=== PATIENT | female | born 1965 | race Caucasian/White ===

== ENCOUNTER 2016-12-23 11:23 | Observation (INO) ==
[2016-12-23] MEDS ORDERED: 0.9 % Sodium Chloride 1,000 ML IVC ONE (11:47)
[2016-12-23] MEDS ORDERED: *HR* HYDROmorphone (PF) 1 MG/ML SYRINGE IVP ONE (11:47)
[2016-12-23] MEDS ORDERED: Pantoprazole 40 MG VIAL IVP ONE (11:47)
[2016-12-23] MEDS ORDERED: *HR* Promethazine 25 MG/ML VIAL IVP ONE (11:47)
[2016-12-23 12:14] LABS: Basophils # 0.1 K/mcL (0.0-0.2); Basophils % 0.5 %; Eosinophils # 0.1 K/mcL (0.0-0.6); Eosinophils % 0.5 %; Hematocrit 39.9 % (35.3-44.9); Hemoglobin 13.4 g/dL (11.5-15.4); Immature Granulocytes % 0.3 % (0-4); Lymphocytes # 2.1 K/mcL (0.6-4.6); Lymphocytes % 15.8 %; Mean Corpuscular HGB Conc 33.6 g/dL (31.6-35.5); Mean Corpuscular Hemoglobin 31.2 pg (28.0-33.3); Mean Platelet Volume 9.1 fL (9.4-12.4); Monocytes # 1.1 K/mcL (0.0-1.3); Monocytes % 8.5 %; Neutrophils # 9.8 K/mcL (1.6-8.9); Platelet Count 454 K/mcL (140-400); Red Blood Count 4.29 M/mcL (3.82-4.97); Red Cell Distribution Width 13.1 % (11.5-14.5); Segmented Neutrophils % 74.4 %
[2016-12-23 12:31] LABS: BUN/Creatinine Ratio 52 (6-26); Blood Urea Nitrogen 49 mg/dL (7-20); Calcium 9.6 mg/dL (8.6-10.8); Carbon Dioxide 19 mEq/L (19-29); Chloride 104 mEq/L (98-109); Glucose 117 mg/dL (70-99); Lipase 31 Units/L (8-78); Magnesium 2.1 mg/dL (1.6-2.6); Osmolality,Calculated 296 (280-300); Potassium 4.6 mEq/L (3.5-4.5); Sodium 136 mEq/L (136-145); eGFR For African Americans > 60 (> 60); eGFR For Non-African Americans > 60 (> 60)
[2016-12-23 12:58] LABS: INR 1.1; Prothrombin Time 11.6 Seconds (9.4-12.1)
[2016-12-23 13:01] LABS: Activated Partial Thrombo Time 26.4 Seconds (26.0-36.0)
[2016-12-23] MEDS ORDERED: Diphenoxylate/Atropine 1 TAB TABLET PO PRN (15:12)
[2016-12-23] MEDS ORDERED: *HR* LORazepam 1 MG TABLET PO PRN (15:14)
[2016-12-23] MEDS ORDERED: Acetaminophen 325 MG TABLET PO PRN (15:49)
[2016-12-23] MEDS: Cholestyramine 4 GM POWD.PACK PO SCH ×2 (15:59→23:49)
[2016-12-23] MEDS: *HR* LORazepam 1 MG TABLET PO SCH ×2 (16:03→21:07)
[2016-12-23] MEDS: Ringers Solution, Lactated 1,000 ML IVC SCH ×2 (16:08→23:53)
[2016-12-23] MEDS ORDERED: Ondansetron 4 MG/2 ML VIAL IVP SCH (18:00)
[2016-12-23] MEDS: Diphenoxylate/Atropine 1 TAB TABLET PO SCH ×2 (18:20→21:08)
[2016-12-23] MEDS: *HR* Methadone 10 MG TABLET PO SCH (19:07)
--- NOTE | 2016-12-23 19:39 | Emergency Department Note ---
Disposition Clinical Impression: GI bleed Qualifiers: GI bleed type/associated pathology: unspecified gastrointestinal hemorrhage type Qualified Code(s): K92.2 - Gastrointestinal hemorrhage, unspecified Disposition: Admitted As Inpatient Condition: Serious Time of Disposition: 12:05 GI Bleed HPI - General Chief complaint: ED GI Bleed Stated complaint: bleeeding out ileostomy Time Seen by Provider: 12/23/16 11:33 Source: patient, family Limitations: no limitations Nursing Notes Reviewed: Yes Vital Signs Reviewed: Yes - History of Present Illness HPI Narrative: 21-year-old female with a history of short bowel syndrome presents with GI bleed patient has ileostomy and PEG tube in place. Patient states that she vomited dark coffee-ground like material times one day ago. He states that since then she is being having dark tarry-like stools in her class ileostomy bag. Patient states she filled up 3 L size containers. Patient also reports the same type of fluid in her PEG tube. Patient complains of abdominal pain but states she is always intelligent pain and is currently on hospice. Patient states that she would like this resolved and swelling to her for undergo treatment inpatient. Patient states her ileostomy is secondary to surgical complication bowel infection and resection secondary to a schedule resection of colon. Patient states Dr. Colunga was the surgeon who performed her surgery just over 2 years ago. - Related Data Home Medications Medication Instructions Recorded Confirmed Albuterol Neb [Proventil Neb] 2.5 mg IH TID 04/07/15 12/23/16 Albuterol Sulfate [Albuterol 2 puff IH Q4HR PRN 04/07/15 12/23/16 Inhaler] Oxygen 2 l NS AD 03/13/16 12/23/16 Promethazine [Phenergan] 25 mg PO Q6HR PRN 03/13/16 12/23/16 Cholestyramine 4 gm PO QID 05/24/16 12/23/16 LORazepam [Ativan] 2 mg PO QID 07/21/16 12/23/16 Amino AC/Whey Prot Conc, Isol 17 gm PO DAILY 12/23/16 12/23/16 [Whey Protein Powder] Calcium Carbonate/Vitamin D3 1 tab PO DAILY 12/23/16 12/23/16 [Calcium 500-Vit D3 200 Tablet] Diphenoxylate/Atropine [Lomotil 2 tab PO QID 12/23/16 12/23/16 2.5 mg/0.025 mg] Loperamide [Imodium] 4 mg PO QID 12/23/16 12/23/16 Methadone 20 mg PO BID 12/23/16 12/23/16 Morphine Sulfate [Morphine Sulfate] 2 ml PO Q1H PRN 12/23/16 12/23/16 Psyllium Husk [Daily Fiber] 0.52 gm PO DAILY 12/23/16 12/23/16 Tiotropium [Spiriva] 1 cap IH DAILY 12/23/16 12/23/16 Tylenol 650 mg PO PRN 12/23/16 Allergies Allergy/AdvReac Type Severity Reaction Status Date / Time shellfish derived Allergy UNKNOWN Verified 07/21/16 09:06 All systems ED: reviewed and negative except as stated. Constitutional: Reports: weakness. Denies: fever, chills Eyes: Denies: eye pain, vision change ENT ED: Denies: throat pain, congestion, dysphagia Cardiovascular: Denies: chest pain, palpitations Respiratory: Reports: hemoptysis. Denies: cough, dyspnea Gastrointestinal: Reports: abdominal pain, nausea, vomiting, hematemesis, melena Genitourinary: Denies: urgency, dysuria, frequency, hematuria Musculoskeletal: Denies: back pain, neck pain, joint swelling Integumentary: Denies: rash Neurological: Denies: headache Psychiatric: Denies: anxiety Endocrine: Reports: fatigue Past Medical History - Past Medical History Attestation: Yes The following information was validated with the patient. Source: patient Medical history: Reports: asthma, diabetes, GERD, hypertension, osteoporosis, seizures, other Surgical history: Reports: cholecystectomy, colectomy, hysterectomy, other Psychiatric history: Reports: anxiety, depression M[employer]IA [employer]ODUCER history: Reports: no MULT[employer]IA [employer]ODUCER history - Social History Smoking Status: Former smoker Smokeless Tobacco Status: No Alcohol use: Reports: none Drug use: Reports: none Physical Exam - General Limitations: no limitations General appearance: alert, in no apparent distress - Head Head exam: atraumatic, normocephalic, normal inspection - Eye Eye exam: Present: normal appearance, PERRL, EOMI. Absent: scleral icterus, conjunctival injection - ENT ENT exam: normal exam, normal oropharynx, mucous membranes moist - Neck Neck exam: Present: normal inspection, full ROM, trachea midline. Absent: tenderness, meningismus - Chest Chest inspection: Present: normal inspection, symmetric chest wall rise - Respiratory Respiratory exam: Present: normal lung sounds bilaterally. Absent: respiratory distress, wheezes - Cardiovascular Cardiovascular exam: Present: normal rhythm, tachycardia - Abdominal Exam Abdominal exam: Present: soft, tenderness, hyperactive bowel sounds, other ( Ileostomy mid right abdomen, PEG tube left upper abdomen. Both filled with tarry fluid). Absent: distention, guarding, rebound, rigidity - Extremities Exam Extremities exam: Present: normal inspection, full ROM, normal capillary refill. Absent: tenderness, pedal edema, joint swelling, calf tenderness - Back Exam Back exam: Present: normal inspection, full ROM. Absent: tenderness, CVA tenderness (R), CVA tenderness (L) - Neurological Exam Neurological exam: Present: alert, oriented X3, CN II-XII intact - Psychiatric Psychiatric exam: Present: normal affect, normal mood - Skin Skin exam: Present: warm, dry, intact, normal color. Absent: diaphoresis, pallor Course - Reevaluation(s) Reevaluation #1: Patient concerning for upper GI bleed, bowel obstruction, ischemic bowel, sepsis Plan is none. Workup, H&H, type and screen, lactate acid, flexion light and panel, LFTs, lipase, amylase, CT abdomen and pelvis, upper endoscopy admit. Time: 11:47 Reevaluation #2: Patient's hemoglobin and hematocrit did not show signs of the median. Patient is been admitted for endoscopy set of waiting for CT scan abdomen. Time: 12:00 - Consultations Consultation #1: Dr. Griggs was consulted and accepted the patient for admission. Time: 12:00 Vital Signs Temperature 97.8 F 12/23/16 11:25 Pulse Rate 128 12/23/16 11:25 Respiratory Rate 20 12/23/16 11:25 Blood Pressure 111/74 12/23/16 11:25 O2 Sat by Pulse Oximetry 99 12/23/16 11:25 Temperature 97.6 F 12/23/16 21:14 Pulse Rate 99 12/23/16 21:14 Respiratory Rate 18 12/23/16 21:14 Blood Pressure 136/82 12/23/16 21:14 O2 Sat by Pulse Oximetry 96 12/23/16 21:14 Oxygen Delivery Oxygen Delivery Room Air GI Bleed - Lab Data Lab results reviewed: Yes I reviewed the patient's lab results. Lab results narrative: Short CBC 12/23/16 Range/Units 11:59 WBC 13.2 H (4.3-11.1) K/mcL Hgb 13.4 (11.5-15.4) g/dL Hct 39.9 (35.3-44.9) % Plt Count 454 H (140-400) K/mcL Neutrophils # 9.8 H (1.6-8.9) K/mcL BMP 12/23/16 Range/Units 11:59 Sodium 136 (136-145) mEq/L Potassium 4.6 H (3.5-4.5) mEq/L Chloride 104 (98-109) mEq/L Carbon Dioxide 19 (19-29) mEq/L BUN 49 H (7-20) mg/dL Creatinine 0.95 (0.57-1.11) mg/dL Glucose 117 H (70-99) mg/dL Calcium 9.6 (8.6-10.8) mg/dL Cardiac Enzymes 12/23/16 Range/Units 11:59 Troponin I 0.00 (0-0.03) ng/mL Result diagrams: 12/23/16 11:59 12/23/16 11:59 Lab Results 12/23/16 12/23/16 12/23/16 Range/Units 11:59 11:59 11:59 WBC 13.2 H (4.3-11.1) K/mcL RBC 4.29 (3.82-4.97) M/mcL Hgb 13.4 (11.5-15.4) g/dL Hct 39.9 (35.3-44.9) % MCV 93.0 (83.0-100.0) fL MCH 31.2 (28.0-33.3) pg MCHC 33.6 (31.6-35.5) g/dL RDW 13.1 (11.5-14.5) % Plt Count 454 H (140-400) K/mcL MPV 9.1 L (9.4-12.4) fL Immature Gran % 0.3 (0-4) % Seg Neutrophils % 74.4 % Lymphocytes % 15.8 % Monocytes % 8.5 % Eosinophils % 0.5 % Basophils % 0.5 % Neutrophils # 9.8 H (1.6-8.9) K/mcL Lymphocytes # 2.1 (0.6-4.6) K/mcL Monocytes # 1.1 (0.0-1.3) K/mcL Eosinophils # 0.1 (0.0-0.6) K/mcL Basophils # 0.1 (0.0-0.2) K/mcL PT 11.6 (9.4-12.1) Seconds INR 1.1 APTT 26.4 (26.0-36.0) Seconds Sodium 136 (136-145) mEq/L Potassium 4.6 H (3.5-4.5) mEq/L Chloride 104 (98-109) mEq/L Carbon Dioxide 19 (19-29) mEq/L BUN 49 H (7-20) mg/dL Creatinine 0.95 (0.57-1.11) mg/dL Est GFR ( Amer) > 60 (> 60) Est GFR (Non-Af Amer) > 60 (> 60) BUN/Creatinine Ratio 52 H (6-26) Glucose 117 H (70-99) mg/dL Calculated Osmolality 296 (280-300) Lactic Acid (0.5-2.2) mmol/L Calcium 9.6 (8.6-10.8) mg/dL Magnesium 2.1 (1.6-2.6) mg/dL Troponin I (0-0.03) ng/mL Lipase 31 (8-78) Units/L Blood Type Antibody Screen 12/23/16 12/23/16 12/23/16 Range/Units 11:59 11:59 11:59 WBC (4.3-11.1) K/mcL RBC (3.82-4.97) M/mcL Hgb (11.5-15.4) g/dL Hct (35.3-44.9) % MCV (83.0-100.0) fL MCH (28.0-33.3) pg MCHC (31.6-35.5) g/dL RDW (11.5-14.5) % Plt Count (140-400) K/mcL MPV (9.4-12.4) fL Immature Gran % (0-4) % Seg Neutrophils % % Lymphocytes % % Monocytes % % Eosinophils % % Basophils % % Neutrophils # (1.6-8.9) K/mcL Lymphocytes # (0.6-4.6) K/mcL Monocytes # (0.0-1.3) K/mcL Eosinophils # (0.0-0.6) K/mcL Basophils # (0.0-0.2) K/mcL PT (9.4-12.1) Seconds INR APTT (26.0-36.0) Seconds Sodium (136-145) mEq/L Potassium (3.5-4.5) mEq/L Chloride (98-109) mEq/L Carbon Dioxide (19-29) mEq/L BUN (7-20) mg/dL Creatinine (0.57-1.11) mg/dL Est GFR ( Amer) (> 60) Est GFR (Non-Af Amer) (> 60) BUN/Creatinine Ratio (6-26) Glucose (70-99) mg/dL Calculated Osmolality (280-300) Lactic Acid 2.1 (0.5-2.2) mmol/L Calcium (8.6-10.8) mg/dL Magnesium (1.6-2.6) mg/dL Troponin I 0.00 (0-0.03) ng/mL Lipase (8-78) Units/L Blood Type O NEGATIVE Antibody Screen NEGATIVE - Radiology Data Radiology results reviewed: Yes I reviewed the patient's radiology results. Chest X-Ray 12/23/16 11:47 IMPRESSION: No acute process. D/ / Denilson Rose MD / Denilson Rose MD Interpreting Provider: Denilson Rose MD - EKG Data EKG attestation: Yes I reviewed and interpreted this EKG. EKG shows normal: sinus rhythm Rate: normal, tachycardia Critical Care Time Critical Care Time: Yes Total Critical Care Time: 35 Attestation: Vertical care time 35 minutes. Attestation Statement - Attestation Attestation: Patient was seen with resident physician. I reviewed the history, physical, assessment and plan, and agree with the findings. I also personally evaluated this patient and had [id number] time with this patient. 51-year-old female who presents to the emergency department with chief complaint of GI bleed. She has short gut syndrome and she has noticed both vomiting and dark melenic stool coming from her ileostomy bag. Going on for at least 1 day. She did want to come to the hospital but was encouraged to do so by family members. On examination patient appears pale and cachectic. Vital signs with mild hypotension and tachycardia. ENT is unremarkable heart and lungs heart is tachycardic. Lungs are clear. Abdomen patient appears to have melena in her ileostomy bag. Extremities patient's then neurologically patient is alert and oriented. Patient appears to have a GI bleed. IV fluids helped with her heart rate and blood pressure. Type and cross was done initial H&H was stable. She was started on Protonix. Discussed with endoscopy, and subsequent hospitalist for admission. Patient be admitted to the hospital for evaluation and treatment for a GI bleed. Her hemodynamics were improved at the time of admission. Critical care time managing GI bleed was 35 minutes. Agree with the resident physician assessment and plan.
[2016-12-24] MEDS: *HR* Methadone 10 MG TABLET PO SCH ×2 (05:28→17:28)
[2016-12-24 06:40] LABS: Basophils # 0.1 K/mcL (0.0-0.2); Basophils % 0.4 %; Eosinophils # 0.1 K/mcL (0.0-0.6); Eosinophils % 0.9 %; Hematocrit 32.2 % (35.3-44.9); Immature Granulocytes % 0.3 % (0-4); Lymphocytes # 1.4 K/mcL (0.6-4.6); Lymphocytes % 11.5 %; Mean Corpuscular HGB Conc 32.9 g/dL (31.6-35.5); Mean Corpuscular Hemoglobin 30.6 pg (28.0-33.3); Mean Corpuscular Volume 93.1 fL (83.0-100.0); Mean Platelet Volume 9.2 fL (9.4-12.4); Monocytes # 0.7 K/mcL (0.0-1.3); Monocytes % 5.9 %; Neutrophils # 9.5 K/mcL (1.6-8.9); Platelet Count 343 K/mcL (140-400); Red Blood Count 3.46 M/mcL (3.82-4.97); Red Cell Distribution Width 13.1 % (11.5-14.5)
[2016-12-24 06:48] LABS: Hemoglobin 10.6 g/dL (11.5-15.4)
[2016-12-24 06:49] LABS: BUN/Creatinine Ratio 45 (6-26); Calcium 8.6 mg/dL (8.6-10.8); Carbon Dioxide 20 mEq/L (19-29); Chloride 109 mEq/L (98-109); Glucose 105 mg/dL (70-99); Osmolality,Calculated 295 (280-300); Potassium 3.6 mEq/L (3.5-4.5); Sodium 139 mEq/L (136-145); eGFR For African Americans > 60 (> 60); eGFR For Non-African Americans > 60 (> 60)
[2016-12-24 06:56] LABS: Blood Urea Nitrogen 30 mg/dL (7-20)
--- NOTE | 2016-12-24 07:25 | General Surg History&Physical ---
Date of Encounter: 12/24/16 Time of Encounter: 07:15 Assessment and Plan (1) Upper GI bleed Current Visit: Yes Status: Acute The assessment and plan as outlined above was discussed with the patient and/or family members who expressed understanding and agreement. All questions were answered. The patient reports vomiting coffee ground emesis and melena. Her hemoglobin is 10.2 and hematocrit is 31%. She now presents for upper endoscopy to rule out upper GI source. After completion of the procedure she will receive hydration and then return to hospice care tomorrow (2) Vomiting Current Visit: Yes Status: Acute The assessment and plan as outlined above was discussed with the patient and/or family members who expressed understanding and agreement. All questions were answered. The patient's experienced vomiting over the last several days now presents for upper endoscopy to rule out gastric outlet obstruction or source of bleeding she is on hospice care and his gastrostomy tube in place Qualifiers: Vomiting type: hematemesis Nausea presence: with nausea Qualified Code(s) : K92.0 - Hematemesis; R11.0 - Nausea History of Present Illness Chief complaint: Vomiting blood and melena in her ileostomy HPI: Ms. Rosado is a 51 year old female Has a long history of gastrointestinal problems. She is currently in hospice for short gut syndrome. She has had past: Dilatation followed by colon resection. The ileocolonic anastomosis broke down and required ileostomy. She is had difficulty with nausea and vomiting since then. She has had recent workup in June [address] Rader performed upper endoscopy. I personally reviewed these images. She did have a loose Tanya fundoplication as well as reflux esophagitis. The remainder the stomach was within normal limits and her gastrostomy tube was intact. The patient now gives a history of vomiting coffee ground emesis as well as passing melena in her ileostomy. She has crampy central abdominal pain. She is on a variety of narcotic medicines through hospice she now presents for upper endoscopy. Past Med Surg Social Fam HX - Past Medical History Medical history: asthma, diabetes, GERD, hypertension, osteoporosis, seizures, other Psychiatric history: anxiety, depression - Past Surgical History Surgical History: cholecystectomy, colectomy, hysterectomy, other (Gastrostomy tube) - Social History Smoking Status: Former smoker Smokeless Tobacco Status: No Alcohol use: none Drug use: none - Family History Mother Living Status: Still Living Hx Family Cardiac Disorders: Yes (CAD) Hx Family Respiratory Disorders: No Hx Family Endocrine Disorder: Yes (diabetes) Father Adopted: No Living Status: Still Living Hx Family Cardiac Disorders: Yes Hx Family Respiratory Disorders: No Medications and Allergies Albuterol Neb [Proventil Neb] 2.5 mg IH TID 04/07/15 [History] Albuterol Sulfate [Albuterol Inhaler] 2 puff IH Q4HR PRN 04/07/15 [History] Oxygen 2 l NS AD 03/13/16 [History] Promethazine [Phenergan] 25 mg PO Q6HR PRN 03/13/16 [History] Cholestyramine 4 gm PO QID 05/24/16 [History] LORazepam [Ativan] 2 mg PO QID 07/21/16 [History] Amino AC/Whey Prot Conc, Isol [Whey Protein Powder] 17 gm PO DAILY 12/23/16 [ History] Calcium Carbonate/Vitamin D3 [Calcium 500-Vit D3 200 Tablet] 1 tab PO DAILY [History] Diphenoxylate/Atropine [Lomotil 2.5 mg/0.025 mg] 2 tab PO QID 12/23/16 [History] Loperamide [Imodium] 4 mg PO QID 12/23/16 [History] Methadone 20 mg PO BID 12/23/16 [History] Morphine Sulfate [Morphine Sulfate] 2 ml PO Q1H PRN 12/23/16 [History] Psyllium Husk [Daily Fiber] 0.52 gm PO DAILY 12/23/16 [History] Tiotropium [Spiriva] 1 cap IH DAILY 12/23/16 [History] Tylenol 650 mg PO PRN 12/23/16 [History] Allergies shellfish derived Allergy (Verified 07/21/16 09:06) UNKNOWN unknown Review of Systems All systems PM: reviewed and no additional remarkable complaints except as stated All systems PM: A 10-system review of systems was performed and is negative for pertinent findings except as documented above in the HPI. General Surgery Exam Initial Vital Signs Temp Pulse Resp BP Pulse Ox 97.8 F 128 20 111/74 99 12/23/16 11:25 12/23/16 11:25 12/23/16 11:25 12/23/16 11:25 12/23/16 11:25 - General physical appearance cachectic, chronically ill - Neck no masses, no bruits, trachea midline, no lymphadectomy, no venous distension - Respiratory normal expansion, normal respiratory effort, clear to percussion, clear to auscultation - Cardiovascular Cardiovascular exam: Present: RRR, no murmurs/rubs/gallops - Abdomen Abdomen general surgery: Present: bowel sounds present, soft, non tender (Well- healed midline. Functioning ileostomy. Dark stool in the ileostomy) - Neurologic Present: CN 2-12 grossly intact, normal coordination, normal sensation - Psychiatric Psychiatric general surgery: Present: appropriate, oriented to person, oriented to place, oriented to time, speech is normal, memory intact, other (Depressed) Results - Labs 12/24/16 06:07 12/24/16 06:07 Abnormal lab results WBC 11.8 K/mcL (4.3-11.1) H 12/24/16 06:07 RBC 3.46 M/mcL (3.82-4.97) L 12/24/16 06:07 Hgb 10.6 g/dL (11.5-15.4) L D 12/24/16 06:07 Hct 32.2 % (35.3-44.9) L 12/24/16 06:07 MPV 9.2 fL (9.4-12.4) L 12/24/16 06:07 Neutrophils # 9.5 K/mcL (1.6-8.9) H 12/24/16 06:07 BUN 30 mg/dL (7-20) H D 12/24/16 06:07 BUN/Creatinine Ratio 45 (6-26) H 12/24/16 06:07 Glucose 105 mg/dL (70-99) H 12/24/16 06:07 POC Glucose 103 (58-89) H 12/24/16 05:55 Diabetes panel 12/24/16 Range/Units 06:07 Sodium 139 (136-145) mEq/L Potassium 3.6 D (3.5-4.5) mEq/L Chloride 109 (98-109) mEq/L Carbon Dioxide 20 (19-29) mEq/L BUN 30 H D (7-20) mg/dL Creatinine 0.66 (0.57-1.11) mg/dL Glucose 105 H (70-99) mg/dL Calcium 8.6 (8.6-10.8) mg/dL Calcium panel 12/24/16 Range/Units 06:07 Calcium 8.6 (8.6-10.8) mg/dL Pituitary panel 12/24/16 Range/Units 06:07 Sodium 139 (136-145) mEq/L Potassium 3.6 D (3.5-4.5) mEq/L Chloride 109 (98-109) mEq/L Carbon Dioxide 20 (19-29) mEq/L BUN 30 H D (7-20) mg/dL Creatinine 0.66 (0.57-1.11) mg/dL Glucose 105 H (70-99) mg/dL Calcium 8.6 (8.6-10.8) mg/dL Adrenal panel 12/24/16 Range/Units 06:07 Sodium 139 (136-145) mEq/L Potassium 3.6 D (3.5-4.5) mEq/L Chloride 109 (98-109) mEq/L Carbon Dioxide 20 (19-29) mEq/L BUN 30 H D (7-20) mg/dL Creatinine 0.66 (0.57-1.11) mg/dL Glucose 105 H (70-99) mg/dL Calcium 8.6 (8.6-10.8) mg/dL All other labs normal.
[2016-12-24] MEDS: Cholestyramine 4 GM POWD.PACK PO SCH ×4 (07:43→21:30)
[2016-12-24] MEDS: Diphenoxylate/Atropine 1 TAB TABLET PO SCH ×4 (07:44→20:25)
[2016-12-24] MEDS: Psyllium 1 PACKET POWD.PACK GTUBE SCH (07:44)
[2016-12-24] MEDS: *HR* LORazepam 1 MG TABLET PO SCH ×4 (07:49→20:25)
[2016-12-24] MEDS: Ondansetron 4 MG/2 ML VIAL IVP PRN ×2 (07:52→20:33)
[2016-12-24] MEDS ORDERED: Simethicone 40 MG/0.6 ML MLS IR ONE (08:24)
[2016-12-24] MEDS ORDERED: Tetracaine/Benzocaine/Butamben 200MG/SPRAY (100SPY/BOT) MM ONE (08:24)
[2016-12-24] MEDS ORDERED: *HR* Midazolam HCl 5 MG/5 ML VIAL IVP ONE (08:25)
[2016-12-24] MEDS ORDERED: *HR* FentaNYL (PF) 100 MCG/2 ML VIAL ONE ×2 (08:26→08:36)
--- NOTE | 2016-12-24 08:26 | Pre-Sedation Evaluation ---
Pre-sedation evaluation - Pre-sedation checklist Date of procedure: 12/24/16 Procedure: EGD Recent Vitals: Last Vital Signs Temp 98.1 F 12/24/16 07:00 Pulse 107 12/24/16 07:00 Resp 16 12/24/16 07:00 BP 130/83 12/24/16 07:00 Pulse Ox 98 12/24/16 07:55 H&P (including ROS) documented in medical record: Yes Previous reaction to sedatives/anesthetics: No Dietary Status: NPO after Midnight Airway Assessment: Patient can open mouth completely, TMJ function normal Dentition: full dentition Possible difficult airway: No ASA Classification *see protocol: CLASS III-Severe systemic disease Plan of Care: Pt appropriate candidate for procedure/moderate/conscious sedation , Risks/benefits of procedure/sedation discussed w/ patient/family
[2016-12-24] MEDS: *HR* FentaNYL (PF) 100 MCG/2 ML VIAL IVP PRN ×2 (08:42→08:44)
[2016-12-24] MEDS: *HR* Midazolam HCl 5 MG/5 ML VIAL IVP PRN ×4 (08:43→08:46)
[2016-12-24] MEDS ORDERED: 0.9 % Sodium Chloride 500 ML IVC SCH (08:45)
[2016-12-24] MEDS: Ringers Solution, Lactated 1,000 ML IVC SCH ×2 (10:22→20:24)
[2016-12-24] MEDS: Nystatin SUSP 5 ML UD.LIQ PO SCH ×4 (11:35→20:29)
[2016-12-24] MEDS: Fluconazole 100 MG TABLET PO SCH (11:35)
[2016-12-24] MEDS: *HR* Morphine Soln 10 MG/5 ML UDC PO PRN ×2 (15:02→20:29)
--- NOTE | 2016-12-24 20:29 | Electrocardiograph Report ---
[address] [place], [place] [address] Test Date: 2016-12-23 Pat Name: Shona Rosado Department: 105 Room: 3A25 Gender: F Forming Department Supervisor: AISLINN : [id number] Requested By: Tylor Goins Order Number: [id number] Reading MD: Jean Carlos Matias MD Measurements Intervals [place] Rate: 118 P: 65 DE: 127 QRS: 32 QRSD: 80 T: 52 QT: 314 QTc: 384 Interpretive Statements SINUS TACHYCARDIA Electronically Signed On 12-24-2016 20:27:31 EDT by Jean Carlos Matias MD
[2016-12-25] MEDS: *HR* Morphine Soln 10 MG/5 ML UDC PO PRN ×3 (00:15→12:23)
[2016-12-25] MEDS: Ringers Solution, Lactated 1,000 ML IVC SCH ×2 (04:07→12:30)
[2016-12-25] MEDS: *HR* Methadone 10 MG TABLET PO SCH (06:10)
[2016-12-25] MEDS: Cholestyramine 4 GM POWD.PACK PO SCH ×2 (06:13→12:22)
[2016-12-25] MEDS ORDERED: Fluconazole 100 MG TABLET PO SCH (09:00)
[2016-12-25] MEDS: Diphenoxylate/Atropine 1 TAB TABLET PO SCH ×2 (09:32→12:22)
[2016-12-25] MEDS: Fluconazole 100 MG TABLET PO SCH (09:32)
[2016-12-25] MEDS: Nystatin SUSP 5 ML UD.LIQ PO SCH ×2 (09:34→12:31)
[2016-12-25] MEDS: *HR* LORazepam 1 MG TABLET PO SCH ×2 (09:34→12:22)
[2016-12-25] MEDS: Psyllium 1 PACKET POWD.PACK GTUBE SCH (09:34)
[2016-12-25] MEDS: Ondansetron 4 MG/2 ML VIAL IVP PRN (09:45)
[2016-12-25 10:16] LABS: Hematocrit 25.3 % (35.3-44.9); Mean Corpuscular HGB Conc 33.2 g/dL (31.6-35.5); Mean Corpuscular Hemoglobin 31.1 pg (28.0-33.3); Mean Corpuscular Volume 93.7 fL (83.0-100.0); Mean Platelet Volume 9.1 fL (9.4-12.4); Platelet Count 226 K/mcL (140-400); Red Cell Distribution Width 12.7 % (11.5-14.5)
[2016-12-25 10:47] LABS: Hemoglobin 8.4 g/dL (11.5-15.4)
--- NOTE | 2016-12-25 15:11 | Discharge Summary ---
<Sameera Mcgrath - Last Filed: 12/25/16 15:08> Date of Encounter: 12/25/16 Time of Encounter: 15:00 - Discharge Diagnosis (1) Upper GI bleed Priority: Primary Status: Acute (2) Candidiasis of esophagus Priority: Primary Status: Acute (3) Acute blood loss anemia Priority: Secondary Status: Acute - Discharge Medications Prescriptions: Fluconazole [Diflucan] 200 mg PO DAILY #10 tablet Nystatin [Nystatin Suspension] 500,000 units PO QID #200 ml Pantoprazole Sodium [Protonix] 40 mg PO BID #60 tablet. [place] Medications: Albuterol Neb [Proventil Neb] 2.5 mg IH TID 04/07/15 [History] Albuterol Sulfate [Albuterol Inhaler] 2 puff IH Q4HR PRN 04/07/15 [History] Oxygen 2 l NS AD 03/13/16 [History] Promethazine [Phenergan] 25 mg PO Q6HR PRN 03/13/16 [History] Cholestyramine 4 gm PO QID 05/24/16 [History] LORazepam [Ativan] 2 mg PO QID 07/21/16 [History] Amino AC/Whey Prot Conc, Isol [Whey Protein Powder] 17 gm PO DAILY 12/23/16 [ History] Calcium Carbonate/Vitamin D3 [Calcium 500-Vit D3 200 Tablet] 1 tab PO DAILY [History] Diphenoxylate/Atropine [Lomotil 2.5 mg/0.025 mg] 2 tab PO QID 12/23/16 [History] Loperamide [Imodium] 4 mg PO QID 12/23/16 [History] Methadone 20 mg PO BID 12/23/16 [History] Morphine Sulfate 2 ml PO Q1H PRN 12/23/16 [History] Psyllium Husk [Daily Fiber] 0.52 gm PO DAILY 12/23/16 [History] Tiotropium [Spiriva] 1 cap IH DAILY 12/23/16 [History] Tylenol 650 mg PO PRN 12/23/16 [History] Fluconazole [Diflucan] 200 mg PO DAILY #10 tablet 12/25/16 [Rx] Nystatin [Nystatin Suspension] 500,000 units PO QID #200 ml 12/25/16 [Rx] Pantoprazole Sodium [Protonix] 40 mg PO BID #60 tablet. 12/25/16 [Rx] Allergies/Adverse Reactions: Allergies shellfish derived Allergy (Verified 07/21/16 09:06) UNKNOWN unknown General Surgery Exam Initial Vital Signs Temp Pulse Resp BP Pulse Ox 97.8 F 128 20 111/74 99 12/23/16 11:25 12/23/16 11:25 12/23/16 11:25 12/23/16 11:25 12/23/16 11:25 - General physical appearance well developed, well nourished, no distress - Eyes normal ocular movement - ENT normal mucosa, dry mucosa, atraumatic - Neck trachea midline - Respiratory normal respiratory effort, clear to auscultation - Cardiovascular Cardiovascular exam: Present: RRR - Abdomen Abdomen general surgery: Present: bowel sounds present, soft, non tender, wound (colostomy with liquid, brown stool noted) - Integumentary Integumentary general surgery: Present: warm and dry - Neurologic Present: CN 2-12 grossly intact - Psychiatric Psychiatric general surgery: Present: appropriate, oriented to person, oriented to place, oriented to time, speech is normal, memory intact Date of admission: 12/23/16 12:09 Primary care physician: Crescencio Snell MD Consults: 12/23/16 13:31 Consult to Nutrition [CONS] Routine Comment: Consulting Provider: NUTRITION Reason for Dietary Consult: MST Score Consult to Cms Expert [CONS] Routine Reason for SW Consult: discharge planning, hospice at home 12/23/16 19:45 Consult to Gastroenterology [CONS] Stat Consulting Provider: Gastroenterology Era Reason for Consult: gi bleed Time Notified: 12:00 Call Completed: Yes Discharging clinician: Demetrius Griggs ([facility]) Anticipated date of discharge: 12/25/16 - Patient Status Disposition: Hospice - Home Condition: Good Overall status at discharge: patient is back to baseline - Discharge Instructions Follow Up With: Demetrius Griggs MD [Partnered Physician] - (no routine follow-up necessary) Crescencio Snell MD [Primary Care Provider] - (1-2 weeks hospital follow-up) Forms: ED Satisfaction Letter - Diet and Activity Activity: increase activity as tolerated Diet: advance to your usual diet, other (resume home tube feeding regimen at night) - Hospital Course Hospital course: Ms. Rosado is a 51 year old female presented to the hospital with melena and hematemesis. She is s/p EGD with Dr. Griggs which was revealed esophageal candidiasis. The patient was started on Nystatin and Diflucan and PPI therapy. Her bleeding has stopped with this treatment regimen. She is tolerating her tube feeding. Her vital signs are stable and she is afebrile. We will begin discharge planning and she may follow-up on an as needed basis. - Time Spent with Patient Total time spent providing and/or coordinating discharge services: Less than 30 minutes Labs on day of discharge: Labs from last 24 hours 12/25/16 12/25/16 12/25/16 11:26 10:00 04:33 WBC 6.1 RBC 2.70 L Hgb 8.4 L D Hct 25.3 L MCV 93.7 MCH 31.1 MCHC 33.2 RDW 12.7 Plt Count 226 MPV 9.1 L POC Glucose 123 H 115 H 12/25/16 12/24/16 12/24/16 00:13 20:47 15:40 WBC RBC Hgb Hct MCV MCH MCHC RDW Plt Count MPV POC Glucose 122 H 89 136 H - Attending Attestation I examined this patient and my medical decision-making was reviewed with the PHOTOGRAPHIC EDITOR/PA/Advanced Practice Nurse/Resident Physician. I agree with the documented findings, disposition and treatment plan as described except to the extent set forth below. <Demetrius Griggs - Last Filed: 12/25/16 16:00> Date of Encounter: 12/25/16 - Discharge Diagnosis (1) Upper GI bleed Status: Resolved (2) Vomiting Status: Acute Qualifiers: Vomiting type: hematemesis Nausea presence: with nausea Qualified Code(s) : K92.0 - Hematemesis; R11.0 - Nausea General Surgery Exam Initial Vital Signs Temp Pulse Resp BP Pulse Ox 97.8 F 128 20 111/74 99 12/23/16 11:25 12/23/16 11:25 12/23/16 11:25 12/23/16 11:25 12/23/16 11:25 Date of admission: 12/23/16 12:09 Primary care physician: Crescencio Snell MD Consults: 12/23/16 13:31 Consult to Nutrition [CONS] Routine Comment: Consulting Provider: NUTRITION Reason for Dietary Consult: MST Score Consult to Cms Expert [CONS] Routine Reason for SW Consult: discharge planning, hospice at home 12/23/16 19:45 Consult to Gastroenterology [CONS] Stat Consulting Provider: Gastroenterology Era Reason for Consult: gi bleed Time Notified: 12:00 Call Completed: Yes - Hospital Course Hospital course: Ms. Rosado is a 51 year old female - Time Spent with Patient Total time spent providing and/or coordinating discharge services: Labs on day of discharge: Labs from last 24 hours 12/25/16 12/25/16 12/25/16 11:26 10:00 04:33 WBC 6.1 RBC 2.70 L Hgb 8.4 L D Hct 25.3 L MCV 93.7 MCH 31.1 MCHC 33.2 RDW 12.7 Plt Count 226 MPV 9.1 L POC Glucose 123 H 115 H 12/25/16 12/24/16 12/24/16 00:13 20:47 15:40 WBC RBC Hgb Hct MCV MCH MCHC RDW Plt Count MPV POC Glucose 122 H 89 136 H - Attending Attestation Tolerating diet after treatment for candidiasis of the esophagus
[2016-12-25 15:15] VITALS: BP 95/58
--- NOTE | 2016-12-25 15:33 | Physician Discharge Referral ---
<Sameera Mcgrath Ann - Last Filed: 12/25/16 15:31> Home Health/Hosp Referral Info Transfer to: Hospice Attending Provider: Dr. Demetrius Griggs Provider in Charge Post Discharge: PCP - Diagnosis (1) Upper GI bleed Priority: Primary Status: Resolved (2) Candidiasis of esophagus Priority: Primary Status: Acute (3) Acute blood loss anemia Priority: Secondary Status: Acute - Respiratory Orders Oxygen / L per min - Diet/Nutrition Diet/Nutrition Orders: Mechanical Soft (bland) Diet/Nutrition: List: Resume tube feedings per home routine at night - Activity Activity Orders: Up ad chris - Services Needed Home Care Orders: Resume hospice services Other Treatments: Resume hospice services - Transfer Medications Prescriptions: Fluconazole [Diflucan] 200 mg PO DAILY #10 tablet Nystatin [Nystatin Suspension] 500,000 units PO QID #200 ml Pantoprazole Sodium [Protonix] 40 mg PO BID #60 tablet. [place] Medications: Albuterol Neb [Proventil Neb] 2.5 mg IH TID 04/07/15 [History] Albuterol Sulfate [Albuterol Inhaler] 2 puff IH Q4HR PRN 04/07/15 [History] Oxygen 2 l NS AD 03/13/16 [History] Promethazine [Phenergan] 25 mg PO Q6HR PRN 03/13/16 [History] Cholestyramine 4 gm PO QID 05/24/16 [History] LORazepam [Ativan] 2 mg PO QID 07/21/16 [History] Amino AC/Whey Prot Conc, Isol [Whey Protein Powder] 17 gm PO DAILY 12/23/16 [ History] Calcium Carbonate/Vitamin D3 [Calcium 500-Vit D3 200 Tablet] 1 tab PO DAILY [History] Diphenoxylate/Atropine [Lomotil 2.5 mg/0.025 mg] 2 tab PO QID 12/23/16 [History] Loperamide [Imodium] 4 mg PO QID 12/23/16 [History] Methadone 20 mg PO BID 12/23/16 [History] Morphine Sulfate 2 ml PO Q1H PRN 12/23/16 [History] Psyllium Husk [Daily Fiber] 0.52 gm PO DAILY 12/23/16 [History] Tiotropium [Spiriva] 1 cap IH DAILY 12/23/16 [History] Tylenol 650 mg PO PRN 12/23/16 [History] Fluconazole [Diflucan] 200 mg PO DAILY #10 tablet 12/25/16 [Rx] Nystatin [Nystatin Suspension] 500,000 units PO QID #200 ml 12/25/16 [Rx] Pantoprazole Sodium [Protonix] 40 mg PO BID #60 tablet. 12/25/16 [Rx] Allergies/Adverse Reactions: Allergies shellfish derived Allergy (Verified 07/21/16 09:06) UNKNOWN unknown Certification: Further, I certify that my clinical findings support that this patient is homebound (i.e. absences from home require considerable and taxing effort and are for medical reasons or buddhist services or infrequently or short duration when for other reasons) because: Homebound Reason: Patient requires assistance of a person or device to safely leave home, Leaving home requires considerable and taxing effort due to condition Attestation: My signature below is to certify that this patient is under my care and that I, or nurse practitioner, or a physician's machine assistant working with me, has a face-to -face encounter with this patient. <Demetrius Griggs - Last Filed: 12/25/16 16:01> - Diagnosis (1) Upper GI bleed Status: Resolved (2) Vomiting Status: Acute - Respiratory Orders Smoking Cessation: Smoking cessation has been advised. For more information, call the [place] Tobacco Quit Line at 0-264-QVEU-NOW. Certification: Further, I certify that my clinical findings support that this patient is homebound (i.e. absences from home require considerable and taxing effort and are for medical reasons or buddhist services or infrequently or short duration when for other reasons) because: Attestation: My signature below is to certify that this patient is under my care and that I, or nurse practitioner, or a physician's machine assistant working with me, has a face-to -face encounter with this patient. Demetrius Griggs MD FACS
== END 2016-12-25 16:15 | disposition hospice, home (50) ==
LOC: 3ANU 11:23 → EMEROO 11:23 → 3ANU 12:47
PROVIDERS: ADMIT Surgery; ATTEND Surgery

== ENCOUNTER 2017-08-27 13:48 | Inpatient (IN) ==
[2017-08-27] MEDS ORDERED: 0.9 % Sodium Chloride 1,000 ML IVC ONE (14:10)
--- NOTE | 2017-08-27 14:18 | Emergency Department Note ---
Disposition Clinical Impression: Cachectic, Dehydration, Sacral decubitus ulcer, stage IV, Hypokalemia Syncopal episodes Qualifiers: Syncope type: unspecified Qualified Code(s): R55 - Syncope and collapse Disposition: Admitted As Inpatient Condition: Fair Time of Disposition: 17:12 General Adult HPI - General Chief complaint: ED General Medical Stated complaint: Seizure?? Time Seen by Provider: 08/27/17 13:52 Source: patient Limitations: no limitations Nursing Notes Reviewed: Yes Vital Signs Reviewed: Yes - History of Present Illness HPI Narrative: Patient is a 52-year-old female presents to the emergency department for dizziness and possible syncopal episode. Patient states that she was at her mother's house for the holiday and felt dizzy and like the room was spinning. She is unsure if she lost consciousness. Denies any fall or injury. She states that she was just sitting on the couch. Patient states that she has had significant amount of weight loss recently due to not being able to eat or take any medications. She states that she has difficulty swallowing any sort of food. She has a history of having a feeding tube in place as well as a colostomy bag. She states that the feeding tube was removed due to her being able to maintain body weight. However she states that she feels like she may need some other form of nutrition due to having such low body weight. Patient states that the dizziness began approximately one hour prior to arrival and states that position did not change her symptoms of dizziness. Pain Scale: 10 - Related Data Home Medications Medication Instructions Recorded Confirmed Albuterol Neb [Proventil Neb] 2.5 mg IH TID 04/07/15 12/23/16 Albuterol Sulfate [Albuterol 2 puff IH Q4HR PRN 04/07/15 12/23/16 Inhaler] Oxygen 2 l NS AD 03/13/16 12/23/16 Promethazine [Phenergan] 25 mg PO Q6HR PRN 03/13/16 12/23/16 Cholestyramine 4 gm PO QID 05/24/16 12/23/16 LORazepam [Ativan] 2 mg PO QID 07/21/16 12/23/16 Amino AC/Whey Prot Conc, Isol 17 gm PO DAILY 12/23/16 12/23/16 [Whey Protein Powder] Calcium Carbonate/Vitamin D3 1 tab PO DAILY 12/23/16 12/23/16 [Calcium 500-Vit D3 200 Tablet] Diphenoxylate/Atropine [Lomotil 2 tab PO QID 12/23/16 12/23/16 2.5 mg/0.025 mg] Loperamide [Imodium] 4 mg PO QID 12/23/16 12/23/16 Methadone 20 mg PO BID 12/23/16 12/23/16 Morphine Sulfate 2 ml PO Q1H PRN 12/23/16 12/23/16 Psyllium Husk [Daily Fiber] 0.52 gm PO DAILY 12/23/16 12/23/16 Tiotropium [Spiriva] 1 cap IH DAILY 12/23/16 12/23/16 Tylenol 650 mg PO PRN 12/23/16 Previous Rx's Medication Instructions Recorded Fluconazole [Diflucan] 200 mg PO DAILY #10 tablet 12/25/16 Nystatin [Nystatin Suspension] 500,000 units PO QID #200 ml 12/25/16 Pantoprazole Sodium [Protonix] 40 mg PO BID #60 tablet. 12/25/16 Allergies Allergy/AdvReac Type Severity Reaction Status Date / Time shellfish derived Allergy UNKNOWN Verified 07/21/16 09:06 All systems ED: reviewed and negative except as stated. Constitutional: Reports: weakness, weight change Gastrointestinal: Reports: abdominal pain, other (States her abdomen is raw around her colostomy bag). Denies: nausea, vomiting Musculoskeletal: Reports: back pain Neurological: Reports: other (Patient reports dizziness) Past Medical History - Past Medical History Medical history: Reports: asthma, diabetes, GERD, hypertension, osteoporosis, seizures, other Surgical history: Reports: cholecystectomy, colectomy, hysterectomy, other ( Gastrostomy tube) Psychiatric history: Reports: anxiety, depression MECHANICAL HANDYMAN history: Reports: no MECHANICAL HANDYMAN history - Social History Smoking Status: Former smoker Smokeless Tobacco Status: No Alcohol use: Reports: none Drug use: Reports: none Physical Exam - General Limitations: no limitations General appearance: alert, cachectic - Head Head exam: atraumatic, normocephalic - Eye Eye exam: Present: normal appearance, EOMI - Neck Neck exam: Present: normal inspection, full ROM, trachea midline - Respiratory Respiratory exam: Present: normal lung sounds bilaterally. Absent: respiratory distress, wheezes - Cardiovascular Cardiovascular exam: Present: normal rhythm, tachycardia, normal heart sounds, + S1, +S2 - Abdominal Exam Abdominal exam: Present: soft, normal bowel sounds, other (Patient has a colostomy bag in place. Patient had duct tape holding her colostomy bag. There was irritation and redness around the duct tape and colostomy bag.) - Back Exam Back exam: Present: other (Appears to be a sacral decubitus down to the bone.) - Neurological Exam Neurological exam: Present: alert, oriented X3, CN II-XII intact. Absent: motor sensory deficit - Expanded Neurological Exam Patient oriented to: Present: person, place, time Speech: Present: fluid speech Cranial nerves: EOM function (II, III, IV, ): Normal, facial sensation (V): Normal, facial palsy (VII): Normal, gag reflex (IX): Normal, spinal accessory function (XI): Normal, tongue deviation (XII): Normal Cerebellar function: finger to nose: Normal, heel to michel: Normal Motor strength - LUE: 5/5 Motor strength - RUE: 5/5 Motor strength - LLE: 5/5 Motor strength - RLE: 5/5 Upper motor neuron exam: pronator drift: Absent bilaterally Sensory exam upper extremity: light touch: Normal Sensory exam lower extremity: light touch: Normal Coma Scale Eye Opening: Spontaneous Coma Scale Motor Response: Obeys Commands Coma Scale Verbal Response: Oriented Coma Scale Total: 15 - Psychiatric Psychiatric exam: Present: normal affect, normal mood - Skin Skin exam: Present: warm, dry, other (Patient has skin irritation on the abdomen near her colostomy site and around the duct tape) Course Vital Signs Temperature 97.5 F L 08/27/17 13:49 Pulse Rate 112 08/27/17 13:49 Respiratory Rate 08/27/17 13:49 Blood Pressure 97/85 08/27/17 13:49 O2 Sat by Pulse Oximetry 98 08/27/17 13:49 Temperature 97.5 F L 08/27/17 13:49 Pulse Rate 98 08/27/17 16:30 Respiratory Rate 12 08/27/17 16:30 Blood Pressure 104/67 08/27/17 16:30 O2 Sat by Pulse Oximetry 99 08/27/17 16:30 Oxygen Delivery Oxygen Delivery Room Air Procedures - Central Line Placement Right IJ Central Line Inserted*: Yes Central Line Insertion: emergent Consent Obtained: verbal consent Procedural Pause: verify patient name and date of Patient Placed on Monitor/Pulse Ox: Yes During the Procedure: clinician is wearing sterile gloves, cap, mask,& gown during insertion, sterile field and sterile technique are maintained, patient's face is covered with drape or mask and wearing a cap, everyone in room is wearing a mask Central Line Prep: Chlorhexidine scrub Prep the Procedure Site: apply chloraprep to the skin using a back and forth scrubbing motion, apply chloraprep for 30 seconds (upper body), 1-2 min ( femoral sites), allow prep to dry, drape the patient with a full body drape Amount of anesthesia used (mL): 0 Ultrasound Used for Placement: Yes Central Line Lumen Inserted: triple Post Procedure: sutured in place, good blood return, all ports aspirated, flushed, capped, sterile dressing applied, guide wire removed and visualized, dressing is dated Post Procedure X-Ray: tip of catheter in good position, no pneumothorax seen Patient Tolerated Procedure: well Complications: none Name of Clinician Inserting Central Line: Dr Ran Balderas Date: 08/27/17 Time: 15:29 Medical Decision Making - [facility] Narrative Medical decision making narrative: Gen. the patient stating that she is weak and dizzy according possible syncopal event we will order a CBC, BMP, magnesium, troponin, EKG, chest x-ray. The patient did become unresponsive for 10-15 seconds during exam. Patient returned to baseline immediately after the episode. The attending was notified and came to the bedside. Nurses were unable to obtain an IV due to the patient' s cachectic body habitus. A central line was placed by the attending. Patient was given fluids. Due to the patient being so cachectic, malnourished and having a syncopal episode. The patient also has a sacral decubitus that is down to the bone. It has been just here in the emergency department. Patient was also hypokalemic and has given supplementation here in the ER. Patient be admitted to the hospital. We have spoken with the hospitals they have accepted the patient to service. The patient will be admitted to the hospital at this time. - Medical Records Medical records reviewed: Yes I reviewed the patient's medical records. - Lab Data Lab results reviewed: Yes I reviewed the patient's lab results. Result diagrams: 08/27/17 15:41 08/27/17 15:41 Lab Results 08/27/17 08/27/17 08/27/17 Range/Units 15:41 15:41 15:41 WBC 13.6 H (4.3-11.1) K/mcL RBC 3.03 L (3.82-4.97) M/mcL Hgb 8.9 L (11.5-15.4) g/dL Hct 27.6 L (35.3-44.9) % MCV 91.1 (83.0-100.0) fL MCH 29.4 (28.0-33.3) pg MCHC 32.2 (31.6-35.5) g/dL RDW 14.8 H (11.5-14.5) % Plt Count 317 (140-400) K/mcL MPV 9.9 (9.4-12.4) fL Immature Gran % 0.7 (0-4) % Seg Neutrophils % 82.1 % Lymphocytes % 8.1 % Monocytes % 7.5 % Eosinophils % 1.2 % Basophils % 0.4 % Neutrophils # 11.2 H (1.6-8.9) K/mcL Lymphocytes # 1.1 (0.6-4.6) K/mcL Monocytes # 1.0 (0.0-1.3) K/mcL Eosinophils # 0.2 (0.0-0.6) K/mcL Basophils # 0.1 (0.0-0.2) K/mcL Sodium 131 L (136-145) mEq/L Potassium 3.0 L (3.5-5.1) mEq/L Chloride 98 (98-107) mEq/L Carbon Dioxide 24 (23-29) mEq/L BUN 33 H (6-20) mg/dL Creatinine 0.88 (0.60-1.20) mg/dL Est GFR ( Amer) > 60 (> 60) Est GFR (Non-Af Amer) > 60 (> 60) BUN/Creatinine Ratio 38 H (6-26) Glucose 114 H (70-105) mg/dL Calculated Osmolality 280 (280-300) Lactic Acid (0.5-2.2) mmol/L Calcium 7.9 L (8.6-10.3) mg/dL Magnesium 1.4 L (1.6-2.6) mg/dL Total Bilirubin 0.4 (0.3-1.0) mg/dL Direct Bilirubin 0.1 (0.0-0.2) mg/dL Indirect Bilirubin 0.3 (0.0-1.2) mg/dL AST 12 L (13-39) Units/L ALT 10 (7-52) Units/L Alkaline Phosphatase 83 (34-104) Units/L Troponin I < 0.03 (< 0.04) ng/mL Serum Total Protein 6.4 (6.4-8.9) g/dL Albumin 2.8 L (3.5-5.7) g/dL Globulin 3.6 H (2.4-3.5) g/dL Albumin/Globulin Ratio 0.8 L (1.1-2.2) Lipase 20 (11-82) Units/L 12/25/17 Range/Units 15:41 WBC (4.3-11.1) K/mcL RBC (3.82-4.97) M/mcL Hgb (11.5-15.4) g/dL Hct (35.3-44.9) % MCV (83.0-100.0) fL MCH (28.0-33.3) pg MCHC (31.6-35.5) g/dL RDW (11.5-14.5) % Plt Count (140-400) K/mcL MPV (9.4-12.4) fL Immature Gran % (0-4) % Seg Neutrophils % % Lymphocytes % % Monocytes % % Eosinophils % % Basophils % % Neutrophils # (1.6-8.9) K/mcL Lymphocytes # (0.6-4.6) K/mcL Monocytes # (0.0-1.3) K/mcL Eosinophils # (0.0-0.6) K/mcL Basophils # (0.0-0.2) K/mcL Sodium (136-145) mEq/L Potassium (3.5-5.1) mEq/L Chloride (98-107) mEq/L Carbon Dioxide (23-29) mEq/L BUN (6-20) mg/dL Creatinine (0.60-1.20) mg/dL Est GFR ( Amer) (> 60) Est GFR (Non-Af Amer) (> 60) BUN/Creatinine Ratio (6-26) Glucose (70-105) mg/dL Calculated Osmolality (280-300) Lactic Acid 1.0 (0.5-2.2) mmol/L Calcium (8.6-10.3) mg/dL Magnesium (1.6-2.6) mg/dL Total Bilirubin (0.3-1.0) mg/dL Direct Bilirubin (0.0-0.2) mg/dL Indirect Bilirubin (0.0-1.2) mg/dL AST (13-39) Units/L ALT (7-52) Units/L Alkaline Phosphatase (34-104) Units/L Troponin I (< 0.04) ng/mL Serum Total Protein (6.4-8.9) g/dL Albumin (3.5-5.7) g/dL Globulin (2.4-3.5) g/dL Albumin/Globulin Ratio (1.1-2.2) Lipase (11-82) Units/L - Radiology Data Radiology results reviewed: Yes I reviewed the patient's radiology results. Chest X-Ray 08/27/17 14:12 IMPRESSION: Status post right IJ central venous catheter placement tip in SVC. No pneumothorax seen. D/ / Michel Kim MD / Michel Kim MD Interpreting Provider: Michel Kim MD - EKG Data EKG #1 EKG attestation: Yes I reviewed and interpreted this EKG. EKG results narrative: EKG showed sinus tachycardia rate of 110 bpm, VA interval of 133, QRS duration of 84, QTC of 329 with a normal axis.
[2017-08-27] MEDS ORDERED: Ringers Solution, Lactated 1,000 ML IVC ONE (15:26)
--- NOTE | 2017-08-27 15:33 | Emergency Department Note ---
START Narrative - START START: I examined this patient and my medical decision-making was reviewed with the Resident Physician. I agree with the documented findings, disposition and treatment plan as described except to the extent set forth below. 52 yo F with an extensive PMHX presents to ER with syncope. had syncopal episode today at friends house and had another episode in ER upon arrival. pt weighs 33Kg due to esophageal problems. she has had a dilatation before but now is unable to eat or drink anything for past few days. had hx of Feeding tube but had it removed awhile back after she was doing ok. pt has a colostomy bag as well due to short bowel she said. she has developed a stage 4 decub ulcer on top of this. i placed a right IJ central line due to poor access and dehydration. no complications during this procedure cXR confirms placement and no issues plan to check labs, urine, and will need to be admitted. critical care time of 45 min spent in medical resuscitation of dehydrated, malnourished patient
[2017-08-27 16:03] LABS: Basophils # 0.1 K/mcL (0.0-0.2); Basophils % 0.4 %; Eosinophils # 0.2 K/mcL (0.0-0.6); Eosinophils % 1.2 %; Hematocrit 27.6 % (35.3-44.9); Hemoglobin 8.9 g/dL (11.5-15.4); Immature Granulocytes % 0.7 % (0-4); Lymphocytes # 1.1 K/mcL (0.6-4.6); Lymphocytes % 8.1 %; Mean Corpuscular HGB Conc 32.2 g/dL (31.6-35.5); Mean Corpuscular Hemoglobin 29.4 pg (28.0-33.3); Mean Corpuscular Volume 91.1 fL (83.0-100.0); Mean Platelet Volume 9.9 fL (9.4-12.4); Monocytes % 7.5 %; Neutrophils # 11.2 K/mcL (1.6-8.9); Platelet Count 317 K/mcL (140-400); Red Blood Count 3.03 M/mcL (3.82-4.97); Red Cell Distribution Width 14.8 % (11.5-14.5); Segmented Neutrophils % 82.1 %
[2017-08-27 16:21] LABS: Alanine Aminotransferase 10 Units/L (7-52); Albumin 2.8 g/dL (3.5-5.7); Albumin/Globulin Ratio 0.8 (1.1-2.2); Alkaline Phosphatase 83 Units/L (34-104); Aspartate Amino Transferase 12 Units/L (13-39); BUN/Creatinine Ratio 38 (6-26); Bilirubin,Direct 0.1 mg/dL (0.0-0.2); Bilirubin,Indirect 0.3 mg/dL (0.0-1.2); Bilirubin,Total 0.4 mg/dL (0.3-1.0); Blood Urea Nitrogen 33 mg/dL (6-20); Calcium 7.9 mg/dL (8.6-10.3); Carbon Dioxide 24 mEq/L (23-29); Chloride 98 mEq/L (98-107); Globulin 3.6 g/dL (2.4-3.5); Glucose 114 mg/dL (70-105); Lipase 20 Units/L (11-82); Magnesium 1.4 mg/dL (1.6-2.6); Osmolality,Calculated 280 (280-300); Sodium 131 mEq/L (136-145); Total Protein 6.4 g/dL (6.4-8.9); eGFR For African Americans > 60 (> 60); eGFR For Non-African Americans > 60 (> 60)
[2017-08-27] MEDS ORDERED: *HR* Morphine 2 MG/ML SYRINGE IVP ONE (16:32)
[2017-08-27] MEDS ORDERED: Naloxone 0.4 MG/ML INJ IVP PRN (19:46)
[2017-08-27] MEDS ORDERED: Magnesium Sulfate 1 GM in D5% in Water 100 ML IVPB ONE (20:25)
--- NOTE | 2017-08-27 20:42 | Internal Med History&Physical ---
<Butch Marie - Last Filed: 08/27/17 22:15> Date of Encounter: 08/27/17 Time of Encounter: 19:00 Assessment and Plan (1) Pre-syncope Status: Acute Acute pre-syncope most likely d/t combination of current anorexia, weight loss and cachexia, anemia, and electrolyte imbalance. Falls/safety precautions. PT/ OT consults ordered to assess for ambulation strength, safety, and stability. Nutrition consult ordered. Surgery consult ordered and discussed w/Dr. Alanis regarding new feeding tube placement. GI consult ordered and discussed w/Dr. Rader d/t drop in Hgb/Hct and hx of GI bleeds. Correct electrolytes. Monitor pt. and f/u labs. Pt. discussed w/Dr. Disla who agrees w/plan of care. Pt. is high risk for further morbidity d/t current failure to thrive, weight loss, weakness , electrolyte imbalance, and possible infection in decubitus ulcer of the sacrum. Inpatient. (2) Nausea Status: Acute Acute nausea and hx of chronic GERD. IVP Zofran 4 mg Q8 for N/V. IVP Protonix 40 mg BID. (3) Cachectic Status: Acute Pt. reports anorexia since Sunday and previous failure to thrive. Pt. reports she is unable to maintain nutrition and that she had previous feeding tube placed by Dr. Griggs. Requests new feeding tube be placed. Nutrition consult ordered. Surgery consult ordered and discussed with Dr. Alanis regarding feeding tube placement. Monitor I&O and daily weight. Clear liquids now. NPO at midnight for GI assessment in a.m. (4) Dehydration Status: Acute Acute dehydration d/t reduced intake/anorexia since Sunday. Pt. received IV fluids in ED and will continue w/75 mL/HR. Monitor pt. for fluid status, I&O, and daily weight. Monitor f/u labs for electrolyte correction. Nutrition consult ordered for PO supplementation. Surgery consult ordered and discussed with Dr. Alanis for feeding tube placement. (5) Hyponatremia Status: Acute Acute hyponatermia w/level of 131. Pt. received 0.9 NS in ED to be followed by 75mL/HR. Will monitor f/u labs for sodium correction status. (6) Hypocalcemia Status: Acute Acute hypocalcemia w/level of 7.9. Corrected calcium to albumin is 8.644, so will not replenish calcium at this time and monitor f/u labs. (7) Hypokalemia Status: Acute Acute hypokalemia w/level of 3.0. 80 mEq IVPB to be administered (40 ordered in ED to be followed by 40 for total of 80 mEq over 8 hours). Timed potassium ordered. Communication order to stop potassium IVPB once pt. is WNL. Continuous cardiac telemetry d/t current tachycardia. (8) Hypomagnesemia Status: Acute Acute hypmagnesemia w/level of 1.4 on admission. IVPB magnesium 1 gm ordered. Monitor f/u labs. (9) Leukocytosis Status: Acute Acute leukocytosis w/WBC of 13.6 on admission. Pt. has hx of elevated leukocytosis in past, however last normal was in December w/6.1. Concern is for possible infection from decubitus ulcer of the sacrum. Blood cultures x2 ordered. Wound culture ordered. Patient is currently asymptomatic and afebrile. Pt. requests abx not be started unless there is known infection. Will add abx coverage based on culture results if appropriate. Qualifiers: Leukocytosis type: unspecified Qualified Code(s): D72.829 - Elevated white blood cell count, unspecified (10) Weight loss Status: Acute Acute weight loss since removal of feeding tube 3 months ago. Pt. also reports anorexia since Sunday. Pt. reports Dr. Griggs placed feeding tube and removed d /t pt. doing better w/weight. Pt. now reports increased weight loss and wants feeding tube replaced. Nutrition consult ordered. Surgery consult ordered and discussed w/Dr. Alanis regarding feeding tube placement and I appreciate the consult. Monitor I&O and daily weight. Clear liquid diet now. NPO at midnight for GI assessment in a.m. (11) Tachycardia Status: Acute Acute tachycardia most likely d/t current dehydration and subsequent electrolyte imbalance. Correct electrolyte status. Continuous cardiac telemetry. Monitor pt. and f/u labs. (12) Urinary retention Status: Acute Acute urinary retention most likely d/t current dehydration. Pt. received IV fluids in ED and will continue @ 75 mL/HR. Monitor I&O. Consider inserting Maloney catheter if urinary retention continues or ordered bladder scans warrant placement. (13) GERD (gastroesophageal reflux disease) Status: Chronic Hx of chronic GERD. IVP Zofran 4 mg Q8 PRN. IVP Protonix 40 mg BID. Qualifiers: Esophagitis presence: with esophagitis Qualified Code(s): K21.0 - Gastro- esophageal reflux disease with esophagitis (14) Diabetes Status: Chronic Hx of chronic diabetes that is not controlled by oral anti-hyperglycemic medications or insulin currently. Low-dose correction insulin sliding scale with hypoglycemic protocol. A1c in a.m. labs. BG checks before meals and at bedtime.` Qualifiers: Diabetes mellitus type: other specified (including MINO) Diabetes mellitus complication status: with unspecified complications Diabetes mellitus vermin exterminator insulin use: without vermin exterminator use Qualified Code(s): E13.8 - Other specified diabetes mellitus with unspecified complications (15) Decubitus ulcer of sacral region, unstageable Status: Chronic Chronic decubitus ulcer of the sacrum that is currently unstageable. Pt. reports severe pain w/movement. Air mattress ordered to prevent shear and pressure. Wound Care consult and daily wound care ordered. (16) DVT prophylaxis Status: Acute Bilateral anti-embolic stockings on LEs for DVT prophylaxis d/t drop in Hgb/Hct and hx of GI bleeding. Internal Medicine - H&P: HPI Chief complaint: Pre-syncopal fall Admitted From: Emergency Dept Plans for Post Hospital Care: Home History of present illness: Ms. Rosado is a 52 year old female with medical hx of asthma, diabetes, GERD, HTN, osteoporosis, history of seizures, and colostomy presents from the ED with chief complaint of dizziness and pre-syncope yesterday while at her mother's house. She reports that she is unsure if she blacked out. Pt. reports that she has had no appetite since Sunday and has been experiencing generalized weakness since. She states she has painful decubitus ulcer on her sacrum, hx of short gut syndrome, had colon resection w/current colostomy, nausea, and SOB. Pt. also reports she is not making much urine at this time d/t poor intake. Pt. denies recent illness, fever, chills, vomiting, chest pain, palpitations, abdominal pain, changes in vision, headache, numbness, tingling, unusual bleeding that she can see, or syncope. Past Med Surg Social Fam HX - Past Medical History Source: patient, old records reviewed, obtained from family Medical history: asthma, diabetes, GERD, hypertension, osteoporosis, seizures, other Psychiatric history: anxiety, depression - Past Surgical History Surgical History: cholecystectomy, colectomy, colostomy, hysterectomy, other ( Gastronomy tube) - Social History Smoking Status: Former smoker Packs per day: 2 ciagarettes per day - Reports quitting 33 years ago Smokeless Tobacco Status: No Alcohol use: none Drug use: none Current living situation: Home, With Family Activity Level: Uses cane/walker Recent Out of Country Travel Within the Last 8 Weeks: No Exposure or Possible Exposure to Illness During Travel: No - Family History Mother Race: Family Member Ethnicity: Non- Living Status: Still Living Hx Family Cardiac Disorders: Yes (HTN) Hx Family GI Disorders: Yes (Colostomy) Hx Family Endocrine Disorder: Yes (DM) Father Adopted: No Race: Family Member Ethnicity: Non- Living Status: Still Living Hx Family Cardiac Disorders: Yes (CAD, Quad bypass) Hx Family Genitourinary Disorders: Yes (CKD) Brother Race: Family Member Ethnicity: Non- Living Status: Still Living Hx Family Medical Disorders: No Internal Medicine - H&P: Meds Promethazine [Phenergan] 25 mg PO Q6HR PRN 03/13/16 [History] LORazepam [Ativan] 2 mg PO QID 07/21/16 [History] Diphenoxylate/Atropine [Lomotil 2.5 mg/0.025 mg] 2 tab PO QID 12/23/16 [History] Loperamide [Imodium] 4 mg PO QID 12/23/16 [History] HYDROmorphone [Dilaudid] 30 mg PO Q4HR PRN 08/27/17 [History] Vancomycin HCl in Dextrose 5 % [Vancomycin-D5w 500 mg/100 ml] 500 mg IV Q12H 14 Days #28 [email or web address] 09/04/17 [Rx] cefTRIAXone [Rocephin] 1,000 mg IVPB DAILY #14 vial 09/04/17 [Rx] 3 Allergy/AdvReac Type Severity Reaction Status Date / Time shellfish derived Allergy UNKNOWN Verified 07/21/16 09:06 All Systems PM: A 10-system review of systems was performed and is negative for pertinent findings except as documented above in the HPI. - Constitutional Constitutional: as per HPI, anorexia, weakness, weight loss - EENT Eyes: no change in vision, no discharge, no pain, no photophobia Ears: no ear discharge, no ear pain, no tinnitus Nose, mouth and throat: no dysphagia, no nasal discharge, no neck pain, no sore throat - Breasts Breasts: as per HPI - Cardiovascular Cardiovascular ROS IM: as per HPI, dyspnea, dyspnea on exertion, other (Pre- syncope) - Respiratory Respiratory: as per HPI, dyspnea, dyspnea on exertion, no cough, no wheezing, no excessive phlegm production - Gastrointestinal Gastrointestinal: as per HPI, nausea - Genitourinary Genitourinary: as per HPI, difficulty urinating, no change in urinary stream, no flank pain, no hematuria Menstruation: as per HPI, post hysterectomy - Musculoskeletal Musculoskeletal ROS IM: no numbness, no tingling - Integumentary Integumentary IM: as per HPI, sores (Unstageable decubitus ulcer of the sacrum) , no rash, no unusual bruising - Neurological Neurological ROS: as per HPI, dizziness, weakness, no confusion, no convulsions , no focal weakness, no numbness, no tingling, no tremor(s) - Psychiatric Psychiatric: as per HPI, anxiety, depression - Endocrine Endocrine IM: as per HPI - Hematologic/Lymphatic Hematologic/Lymphatic: no easy bruising - Allergic/Immunologic Allergic/Immunologic: as per HPI - Constitutional Vitals: Temp Pulse Resp BP Pulse Ox 98.8 F 110 16 105/72 95 08/27/17 18:48 08/27/17 18:48 08/27/17 18:48 08/27/17 18:48 08/27/17 18:48 General appearance: Present: cooperative, mild distress (Discomfort d/t pain r/ t ulcer on sacrum), A&O X 3, pleasant, underweight, answers questions appropriately - Head Head exam: Present: atraumatic, normal inspection, normocephalic - Eye Eye exam: Present: PERRL, conjuntiva pink, sclera anicteric Pupils: Present: PERRL - ENT ENT exam: Present: normal exam, normal external ear exam - Neck Neck exam general surgery: Present: normal inspection, supple, trachea midline. Absent: lymphadenopathy - Respiratory Respiratory exam: Present: CTAB. Absent: accessory muscle use, rales, rhonchi, wheezes - Cardiovascular Cardiovascular exam: Present: +S1, +S2, tachycardia - GI/Abdominal GI/Abdominal exam: Present: diminished bowel sounds, tenderness - Rectal Rectal exam: Present: deferred - Additional comments: exam deferred. - Extremities Exam Extremities exam: Present: warm, radial pulses palpable and symmetrical. Absent : calf tenderness, cyanotic, pedal edema - Back Exam Back exam: Present: normal inspection - Neurological Exam Neurological exam: Present: CN II-XII intact, oriented X3, no focal deficits. Absent: pronater drift, facial droop, speech deficit - Psychiatric Psychiatric exam: Present: normal affect, normal mood - Skin Skin exam: Present: dry, erythema (Sacrum with unstageable decubitus ulcer), intact, rash (Located on abdomen around colostomy bag site) Internal Med - H&P Results - Labs CBC & Chem 7: 08/27/17 15:41 08/27/17 15:41 - Diagnostic Studies Chest x-ray Additional comments: Impressions Chest X-Ray 08/27/17 14:12 IMPRESSION: Status post right IJ central venous catheter placement tip in SVC. No pneumothorax seen. D/ / Michel Kim MD / Michel Kim MD Interpreting Provider: Michel Kim MD <Erna Disla - Last Filed: 09/28/17 09:44> Date of Encounter: 09/28/17 Internal Medicine - H&P: HPI History of present illness: Ms. Rosado is a 52 year old female All Systems PM: A 10-system review of systems was performed and is negative for pertinent findings except as documented above in the HPI. - Constitutional Vitals: Temp Pulse Resp BP Pulse Ox 98.0 F 107 12 105/70 99 09/04/17 15:33 09/04/17 15:33 09/04/17 15:33 09/04/17 15:33 09/04/17 15:33 Internal Med - H&P Results - Labs CBC & Chem 7: 09/04/17 07:43 09/04/17 04:30 - ABG Interpretation ABG results: 08/30/17 04:24 VBG pH 7.35 - Attending Attestation I personally and independently interviewed and examined the patient with [employer], and I reviewed the patient's medical record with her. I am in agreement with the assessment and proposed treatment plan. I discussed my findings and recommendation with the patient and answer all questions. The patient's medical records were edited to accurately reflect this encounter.
[2017-08-27] MEDS ORDERED: Dextrose Gel 15 GM/37.5 ML TUBE PO PRN ×2 (20:44)
[2017-08-27] MEDS ORDERED: D5% in Water 1,000 ML IVC PRN (20:44)
[2017-08-27] MEDS ORDERED: *HR* Dextrose 50 % in Water (Syg) 50 ML SYRINGE IVP PRN (20:44)
[2017-08-27] MEDS ORDERED: Insulin LISPRO 300 UNITS/3 ML VIAL SQ SCH (21:00)
[2017-08-27] MEDS: 0.9 % Sodium Chloride 1,000 ML IVC SCH (22:05)
[2017-08-27] MEDS: *HR* HYDROmorphone (PF) 1 MG/ML SYRINGE IVP PRN (22:25)
[2017-08-27 22:37] LABS: Hematocrit 24.2 % (35.3-44.9); Hemoglobin 7.8 g/dL (11.5-15.4)
[2017-08-27 22:50] LABS: % Iron Saturation 10 % (15-50); Iron 21 mcg/dL (50-170); Transferrin 143 mg/dL (203-362)
[2017-08-28] MEDS: Insulin LISPRO 300 UNITS/3 ML VIAL SQ SCH ×4 (02:20→17:14)
[2017-08-28] MEDS: *HR* HYDROmorphone (PF) 1 MG/ML SYRINGE IVP PRN ×5 (04:12→20:11)
[2017-08-28] MEDS: Ondansetron 4 MG/2 ML VIAL IVP PRN ×2 (04:13→12:58)
[2017-08-28 04:57] LABS: Hematocrit 27.2 % (35.3-44.9); Hemoglobin 8.6 g/dL (11.5-15.4); Mean Corpuscular HGB Conc 31.6 g/dL (31.6-35.5); Mean Corpuscular Hemoglobin 29.2 pg (28.0-33.3); Mean Corpuscular Volume 92.2 fL (83.0-100.0); Mean Platelet Volume 9.8 fL (9.4-12.4); Platelet Count 358 K/mcL (140-400); Red Blood Count 2.95 M/mcL (3.82-4.97); Red Cell Distribution Width 14.9 % (11.5-14.5)
[2017-08-28 05:21] LABS: Lymphocytes # 0.4 K/mcL (0.6-4.6); Monocytes # 0.2 K/mcL (0.0-1.3); Neutrophils # 10.3 K/mcL (1.6-8.9)
[2017-08-28 05:22] LABS: Platelet Estimate Normal (Normal)
[2017-08-28 05:31] LABS: Hemoglobin A1C 4.8 %
[2017-08-28] MEDS: Pantoprazole 40 MG VIAL IVP SCH ×2 (05:46→17:32)
[2017-08-28 05:48] LABS: Alanine Aminotransferase 9 Units/L (7-52); Albumin 2.7 g/dL (3.5-5.7); Albumin/Globulin Ratio 0.8 (1.1-2.2); Alkaline Phosphatase 84 Units/L (34-104); Aspartate Amino Transferase 12 Units/L (13-39); BUN/Creatinine Ratio 25 (6-26); Bilirubin,Total 0.6 mg/dL (0.3-1.0); Blood Urea Nitrogen 22 mg/dL (6-20); Calcium 7.8 mg/dL (8.6-10.3); Carbon Dioxide 19 mEq/L (23-29); Chloride 103 mEq/L (98-107); Chol/HDL Ratio 5.8 (0-4.9); Cholesterol 111 mg/dL (< 200); Globulin 3.3 g/dL (2.4-3.5); Glucose 101 mg/dL (70-105); HDL Cholesterol 19 mg/dL (40-59); LDL Cholesterol,Calculated 62 mg/dL (0-99); Magnesium 1.4 mg/dL (1.6-2.6); Osmolality,Calculated 277 (280-300); Phosphorous 2.5 mg/dL (2.7-4.5); Potassium 4.1 mEq/L (3.5-5.1); Sodium 132 mEq/L (136-145); Triglycerides 150 mg/dL (< 150); eGFR For African Americans > 60 (> 60); eGFR For Non-African Americans > 60 (> 60)
[2017-08-28] MEDS ORDERED: Magnesium Sulfate 2 GM in D5% in Water 100 ML IVPB ONE (08:34)
--- NOTE | 2017-08-28 08:39 | Internal Med Progress Note ---
Date of Encounter: 08/28/17 Time of Encounter: 08:37 - Assessment and plan (1) Pre-syncope Current Visit: Yes Status: Acute Assessment and plan: Acute pre-syncope most likely d/t combination of current anorexia, weight loss and cachexia, anemia, and electrolyte imbalance. Falls/safety precautions. PT/ OT consults ordered to assess for ambulation strength, safety, and stability. Nutrition consult ordered. Surgery consult for new feeding tube placement. GI consult for GI bleeds. Correct electrolytes.. (2) Severe protein-calorie malnutrition Current Visit: Yes Status: Chronic Assessment and plan: from short gut syndrome, consult surgery for PEG (3) Anemia Current Visit: Yes Status: Acute Assessment and plan: gely from malntrition, consult GI for possible bleeding Qualifiers: Anemia type: iron deficiency Iron deficiency anemia type: chronic blood loss Qualified Code(s): D50.0 - Iron deficiency anemia secondary to blood loss (chronic) (4) Dehydration Current Visit: Yes Status: Acute Assessment and plan: continue iVF (5) Hyponatremia Current Visit: Yes Status: Acute Assessment and plan: from dehydration malntrition, continue IVF (6) Hypomagnesemia Current Visit: Yes Status: Acute Assessment and plan: IV repalced (7) Nausea & vomiting Current Visit: No Status: Chronic Assessment and plan: acute on chnronic, add IV phenergan Qualifiers: Vomiting type: unspecified Vomiting Intractability: unspecified Qualified Code(s): R11.2 - Nausea with vomiting, unspecified (8) Cachectic Current Visit: Yes Status: Acute Assessment and plan: acute on chronic from short gut syndrome, consult nutrition, pending PEG (9) Sacral decubitus ulcer, stage IV Current Visit: Yes Status: Chronic Assessment and plan: Patient has a large sacral decubitus with redness anf some pus draining we will consult wound care and do wound culture - Subjective Interval history: Ms. Rosado is a 52 year old female with medical hx of asthma, diabetes, GERD, HTN, osteoporosis, history of seizures, and colostomy presents from the ED with chief complaint of dizziness and pre-syncope. Patient reports that she has not being able to eat and drink for over last few days, she also has increased pain from sacral decubitus, she feels very dehydrated. She would like to have feeding tube back. She also complains of nausea , she said the Zofran does not work would like to have Phenergan. - Constitutional Vitals: Temp Pulse Resp BP Pulse Ox 98.7 F 108 14 90/45 95 08/28/17 06:53 08/28/17 06:53 08/28/17 06:53 08/28/17 06:53 08/28/17 08:23 General appearance: Present: cooperative, mild distress (Discomfort d/t pain r/ t ulcer on sacrum), A&O X 3, pleasant, underweight, answers questions appropriately Exam: CONSTITUTIONAL: patient appears as an age appropriate female in no acute distress. EYES Clear sclerae, bilateral pupils are equal, reactive to light. EMOI. RESPIRATORY: No accessory muscle use, bilateral clear to auscultation, no wheezing, no crackles/rales. CARDIOVASCULAR: Regular heart rate, normal S1 and S2, no murmurs GASTROINTESTINAL: bowel sounds present, soft, no tenderness. MUSCULOSKELETAL: Joints in normal range of motion, no clubbing, no edema, no cyanosis. Bilateral peripheral pulses 2+. NEUROLOGIC: CN II to XII are grossly intact, no focal neurological deficit. She is a large stage IV decubitus to sacral area Internal Medicine: Result - Labs CBC & Chem 7: 08/28/17 04:00 08/28/17 04:00 Labs: Short CBC 08/27/17 08/28/17 Range/Units 22:32 04:00 WBC 10.9 (4.3-11.1) K/mcL Hgb 7.8 L 8.6 L (11.5-15.4) g/dL Hct 24.2 L 27.2 L (35.3-44.9) % Plt Count 358 (140-400) K/mcL Neutrophils # 10.3 H (1.6-8.9) K/mcL BMP 08/27/17 08/28/17 08/28/17 22:32 02:15 04:00 Sodium 132 L Potassium 3.2 L 4.3 D 4.1 Chloride 103 Carbon Dioxide 19 L BUN 22 H Creatinine 0.87 Glucose 101 Calcium 7.8 L Liver Function 08/28/17 Range/Units 04:00 Total Bilirubin 0.6 (0.3-1.0) mg/dL AST 12 L (13-39) Units/L ALT 9 (7-52) Units/L Alkaline Phosphatase 84 (34-104) Units/L Albumin 2.7 L (3.5-5.7) g/dL Consult Discharge Plan - Plan Referrals: Crescencio Snell MD [Primary Care Provider] -
[2017-08-28] MEDS: *HR* Promethazine 25 MG/ML VIAL IVP PRN ×2 (09:17→16:59)
[2017-08-28] MEDS ORDERED: D10% in Water 500 ML IVC PRN (10:40)
--- NOTE | 2017-08-28 13:10 | General Surgery Consult Note ---
<Sameera Mcgrath - Last Filed: 08/28/17 12:58> Date of Encounter: 08/28/17 Time of Encounter: 12:00 Assessment and Plan (1) Protein calorie malnutrition Current Visit: No Status: Chronic Start TPN per hospitalist today Regular diet with protein supplements TID NPO after midnight Risks, benefits, alternatives and expected outcomes reviewed with the patient and plan for peg tube placement with Dr. Alanis 08/29/17 with MAC anesthesia French Weaver consult for TPN and tube feed management Qualifiers: Protein-calorie malnutrition severity: severe Qualified Code(s): E43 - Unspecified severe protein-calorie malnutrition (2) Cachectic Current Visit: Yes Status: Acute Start TPN per hospitalist today Regular diet with protein supplements TID NPO after midnight Risks, benefits, alternatives and expected outcomes reviewed with the patient and plan for peg tube placement with Dr. Alanis 08/29/17 with MAC anesthesia French Weaver consult for TPN and tube feed management (3) Sacral decubitus ulcer, stage IV Current Visit: Yes Status: Chronic Continue daily wound care Increase protein intake Pressure relief measures History of Present Illness Consult date: 08/28/17 Requesting physician: Butch Marie History of present illness: Mrs. Rosado is a 52 year old female with multiple comorbidities who presents to the the ED with a near syncopal episode. She is well known to the surgical practice and was last seen in February of [address] Griggs. She complained of her peg tube leaking at that time and states that she was taking most of her calories in by mouth. She reports that she requested her peg tube be removed during her visit. She had been able to maintain her weight between 83-85lb. in January and February. Dr. Griggs did remove her peg tube in February of 2017. She was asked to follow-up in 6 weeks to evaluate her weight after peg tube removal and was instructed that the peg tube would need to be replaced if she had failed to maintain her weight. The patient admits that she did not come to her appointment because she knew that she had been unable to maintain her weight appropriately. She states that she has been unable to eat for approximately the last 1 week due to lack of appetite. She admit to weakness and states that it is difficult to swallow at times. She denies any nausea and vomiting and states that she actually has an appetite today. Denies any diarrhea or constipation. She does have an ileostomy which is putting out soft, brown stool. She is having minimal UOP due to limited oral intake over the past several days. She does have a sacral decubitus ulcer which she states is being cared for per her Hospice nurses and her daughter. We have been asked to see and evaluate the patient for possible peg tube replacement. Past Med Surg Social Fam HX - Past Medical History Source: patient Medical history: asthma, diabetes, GERD, hyperlipidemia, hypertension, osteoporosis, seizures, other (severe protein calorie malnutrition, decubitus ulcer, hyponatremia, fractured vertebrae) Psychiatric history: anxiety, depression - Past Surgical History Surgical History: cholecystectomy, colectomy (subtotal colectomy 10/2015, diverting ileostomy 2015), colostomy, hysterectomy, other (Peg tube, uterine ablation D&C, Tubal ligation, Tonsillectomy, EGD (last 2016), Tanya fundoplicaiton 2014, kyphoplasty ) - Social History Smoking Status: Former smoker Packs per day: 2 ciagarettes per day - Reports quitting 33 years ago Smokeless Tobacco Status: No Alcohol use: none Drug use: none - Family History Mother Race: Family Member Ethnicity: Non- Living Status: Still Living Hx Family Cardiac Disorders: Yes (HTN) Hx Family Respiratory Disorders: No Hx Family GI Disorders: Yes (Colostomy) Hx Family Endocrine Disorder: Yes (DM) Brother Race: Family Member Ethnicity: Non- Living Status: Still Living Hx Family Medical Disorders: No Father Adopted: No Race: Family Member Ethnicity: Non- Living Status: Still Living Hx Family Cardiac Disorders: Yes (CAD, Quad bypass) Hx Family Respiratory Disorders: No Hx Family Genitourinary Disorders: Yes (CKD) Medications and Allergies Promethazine [Phenergan] 25 mg PO Q6HR PRN 03/13/16 [History] LORazepam [Ativan] 2 mg PO QID 07/21/16 [History] Diphenoxylate/Atropine [Lomotil 2.5 mg/0.025 mg] 2 tab PO QID 12/23/16 [History] Loperamide [Imodium] 4 mg PO QID 12/23/16 [History] HYDROmorphone [Dilaudid] 30 mg PO Q4HR PRN 08/27/17 [History] 3 Allergy/AdvReac Type Severity Reaction Status Date / Time shellfish derived Allergy UNKNOWN Verified 07/21/16 09:06 Review of Systems All systems PM: reviewed and no additional remarkable complaints except as stated (in the HPI) All systems PM: A 10-system review of systems was performed and is negative for pertinent findings except as documented above in the HPI. General Surgery Exam Initial Vital Signs Temp Pulse Resp BP Pulse Ox 97.5 F L 112 12 97/85 98 08/27/17 13:49 08/27/17 13:49 08/27/17 13:49 08/27/17 13:49 08/27/17 13:49 - General physical appearance no distress, cachectic, chronically ill - Eyes PERRL, normal ocular movement - ENT dry mucosa, atraumatic, normocephalic - Neck trachea midline - Respiratory normal respiratory effort, clear to auscultation - Cardiovascular Cardiovascular exam: Present: RRR - Abdomen Abdomen general surgery: Present: bowel sounds present, soft, scaphoid, wound ( Ileostomy is pink and moist with liquid stool noted; mild irritation noted around stoma site secondary to stool exposure) - Integumentary Integumentary general surgery: Present: other (Stage 4 sacral decubitus ulcer noted ) - Neurologic Present: CN 2-12 grossly intact - Musculoskeletal Present: other (severe muscle deconditioning) - Psychiatric Psychiatric general surgery: Present: A&Ox3 Exam Initial Vital Signs Temp Pulse Resp BP Pulse Ox 97.5 F L 112 12 97/85 98 08/27/17 13:49 08/27/17 13:49 08/27/17 13:49 08/27/17 13:49 08/27/17 13:49 Results - Labs 08/28/17 04:00 08/28/17 04:00 Abnormal lab results RBC 2.95 M/mcL (3.82-4.97) L 08/28/17 04:00 Hgb 8.6 g/dL (11.5-15.4) L 08/28/17 04:00 Hct 27.2 % (35.3-44.9) L 08/28/17 04:00 RDW 14.9 % (11.5-14.5) H 08/28/17 04:00 Band Neutrophils % 40.0 % (0-4) H 08/28/17 04:00 Neutrophils # 10.3 K/mcL (1.6-8.9) H 08/28/17 04:00 Lymphocytes # 0.4 K/mcL (0.6-4.6) L 08/28/17 04:00 Sodium 132 mEq/L (136-145) L 08/28/17 04:00 Carbon Dioxide 19 mEq/L (23-29) L 08/28/17 04:00 BUN 22 mg/dL (6-20) H 08/28/17 04:00 Calculated Osmolality 277 (280-300) L 08/28/17 04:00 Calcium 7.8 mg/dL (8.6-10.3) L 08/28/17 04:00 Phosphorus 2.5 mg/dL (2.7-4.5) L 08/28/17 04:00 Magnesium 1.4 mg/dL (1.6-2.6) L 08/28/17 04:00 Iron 21 mcg/dL (50-170) L 08/27/17 22:32 % Saturation 10 % (15-50) L 08/27/17 22:32 Transferrin 143 mg/dL (203-362) L 08/27/17 22:32 AST 12 Units/L (13-39) L 08/28/17 04:00 Serum Total Protein 6.0 g/dL (6.4-8.9) L 08/28/17 04:00 Albumin 2.7 g/dL (3.5-5.7) L 08/28/17 04:00 Albumin/Globulin Ratio 0.8 (1.1-2.2) L 08/28/17 04:00 Triglycerides 150 mg/dL (< 150) H 08/28/17 04:00 HDL Cholesterol 19 mg/dL (40-59) L 08/28/17 04:00 Cholesterol/HDL Ratio 5.8 (0-4.9) H 08/28/17 04:00 Diabetes panel 08/27/17 08/28/17 08/28/17 Range/Units 22:32 02:15 04:00 Sodium 132 L (136-145) mEq/L Potassium 3.2 L 4.3 D 4.1 (3.5-5.1) mEq/L Chloride 103 (98-107) mEq/L Carbon Dioxide 19 L (23-29) mEq/L BUN 22 H (6-20) mg/dL Creatinine 0.87 (0.60-1.20) mg/dL Glucose 101 (70-105) mg/dL Hemoglobin A1c ( - 5.6) % Calcium 7.8 L (8.6-10.3) mg/dL AST 12 L (13-39) Units/L ALT 9 (7-52) Units/L Alkaline Phosphatase 84 (34-104) Units/L Albumin 2.7 L (3.5-5.7) g/dL Triglycerides 150 H (< 150) mg/dL HDL Cholesterol 19 L (40-59) mg/dL 08/28/17 Range/Units 04:00 Sodium (136-145) mEq/L Potassium (3.5-5.1) mEq/L Chloride (98-107) mEq/L Carbon Dioxide (23-29) mEq/L BUN (6-20) mg/dL Creatinine (0.60-1.20) mg/dL Glucose (70-105) mg/dL Hemoglobin A1c 4.8 ( - 5.6) % Calcium (8.6-10.3) mg/dL AST (13-39) Units/L ALT (7-52) Units/L Alkaline Phosphatase (34-104) Units/L Albumin (3.5-5.7) g/dL Triglycerides (< 150) mg/dL HDL Cholesterol (40-59) mg/dL Calcium panel 08/28/17 Range/Units 04:00 Calcium 7.8 L (8.6-10.3) mg/dL Phosphorus 2.5 L (2.7-4.5) mg/dL Albumin 2.7 L (3.5-5.7) g/dL Pituitary panel 08/27/17 08/28/17 08/28/17 Range/Units 22:32 02:15 04:00 Sodium 132 L (136-145) mEq/L Potassium 3.2 L 4.3 D 4.1 (3.5-5.1) mEq/L Chloride 103 (98-107) mEq/L Carbon Dioxide 19 L (23-29) mEq/L BUN 22 H (6-20) mg/dL Creatinine 0.87 (0.60-1.20) mg/dL Glucose 101 (70-105) mg/dL Calcium 7.8 L (8.6-10.3) mg/dL Adrenal panel 08/27/17 08/28/17 08/28/17 Range/Units 22:32 02:15 04:00 Sodium 132 L (136-145) mEq/L Potassium 3.2 L 4.3 D 4.1 (3.5-5.1) mEq/L Chloride 103 (98-107) mEq/L Carbon Dioxide 19 L (23-29) mEq/L BUN 22 H (6-20) mg/dL Creatinine 0.87 (0.60-1.20) mg/dL Glucose 101 (70-105) mg/dL Calcium 7.8 L (8.6-10.3) mg/dL Total Bilirubin 0.6 (0.3-1.0) mg/dL AST 12 L (13-39) Units/L ALT 9 (7-52) Units/L Alkaline Phosphatase 84 (34-104) Units/L Albumin 2.7 L (3.5-5.7) g/dL All other labs normal. - Imaging Additional studies: Chest X-Ray 08/27/17 14:12 IMPRESSION: Status post right IJ central venous catheter placement tip in SVC. No pneumothorax seen. D/ / Michel Kim MD / Michel Kim MD Interpreting Provider: Michel Kim MD Consult Discharge Plan - Plan Referrals: Crescencio Snell MD [Primary Care Provider] - - Attending Attestation For this encounter, I have reviewed the CONTAINERS SALES REPRESENTATIVE or PA documentation, treatment plan, and medical decision making; and I have had face to face time with this patient. <Alessio Alanis - Last Filed: 08/29/17 13:53> Date of Encounter: 08/28/17 Review of Systems All systems PM: A 10-system review of systems was performed and is negative for pertinent findings except as documented above in the HPI. General Surgery Exam Initial Vital Signs Temp Pulse Resp BP Pulse Ox 97.5 F L 112 12 97/85 98 08/27/17 13:49 08/27/17 13:49 08/27/17 13:49 08/27/17 13:49 08/27/17 13:49 Exam Initial Vital Signs Temp Pulse Resp BP Pulse Ox 97.5 F L 112 12 97/85 98 08/27/17 13:49 08/27/17 13:49 08/27/17 13:49 08/27/17 13:49 08/27/17 13:49 Results - Labs 08/29/17 06:16 08/29/17 05:20 Abnormal lab results WBC 14.9 K/mcL (4.3-11.1) H 08/29/17 06:16 RBC 2.48 M/mcL (3.82-4.97) L 08/29/17 06:16 Hgb 7.2 g/dL (11.5-15.4) L 08/29/17 06:16 Hct 23.7 % (35.3-44.9) L 08/29/17 06:16 MCHC 30.4 g/dL (31.6-35.5) L 08/29/17 06:16 RDW 15.0 % (11.5-14.5) H 08/29/17 06:16 Band Neutrophils % 40.0 % (0-4) H 08/28/17 04:00 Neutrophils # 13.1 K/mcL (1.6-8.9) H 08/29/17 06:16 Sodium 134 mEq/L (136-145) L 08/29/17 05:20 Chloride 109 mEq/L (98-107) H 08/29/17 05:20 Carbon Dioxide 21 mEq/L (23-29) L 08/29/17 05:20 POC Glucose 105 (58-89) H 08/29/17 11:14 Calculated Osmolality 279 (280-300) L 08/29/17 05:20 Calcium 7.2 mg/dL (8.6-10.3) L 08/29/17 05:20 Magnesium 1.5 mg/dL (1.6-2.6) L 08/29/17 05:20 Iron 17 mcg/dL (50-170) L 08/29/17 11:00 % Saturation 9 % (15-50) L 08/29/17 11:00 Transferrin 134 mg/dL (203-362) L 08/29/17 11:00 Total Bilirubin 0.2 mg/dL (0.3-1.0) L 08/29/17 05:20 AST 8 Units/L (13-39) L 08/29/17 05:20 Serum Total Protein 5.0 g/dL (6.4-8.9) L 08/29/17 05:20 Albumin 2.2 g/dL (3.5-5.7) L 08/29/17 05:20 Albumin/Globulin Ratio 0.8 (1.1-2.2) L 08/29/17 05:20 Triglycerides 150 mg/dL (< 150) H 08/28/17 04:00 HDL Cholesterol 19 mg/dL (40-59) L 08/28/17 04:00 Cholesterol/HDL Ratio 5.8 (0-4.9) H 08/28/17 04:00 Urine Clarity Cloudy (Clear) A 08/29/17 12:58 Urine Blood Large (Negative) H 08/29/17 12:58 Urine Nitrite Positive (Negative) A 08/29/17 12:58 Ur Leukocyte Esterase Large (Negative) H 08/29/17 12:58 Urine Microscopic RBC 5-15 per hpf (0-3) H 08/29/17 12:58 Urine Microscopic WBC TNTC per hpf (0-3) H 08/29/17 12:58 Ur Squamous Epith Cells Moderate per lpf (None-Few) H 08/29/17 12:58 Urine Bacteria Moderate per hpf (None-Few) H 08/29/17 12:58 Ur Culture Indicated? YES (NO) A 08/29/17 12:58 Staphylococcus sp PCR DETECTED (Not Detect) A 08/27/17 21:25 Diabetes panel 08/29/17 Range/Units 05:20 Sodium 134 L (136-145) mEq/L Potassium 3.8 (3.5-5.1) mEq/L Chloride 109 H (98-107) mEq/L Carbon Dioxide 21 L (23-29) mEq/L BUN 17 (6-20) mg/dL Creatinine 0.71 (0.60-1.20) mg/dL Glucose 95 (70-105) mg/dL Calcium 7.2 L (8.6-10.3) mg/dL AST 8 L (13-39) Units/L ALT 7 (7-52) Units/L Alkaline Phosphatase 63 (34-104) Units/L Albumin 2.2 L (3.5-5.7) g/dL Thyroid panel 08/29/17 Range/Units 11:00 TSH 0.684 (0.340-5.600) mcIU/mL Calcium panel 08/29/17 08/29/17 Range/Units 05:20 05:20 Calcium 7.2 L (8.6-10.3) mg/dL Phosphorus 3.4 (2.7-4.5) mg/dL Albumin 2.2 L (3.5-5.7) g/dL Pituitary panel 08/29/17 08/29/17 Range/Units 05:20 11:00 Sodium 134 L (136-145) mEq/L Potassium 3.8 (3.5-5.1) mEq/L Chloride 109 H (98-107) mEq/L Carbon Dioxide 21 L (23-29) mEq/L BUN 17 (6-20) mg/dL Creatinine 0.71 (0.60-1.20) mg/dL Glucose 95 (70-105) mg/dL Calcium 7.2 L (8.6-10.3) mg/dL TSH 0.684 (0.340-5.600) mcIU/mL Adrenal panel 08/29/17 Range/Units 05:20 Sodium 134 L (136-145) mEq/L Potassium 3.8 (3.5-5.1) mEq/L Chloride 109 H (98-107) mEq/L Carbon Dioxide 21 L (23-29) mEq/L BUN 17 (6-20) mg/dL Creatinine 0.71 (0.60-1.20) mg/dL Glucose 95 (70-105) mg/dL Calcium 7.2 L (8.6-10.3) mg/dL Total Bilirubin 0.2 L (0.3-1.0) mg/dL AST 8 L (13-39) Units/L ALT 7 (7-52) Units/L Alkaline Phosphatase 63 (34-104) Units/L Albumin 2.2 L (3.5-5.7) g/dL All other labs normal. - Attending Attestation I reviewed the above and agree with the above plan.
[2017-08-28] MEDS: 0.9 % Sodium Chloride 1,000 ML IVC SCH (14:22)
[2017-08-28] MEDS: Leptospermum Honey GEL 1 APPL/5 ML MLS TP SCH ×2 (14:43→23:18)
--- NOTE | 2017-08-28 16:49 | Electrocardiograph Report ---
[address] [place], [place] [address] Test Date: 2017-08-27 Pat Name: Shona Rosado Department: 104 Room: 3A31 Gender: F Audiology Technician: : 1965 Requested By: Ran Balderas Order Number: [id number] Reading MD: Jean Carlos Matias MD Measurements Intervals [place] Rate: 110 P: 75 [place]: 133 QRS: 67 QRSD: 84 T: 73 QT: 264 QTc: 329 Interpretive Statements SINUS TACHYCARDIA Electronically Signed On 08-28-2017 16:48:07 EST by Jean Carlos Matias MD
[2017-08-28] MEDS ORDERED: Clinimix E 5%-15% SOLUTION 2,000 ML with MVI, adult with vitamin K 10 ML IVC SCH (17:00)
[2017-08-28 19:43] LABS: Acinetobacter baumannii by PCR Not Detected (Not Detect); Candida albicans by PCR Not Detected (Not Detect); Candida glabrata by PCR Not Detected (Not Detect); Candida krusei by PCR Not Detected (Not Detect); Candida parapsilosis by PCR Not Detected (Not Detect); Candida tropicalis by PCR Not Detected (Not Detect); Enterococcus by PCR Not Detected (Not Detect); Escherichia coli by PCR Not Detected (Not Detect); Klebsiella oxytoca by PCR Not Detected (Not Detect); Klebsiella pneumoniae by PCR Not Detected (Not Detect); Pseudomonas aeruginosa by PCR Not Detected (Not Detect); Serratia marcescens by PCR Not Detected (Not Detect); Staphylococcus aureus by PCR Not Detected (Not Detect); Streptococcus agalactiae(B)PCR Not Detected (Not Detect); Streptococcus by PCR Not Detected (Not Detect); Streptococcus pneumoniae PCR Not Detected (Not Detect); Streptococcus pyogenes (A) PCR Not Detected (Not Detect); blaKPC Carbapenem-Resist Gene Not Detected (Not Detect); mecA Methicillin-Resist Gene Not Detected (Not Detect); vanA/B Vancomycin-Resist Genes Not Detected (Not Detect)
--- NOTE | 2017-08-28 20:10 | Event Note ---
Date of Encounter: 08/28/17 Time of Encounter: 20:00 Called by RN because patient had positive blood culture return at 09/03 positive for staph, speciation pending. Only one blood culture was drawn. Evaluated patient, discussed with her the positive blood culture. She states that she has been chilled but not having fever. Although the blood culture is quite possibly growing staph epi (skin contaminant), I am concerned that because of her markedly deconditioned state in the setting of cancer that if the bacterium is staph aureus she could decompensate quickly without antibiotics. Will order two blood cultures and then initiate vancomycin pending speciation of staph on culture. Patient agrees with this plan and voices understanding.
[2017-08-28] MEDS ORDERED: Vancomycin 500 MG in D5% in Water 250 ML IVPB SCH (21:00)
[2017-08-28] MEDS ORDERED: Vancomycin 500 MG in D5% in Water (Mini-Bag+) 100 ML IVPB SCH (23:00)
[2017-08-29] MEDS: *HR* HYDROmorphone (PF) 1 MG/ML SYRINGE IVP PRN ×6 (00:14→21:49)
[2017-08-29] MEDS: Insulin LISPRO 300 UNITS/3 ML VIAL SQ SCH ×5 (00:23→23:56)
[2017-08-29] MEDS: Pantoprazole 40 MG VIAL IVP SCH ×2 (05:04→17:52)
[2017-08-29 05:46] LABS: Alanine Aminotransferase 7 Units/L (7-52); Albumin 2.2 g/dL (3.5-5.7); Albumin/Globulin Ratio 0.8 (1.1-2.2); Alkaline Phosphatase 63 Units/L (34-104); Aspartate Amino Transferase 8 Units/L (13-39); BUN/Creatinine Ratio 24 (6-26); Bilirubin,Total 0.2 mg/dL (0.3-1.0); Blood Urea Nitrogen 17 mg/dL (6-20); Calcium 7.2 mg/dL (8.6-10.3); Carbon Dioxide 21 mEq/L (23-29); Chloride 109 mEq/L (98-107); Globulin 2.8 g/dL (2.4-3.5); Glucose 95 mg/dL (70-105); Osmolality,Calculated 279 (280-300); Potassium 3.8 mEq/L (3.5-5.1); Sodium 134 mEq/L (136-145); eGFR For African Americans > 60 (> 60); eGFR For Non-African Americans > 60 (> 60)
[2017-08-29] MEDS: *HR* Promethazine 25 MG/ML VIAL IVP PRN ×2 (07:43→16:45)
[2017-08-29] MEDS: Leptospermum Honey GEL 1 APPL/5 ML MLS TP SCH ×2 (07:44→21:55)
[2017-08-29 08:02] LABS: Basophils % 0.2 %; Eosinophils # 0.3 K/mcL (0.0-0.6); Hematocrit 23.7 % (35.3-44.9); Hemoglobin 7.2 g/dL (11.5-15.4); Immature Granulocytes % 0.8 % (0-4); Immature Platelets 2.6 % (1.1-6.1); Lymphocytes # 0.8 K/mcL (0.6-4.6); Lymphocytes % 5.6 %; Mean Corpuscular HGB Conc 30.4 g/dL (31.6-35.5); Mean Corpuscular Volume 95.6 fL (83.0-100.0); Mean Platelet Volume 9.9 fL (9.4-12.4); Monocytes # 0.6 K/mcL (0.0-1.3); Monocytes % 3.8 %; Neutrophils # 13.1 K/mcL (1.6-8.9); Platelet Count 329 K/mcL (140-400); Red Blood Count 2.48 M/mcL (3.82-4.97); Segmented Neutrophils % 87.6 %
--- NOTE | 2017-08-29 10:48 | Internal Med Progress Note ---
Date of Encounter: 08/29/17 Time of Encounter: 11:00 - Assessment and plan (1) Bacteremia Current Visit: Yes Status: Acute Assessment and plan: The patient is not showing signs of sepsis. She does have an elevated white count. She has been afebrile. Her blood pressure is stable. She is not tachycardic. She has been started on vancomycin. We will continue that. Add cefepime and she has gram-negative rods seen from wound cultures. Follow up on the repeat blood cultures. Follow up on final speciation of the current blood cultures. This may be a contaminant. Continue with IV fluids. (2) Diabetes Current Visit: Yes Status: Chronic Assessment and plan: Continue with insulin sliding scale. Continue with Accu-Cheks Qualifiers: Diabetes mellitus type: other specified (including MINO) Diabetes mellitus complication status: with unspecified complications Diabetes mellitus penitentiary insulin use: without penitentiary use Qualified Code(s): E13.8 - Other specified diabetes mellitus with unspecified complications (3) Severe protein-calorie malnutrition Current Visit: Yes Status: Chronic Assessment and plan: Surgery has been consulted. TPN was started. Plan for PEG tube placement today. (4) Anemia Current Visit: Yes Status: Acute Assessment and plan: This is likely multifactorial stemming from malnutrition versus blood loss from decubitus ulcer. His hemoglobin has been slowly dropping over the last few months. C Check fecal occult blood testing and consult GI if +. There is no reports of GI bleed. The patient is on IV PPI prophylactically. Qualifiers: Anemia type: iron deficiency Iron deficiency anemia type: chronic blood loss Qualified Code(s): D50.0 - Iron deficiency anemia secondary to blood loss (chronic) (5) Syncopal episodes Current Visit: Yes Status: Acute Assessment and plan: This likely has happened due to malnutrition. She does have anemia and cachexia noted. She has been started on IV hydration which I will continue. Check orthostatics. Check TSH. Continue to monitor. Qualifiers: Syncope type: unspecified Qualified Code(s): R55 - Syncope and collapse (6) Sacral decubitus ulcer, stage IV Current Visit: Yes Status: Chronic Assessment and plan: Patient has a large sacral decubitus with redness and some pus draining . consult wound care and follow-up on all cultures. The patient is on vancomycin. I have added cefepime given that she is going gram-negative rods on the wounds. (7) DVT prophylaxis Current Visit: Yes Status: Acute Assessment and plan: SCDs - Subjective Interval history: The patient was seen and examined. She was admitted with syncopal/presyncopal episode. She has not to have anemia, weight loss, cachexia, severe protein/ calorie malnutrition. She has struggled with weight for the better part of the last 2 years. She was seen by surgery a couple years back and underwent a subtotal colectomy. Apparently this all started due to severe bout of constipation. Ever since then she has struggled with weight. She also has a psych history which may be contributing to all this. Surgery is following up with her as an outpatient as well and do not see a reason why she is not taking what she should be taking orally. He has been a positive blood cultures were staph that has not been speciated yet. He is afebrile. Has been hemodynamically stable. She has been started on TPN. Denies any fever chills nausea vomiting. - Constitutional Vitals: Temp Pulse Resp BP Pulse Ox 98.6 F 86 14 122/72 98 08/29/17 10:28 08/29/17 10:28 08/29/17 10:28 08/29/17 10:28 08/29/17 10:28 General appearance: Present: cooperative, mild distress (Discomfort d/t pain r/ t ulcer on sacrum), A&O X 3, pleasant, underweight, answers questions appropriately Exam: GEN: NAD, cachectic CVS: RRR. S1, S2, No m/r/g RESP: CTAB ABD: Soft, NT, ND, +BS, ileostomy with normal colored stool that is liquidy noted. EXT: No edema. 2+ DP. No rashes NEURO: Nonfocal Internal Medicine: Result - Labs CBC & Chem 7: 08/29/17 06:16 08/29/17 05:20 Labs: Short CBC 08/29/17 Range/Units 06:16 WBC 14.9 H (4.3-11.1) K/mcL Hgb 7.2 L (11.5-15.4) g/dL Hct 23.7 L (35.3-44.9) % Plt Count 329 (140-400) K/mcL Neutrophils # 13.1 H (1.6-8.9) K/mcL BMP 12/27/17 05:20 Sodium 134 L Potassium 3.8 Chloride 109 H Carbon Dioxide 21 L BUN 17 Creatinine 0.71 Glucose 95 Calcium 7.2 L Liver Function 08/29/17 Range/Units 05:20 Total Bilirubin 0.2 L (0.3-1.0) mg/dL AST 8 L (13-39) Units/L ALT 7 (7-52) Units/L Alkaline Phosphatase 63 (34-104) Units/L Albumin 2.2 L (3.5-5.7) g/dL Consult Discharge Plan - Plan Referrals: Crescencio Snell MD [Primary Care Provider] -
[2017-08-29 11:18] LABS: % Iron Saturation 9 % (15-50); Iron 17 mcg/dL (50-170); Transferrin 134 mg/dL (203-362)
[2017-08-29] MEDS: *HR* LORazepam 2 MG/ML VIAL IVP PRN ×2 (11:53→22:14)
[2017-08-29] MEDS: Ondansetron 4 MG/2 ML VIAL IVP PRN ×2 (12:31→21:55)
[2017-08-29] MEDS ORDERED: Cefepime HCl 2,000 MG in Water for inj. (sterile) 20 ML IVP SCH (13:00)
[2017-08-29] MEDS ORDERED: Lidocaine -MPF 2% 2 ML VIAL ONE (13:16)
[2017-08-29] MEDS ORDERED: Propofol 500 MG/50 ML INFUS..BTL ONE (13:16)
[2017-08-29 13:23] LABS: Bilirubin,Urine Negative (Negative); Blood,Urine Large (Negative); Clarity,Urine Cloudy (Clear); Color,Urine Yellow (Yellow); Glucose,Urine (UA) Normal (Normal); Ketones,Urine Negative (Negative); Leukocyte Esterase,Urine Large (Negative); Nitrite,Urine Positive (Negative); Protein,Urine Negative (Neg-Trace); Specific Gravity,Urine 1.019 (1.010-1.025); Urobilinogen,Urine Normal (Normal)
--- NOTE | 2017-08-29 13:23 | Anesthesia Evaluation PreOp ---
Date of Encounter: 08/29/17 Time of Encounter: 13:21 - Past History Planned Operation: PEG tube Insertion Cardiac History: HTN, Hyperlipidemia Pulmonary History: Asthma, COPD, Other (O2 asneeded) [employer] History: Seizures ( last one 11 mo. ago) Other Medical History: Diabetes Type II, GERD Anesthesia History: No Prior Anesthetic Complications, Past Anesthesia ( hysterectomy, Kyphoplasty) : No Alcohol Use: none Drug use: none Medications and Allergies Promethazine [Phenergan] 25 mg PO Q6HR PRN 03/13/16 [History] LORazepam [Ativan] 2 mg PO QID 07/21/16 [History] Diphenoxylate/Atropine [Lomotil 2.5 mg/0.025 mg] 2 tab PO QID 12/23/16 [History] Loperamide [Imodium] 4 mg PO QID 12/23/16 [History] HYDROmorphone [Dilaudid] 30 mg PO Q4HR PRN 08/27/17 [History] 3 Allergy/AdvReac Type Severity Reaction Status Date / Time shellfish derived Allergy UNKNOWN Verified 07/21/16 09:06 - Meds/Allergy Pre-op Review Medications Reviewed: Yes Allergies Reviewed: Yes Beta Blockers on Current Med List: No Anesthesia Results - Labs 08/29/17 06:16 08/29/17 05:20 report reviewed (06/12/2016 ) Additional studies: 02/04/2015 Echo Impressions: Normal LV systolic function, LVEF 65%. Normal right ventricular structure and function. Mild biatrial enlargement. Agitated saline contrast study demonstrates the late appearance of saline contrast on the left side of the heart, consistent with pulmonary arteriovenous shunting. Clinical correlation recommended. Valvular function was not assessed on this limited study. 02/04/2015 Stress Impression: The exercise capacity was fair. Patient exercised for 5:15 minutes on a Jean Carlos protocol, achieving 7 METs and 88% of max predicted heart rate. The patient demonstrated a blunted blood pressure response to exercise. Exercise ECG is negative for ischemia. Gated LVEF > 70%. Perfusion imaging was negative for ischemia or infarct. 09/10/2014 Echo Impressions: Normal LV systolic function, LVEF 60-65%. Normal left ventricular diastolic function. Normal right ventricular structure and function. No significant valvular dysfunction. No evidence of pulmonary hypertension. No evidence of PFO with agitated saline contrast. - Imaging EKG: report reviewed (ST) Anesthesia Exam O2 Sat Weight 33.54 kg O2 Sat by Pulse Oximetry 99 O2 Sat by Pulse Oximetry 98 O2 Sat by Pulse Oximetry 100 O2 Sat by Pulse Oximetry 98 O2 Sat by Pulse Oximetry 96 O2 Sat by Pulse Oximetry 96 O2 Sat by Pulse Oximetry 95 Vital Signs Temp Pulse Resp BP Pulse Ox 97.5 F L 112 12 97/85 98 08/27/17 13:49 08/27/17 13:49 08/27/17 13:49 08/27/17 13:49 08/27/17 13:49 NPO (# of Hours): > 8 hrs Pain Scale: 0 Pain Scale Used: Numeric (1 - 10) - HEENT Pupil (Motor): Pupils equal, EOMI Mallampati: II Teeth: Edentulous Oral Opening: Greater than 3 - [employer] LOC: Oriented [employer] Motor: Normal RUE, Normal LUE, Normal RLE, Normal LLE, Normal Face [employer] Sensory: Normal: RUE, LUE, RLE, LLE, Face - Cardiac Rhythm: Regular Murmur: None JVD: No Carotid Bruit: No - Pulmonary Breath Sounds: bilateral Clear Respiratory Effort: Symmetrical Anesthesia Assess/Plan ASA Score: 3 Modified Velarde Scale for Level of Consciousness: Cooperative, oriented, and tranquil Anesthetic Plan: MAC Autologous Blood: Yes Monitoring Plan: Standard Monitors Recovery Plan: Other
[2017-08-29 13:28] LABS: Bacteria,Urine Moderate per hpf (None-Few); Hyaline Casts,Urine None Seen per lpf (None-Few); Squamous Epithelial Cell,Urine Moderate per lpf (None-Few); WBC,Urine TNTC per hpf (0-3)
[2017-08-29] MEDS ORDERED: Ondansetron 4 MG/2 ML VIAL ONE (13:51)
--- NOTE | 2017-08-29 13:52 | Event Note ---
Date of Encounter: 08/29/17 Time of Encounter: 13:50 EGD performed. No gross abnormality. PEG placed without difficulty. Flange placed at 1.5cm. OK to use PEG. Will sign off; thank you.
[2017-08-29] MEDS ORDERED: 0.9 % Sodium Chloride 500 ML IVC SCH (14:00)
[2017-08-29] MEDS: 0.9 % Sodium Chloride 1,000 ML IVC SCH (16:45)
[2017-08-29] MEDS ORDERED: Clinimix E 5%-15% SOLUTION 2,000 ML with MVI, adult with vitamin K 10 ML IVC SCH (17:00)
[2017-08-29] MEDS: Vancomycin 500 MG in D5% in Water 100 ML IVPB SCH (23:21)
[2017-08-30] MEDS: *HR* HYDROmorphone (PF) 1 MG/ML SYRINGE IVP PRN ×4 (03:18→20:14)
[2017-08-30 04:23] LABS: Basophils # 0.1 K/mcL (0.0-0.2); Basophils % 0.3 %; Eosinophils # 0.5 K/mcL (0.0-0.6); Eosinophils % 3.1 %; Hematocrit 22.7 % (35.3-44.9); Hemoglobin 7.1 g/dL (11.5-15.4); Immature Granulocytes % 0.7 % (0-4); Lymphocytes # 1.1 K/mcL (0.6-4.6); Lymphocytes % 7.2 %; Mean Corpuscular HGB Conc 31.3 g/dL (31.6-35.5); Mean Corpuscular Hemoglobin 29.5 pg (28.0-33.3); Mean Corpuscular Volume 94.2 fL (83.0-100.0); Mean Platelet Volume 9.4 fL (9.4-12.4); Monocytes # 0.7 K/mcL (0.0-1.3); Monocytes % 4.6 %; Neutrophils # 12.3 K/mcL (1.6-8.9); Platelet Count 292 K/mcL (140-400); Red Blood Count 2.41 M/mcL (3.82-4.97); Segmented Neutrophils % 84.1 %
[2017-08-30 04:26] LABS: VBG Ionized Calcium 1.09 mmol/L (1.15-1.35); VBG PH 7.35 pH Units (7.32-7.42)
[2017-08-30 04:34] LABS: Magnesium 1.2 mg/dL (1.6-2.6); Phosphorous 3.1 mg/dL (2.7-4.5)
[2017-08-30 04:35] LABS: Alanine Aminotransferase 7 Units/L (7-52); Albumin 2.4 g/dL (3.5-5.7); Albumin/Globulin Ratio 0.8 (1.1-2.2); Alkaline Phosphatase 64 Units/L (34-104); Aspartate Amino Transferase 8 Units/L (13-39); BUN/Creatinine Ratio 19 (6-26); Bilirubin,Total 0.2 mg/dL (0.3-1.0); Blood Urea Nitrogen 13 mg/dL (6-20); Calcium 7.3 mg/dL (8.6-10.3); Carbon Dioxide 23 mEq/L (23-29); Chloride 107 mEq/L (98-107); Glucose 107 mg/dL (70-105); Osmolality,Calculated 281 (280-300); Potassium 3.5 mEq/L (3.5-5.1); Sodium 135 mEq/L (136-145); Total Protein 5.4 g/dL (6.4-8.9); eGFR For African Americans > 60 (> 60); eGFR For Non-African Americans > 60 (> 60)
[2017-08-30] MEDS: Pantoprazole 40 MG VIAL IVP SCH ×2 (05:12→18:21)
[2017-08-30] MEDS: *HR* Promethazine 25 MG/ML VIAL IVP PRN ×2 (05:12→17:19)
[2017-08-30] MEDS: Insulin LISPRO 300 UNITS/3 ML VIAL SQ SCH ×3 (05:13→18:50)
[2017-08-30] MEDS: *HR* LORazepam 2 MG/ML VIAL IVP PRN (09:49)
[2017-08-30] MEDS ORDERED: Magnesium Oxide 400 MG TABLET PO ONE (10:56)
[2017-08-30] MEDS ORDERED: Calcium Gluconate 2,000 MG in D5% in Water 100 ML IVPB ONE (10:57)
--- NOTE | 2017-08-30 11:06 | Internal Med Progress Note ---
Date of Encounter: 08/30/17 Time of Encounter: 11:00 - Assessment and plan (1) Bacteremia Current Visit: Yes Status: Acute Assessment and plan: The patient is not showing signs of sepsis. She does have an elevated white count and continues to do so.. She has been afebrile. Her blood pressure is stable. She is not tachycardic. She has been started on vancomycin and I have added cefepime yesterday based on wound cultures. Wound cultures have been finalized and I am going to change her back to ceftriaxone. Follow up on the repeat blood cultures. Continue with IV fluids. (2) Diabetes Current Visit: Yes Status: Chronic Assessment and plan: Continue with insulin sliding scale. Continue with Accu-Cheks Qualifiers: Diabetes mellitus type: other specified (including MINO) Diabetes mellitus complication status: with unspecified complications Diabetes mellitus long chain beamer insulin use: without long chain beamer use Qualified Code(s): E13.8 - Other specified diabetes mellitus with unspecified complications (3) Severe protein-calorie malnutrition Current Visit: Yes Status: Chronic Assessment and plan: Surgery has placed a PEG tube. I appreciate their help. She continues to be on TPN with trickle feeding through PEG tube. Advance tube feeds as tolerated and plan is to stop TPN sometime over the weekend. She has multiple electrolytes derangements which I will replete today including low magnesium and low calcium. (4) Anemia Current Visit: Yes Status: Acute Assessment and plan: This is likely multifactorial stemming from malnutrition versus blood loss from decubitus ulcer. Her hemoglobin has been slowly dropping over the last few hemoglobin 7.1 today and it was 7.2 yesterday. I have asked for stool sample to be tested for fecal occult and still waiting on that. Will consult GI if +. There is no reports of GI bleed. The patient is on IV PPI prophylactically. Qualifiers: Anemia type: iron deficiency Iron deficiency anemia type: chronic blood loss Qualified Code(s): D50.0 - Iron deficiency anemia secondary to blood loss (chronic) (5) Syncopal episodes Current Visit: Yes Status: Acute Assessment and plan: This likely has happened due to malnutrition. She does have anemia and cachexia noted. She has been started on IV hydration which I will continue. Orthostatics and TSH are normal. Continue to monitor. Qualifiers: Syncope type: unspecified Qualified Code(s): R55 - Syncope and collapse (6) Sacral decubitus ulcer, stage IV Current Visit: Yes Status: Chronic Assessment and plan: Patient has a large sacral decubitus with redness and some pus draining . consult wound care and follow-up on all cultures. The patient is on vancomycin. I added cefepime yesterday as I did not have final cultures given that she had gram-negative rods. She has positive Escherichia coli Proteus mirabilis as well as MRSA from the wound. Switch back to Rocephin. Continue vancomycin. (7) DVT prophylaxis Current Visit: Yes Status: Acute Assessment and plan: SCDs - Subjective Interval history: The patient was seen and examined. She was admitted with syncopal/presyncopal episode. She is status post PEG tube placement yesterday. Tube feeding started per dietary. She is noted to have anemia, weight loss, cachexia, severe protein/calorie malnutrition on admission. She has struggled with weight for the better part of the last 2 years. She was seen by surgery a couple years back and underwent a subtotal colectomy. She is afebrile. Has been hemodynamically stable. She has been started on TPN. Denies any fever chills nausea vomiting. - Constitutional Vitals: Temp Pulse Resp BP Pulse Ox 98.7 F 54 14 117/73 97 08/30/17 07:07 08/30/17 07:07 08/30/17 07:07 08/30/17 07:07 08/30/17 07:07 General appearance: Present: cooperative, mild distress (Discomfort d/t pain r/ t ulcer on sacrum), A&O X 3, pleasant, underweight, answers questions appropriately Exam: GEN: NAD, cachectic CVS: RRR. S1, S2, No m/r/g RESP: CTAB ABD: Soft, NT, ND, +BS, ileostomy with normal colored stool that is liquidy noted.. PEG tube noted EXT: No edema. 2+ DP. No rashes NEURO: Nonfocal Internal Medicine: Result - Labs CBC & Chem 7: 08/30/17 04:00 08/30/17 04:00 Labs: Short CBC 08/30/17 Range/Units 04:00 WBC 14.7 H (4.3-11.1) K/mcL Hgb 7.1 L (11.5-15.4) g/dL Hct 22.7 L (35.3-44.9) % Plt Count 292 (140-400) K/mcL Neutrophils # 12.3 H (1.6-8.9) K/mcL BMP 08/30/17 04:00 Sodium 135 L Potassium 3.5 Chloride 107 Carbon Dioxide 23 BUN 13 Creatinine 0.68 Glucose 107 H Calcium 7.3 L Liver Function 08/30/17 Range/Units 04:00 Total Bilirubin 0.2 L (0.3-1.0) mg/dL AST 8 L (13-39) Units/L ALT 7 (7-52) Units/L Alkaline Phosphatase 64 (34-104) Units/L Albumin 2.4 L (3.5-5.7) g/dL Urine 08/29/17 Range/Units 12:58 Urine Color Yellow (Yellow) Urine Clarity Cloudy A (Clear) Urine pH 6.0 (5.0-8.0) pH Units Ur Specific [place] 1.019 (1.010-1.025) Urine Protein Negative (Neg-Trace) mg/dL Urine Glucose (UA) Normal (Normal) mg/dL Consult Discharge Plan - Plan Referrals: Crescencio Snell MD [Primary Care Provider] -
[2017-08-30] MEDS: Leptospermum Honey GEL 1 APPL/5 ML MLS TP SCH (11:52)
[2017-08-30] MEDS: cefTRIAXone 1,000 MG in Water for inj. (sterile) 10 ML IVP SCH (11:53)
[2017-08-30] MEDS: Ondansetron 4 MG/2 ML VIAL IVP PRN (14:07)
[2017-08-30] MEDS ORDERED: Clinimix E 5%-15% SOLUTION 2,000 ML with MVI, adult with vitamin K 10 ML, Magnesium S... IVC SCH (17:00)
[2017-08-30] MEDS: 0.9 % Sodium Chloride 1,000 ML IVC SCH ×2 (18:05→19:41)
[2017-08-31] MEDS: Vancomycin 500 MG in D5% in Water 100 ML IVPB SCH ×2 (01:07→23:40)
[2017-08-31] MEDS: Leptospermum Honey GEL 1 APPL/5 ML MLS TP SCH ×2 (01:07→08:50)
[2017-08-31] MEDS: *HR* LORazepam 2 MG/ML VIAL IVP PRN (01:08)
[2017-08-31] MEDS: Insulin LISPRO 300 UNITS/3 ML VIAL SQ SCH ×4 (01:14→17:43)
[2017-08-31] MEDS: *HR* HYDROmorphone (PF) 1 MG/ML SYRINGE IVP PRN ×5 (04:21→22:20)
[2017-08-31 05:57] LABS: Basophils # 0.1 K/mcL (0.0-0.2); Basophils % 0.4 %; Eosinophils # 0.3 K/mcL (0.0-0.6); Eosinophils % 2.6 %; Hematocrit 22.5 % (35.3-44.9); Hemoglobin 7.1 g/dL (11.5-15.4); Immature Granulocytes % 0.5 % (0-4); Lymphocytes # 1.1 K/mcL (0.6-4.6); Lymphocytes % 8.5 %; Mean Corpuscular HGB Conc 31.6 g/dL (31.6-35.5); Mean Corpuscular Hemoglobin 29.2 pg (28.0-33.3); Mean Corpuscular Volume 92.6 fL (83.0-100.0); Mean Platelet Volume 9.7 fL (9.4-12.4); Monocytes # 0.8 K/mcL (0.0-1.3); Monocytes % 6.3 %; Neutrophils # 10.8 K/mcL (1.6-8.9); Platelet Count 350 K/mcL (140-400); Red Blood Count 2.43 M/mcL (3.82-4.97); Red Cell Distribution Width 14.9 % (11.5-14.5); Segmented Neutrophils % 81.7 %
[2017-08-31 06:07] LABS: Alanine Aminotransferase 11 Units/L (7-52); Albumin 2.5 g/dL (3.5-5.7); Albumin/Globulin Ratio 0.8 (1.1-2.2); Alkaline Phosphatase 66 Units/L (34-104); Aspartate Amino Transferase 12 Units/L (13-39); BUN/Creatinine Ratio 23 (6-26); Bilirubin,Total 0.3 mg/dL (0.3-1.0); Blood Urea Nitrogen 14 mg/dL (6-20); Calcium 7.5 mg/dL (8.6-10.3); Carbon Dioxide 26 mEq/L (23-29); Chloride 102 mEq/L (98-107); Globulin 3.3 g/dL (2.4-3.5); Glucose 104 mg/dL (70-105); Osmolality,Calculated 277 (280-300); Potassium 3.4 mEq/L (3.5-5.1); Sodium 133 mEq/L (136-145); Total Protein 5.8 g/dL (6.4-8.9); eGFR For African Americans > 60 (> 60); eGFR For Non-African Americans > 60 (> 60)
[2017-08-31 06:08] LABS: Magnesium 1.8 mg/dL (1.6-2.6); Phosphorous 2.4 mg/dL (2.7-4.5)
[2017-08-31] MEDS: Pantoprazole 40 MG VIAL IVP SCH ×2 (06:35→17:41)
[2017-08-31] MEDS: Ondansetron 4 MG/2 ML VIAL IVP PRN ×2 (06:36→17:48)
[2017-08-31] MEDS: *HR* Promethazine 25 MG/ML VIAL IVP PRN ×3 (09:58→22:20)
[2017-08-31] MEDS ORDERED: Potassium Chloride 40 MEQ, Lidocaine 1% 2 ML in D5% in Water 500 ML IVPB ONE (11:43)
[2017-08-31] MEDS: cefTRIAXone 1,000 MG in Water for inj. (sterile) 10 ML IVP SCH (12:18)
[2017-08-31] MEDS ORDERED: 0.9 % Sodium Chloride 250 ML ONE (14:15)
--- NOTE | 2017-08-31 16:35 | Internal Med Progress Note ---
Date of Encounter: 08/31/17 Time of Encounter: 16:33 - Assessment and plan (1) Bacteremia Current Visit: Yes Status: Acute Assessment and plan: The patient is not showing signs of sepsis. She does have an elevated white count and continues to do so.. She has been afebrile. Her blood pressure is stable. She is not tachycardic. She has been started on vancomycin and I have added cefepime yesterday based on wound cultures. Wound cultures have been finalized and I am going to change her back to ceftriaxone. Follow up on the repeat blood cultures. Continue with IV fluids. (2) Sacral decubitus ulcer, stage IV Current Visit: Yes Status: Chronic Assessment and plan: Patient has a large sacral decubitus with redness and some pus draining . consult wound care and follow-up on all cultures. The patient is on vancomycin. I added cefepime yesterday as I did not have final cultures given that she had gram-negative rods. She has positive Escherichia coli Proteus mirabilis as well as MRSA from the wound. Switch back to Rocephin. Continue vancomycin. (3) Syncopal episodes Current Visit: Yes Status: Acute Assessment and plan: This likely has happened due to malnutrition. She does have anemia and cachexia noted. She has been started on IV hydration which I will continue. Orthostatics and TSH are normal. Continue to monitor. Qualifiers: Syncope type: unspecified Qualified Code(s): R55 - Syncope and collapse (4) Severe protein-calorie malnutrition Current Visit: Yes Status: Chronic Assessment and plan: Surgery has placed a PEG tube 08/29. Advance tube feeds as tolerated and plan is to stop TPN sometime over the weekend. Replace electrolytes as needed during this time. (5) Anemia Current Visit: Yes Status: Acute Assessment and plan: This is likely multifactorial stemming from malnutrition versus blood loss from decubitus ulcer. Her hemoglobin has been slowly dropping over the last few hemoglobin 7.1 today and it was 7.2 two days ago. FOBT negative. There is no reports of GI bleed. The patient is on IV PPI prophylactically. She does not have any signs of active GIB. We will give her one unit PRBC today. Qualifiers: Anemia type: unspecified type Qualified Code(s): D64.9 - Anemia, unspecified (6) HLD (hyperlipidemia) Current Visit: No Status: Chronic Qualifiers: Hyperlipidemia type: unspecified Qualified Code(s): E78.5 - Hyperlipidemia , unspecified (7) Gastrostomy in place Current Visit: No Status: Chronic (8) GERD (gastroesophageal reflux disease) Current Visit: Yes Status: Chronic Qualifiers: Esophagitis presence: with esophagitis Qualified Code(s): K21.0 - Gastro- esophageal reflux disease with esophagitis (9) Diabetes Current Visit: Yes Status: Chronic Assessment and plan: Continue with insulin sliding scale. Continue with Accu-Cheks Qualifiers: Diabetes mellitus type: other specified (including MINO) Diabetes mellitus complication status: with unspecified complications Diabetes mellitus local intermodal truck driver insulin use: without local intermodal truck driver use Qualified Code(s): E13.8 - Other specified diabetes mellitus with unspecified complications (10) DVT prophylaxis Current Visit: Yes Status: Acute - Subjective Interval history: EGD and PEG placed 08/29. Patient was able to go to 45 ml/hr on TF, having some nausea with increased rate. She denies fevers/chills, diarrhea/ constipation. - Constitutional Vitals: Temp Pulse Resp BP Pulse Ox 98.9 F 96 16 107/72 100 08/31/17 15:44 08/31/17 15:44 08/31/17 15:44 08/31/17 15:44 08/31/17 15:44 Exam: GEN: NAD, cachectic CVS: RRR. S1, S2, No m/r/g RESP: CTAB ABD: Soft, NT, ND, +BS, ileostomy with normal colored stool that is liquidy noted.. PEG tube noted EXT: No edema. 2+ DP. No rashes NEURO: Nonfocal Internal Medicine: Result - Labs CBC & Chem 7: 08/31/17 04:54 08/31/17 04:54 Labs: Short CBC 08/31/17 Range/Units 04:54 WBC 13.2 H (4.3-11.1) K/mcL Hgb 7.1 L (11.5-15.4) g/dL Hct 22.5 L (35.3-44.9) % Plt Count 350 (140-400) K/mcL Neutrophils # 10.8 H (1.6-8.9) K/mcL BMP 08/31/17 04:54 Sodium 133 L Potassium 3.4 L Chloride 102 Carbon Dioxide 26 BUN 14 Creatinine 0.60 Glucose 104 Calcium 7.5 L Liver Function 08/31/17 Range/Units 04:54 Total Bilirubin 0.3 (0.3-1.0) mg/dL AST 12 L (13-39) Units/L ALT 11 (7-52) Units/L Alkaline Phosphatase 66 (34-104) Units/L Albumin 2.5 L (3.5-5.7) g/dL - VTE Documentation of Mechanical Device: Graduated compression elastic hosiery Consult Discharge Plan - Plan Referrals: Crescencio Snell MD [Primary Care Provider] -
[2017-08-31] MEDS ORDERED: Clinimix E 5%-15% SOLUTION 2,000 ML with MVI, adult with vitamin K 10 ML, Magnesium S... IVC SCH (17:00)
[2017-08-31] MEDS: 0.9 % Sodium Chloride 1,000 ML IVC SCH (17:41)
[2017-09-01] MEDS: Insulin LISPRO 300 UNITS/3 ML VIAL SQ SCH ×4 (01:05→17:45)
[2017-09-01] MEDS: *HR* HYDROmorphone (PF) 1 MG/ML SYRINGE IVP PRN ×4 (02:37→20:54)
[2017-09-01] MEDS: Ondansetron 4 MG/2 ML VIAL IVP PRN (03:06)
[2017-09-01 03:39] LABS: Basophils # 0.1 K/mcL (0.0-0.2); Basophils % 0.4 %; Eosinophils # 0.3 K/mcL (0.0-0.6); Eosinophils % 2.1 %; Hematocrit 25.5 % (35.3-44.9); Hemoglobin 8.1 g/dL (11.5-15.4); Immature Granulocytes % 0.5 % (0-4); Lymphocytes # 1.3 K/mcL (0.6-4.6); Lymphocytes % 8.9 %; Mean Corpuscular HGB Conc 31.8 g/dL (31.6-35.5); Mean Corpuscular Hemoglobin 28.5 pg (28.0-33.3); Mean Corpuscular Volume 89.8 fL (83.0-100.0); Mean Platelet Volume 9.2 fL (9.4-12.4); Monocytes # 1.4 K/mcL (0.0-1.3); Monocytes % 9.6 %; Neutrophils # 11.1 K/mcL (1.6-8.9); Platelet Count 355 K/mcL (140-400); Red Blood Count 2.84 M/mcL (3.82-4.97); Red Cell Distribution Width 17.2 % (11.5-14.5); Segmented Neutrophils % 78.5 %
[2017-09-01 03:59] LABS: Alanine Aminotransferase 15 Units/L (7-52); Albumin 2.4 g/dL (3.5-5.7); Albumin/Globulin Ratio 0.7 (1.1-2.2); Alkaline Phosphatase 71 Units/L (34-104); Aspartate Amino Transferase 15 Units/L (13-39); BUN/Creatinine Ratio 27 (6-26); Bilirubin,Total 0.3 mg/dL (0.3-1.0); Blood Urea Nitrogen 15 mg/dL (6-20); Calcium 7.4 mg/dL (8.6-10.3); Carbon Dioxide 25 mEq/L (23-29); Chloride 104 mEq/L (98-107); Globulin 3.3 g/dL (2.4-3.5); Glucose 82 mg/dL (70-105); Osmolality,Calculated 276 (280-300); Sodium 133 mEq/L (136-145); Total Protein 5.7 g/dL (6.4-8.9); eGFR For African Americans > 60 (> 60); eGFR For Non-African Americans > 60 (> 60)
[2017-09-01] MEDS: Leptospermum Honey GEL 1 APPL/5 ML MLS TP SCH ×3 (04:23→20:40)
[2017-09-01] MEDS: *HR* LORazepam 2 MG/ML VIAL IVP PRN (05:32)
[2017-09-01] MEDS: Pantoprazole 40 MG VIAL IVP SCH ×2 (05:32→17:56)
[2017-09-01 08:38] LABS: Magnesium 1.6 mg/dL (1.6-2.6); Phosphorous 2.6 mg/dL (2.7-4.5)
[2017-09-01] MEDS: *HR* Promethazine 25 MG/ML VIAL IVP PRN (08:56)
[2017-09-01] MEDS: Vancomycin 500 MG in D5% in Water 250 ML IVPB SCH ×2 (08:57→20:54)
[2017-09-01] MEDS: cefTRIAXone 1,000 MG in Water for inj. (sterile) 10 ML IVP SCH (11:40)
--- NOTE | 2017-09-01 23:28 | Internal Med Progress Note ---
Date of Encounter: 09/01/17 Time of Encounter: 11:26 - Assessment and plan (1) Bacteremia Current Visit: Yes Status: Acute Assessment and plan: The patient is not showing signs of sepsis. She does have an elevated white count and continues to do so.. She has been afebrile. Her blood pressure is stable. She has been started on vancomycin and cefepime. Wound cultures have been finalized and back to ceftriaxone. Follow up on the repeat blood cultures. Continue with IV fluids. (2) Sacral decubitus ulcer, stage IV Current Visit: Yes Status: Chronic Assessment and plan: Patient has a large sacral decubitus with redness and some pus draining . consult wound care and follow-up on all cultures. The patient is on vancomycin. I added cefepime yesterday as I did not have final cultures given that she had gram-negative rods. She has positive Escherichia coli Proteus mirabilis as well as MRSA from the wound. Switch back to Rocephin. Continue vancomycin. (3) Syncopal episodes Current Visit: Yes Status: Acute Assessment and plan: This likely has happened due to malnutrition. She does have anemia and cachexia noted. She has been started on IV hydration which I will continue. Orthostatics and TSH are normal. Continue to monitor. Qualifiers: Syncope type: unspecified Qualified Code(s): R55 - Syncope and collapse (4) Severe protein-calorie malnutrition Current Visit: Yes Status: Chronic Assessment and plan: Surgery has placed a PEG tube 08/29. Advance tube feeds as tolerated and plan is to stop TPN sometime over the weekend. Replace electrolytes as needed during this time. (5) Anemia Current Visit: Yes Status: Acute Assessment and plan: This is likely multifactorial stemming from malnutrition versus blood loss from decubitus ulcer. Her hemoglobin has been slowly dropping over the last few hemoglobin 7.1 today and it was 7.2 two days ago. FOBT negative. There is no reports of GI bleed. The patient is on IV PPI prophylactically. She does not have any signs of active GIB. We will give her one unit PRBC today. Qualifiers: Anemia type: unspecified type Qualified Code(s): D64.9 - Anemia, unspecified (6) HLD (hyperlipidemia) Current Visit: No Status: Chronic Qualifiers: Hyperlipidemia type: unspecified Qualified Code(s): E78.5 - Hyperlipidemia , unspecified (7) Gastrostomy in place Current Visit: No Status: Chronic (8) GERD (gastroesophageal reflux disease) Current Visit: Yes Status: Chronic Qualifiers: Esophagitis presence: with esophagitis Qualified Code(s): K21.0 - Gastro- esophageal reflux disease with esophagitis (9) Diabetes Current Visit: Yes Status: Chronic Assessment and plan: Continue with insulin sliding scale. Continue with Accu-Cheks Qualifiers: Diabetes mellitus type: other specified (including MINO) Diabetes mellitus complication status: with unspecified complications Diabetes mellitus clerical adviser insulin use: without clerical adviser use Qualified Code(s): E13.8 - Other specified diabetes mellitus with unspecified complications (10) DVT prophylaxis Current Visit: Yes Status: Acute - Subjective Interval history: EGD and PEG placed 08/29. Patient was able to go to 45 ml/hr on TF, having some nausea with increased rate. She denies fevers/chills, diarrhea/ constipation. - Constitutional Vitals: Temp Pulse Resp BP Pulse Ox 98.6 F 108 16 122/81 93 09/01/17 17:36 09/01/17 17:36 09/01/17 17:36 09/01/17 17:36 09/01/17 17:36 General appearance: Present: cooperative, A&O X 3, pleasant, no acute distress, underweight, answers questions appropriately - Respiratory Respiratory exam: Present: CTAB. Absent: accessory muscle use, rales, rhonchi, wheezes - Cardiovascular Cardiovascular exam: Present: RRR, +S1, +S2. Absent: diastolic murmur, gallop, rubs, systolic murmur - Extremities Exam Extremities exam: Present: warm, radial pulses palpable and symmetrical. Absent : calf tenderness, cyanotic, pedal edema Internal Medicine: Result - Labs CBC & Chem 7: 09/01/17 03:03 09/01/17 03:03 Labs: Short CBC 09/01/17 Range/Units 03:03 WBC 14.1 H (4.3-11.1) K/mcL Hgb 8.1 L (11.5-15.4) g/dL Hct 25.5 L (35.3-44.9) % Plt Count 355 (140-400) K/mcL Neutrophils # 11.1 H (1.6-8.9) K/mcL BMP 09/01/17 03:03 Sodium 133 L Potassium 4.0 Chloride 104 Carbon Dioxide 25 BUN 15 Creatinine 0.56 L Glucose 82 Calcium 7.4 L Liver Function 09/01/17 Range/Units 03:03 Total Bilirubin 0.3 (0.3-1.0) mg/dL AST 15 (13-39) Units/L ALT 15 (7-52) Units/L Alkaline Phosphatase 71 (34-104) Units/L Albumin 2.4 L (3.5-5.7) g/dL - VTE Documentation of Mechanical Device: Graduated compression elastic hosiery Consult Discharge Plan - Plan Referrals: Crescencio Snell MD [Primary Care Provider] -
[2017-09-02] MEDS: Insulin LISPRO 300 UNITS/3 ML VIAL SQ SCH ×4 (00:51→18:10)
[2017-09-02] MEDS: *HR* Promethazine 25 MG/ML VIAL IVP PRN ×2 (04:33→18:10)
[2017-09-02 05:40] LABS: BUN/Creatinine Ratio 30 (6-26); Blood Urea Nitrogen 16 mg/dL (6-20); Calcium 7.6 mg/dL (8.6-10.3); Carbon Dioxide 27 mEq/L (23-29); Chloride 103 mEq/L (98-107); Glucose 119 mg/dL (70-105); Magnesium 1.4 mg/dL (1.6-2.6); Osmolality,Calculated 280 (280-300); Phosphorous 2.2 mg/dL (2.7-4.5); Potassium 3.8 mEq/L (3.5-5.1); Sodium 134 mEq/L (136-145); eGFR For African Americans > 60 (> 60); eGFR For Non-African Americans > 60 (> 60)
[2017-09-02] MEDS: Pantoprazole 40 MG VIAL IVP SCH ×2 (06:31→18:10)
[2017-09-02] MEDS: *HR* HYDROmorphone (PF) 1 MG/ML SYRINGE IVP PRN ×3 (06:45→20:40)
[2017-09-02] MEDS ORDERED: Sodium Phosphate 30 MMOL in D5% in Water 100 ML IVPB ONE (08:40)
[2017-09-02] MEDS: Vancomycin 500 MG in D5% in Water 250 ML IVPB SCH ×2 (09:26→20:39)
[2017-09-02 10:05] LABS: Basophils # 0.1 K/mcL (0.0-0.2); Basophils % 0.4 %; Eosinophils # 0.2 K/mcL (0.0-0.6); Eosinophils % 1.3 %; Hematocrit 24.2 % (35.3-44.9); Hemoglobin 7.6 g/dL (11.5-15.4); Immature Granulocytes % 0.6 % (0-4); Lymphocytes # 1.1 K/mcL (0.6-4.6); Lymphocytes % 9.1 %; Mean Corpuscular HGB Conc 31.4 g/dL (31.6-35.5); Mean Corpuscular Hemoglobin 28.1 pg (28.0-33.3); Mean Corpuscular Volume 89.6 fL (83.0-100.0); Mean Platelet Volume 9.5 fL (9.4-12.4); Monocytes % 7.9 %; Neutrophils # 10.1 K/mcL (1.6-8.9); Platelet Count 390 K/mcL (140-400); Segmented Neutrophils % 80.7 %
[2017-09-02] MEDS: Leptospermum Honey GEL 1 APPL/5 ML MLS TP SCH ×2 (10:09→20:54)
[2017-09-02] MEDS: *HR* LORazepam 2 MG/ML VIAL IVP PRN ×2 (11:30→20:39)
[2017-09-02] MEDS: cefTRIAXone 1,000 MG in Water for inj. (sterile) 10 ML IVP SCH (12:27)
[2017-09-02] MEDS ORDERED: Melatonin 3 MG TABLET PO PRN (20:58)
--- NOTE | 2017-09-02 21:02 | Internal Med Progress Note ---
Date of Encounter: 09/02/17 Time of Encounter: 13:01 - Assessment and plan (1) Bacteremia Current Visit: Yes Status: Acute Assessment and plan: The patient is not showing signs of sepsis. She does have an elevated white count and continues to do so.. She has been afebrile. Her blood pressure is stable. She has been started on vancomycin and cefepime. Wound cultures have been finalized and back to ceftriaxone. Follow up on the repeat blood cultures. Will need discharged on IV antibiotics. (2) Sacral decubitus ulcer, stage IV Current Visit: Yes Status: Chronic Assessment and plan: Patient has a large sacral decubitus with redness and some pus draining . consult wound care and follow-up on all cultures. The patient is on vancomycin. I added cefepime yesterday as I did not have final cultures given that she had gram-negative rods. She has positive Escherichia coli Proteus mirabilis as well as MRSA from the wound. Switch back to Rocephin. Continue vancomycin. (3) Syncopal episodes Current Visit: Yes Status: Acute Assessment and plan: This likely has happened due to malnutrition. She does have anemia and cachexia noted. She has been started on IV hydration which I will continue. Orthostatics and TSH are normal. Continue to monitor. Qualifiers: Syncope type: unspecified Qualified Code(s): R55 - Syncope and collapse (4) Severe protein-calorie malnutrition Current Visit: Yes Status: Chronic Assessment and plan: Surgery has placed a PEG tube 08/29. Advance tube feeds as tolerated and plan is to stop TPN sometime over the weekend. Replace electrolytes as needed during this time. (5) Anemia Current Visit: Yes Status: Acute Assessment and plan: This is likely multifactorial stemming from malnutrition versus blood loss from decubitus ulcer. Her hemoglobin has been slowly dropping over the last few hemoglobin 7.1 today and it was 7.2 two days ago. FOBT negative. There is no reports of GI bleed. The patient is on IV PPI prophylactically. She does not have any signs of active GIB. We will give her one unit PRBC today. Qualifiers: Anemia type: unspecified type Qualified Code(s): D64.9 - Anemia, unspecified (6) HLD (hyperlipidemia) Current Visit: No Status: Chronic Qualifiers: Hyperlipidemia type: unspecified Qualified Code(s): E78.5 - Hyperlipidemia , unspecified (7) Gastrostomy in place Current Visit: No Status: Chronic (8) GERD (gastroesophageal reflux disease) Current Visit: Yes Status: Chronic Qualifiers: Esophagitis presence: with esophagitis Qualified Code(s): K21.0 - Gastro- esophageal reflux disease with esophagitis (9) Diabetes Current Visit: Yes Status: Chronic Assessment and plan: Continue with insulin sliding scale. Continue with Accu-Cheks Qualifiers: Diabetes mellitus type: other specified (including MINO) Diabetes mellitus complication status: with unspecified complications Diabetes mellitus local company intermodal truck driver insulin use: without local company intermodal truck driver use Qualified Code(s): E13.8 - Other specified diabetes mellitus with unspecified complications (10) DVT prophylaxis Current Visit: Yes Status: Acute - Subjective Interval history: EGD and PEG placed 08/29. Patient was able to go to 45 ml/hr on TF. She denies fevers/chills, diarrhea/constipation. Occasionally gets nausea with TF. Tries to eat food but still has poor appetite. - Constitutional Vitals: Temp Pulse Resp BP Pulse Ox 99.3 F 108 16 109/71 97 09/02/17 19:09 09/02/17 19:09 09/02/17 19:09 09/02/17 19:09 09/02/17 19:09 General appearance: Present: cachectic, cooperative, A&O X 3, no acute distress , underweight, answers questions appropriately - Respiratory Respiratory exam: Present: CTAB. Absent: accessory muscle use, rales, rhonchi, wheezes - Cardiovascular Cardiovascular exam: Present: RRR, +S1, +S2. Absent: diastolic murmur, gallop, rubs, systolic murmur - GI/Abdominal Additional comments: colostomy in place - Extremities Exam Extremities exam: Present: warm, radial pulses palpable and symmetrical. Absent : calf tenderness, cyanotic, pedal edema Internal Medicine: Result - Labs CBC & Chem 7: 09/02/17 09:35 09/02/17 03:45 Labs: Short CBC 09/02/17 Range/Units 09:35 WBC 12.5 H (4.3-11.1) K/mcL Hgb 7.6 L (11.5-15.4) g/dL Hct 24.2 L (35.3-44.9) % Plt Count 390 (140-400) K/mcL Neutrophils # 10.1 H (1.6-8.9) K/mcL [facility] 09/02/17 03:45 Sodium 134 L Potassium 3.8 Chloride 103 Carbon Dioxide 27 BUN 16 Creatinine 0.53 L Glucose 119 H Calcium 7.6 L - VTE Documentation of Mechanical Device: Intermittent pneumatic compression device Consult Discharge Plan - Plan Referrals: Crescencio Snell MD [Primary Care Provider] -
[2017-09-03] MEDS: Insulin LISPRO 300 UNITS/3 ML VIAL SQ SCH ×4 (00:15→17:32)
[2017-09-03] MEDS: *HR* HYDROmorphone (PF) 1 MG/ML SYRINGE IVP PRN ×5 (04:37→22:48)
[2017-09-03 04:54] LABS: Basophils # 0.1 K/mcL (0.0-0.2); Basophils % 0.5 %; Eosinophils # 0.2 K/mcL (0.0-0.6); Eosinophils % 1.6 %; Hematocrit 23.9 % (35.3-44.9); Hemoglobin 7.5 g/dL (11.5-15.4); Immature Granulocytes % 0.4 % (0-4); Lymphocytes # 1.1 K/mcL (0.6-4.6); Lymphocytes % 8.9 %; Mean Corpuscular HGB Conc 31.4 g/dL (31.6-35.5); Mean Corpuscular Hemoglobin 28.1 pg (28.0-33.3); Mean Corpuscular Volume 89.5 fL (83.0-100.0); Mean Platelet Volume 9.1 fL (9.4-12.4); Monocytes # 0.9 K/mcL (0.0-1.3); Neutrophils # 9.5 K/mcL (1.6-8.9); Platelet Count 387 K/mcL (140-400); Red Blood Count 2.67 M/mcL (3.82-4.97); Red Cell Distribution Width 16.9 % (11.5-14.5); Segmented Neutrophils % 80.6 %
[2017-09-03 05:09] LABS: BUN/Creatinine Ratio 26 (6-26); Blood Urea Nitrogen 15 mg/dL (6-20); Calcium 7.7 mg/dL (8.6-10.3); Carbon Dioxide 28 mEq/L (23-29); Chloride 101 mEq/L (98-107); Glucose 121 mg/dL (70-105); Magnesium 1.4 mg/dL (1.6-2.6); Osmolality,Calculated 280 (280-300); Phosphorous 2.7 mg/dL (2.7-4.5); Potassium 3.6 mEq/L (3.5-5.1); Sodium 134 mEq/L (136-145); eGFR For African Americans > 60 (> 60); eGFR For Non-African Americans > 60 (> 60)
[2017-09-03] MEDS: *HR* LORazepam 2 MG/ML VIAL IVP PRN ×2 (08:31→20:27)
[2017-09-03] MEDS: Pantoprazole 40 MG VIAL IVP SCH ×2 (08:33→17:32)
[2017-09-03] MEDS: Vancomycin 500 MG in D5% in Water 250 ML IVPB SCH ×2 (08:33→22:48)
[2017-09-03] MEDS: cefTRIAXone 1,000 MG in Water for inj. (sterile) 10 ML IVP SCH (12:54)
[2017-09-03] MEDS: *HR* Promethazine 25 MG/ML VIAL IVP PRN ×2 (12:57→20:28)
[2017-09-03] MEDS: 0.9 % Sodium Chloride 1,000 ML IVC SCH (14:28)
[2017-09-03] MEDS ORDERED: Magnesium Sulfate 3 GM in D5% in Water 100 ML IVPB ONE (14:33)
--- NOTE | 2017-09-03 18:36 | Internal Med Progress Note ---
Date of Encounter: 09/03/17 Time of Encounter: 18:34 - Assessment and plan (1) Bacteremia Current Visit: Yes Status: Acute Assessment and plan: The patient is not showing signs of sepsis. She does have an elevated white count and continues to do so.. She has been afebrile. Her blood pressure is stable. She has been started on vancomycin and cefepime. Wound cultures have been finalized and back to ceftriaxone. Follow up on the repeat blood cultures. Will need discharged on IV antibiotics. (2) Sacral decubitus ulcer, stage IV Current Visit: Yes Status: Chronic Assessment and plan: Patient has a large sacral decubitus with redness and some pus draining . consult wound care and follow-up on all cultures. The patient is on vancomycin. I added cefepime yesterday as I did not have final cultures given that she had gram-negative rods. She has positive Escherichia coli Proteus mirabilis as well as MRSA from the wound. Switch back to Rocephin. Continue vancomycin. (3) Syncopal episodes Current Visit: Yes Status: Acute Assessment and plan: This likely has happened due to malnutrition. She does have anemia and cachexia noted. She has been started on IV hydration which I will continue. Orthostatics and TSH are normal. Continue to monitor. Qualifiers: Syncope type: unspecified Qualified Code(s): R55 - Syncope and collapse (4) Severe protein-calorie malnutrition Current Visit: Yes Status: Chronic Assessment and plan: Surgery has placed a PEG tube 08/29. Advance tube feeds as tolerated and plan is to stop TPN sometime over the weekend. Replace electrolytes as needed during this time. (5) Anemia Current Visit: Yes Status: Acute Assessment and plan: This is likely multifactorial stemming from malnutrition versus blood loss from decubitus ulcer. Her hemoglobin has been slowly dropping over the last few hemoglobin 7.1 today and it was 7.2 two days ago. FOBT negative. There is no reports of GI bleed. The patient is on IV PPI prophylactically. She does not have any signs of active GIB. We will give her one unit PRBC today. Qualifiers: Anemia type: unspecified type Qualified Code(s): D64.9 - Anemia, unspecified (6) HLD (hyperlipidemia) Current Visit: No Status: Chronic Qualifiers: Hyperlipidemia type: unspecified Qualified Code(s): E78.5 - Hyperlipidemia , unspecified (7) Gastrostomy in place Current Visit: No Status: Chronic (8) GERD (gastroesophageal reflux disease) Current Visit: Yes Status: Chronic Qualifiers: Esophagitis presence: with esophagitis Qualified Code(s): K21.0 - Gastro- esophageal reflux disease with esophagitis (9) Diabetes Current Visit: Yes Status: Chronic Assessment and plan: Continue with insulin sliding scale. Continue with Accu-Cheks Qualifiers: Diabetes mellitus type: other specified (including MINO) Diabetes mellitus complication status: with unspecified complications Diabetes mellitus predatory animal exterminator insulin use: without predatory animal exterminator use Qualified Code(s): E13.8 - Other specified diabetes mellitus with unspecified complications (10) DVT prophylaxis Current Visit: Yes Status: Acute - Subjective Interval history: EGD and PEG placed 08/29. Patient was able to go to 45 ml/hr on TF. She denies fevers/chills, diarrhea/constipation. Occasionally gets nausea with TF. Nausea gradually improved. - Constitutional Vitals: Temp Pulse Resp BP Pulse Ox 99.0 F 109 14 103/62 100 09/03/17 15:52 09/03/17 15:52 09/03/17 15:52 09/03/17 15:52 09/03/17 15:52 General appearance: Present: cachectic, cooperative, A&O X 3, no acute distress , underweight, answers questions appropriately Exam: - Respiratory Respiratory exam: Present: CTAB. Absent: accessory muscle use, rales, rhonchi, wheezes - Cardiovascular Cardiovascular exam: Present: RRR, +S1, +S2. Absent: diastolic murmur, gallop, rubs, systolic murmur - GI/Abdominal Additional comments: colostomy in place - Extremities Exam Extremities exam: Present: warm, radial pulses palpable and symmetrical. Absent : calf tenderness, cyanotic, pedal edema Internal Medicine: Result - Labs CBC & Chem 7: 09/03/17 04:40 09/03/17 04:40 Labs: Short CBC 09/03/17 Range/Units 04:40 WBC 11.8 H (4.3-11.1) K/mcL Hgb 7.5 L (11.5-15.4) g/dL Hct 23.9 L (35.3-44.9) % Plt Count 387 (140-400) K/mcL Neutrophils # 9.5 H (1.6-8.9) K/mcL BMP 09/03/17 04:40 Sodium 134 L Potassium 3.6 Chloride 101 Carbon Dioxide 28 BUN 15 Creatinine 0.58 L Glucose 121 H Calcium 7.7 L - VTE Documentation of Mechanical Device: Intermittent pneumatic compression device Consult Discharge Plan - Plan Referrals: Crescencio Snell MD [Primary Care Provider] -
[2017-09-03] MEDS ORDERED: Melatonin 3 MG TABLET PO SCH (21:00)
[2017-09-04] MEDS: Insulin LISPRO 300 UNITS/3 ML VIAL SQ SCH ×3 (00:35→12:09)
[2017-09-04 05:09] LABS: BUN/Creatinine Ratio 25 (6-26); Blood Urea Nitrogen 14 mg/dL (6-20); Calcium 7.9 mg/dL (8.6-10.3); Carbon Dioxide 29 mEq/L (23-29); Chloride 101 mEq/L (98-107); Glucose 111 mg/dL (70-105); Magnesium 1.8 mg/dL (1.6-2.6); Osmolality,Calculated 279 (280-300); Phosphorous 2.6 mg/dL (2.7-4.5); Potassium 4.2 mEq/L (3.5-5.1); Sodium 134 mEq/L (136-145); eGFR For African Americans > 60 (> 60); eGFR For Non-African Americans > 60 (> 60)
[2017-09-04] MEDS: Pantoprazole 40 MG VIAL IVP SCH (06:54)
[2017-09-04] MEDS: *HR* HYDROmorphone (PF) 1 MG/ML SYRINGE IVP PRN ×3 (06:54→16:14)
[2017-09-04] MEDS: *HR* LORazepam 2 MG/ML VIAL IVP PRN ×2 (06:54→19:01)
[2017-09-04 08:14] LABS: Basophils # 0.1 K/mcL (0.0-0.2); Basophils % 0.8 %; Eosinophils # 0.2 K/mcL (0.0-0.6); Eosinophils % 1.6 %; Hematocrit 24.7 % (35.3-44.9); Hemoglobin 7.8 g/dL (11.5-15.4); Immature Granulocytes % 0.4 % (0-4); Lymphocytes # 1.2 K/mcL (0.6-4.6); Lymphocytes % 10.2 %; Mean Corpuscular HGB Conc 31.6 g/dL (31.6-35.5); Mean Corpuscular Hemoglobin 28.2 pg (28.0-33.3); Mean Corpuscular Volume 89.2 fL (83.0-100.0); Mean Platelet Volume 9.1 fL (9.4-12.4); Monocytes # 1.3 K/mcL (0.0-1.3); Monocytes % 10.8 %; Neutrophils # 9.3 K/mcL (1.6-8.9); Platelet Count 388 K/mcL (140-400); Red Blood Count 2.77 M/mcL (3.82-4.97); Red Cell Distribution Width 16.8 % (11.5-14.5); Segmented Neutrophils % 76.2 %
[2017-09-04] MEDS: Vancomycin 500 MG in D5% in Water 250 ML IVPB SCH (09:38)
[2017-09-04] MEDS: *HR* Promethazine 25 MG/ML VIAL IVP PRN ×2 (09:39→16:14)
[2017-09-04] MEDS: cefTRIAXone 1,000 MG in Water for inj. (sterile) 10 ML IVP SCH (11:35)
[2017-09-04] MEDS ORDERED: Sodium Phosphate 30 MMOL in D5% in Water 100 ML IVPB ONE (12:12)
[2017-09-04] MEDS ORDERED: Lidocaine -MPF 1% 5 ML AMPUL INFILT ONE (12:42)
--- NOTE | 2017-09-04 13:19 | Discharge Summary ---
Date of Encounter: 09/04/17 Time of Encounter: 13:17 - Discharge Diagnosis (1) Syncopal episodes Priority: Primary Status: Acute Qualifiers: Syncope type: unspecified Qualified Code(s): R55 - Syncope and collapse (2) Bacteremia Priority: Secondary Status: Acute (3) Sacral decubitus ulcer, stage IV Priority: Secondary Status: Chronic (4) Severe protein-calorie malnutrition Priority: Secondary Status: Chronic (5) Anemia Priority: Secondary Status: Acute Qualifiers: Anemia type: unspecified type Qualified Code(s): D64.9 - Anemia, unspecified (6) HLD (hyperlipidemia) Priority: Secondary Status: Chronic Qualifiers: Hyperlipidemia type: unspecified Qualified Code(s): E78.5 - Hyperlipidemia , unspecified (7) Gastrostomy in place Priority: Secondary Status: Chronic (8) GERD (gastroesophageal reflux disease) Priority: Secondary Status: Chronic Qualifiers: Esophagitis presence: with esophagitis Qualified Code(s): K21.0 - Gastro- esophageal reflux disease with esophagitis (9) Diabetes Priority: Secondary Status: Chronic Qualifiers: Diabetes mellitus type: other specified (including MINO) Diabetes mellitus complication status: with unspecified complications Diabetes mellitus jail insulin use: without terminal manager use Qualified Code(s): E13.8 - Other specified diabetes mellitus with unspecified complications (10) DVT prophylaxis Priority: Secondary Status: Acute - Discharge Medications Home Medications: Promethazine [Phenergan] 25 mg PO Q6HR PRN 03/13/16 [History] LORazepam [Ativan] 2 mg PO QID 07/21/16 [History] Diphenoxylate/Atropine [Lomotil 2.5 mg/0.025 mg] 2 tab PO QID 12/23/16 [History] Loperamide [Imodium] 4 mg PO QID 12/23/16 [History] HYDROmorphone [Dilaudid] 30 mg PO Q4HR PRN 08/27/17 [History] Vancomycin HCl in Dextrose 5 % [Vancomycin-D5w 500 mg/100 ml] 500 mg IV Q12H 14 Days #28 froliliangy 09/04/17 [Rx] cefTRIAXone [Rocephin] 1,000 mg IVPB DAILY #14 vial 09/04/17 [Rx] Allergies/Adverse Reactions: 3 Allergy/AdvReac Type Severity Reaction Status Date / Time shellfish derived Allergy UNKNOWN Verified 07/21/16 09:06 Date of admission: 08/27/17 19:21 Primary care physician: Crescencio Snell MD Consults: 09/04/17 12:42 Consult to Invasive Line Access Team [CONS] Routine Reason for Consult: Picc Line Insertion Line Type: PICC 08/27/17 19:47 Consult to Occupational Therapy [CONS] Routine Comment: Evaluate, develop and implement POC Reason for Consult: Patient has weakness from failure to thrive and as a result has pre-syncopal falls. Pt. reports using cane and rolling walker. Please assess patient for ambulation safety, strength, stability, and possible other home assistive needs for post-discharge planning. Consult to Physical Therapy [CONS] Routine Comment: Evaluate, develop and implement POC Reason for Consult: Patient has weakness from failure to thrive and as a result has pre-syncopal falls. Pt. reports using cane and rolling walker. Please assess patient for ambulation safety, strength, stability, and possible other home assistive needs for post-discharge planning. Consult to Loader [CONS] Routine Reason for SW Consult: Please assess patient for possible home needs for post -discharge planning. 08/27/17 19:51 Consult to Nutrition [CONS] Routine Comment: Consulting Provider: NUTRITION Reason for Dietary Consult: PO Supplementation Consult to Surgery [CONS] Routine Consulting Provider: [facility] Reason for Consult: Patient had feeding tube placed by Dr. Griggs w/removal three months ago w/plan to maintain body weight. Pt. has lost weight post-removal and is now 33.56 kg. Pt. is weak/failure to thrive status and wishes to have feeding tube put back in. Requests Dr. Griggs do the procedure d/t hx w/her. Call Completed: Yes 08/27/17 20:17 Consult to Wound Care [CONS] Routine Reason for Consult: Patient has unstageable decubitus ulcer of the sacrum currently which will require wound care consult and daily wound care recommendations. Call Completed: No 08/28/17 08:34 Consult to Wound Care [CONS] Routine Reason for Consult: sacral decubitus Call Completed: No 08/28/17 10:13 Consult to Nutrition [CONS] Routine Comment: Consulting Provider: NUTRITION Reason for Dietary Consult: TPN Start and Manage Discharging clinician: Elie Maravilla - Patient Status Disposition: Hospice - Home Condition: Serious Functional capacity at discharge: independent ambulation Overall status at discharge: patient is progressing back to baseline - Discharge Instructions Follow Up With: Crescencio Snell MD [Primary Care Provider] - Forms: ED Satisfaction Letter, Work/School Release - Diet and Activity Activity: increase activity as tolerated Diet: advance to your usual diet, other (Tube feeds as instructed.) Hospital course: Ms. Rosado is a 52 year old female with medical hx of asthma, diabetes, GERD, HTN, osteoporosis, history of seizures, and colostomy presents from the ED with chief complaint of dizziness, unsure of LOC. She has had no appetite and complained of weakness. She states she has painful decubitus ulcer on her sacrum , hx of short gut syndrome, had colon resection w/current colostomy, nausea, and SOB. Pt. also reports she is not making much urine at this time d/t poor intake. She denied any recent illness. Syncopal epiodes likely from malnutrition. She was admitted for further workup. Patient had blood cultures drawn and had a result in 09/03 cultures that grew Staph epi (suspicious for contaminate). Since she is with multiple comorbidities with chronic sacral wounds she was emperically started on Vanc and Zosyn. She had elevated WBC on admission but this is normal for patient. She also had tachycardia but this is likely from malnutrition. She was closely monitored for signs/symptoms of sepsis. She was afebrile. She had repeat blood cultures done that had no growth. Surgery was consulted for PEG placement, which she had done on without complications. She did have anemia at 7.1 and was transfused 1 unit PRBC and remained at her baseline 7.8 after close monitoring. Wound cultures came back positive for MRSA, Proteus, and E coli. Based on sensitivities she was changed to Rocephin and Vancomycin. She was started on TPN and TF eventually was able to stay on TF alone and TPN was discontinued. Patient had stable hemoglobin and vitals. She was discharged home with PICC line to continue Vancomycin and Rocephin therapy for 14 days. - Time Spent with Patient Total time spent providing and/or coordinating discharge services: - Constitutional Vitals: Temp Pulse Resp BP Pulse Ox 98.0 F 111 14 118/80 100 09/04/17 11:42 09/04/17 11:42 09/04/17 11:42 09/04/17 11:42 09/04/17 11:42 General appearance: Present: cachectic, cooperative, A&O X 3, no acute distress , underweight, answers questions appropriately - Respiratory Respiratory exam: Present: CTAB. Absent: accessory muscle use, rales, rhonchi, wheezes - Cardiovascular Cardiovascular exam: Present: +S1, +S2, tachycardia. Absent: diastolic murmur, gallop, rubs, systolic murmur - GI/Abdominal GI/Abdominal exam: Present: normal bowel sounds, soft, no peritoneal signs. Absent: distended, tenderness Additional comments: Colonostomy, PEG - Extremities Exam Extremities exam: Present: warm, radial pulses palpable and symmetrical. Absent : calf tenderness, cyanotic, pedal edema - VTE Documentation of Mechanical Device: Intermittent pneumatic compression device
--- NOTE | 2017-09-04 13:41 | Physician Discharge Referral ---
Home Health/Hosp Referral Info Transfer to: Home Health, Hospice - Diagnosis (1) Syncopal episodes Priority: Primary Status: Acute (2) Bacteremia Priority: Secondary Status: Acute (3) Sacral decubitus ulcer, stage IV Priority: Secondary Status: Chronic (4) Severe protein-calorie malnutrition Priority: Secondary Status: Chronic (5) Anemia Priority: Secondary Status: Acute (6) HLD (hyperlipidemia) Priority: Secondary Status: Chronic (7) Gastrostomy in place Priority: Secondary Status: Chronic (8) GERD (gastroesophageal reflux disease) Priority: Secondary Status: Chronic (9) Diabetes Priority: Secondary Status: Chronic (10) DVT prophylaxis Priority: Secondary Status: Acute - Respiratory Orders Smoking Cessation: Smoking cessation has been advised. For more information, call the [employer] Quit Line at 1-906-LQET-NOW. - Diet/Nutrition Diet/Nutrition Orders: Cardiac, No Concentrated Sweets - Activity Activity Orders: Up ad chris - Services Needed Following services are medically necessary services: Home Health Aide, Home Infusion - Transfer Medications Prescriptions: cefTRIAXone [Rocephin] 1,000 mg IVPB DAILY #14 vial Vancomycin HCl in Dextrose 5 % [Vancomycin-D5w 500 mg/100 ml] 500 mg IV Q12H 14 Days #28 froz.piggy Home Medications: Promethazine [Phenergan] 25 mg PO Q6HR PRN 03/13/16 [History] LORazepam [Ativan] 2 mg PO QID 07/21/16 [History] Diphenoxylate/Atropine [Lomotil 2.5 mg/0.025 mg] 2 tab PO QID 12/23/16 [History] Loperamide [Imodium] 4 mg PO QID 12/23/16 [History] HYDROmorphone [Dilaudid] 30 mg PO Q4HR PRN 08/27/17 [History] Vancomycin HCl in Dextrose 5 % [Vancomycin-D5w 500 mg/100 ml] 500 mg IV Q12H 14 Days #28 froz.piggy 09/04/17 [Rx] cefTRIAXone [Rocephin] 1,000 mg IVPB DAILY #14 vial 09/04/17 [Rx] Allergies/Adverse Reactions: 3 Allergy/AdvReac Type Severity Reaction Status Date / Time shellfish derived Allergy UNKNOWN Verified 07/21/16 09:06 Certification: Further, I certify that my clinical findings support that this patient is homebound (i.e. absences from home require considerable and taxing effort and are for medical reasons or sikh services or infrequently or short duration when for other reasons) because: Homebound Reason: Patient requires assistance of a person or device to safely leave home Attestation: My signature below is to certify that this patient is under my care and that I, or nurse practitioner, or a physician's emergency veterinary assistant working with me, has a face-to -face encounter with this patient.
[2017-09-04 15:34] VITALS: BP 105/70
[2017-09-04] MEDS ORDERED: Aminoglycoside Consult 1 EACH MC ONE (19:48)
== END 2017-09-04 19:49 | disposition hospice, home (50) | DRG 421 ==
LOC: EMEROO 13:48 → 3BNU 13:48 → 3ANU 17:54 → SUATTDRO 19:21
PROVIDERS: ADMIT Internal Medicine Nephrology; ATTEND Hospitalist

== ENCOUNTER 2017-12-05 22:18 | Observation (INO) ==
[2017-12-05] MEDS ORDERED: 0.9 % Sodium Chloride 1,000 ML IVC ONE (22:31)
--- NOTE | 2017-12-05 22:40 | Emergency Department Note ---
Disposition Clinical Impression: Syncope Qualifiers: Syncope type: unspecified Qualified Code(s): R55 - Syncope and collapse Disposition: Admitted As Inpatient Condition: Undetermined General Adult HPI - General Chief complaint: ED Syncope Stated complaint: syncope Time Seen by Provider: 12/05/17 22:31 Source: patient, EMS Mode of arrival: EMS Limitations: no limitations Nursing Notes Reviewed: Yes Vital Signs Reviewed: Yes - History of Present Illness HPI Narrative: Chronically ill 52-year-old female with a history of diabetes, asthma, hypertension, encephalopathy, seizure disorder, hypokalemia, malnutrition, ileostomy with ileocolic week, pneumonia, stage III pressure ulcer to her coccyx , G-tube presents emergency department for syncopal episode. She states she was laying in her bed and her stated that she started tense and shaking and when she finally woke up "a few minutes" . Later that she was confused and very weak. She states over the last month she has had no by mouth intake due to being unable to swallow, and it has been over 24 hours since she has been able to tolerate any tube feeding due to feeling so nauseous. She states she has been feeling ill but she denies fever, chills, shortness of breath, cough, chest pain, edema, vomiting, constipation, diarrhea. She is a member of hospice, states that his discussion for DNR CCA. She states intubation is fine but she does not want any form CPR. Complains of pain to her coccyx from her stage III pressure ulcer, on 30 mg of oral Dilaudid at home for pain. Onset (ago): Just FINE GRADER Location: buttocks Radiation: non-radiation Pain Severity: moderate Pain Scale: 5 Quality: sharp Consistency: constant Improves with: medication Worsens with: movement Treatments Prior to Arrival: other (oral hydromorphone) - Related Data Allergies Allergy/AdvReac Type Severity Reaction Status Date / Time shellfish derived Allergy UNKNOWN Verified 07/21/16 09:06 All systems ED: reviewed and negative except as stated. Review of Systems: As Per HPI Constitutional: Reports: weight change. Denies: fever, chills, weakness Cardiovascular: Denies: chest pain, palpitations, dyspnea on exertion, orthopnea , edema, syncope Respiratory: Denies: cough, dyspnea, wheezes, hemoptysis, sputum production Gastrointestinal: Reports: abdominal pain, nausea, other (ileostomy). Denies: vomiting, diarrhea, constipation, hematemesis, melena, hematochezia Genitourinary: Denies: urgency, dysuria, frequency, hematuria, discharge Musculoskeletal: Reports: other (stage 3 pressure ulcer coccyx) Integumentary: Reports: other (stage 3 pressure ulcer) Neurological: Reports: weakness, other (syncope) Endocrine: Reports: fatigue Past Medical History - Past Medical History Attestation: Yes The following information was validated with the patient. Source: patient Medical history: Reports: asthma, diabetes, GERD, hyperlipidemia, hypertension, osteoporosis, seizures, other (severe protein calorie malnutrition, decubitus ulcer, hyponatremia, fractured vertebrae) Surgical history: Reports: cholecystectomy, colectomy (subtotal colectomy 10/2015 , diverting ileostomy 2015), colostomy, hysterectomy, other (Peg tube, uterine ablation D&C, Tubal ligation, Tonsillectomy, EGD (last 2016), Tanya fundoplicaiton 2014, kyphoplasty ) Psychiatric history: Reports: anxiety, depression SHOP ESTIMATOR history: Reports: no SHOP ESTIMATOR history - Social History Smoking Status: Former smoker Smokeless Tobacco Status: No Alcohol use: Reports: none Drug use: Reports: none Physical Exam - General Limitations: no limitations General appearance: alert, lethargic, in distress, cachectic - Head Head exam: atraumatic, normocephalic, normal inspection - ENT ENT exam: normal exam, normal oropharynx, mucous membranes moist - Neck Neck exam: Present: normal inspection, full ROM, trachea midline - Chest Chest inspection: Present: normal inspection, symmetric chest wall rise - Respiratory Respiratory exam: Present: normal lung sounds bilaterally - Cardiovascular Cardiovascular exam: Present: regular rate, normal rhythm, normal heart sounds - Abdominal Exam Abdominal exam: Present: soft, Non-Tender, normal bowel sounds, other (ileostomy ; ET tube ) - Extremities Exam Extremities exam: Present: other (cachetic, thin) - Back Exam Back exam: Present: normal inspection - Neurological Exam Neurological exam: Present: alert, oriented X3 - Psychiatric Psychiatric exam: Present: normal affect, normal mood - Skin Skin exam: Present: warm, dry, pallor, other (stage 3 pressure ulcer coccyx) Course Course Narrative: Chronically ill 52-year-old female with a history of diabetes, asthma, hypertension, encephalopathy, seizure disorder, hypokalemia, malnutrition, ileostomy with ileocolic week, pneumonia, stage III pressure ulcer to her coccyx , G-tube presents emergency department for syncopal episode. She states she was laying in her bed and her stated that she started tense and shaking and when she finally woke up "a few minutes" . Later that she was confused and very weak. She states over the last month she has had no by mouth intake due to being unable to swallow, and it has been over 24 hours since she has been able to tolerate any tube feeding due to feeling so nauseous. She states she has been feeling ill but she denies fever, chills, shortness of breath, cough, chest pain, edema, vomiting, constipation, diarrhea. She is a member of hospice, states that his discussion for DNR CCA. She states intubation is fine but she does not want any form CPR. Complains of pain to her coccyx from her stage III pressure ulcer, on 30 mg of oral Dilaudid at home for pain. Cachetic, frail, ill-appearing female in moderate amount of distress.. Respirations are easy and even, patient is called up on her side in a relaxed position. G-tube site with circumferential erythema without drainage, ileostomy with drainage and small amount of leakage, coccyx with stage III pressure ulcer with dry dressing applied. Workup for syncope, plan for admission due to syncope, failure to thrive, pain control. Discussed case with Dr. Jackson who agrees with plan of care and has had one-on-one face time with patient. Vital Signs Temperature 98.2 F 12/05/17 22:25 Pulse Rate 106 12/05/17 22:25 Respiratory Rate 20 12/05/17 22:25 Blood Pressure 129/56 12/05/17 22:25 O2 Sat by Pulse Oximetry 100 12/05/17 22:25 Temperature 98.2 F 12/06/17 04:30 Pulse Rate 91 12/06/17 04:30 Respiratory Rate 14 12/06/17 04:30 Blood Pressure 91/60 12/06/17 04:30 O2 Sat by Pulse Oximetry 100 12/06/17 04:30 Oxygen Delivery Oxygen Delivery Room Air Medical Decision Making - Lab Data Result diagrams: 12/06/17 05:37 12/05/17 22:51 Lab Results 04/04/18 04/04/18 04/04/18 Range/Units 22:51 22:51 22:51 WBC 19.1 H (4.3-11.1) K/mcL RBC 3.75 L (3.82-4.97) M/mcL Hgb 11.1 L (11.5-15.4) g/dL Hct 33.6 L (35.3-44.9) % MCV 89.6 (83.0-100.0) fL MCH 29.6 (28.0-33.3) pg MCHC 33.0 (31.6-35.5) g/dL RDW 15.6 H (11.5-14.5) % Plt Count 406 H (140-400) K/mcL MPV 9.1 L (9.4-12.4) fL Immature Gran % 0.5 (0-4) % Seg Neutrophils % 83.6 % Lymphocytes % 8.6 % Monocytes % 5.6 % Eosinophils % 1.4 % Basophils % 0.3 % Neutrophils # 16.0 H (1.6-8.9) K/mcL Lymphocytes # 1.6 (0.6-4.6) K/mcL Monocytes # 1.1 (0.0-1.3) K/mcL Eosinophils # 0.3 (0.0-0.6) K/mcL Basophils # 0.1 (0.0-0.2) K/mcL PT 11.9 (9.4-12.1) Seconds INR 1.1 APTT 25.3 L (26.0-36.0) Seconds Sodium 133 L (136-145) mEq/L Potassium 4.4 (3.5-5.1) mEq/L Chloride 102 (98-107) mEq/L Carbon Dioxide 23 (23-29) mEq/L BUN 69 H (6-20) mg/dL Creatinine 1.19 (0.60-1.20) mg/dL Est GFR ( Amer) 58 L (> 60) Est GFR (Non-Af Amer) 48 L (> 60) BUN/Creatinine Ratio 58 H (6-26) Glucose 94 (70-105) mg/dL Calculated Osmolality 296 (280-300) Lactic Acid (0.5-2.2) mmol/L Calcium 9.6 (8.6-10.3) mg/dL Total Bilirubin 0.3 (0.3-1.0) mg/dL AST 18 (13-39) Units/L ALT 17 (7-52) Units/L Alkaline Phosphatase 96 (34-104) Units/L Creatine Kinase 31 (30-223) Units/L Troponin I < 0.03 (< 0.04) ng/mL Serum Total Protein 8.2 (6.4-8.9) g/dL Albumin 4.1 (3.5-5.7) g/dL Globulin 4.1 H (2.4-3.5) g/dL Albumin/Globulin Ratio 1.0 L (1.1-2.2) 12/05/17 12/06/17 Range/Units 22:51 00:38 WBC (4.3-11.1) K/mcL RBC (3.82-4.97) M/mcL Hgb (11.5-15.4) g/dL Hct (35.3-44.9) % MCV (83.0-100.0) fL MCH (28.0-33.3) pg MCHC (31.6-35.5) g/dL RDW (11.5-14.5) % Plt Count (140-400) K/mcL MPV (9.4-12.4) fL Immature Gran % (0-4) % Seg Neutrophils % % Lymphocytes % % Monocytes % % Eosinophils % % Basophils % % Neutrophils # (1.6-8.9) K/mcL Lymphocytes # (0.6-4.6) K/mcL Monocytes # (0.0-1.3) K/mcL Eosinophils # (0.0-0.6) K/mcL Basophils # (0.0-0.2) K/mcL PT (9.4-12.1) Seconds INR APTT (26.0-36.0) Seconds Sodium (136-145) mEq/L Potassium (3.5-5.1) mEq/L Chloride (98-107) mEq/L Carbon Dioxide (23-29) mEq/L BUN (6-20) mg/dL Creatinine (0.60-1.20) mg/dL Est GFR ( Amer) (> 60) Est GFR (Non-Af Amer) (> 60) BUN/Creatinine Ratio (6-26) Glucose (70-105) mg/dL Calculated Osmolality (280-300) Lactic Acid 1.6 1.9 (0.5-2.2) mmol/L Calcium (8.6-10.3) mg/dL Total Bilirubin (0.3-1.0) mg/dL AST (13-39) Units/L ALT (7-52) Units/L Alkaline Phosphatase (34-104) Units/L Creatine Kinase (30-223) Units/L Troponin I (< 0.04) ng/mL Serum Total Protein (6.4-8.9) g/dL Albumin (3.5-5.7) g/dL Globulin (2.4-3.5) g/dL Albumin/Globulin Ratio (1.1-2.2)
[2017-12-05 23:03] LABS: Basophils # 0.1 K/mcL (0.0-0.2); Basophils % 0.3 %; Eosinophils # 0.3 K/mcL (0.0-0.6); Eosinophils % 1.4 %; Hematocrit 33.6 % (35.3-44.9); Hemoglobin 11.1 g/dL (11.5-15.4); Immature Granulocytes % 0.5 % (0-4); Lymphocytes # 1.6 K/mcL (0.6-4.6); Lymphocytes % 8.6 %; Mean Corpuscular Hemoglobin 29.6 pg (28.0-33.3); Mean Corpuscular Volume 89.6 fL (83.0-100.0); Mean Platelet Volume 9.1 fL (9.4-12.4); Monocytes # 1.1 K/mcL (0.0-1.3); Monocytes % 5.6 %; Platelet Count 406 K/mcL (140-400); Red Blood Count 3.75 M/mcL (3.82-4.97); Red Cell Distribution Width 15.6 % (11.5-14.5); Segmented Neutrophils % 83.6 %
[2017-12-05] MEDS ORDERED: *HR* FentaNYL PATCH 25 MCG PATCH TD ONE (23:04)
[2017-12-05 23:09] LABS: INR 1.1; Prothrombin Time 11.9 Seconds (9.4-12.1)
[2017-12-05 23:12] LABS: Activated Partial Thrombo Time 25.3 Seconds (26.0-36.0)
[2017-12-05 23:31] LABS: Alanine Aminotransferase 17 Units/L (7-52); Albumin 4.1 g/dL (3.5-5.7); Alkaline Phosphatase 96 Units/L (34-104); Aspartate Amino Transferase 18 Units/L (13-39); BUN/Creatinine Ratio 58 (6-26); Bilirubin,Total 0.3 mg/dL (0.3-1.0); Blood Urea Nitrogen 69 mg/dL (6-20); Calcium 9.6 mg/dL (8.6-10.3); Carbon Dioxide 23 mEq/L (23-29); Chloride 102 mEq/L (98-107); Creatine Kinase 31 Units/L (30-223); Globulin 4.1 g/dL (2.4-3.5); Glucose 94 mg/dL (70-105); Osmolality,Calculated 296 (280-300); Potassium 4.4 mEq/L (3.5-5.1); Sodium 133 mEq/L (136-145); Total Protein 8.2 g/dL (6.4-8.9); eGFR For African Americans 58 (> 60); eGFR For Non-African Americans 48 (> 60)
[2017-12-05 23:32] LABS: Troponin I < 0.03 ng/mL (< 0.04)
[2017-12-05] MEDS ORDERED: *HR* Morphine Immed Rel 30 MG TABLET PO ONE (23:34)
[2017-12-06] MEDS ORDERED: Acetaminophen 325 MG TABLET PO PRN (00:35)
[2017-12-06] MEDS ORDERED: Naloxone 0.4 MG/ML INJ IVP PRN (00:35)
--- NOTE | 2017-12-06 00:40 | Internal Med History&Physical ---
Date of Encounter: 12/06/17 Time of Encounter: 00:38 Internal Medicine - H&P: HPI Chief complaint: Dizziness Admitted From: Emergency Dept Plans for Post Hospital Care: Home History of present illness: Ms. Rosado is a 52 year old female with a history of diabetes, asthma, hypertension, encephalopathy, seizure disorder, hypokalemia, malnutrition, ileostomy , stage III pressure ulcer to her coccyx, G-tube presents to the emergency department after a syncopal episode. According to the patient's , he went ot check on the patient and she was laying in bed with her dentures out and was not responding to him. This lasted a couple of minutes and then she responded after a couple of minutes of confusion. He called EMS to bring her in. The patient also says that she has not been having good oral intake due to nausea. The patient seems to have had similar presentations in the past and is severely malnourished. She has not been able to tolerate any oral intake for a few days. The ED tells me that she has not used her tube feeds for a month but the denies that to me. She denies fever, chills, vomiting, shortness of breath, cough, chest pain, constipation, diarrhea urinary symptoms, or neurological symptoms. Please note the patient is enrolled in [facility] but states that she is DNR [facility]. She also stated she is okay with intubation but no CPR. In the emergency department the patient was noted to have stage III coccyx ulcer which she has had in the past. Initially there was suspicion that this is a source of infection as her white count is elevated and she was ordered a dose of Zosyn. After speaking to the ED I told him not to give that as I believe the patient's elevated white count is consistent with dehydration and malnourishment. She is afebrile but she is tachycardic. Her tachycardia is likely also from dehydration. She also noted to have a hemoglobin and platelets above baseline. BUN/creatinine are also elevated. The patient will be admitted for rehydration. Past Med Surg Social Fam HX - Past Medical History Medical history: asthma, diabetes, GERD, hyperlipidemia, hypertension, osteoporosis, seizures, other (severe protein calorie malnutrition, decubitus ulcer, hyponatremia, fractured vertebrae) Psychiatric history: anxiety, depression - Past Surgical History Surgical History: cholecystectomy, colectomy (subtotal colectomy 10/2015, diverting ileostomy 2015), colostomy, hysterectomy, other (Peg tube, uterine ablation D&C, Tubal ligation, Tonsillectomy, EGD (last 2016), Tanya fundoplicaiton 2014, kyphoplasty ) - Social History Smoking Status: Former smoker Smokeless Tobacco Status: No Alcohol use: none Drug use: none - Family History Mother Family Member Ethnicity: Non- Living Status: Still Living Hx Family Cardiac Disorders: Yes (HTN) Hx Family Respiratory Disorders: No Hx Family GI Disorders: Yes (Colostomy) Hx Family Endocrine Disorder: Yes (DM) Brother Family Member Ethnicity: Non- Living Status: Still Living Father Adopted: No Family Member Ethnicity: Non- Living Status: Still Living Hx Family Cardiac Disorders: Yes (CAD, Quad bypass) Hx Family Respiratory Disorders: No Internal Medicine - H&P: Meds 3 Allergy/AdvReac Type Severity Reaction Status Date / Time shellfish derived Allergy UNKNOWN Verified 07/21/16 09:06 All Systems PM: A 10-system review of systems was performed and is negative for pertinent findings except as documented above in the HPI. Review of systems: All systems reviewed are negative except for as mentioned above - Constitutional Vitals: Temp Pulse Resp BP Pulse Ox 98.2 F 106 20 129/56 100 12/05/17 22:25 12/05/17 22:25 12/05/17 22:25 12/05/17 22:25 12/05/17 22:25 Exam: GEN: NAD, cachectic HEENT: AT, NC, No cyanosis, oral mucosa is moist, No JVD Lymphatics: No lymphadenoapthy Eyes: Extrocular muscles intact, anicteric CVS:RRR. S1, S2, No m/r/g RESP: CTAB ABD: Soft, some mild generalized abdominal tenderness. No rebound.. ND, +BS, ileostomy noted with normal color stool. EXT: No edema, No rashes, 2+ DP NEURO: Nonfocal, CN II-XII intact, No focal motor or sensory deficits Psych: Cooperative, Not anxious or depressed Internal Med - H&P Results - Labs CBC & Chem 7: 12/05/17 22:51 12/05/17 22:51 Labs: Short CBC 12/05/17 Range/Units 22:51 WBC 19.1 H (4.3-11.1) K/mcL Hgb 11.1 L (11.5-15.4) g/dL Hct 33.6 L (35.3-44.9) % Plt Count 406 H (140-400) K/mcL Neutrophils # 16.0 H (1.6-8.9) K/mcL BMP 12/05/17 22:51 Sodium 133 L Potassium 4.4 Chloride 102 Carbon Dioxide 23 BUN 69 H Creatinine 1.19 Glucose 94 Calcium 9.6 Cardiac Enzymes 12/05/17 Range/Units 22:51 Troponin I < 0.03 (< 0.04) ng/mL Liver Function 12/05/17 Range/Units 22:51 Total Bilirubin 0.3 (0.3-1.0) mg/dL AST 18 (13-39) Units/L ALT 17 (7-52) Units/L Alkaline Phosphatase 96 (34-104) Units/L Albumin 4.1 (3.5-5.7) g/dL - Impressions ITS Impressions Chest X-Ray 12/05/17 22:31 IMPRESSION: No acute abnormality detected. D/ / Yousif Rae MD / Yousif Rae MD Interpreting Provider: Yousif Rae MD - Assessment and plan (1) Dizziness Current Visit: Yes Status: Acute Assessment and plan: I believe the patient's symptoms are likely from dehydration given the elevation in her white count, hemoglobin, platelets, creatinine, and BUN. The patient's is worried that she has had a seizure since she had one a year or 2 go which was deemed to be secondary to medications. She is not on any seizure meds now. I explained to him that this is unlikely to be a seizure but will get an EEG. We will hydrate the patient. Patient is very cachectic. (2) Nausea Current Visit: Yes Status: Acute Assessment and plan: The patient has mild abdominal tenderness. Will order a CT abd/pelvis. Symptomatic treatment for now. Patient has had similar presentation in the past. I have seen the patient on the floors previously with surgery involved and they stated that there is some psych component to her not being able to take PO as they do not see a reason why she shouldn't be able to. I am afraid that the patient has developed some narcotic dependence as she was telling me that IV meds work for her decubitus ulcer pain and how she had a central line placed in the past for IV pain meds. (3) Dehydration Current Visit: No Status: Resolved Assessment and plan: will continue IV hydration (4) Acute renal injury Current Visit: No Status: Resolved Assessment and plan: I suspect this would improve with IV fluids. She received a bolus in the ED. We will start maintenance IV fluids here. Labs in the morning. (5) Severe protein-calorie malnutrition Current Visit: No Status: Chronic Assessment and plan: Dietary consult (6) Cachectic Current Visit: No Status: Acute Assessment and plan: dietary consult (7) Pressure ulcer of coccygeal region, stage 3 Current Visit: No Status: Chronic Assessment and plan: Present on admission (8) DVT prophylaxis Current Visit: No Status: Acute Assessment and plan: Heparin subcutaneous - Time Spent With Patient Total time spent is greater than 50% in coordination of care (as documented) at patient's floor/unit and/or counseling patient:
[2017-12-06] MEDS ORDERED: Ondansetron 4 MG/2 ML VIAL IVP PRN (00:51)
[2017-12-06] MEDS: 0.9 % Sodium Chloride 1,000 ML IVC SCH ×2 (02:17→10:36)
[2017-12-06] MEDS: *HR* OxyCODONE Immed Rel 5 MG TABLET PO PRN ×5 (02:34→21:34)
[2017-12-06] MEDS: Ondansetron 4 MG/2 ML VIAL IVP PRN ×3 (03:38→21:35)
[2017-12-06 05:58] LABS: Basophils # 0.1 K/mcL (0.0-0.2); Basophils % 0.4 %; Eosinophils # 0.2 K/mcL (0.0-0.6); Eosinophils % 1.1 %; Hematocrit 28.4 % (35.3-44.9); Immature Granulocytes % 0.5 % (0-4); Lymphocytes # 2.3 K/mcL (0.6-4.6); Lymphocytes % 16.5 %; Mean Corpuscular HGB Conc 32.4 g/dL (31.6-35.5); Mean Corpuscular Hemoglobin 29.2 pg (28.0-33.3); Mean Corpuscular Volume 90.2 fL (83.0-100.0); Mean Platelet Volume 9.3 fL (9.4-12.4); Monocytes # 0.9 K/mcL (0.0-1.3); Monocytes % 6.7 %; Neutrophils # 10.2 K/mcL (1.6-8.9); Platelet Count 326 K/mcL (140-400); Red Blood Count 3.15 M/mcL (3.82-4.97); Red Cell Distribution Width 15.9 % (11.5-14.5); Segmented Neutrophils % 74.8 %
[2017-12-06 06:07] LABS: Hemoglobin 9.2 g/dL (11.5-15.4)
[2017-12-06 06:12] LABS: BUN/Creatinine Ratio 59 (6-26); Blood Urea Nitrogen 55 mg/dL (6-20); Calcium 8.4 mg/dL (8.6-10.3); Carbon Dioxide 22 mEq/L (23-29); Chloride 108 mEq/L (98-107); Glucose 93 mg/dL (70-105); Magnesium 1.5 mg/dL (1.6-2.6); Osmolality,Calculated 303 (280-300); Potassium 3.9 mEq/L (3.5-5.1); Sodium 139 mEq/L (136-145); eGFR For African Americans > 60 (> 60); eGFR For Non-African Americans > 60 (> 60)
[2017-12-06] MEDS: *HR* Heparin 5,000 UNIT/ML VIAL SQ SCH ×2 (06:15→16:05)
[2017-12-06] MEDS ORDERED: *HR* Promethazine 25 MG/ML VIAL IVP ONE (08:42)
[2017-12-06] MEDS: *HR* FentaNYL PATCH 25 MCG PATCH TD SCH (12:37)
--- NOTE | 2017-12-06 13:11 | EEG/EMG/Oth Biometrics Report ---
EEG Procedure Report Date of procedure: 12/06/17 EEG Procedure: Routine EEG Procedure Note: This is a report of a 21 channel bipolar and referential montage EEG. A posterior dominant rhythm of 10 Hz moderate voltage alpha frequency is identified symmetrically in the posterior head regions. This rhythm attenuates symmetrically with eye opening. Hyperventilation is not performed during the recording. During the recording EKG artifact is actually identified bleeding through to the cortical leads. This is artifactual content and is not cortical spike or sharp waves of seizure activity. Periods of drowsiness are identified as reference by dropout of posterior dominant rhythm, however aseptic does not approach stage II sleep. Photic stimulation is performed and produces a symmetric driving response. The EKG rhythm strip reveals normal sinus rhythm at 84 bpm. Impressions: This EEG recording is within normal limits. There is no evidence of epileptiform activity identified during the study. Comment: A normal EEG does not preclude a diagnosis of seizure or epilepsy. If the clinical suspicion for seizure activity is high, serial EEGs or perhaps a prolonged recording may increase the yield. Please correlate clinically.
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
[2017-12-06] MEDS ORDERED: Nystatin SUSP 5 ML UD.LIQ PO PRN (14:42)
[2017-12-06] MEDS: Diphenoxylate/Atropine 1 TAB TABLET PO SCH ×2 (16:04→21:33)
[2017-12-06] MEDS: D5% in Water 1,000 ML IVC SCH (16:04)
[2017-12-06] MEDS: *HR* LORazepam 1 MG TABLET PO PRN (16:14)
[2017-12-07] MEDS: *HR* Promethazine 25 MG/ML VIAL IVP PRN ×4 (00:24→21:03)
[2017-12-07] MEDS: D5% in Water 1,000 ML IVC SCH ×2 (00:25→16:34)
[2017-12-07] MEDS: *HR* OxyCODONE Immed Rel 5 MG TABLET PO PRN ×6 (01:49→22:58)
[2017-12-07] MEDS: *HR* Heparin 5,000 UNIT/ML VIAL SQ SCH ×2 (05:38→16:35)
[2017-12-07] MEDS: Diphenoxylate/Atropine 1 TAB TABLET PO SCH ×4 (08:40→20:54)
[2017-12-07 09:15] LABS: Alanine Aminotransferase 16 Units/L (7-52); Albumin 2.7 g/dL (3.5-5.7); Alkaline Phosphatase 64 Units/L (34-104); Aspartate Amino Transferase 17 Units/L (13-39); BUN/Creatinine Ratio 31 (6-26); Bilirubin,Total 0.3 mg/dL (0.3-1.0); Blood Urea Nitrogen 26 mg/dL (6-20); Calcium 8.2 mg/dL (8.6-10.3); Carbon Dioxide 25 mEq/L (23-29); Chloride 106 mEq/L (98-107); Globulin 2.8 g/dL (2.4-3.5); Glucose 100 mg/dL (70-105); Magnesium 1.1 mg/dL (1.6-2.6); Osmolality,Calculated 287 (280-300); Potassium 3.2 mEq/L (3.5-5.1); Sodium 136 mEq/L (136-145); Total Protein 5.5 g/dL (6.4-8.9); eGFR For African Americans > 60 (> 60); eGFR For Non-African Americans > 60 (> 60)
[2017-12-07] MEDS ORDERED: Potassium Chloride 40 MEQ, Lidocaine 1% 2 ML in D5% in Water 500 ML IVPB ONE (10:00)
--- NOTE | 2017-12-07 10:07 | Internal Med Progress Note ---
Date of Encounter: 12/07/17 Time of Encounter: 09:58 - Assessment and plan (1) Severe protein-calorie malnutrition Current Visit: Yes Status: Chronic Assessment and plan: secondary to high output ileostomy. Appears Cachectic and malnourished. High risk for refeeding syndrome. Evaluated by dietitian who recommended trickle G- tube feedings and regular pleasure diet. Of note patient is requesting TPN however no indication for TPN at this time. Cont D5W as tube feed is advanced. Closely monitor electrolytes (2) Acute renal injury Current Visit: No Status: Resolved Assessment and plan: Cr 1.19; likely prerenal with excessive GI losses. Renal function normalized with IV fluids. Avoid nephrotoxic agents as possible. Continue IV fluids. 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 Exchange nagy and repeat imaging (4) Dehydration Current Visit: No Status: Resolved Assessment and plan: continue IV hydration (5) Pressure ulcer of coccygeal region, stage 3 Current Visit: No Status: Chronic Assessment and plan: per hx; present on admission. Cont local wound care (6) Dizziness Current Visit: Yes Status: Acute Assessment and plan: Has been reported an episode of patient staring off interval body shaking concerning for seizure-like activity. Patient does report history of remote seizures and was on AEDs at one point in time (she does not know which one). He was stopped quite some time ago with no seizure recurrence until possibly just now. Of note patient has chronically been on Ativan which was abruptly stopped 2 weeks ago. EEG unremarkable. Neurology consulted (7) Nausea Current Visit: Yes Status: Acute Assessment and plan: on arrival. Now resolved. (8) DVT prophylaxis Current Visit: No Status: Acute Assessment and plan: Heparin subcutaneous - Time Spent With Patient Total time spent is greater than 50% in coordination of care (as documented) at patient's floor/unit and/or counseling patient: - Subjective Interval history: Seen and examined at bedside. Patient is new to me, information obtained from chart review and patient report. Patient says she feels well today. Has some chronic pain coccyx wounds otherwise feels improved. No further syncopal episodes. Patient tells me that her described what sounds like possible seizure activity. Patient does report history of seizures many years ago's and was treated with an AED which she does not remember. Has not had a seizure since that time. No chest pain or shortness of breath. - Constitutional Vitals: Temp Pulse Resp BP Pulse Ox 98.8 F 78 14 85/49 99 12/07/17 06:51 12/07/17 06:51 12/07/17 06:51 12/07/17 06:51 12/07/17 06:51 General appearance: Present: cachectic, A&O X 3, no acute distress - Head Head exam: Present: atraumatic, normocephalic - Eye Eye exam: Present: PERRL, conjuntiva pink, sclera anicteric Pupils: Present: PERRL - Neck Neck exam general surgery: Present: supple, trachea midline. Absent: lymphadenopathy - Respiratory Respiratory exam: Present: CTAB. Absent: accessory muscle use, rales, rhonchi, wheezes - Cardiovascular Cardiovascular exam: Present: RRR, +S1, +S2. Absent: diastolic murmur, gallop, rubs, systolic murmur - GI/Abdominal GI/Abdominal exam: Present: normal bowel sounds, soft, no peritoneal signs. Absent: distended, tenderness Additional comments: perimbilical PEG tube, RUQ ileostomy - Extremities Exam Extremities exam: Present: warm, radial pulses palpable and symmetrical. Absent : calf tenderness, cyanotic, pedal edema - Neurological Exam Neurological exam: Present: CN II-XII intact, oriented X3, no focal deficits. Absent: pronater drift, facial droop, speech deficit - Skin Skin exam: Present: dry, intact Internal Medicine: Result - Labs CBC & Chem 7: 12/06/17 05:37 12/07/17 08:30 Labs: BMP 12/07/17 08:30 Sodium 136 Potassium 3.2 L Chloride 106 Carbon Dioxide 25 BUN 26 H Creatinine 0.84 Glucose 100 Calcium 8.2 L Liver Function 12/07/17 Range/Units 08:30 Total Bilirubin 0.3 (0.3-1.0) mg/dL AST 17 (13-39) Units/L ALT 16 (7-52) Units/L Alkaline Phosphatase 64 (34-104) Units/L Albumin 2.7 L (3.5-5.7) g/dL - ABG Interpretation ABG results: PT/INR, D-dimer PT 11.9 Seconds (9.4-12.1) 12/05/17 22:51 Consult Discharge Plan - Plan Referrals: Crescencio Snell MD [Primary Care Provider] -
[2017-12-07] MEDS: *HR* LORazepam 1 MG TABLET PO PRN ×3 (10:11→22:58)
[2017-12-07] MEDS ORDERED: Lidocaine TOPICAL Soln 50 ML BOTTLE TP ONE (14:24)
[2017-12-07] MEDS ORDERED: Lidocaine Jelly 11 ml Syringe MM ONE (14:52)
--- NOTE | 2017-12-07 15:17 | General Surgery Procedure Note ---
Date of procedure: 12/07/17 Pre-op diagnosis: Malfunctioning PEG tube Post-op diagnosis: same Procedure: PEG TUBE REPLACEMENT. The PEG tube was found to be obstructed and could not be decompressed/declogged with usual techniques including water, coke etc. This tube was changed over with a Bharat 1.7 mm 20French tube with no difficulty. The area was liberally lubricated with 2% Xylocaine jelly. The tube can be used immediately. Joey Laureano MD Complications: None Anesthesia: local Surgeon: Joey Laureano Estimated blood loss (cc): 0 Pathology: none sent Condition: stable Disposition: no change (Can be used immediately. Patient's nurse notified in person)
[2017-12-07 16:37] LABS: Bilirubin,Urine Negative (Negative); Blood,Urine Large (Negative); Clarity,Urine Turbid (Clear); Color,Urine Yellow (Yellow); Glucose,Urine (UA) Normal (Normal); Ketones,Urine Negative (Negative); Leukocyte Esterase,Urine Large (Negative); Nitrite,Urine Positive (Negative); Protein,Urine 100 mg/dL (Neg-Trace); Urobilinogen,Urine Normal (Normal)
[2017-12-07 16:40] LABS: Bacteria,Urine Many per hpf (None-Few); Hyaline Casts,Urine None Seen per lpf (None-Few); RBC,Urine TNTC per hpf (0-3); Squamous Epithelial Cell,Urine Few per lpf (None-Few); WBC,Urine TNTC per hpf (0-3)
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
[2017-12-08] MEDS: *HR* Heparin 5,000 UNIT/ML VIAL SQ SCH ×2 (05:54→17:20)
[2017-12-08 06:37] LABS: Hematocrit 26.6 % (35.3-44.9); Hemoglobin 8.5 g/dL (11.5-15.4); Mean Corpuscular Hemoglobin 29.6 pg (28.0-33.3); Mean Corpuscular Volume 92.7 fL (83.0-100.0); Mean Platelet Volume 9.2 fL (9.4-12.4); Platelet Count 249 K/mcL (140-400); Red Blood Count 2.87 M/mcL (3.82-4.97); Red Cell Distribution Width 15.5 % (11.5-14.5)
[2017-12-08 06:49] LABS: BUN/Creatinine Ratio 18 (6-26); Blood Urea Nitrogen 14 mg/dL (6-20); Carbon Dioxide 21 mEq/L (23-29); Chloride 105 mEq/L (98-107); Glucose 101 mg/dL (70-105); Osmolality,Calculated 273 (280-300); Potassium 3.7 mEq/L (3.5-5.1); Sodium 131 mEq/L (136-145); eGFR For African Americans > 60 (> 60); eGFR For Non-African Americans > 60 (> 60)
[2017-12-08] MEDS: *HR* LORazepam 1 MG TABLET PO PRN ×4 (06:55→20:27)
[2017-12-08] MEDS: *HR* Promethazine 25 MG/ML VIAL IVP PRN ×3 (06:55→20:27)
[2017-12-08] MEDS: *HR* OxyCODONE Immed Rel 5 MG TABLET PO PRN ×4 (06:55→20:26)
--- NOTE | 2017-12-08 08:24 | Internal Med Progress Note ---
Date of Encounter: 12/08/17 Time of Encounter: 08:17 - Assessment and plan (1) Severe protein-calorie malnutrition Current Visit: Yes Status: Chronic Assessment and plan: secondary to high output ileostomy. Appears Cachectic and malnourished. High risk for re-feeding syndrome. Evaluated by Home Health Physical Therapist who recommended trickle G- tube feedings and regular pleasure PO diet (no indication for TPN at this time) . PEG tube malfunctioned on 12/08/[address] Laureano. Cont tube feedings, advance to goal rate as tolerated. Monitor electrolytes and replace PRN (2) Acute renal injury Current Visit: No Status: Resolved Assessment and plan: Cr 1.19; likely pre-renal with excessive GI losses. Renal function normalized with IV fluids. Avoid nephrotoxic agents as possible. Continue IV fluids. Intermittently monitor renal function (3) Seizure Current Visit: Yes Status: Acute Assessment and plan: possible; reported an episode of patient staring off interval body shaking concerning for seizure-like activity. This is second witnessed seizure within the last 3 years; the first seizure occurred 3 years ago while in the hospital which was also likely complicated by medical conditions and current seizure may be related to Ativan withdrawal (had been on Ativan which was abruptly stopped 2 weeks ago). Evaluated by Neurology who did not recommend initiating AEDs at this time. Seizure precautions. (4) Dehydration Current Visit: No Status: Resolved Assessment and plan: Secondary to high output ileostomy. Plan as noted above. (5) Nephritis Current Visit: Yes Status: Acute Assessment and plan: ABD CT focal areas of bilateral renal parenchymal hypo attenuation compatible with nephritis. UA concerning for UTI. Treating UTI as noted below (6) UTI (urinary tract infection) Current Visit: Yes Status: Acute Assessment and plan: ABD CT showed gas within the urinary collecting system which could be due to Maloney catheter however infectious process possible given evidence of bilateral nephritis. Previous urine cultures pansensitive. Repeat UA Maloney catheter has been changed. Start ceftriaxone. Follow urine culture and narrow ATB accordingly Qualifiers: Urinary tract infection type: acute cystitis Hematuria presence: without hematuria Qualified Code(s): N30.00 - Acute cystitis without hematuria (7) Pressure ulcer of coccygeal region, stage 3 Current Visit: No Status: Chronic Assessment and plan: per hx; present on admission. Cont local wound care (8) Chronic pain Current Visit: Yes Status: Acute Assessment and plan: with anxiety. Patient follows with [place] [facility] who prescribed pain and anxiety medication. Per 12/06/17 Field Operator note, the patient's pain medication and anxiety medication have been discontinued due to her daughter reportedly stealing them. Patient will not be able to get her pain medications or Ativan from [facility] again unless she decides to do inpatient hospice at a SNF. Qualifiers: Chronic pain type: chronic pain syndrome Qualified Code(s): G89.4 - Chronic pain syndrome (9) DVT prophylaxis Current Visit: No Status: Acute Assessment and plan: heparin - Time Spent With Patient Total time spent is greater than 50% in coordination of care (as documented) at patient's floor/unit and/or counseling patient: - Subjective Interval history: Seen and examined at bedside; says she had uneventful night and feels well. Complains of chronic sacral wound pain. No flank pain, no dysuria. She is decided not to go to SNF and is requesting discharge home. She is agreeable to stay overnight to get tube feedings up to goal and continue to monitor electrolytes. Advised patient that she would not be able to get an Rx for pain medicine at time of discharge and she verbalizes understanding. - Constitutional Vitals: Temp Pulse Resp BP Pulse Ox 98.4 F 84 14 89/57 100 12/08/17 07:49 12/08/17 07:49 12/08/17 07:49 12/08/17 07:49 12/08/17 07:49 General appearance: Present: cachectic, A&O X 3, no acute distress - Head Head exam: Present: atraumatic, normocephalic - Eye Eye exam: Present: PERRL, conjuntiva pink, sclera anicteric Pupils: Present: PERRL - Neck Neck exam general surgery: Present: supple, trachea midline. Absent: lymphadenopathy - Respiratory Respiratory exam: Present: CTAB. Absent: accessory muscle use, rales, rhonchi, wheezes - Cardiovascular Cardiovascular exam: Present: RRR, +S1, +S2. Absent: diastolic murmur, gallop, rubs, systolic murmur - GI/Abdominal GI/Abdominal exam: Present: normal bowel sounds, soft, no peritoneal signs. Absent: distended, tenderness Additional comments: G-tube and right upper quadrant ileostomy - Extremities Exam Extremities exam: Present: warm, radial pulses palpable and symmetrical. Absent : calf tenderness, cyanotic, pedal edema - Neurological Exam Neurological exam: Present: CN II-XII intact, oriented X3, no focal deficits. Absent: pronater drift, facial droop, speech deficit - Skin Skin exam: Present: dry Additional comments: Sacral wounds not assessed per patient request. Dressings clean, dry, intact Internal Medicine: Result - Labs CBC & Chem 7: 12/08/17 06:17 12/08/17 06:17 Labs: Short CBC 12/08/17 Range/Units 06:17 WBC 9.4 (4.3-11.1) K/mcL Hgb 8.5 L (11.5-15.4) g/dL Hct 26.6 L (35.3-44.9) % Plt Count 249 (140-400) K/mcL BMP 12/07/17 12/08/17 08:30 06:17 Sodium 136 131 L Potassium 3.2 L 3.7 Chloride 106 105 Carbon Dioxide 25 21 L BUN 26 H 14 Creatinine 0.84 0.77 Glucose 100 101 Calcium 8.2 L 8.0 L Liver Function 12/07/17 Range/Units 08:30 Total Bilirubin 0.3 (0.3-1.0) mg/dL AST 17 (13-39) Units/L ALT 16 (7-52) Units/L Alkaline Phosphatase 64 (34-104) Units/L Albumin 2.7 L (3.5-5.7) g/dL Urine 12/07/17 Range/Units 16:14 Urine Color Yellow (Yellow) Urine Clarity Turbid A (Clear) Urine pH 6.0 (5.0-8.0) pH Units Ur Specific [place] 1.020 (1.010-1.025) Urine Protein 100 H (Neg-Trace) mg/dL Urine Glucose (UA) Normal (Normal) mg/dL - ABG Interpretation ABG results: PT/INR, D-dimer PT 11.9 Seconds (9.4-12.1) 12/05/17 22:51 - Impressions Impressions Abdomen/Pelvis CT 12/07/17 17:17 IMPRESSION: Gas within the urinary collecting system which could be due to infectious process given that there is evidence bilateral nephritis. Sacral decubitus ulcer. D/ / Bessie Warner Cha, MD / Bessie Warner Cha, MD Interpreting Provider: Bessie Warner Cha, MD Consult Discharge Plan - Plan Referrals: Crescencio Snell MD [Primary Care Provider] -
[2017-12-08] MEDS: Diphenoxylate/Atropine 1 TAB TABLET PO SCH ×4 (09:55→20:27)
[2017-12-08] MEDS: cefTRIAXone 1,000 MG in Water for inj. (sterile) 20 ML 10 ML IVPB SCH (10:03)
[2017-12-08 10:15] LABS: Bilirubin,Urine Negative (Negative); Blood,Urine Large (Negative); Clarity,Urine Cloudy (Clear); Color,Urine Yellow (Yellow); Glucose,Urine (UA) Normal (Normal); Ketones,Urine Negative (Negative); Leukocyte Esterase,Urine Large (Negative); Nitrite,Urine Negative (Negative); Protein,Urine 100 mg/dL (Neg-Trace); Specific Gravity,Urine 1.028 (1.010-1.025); Urobilinogen,Urine Normal (Normal)
[2017-12-08 10:17] LABS: Bacteria,Urine Many per hpf (None-Few); Hyaline Casts,Urine None Seen per lpf (None-Few); RBC,Urine 50-100 per hpf (0-3); Squamous Epithelial Cell,Urine Moderate per lpf (None-Few); WBC,Urine TNTC per hpf (0-3)
--- NOTE | 2017-12-08 13:35 | Electrocardiograph Report ---
[address] [place] [address] Test Date: 2017-12-05 Pat Name: Shona Rosado Department: 103 Room: 3A53 Gender: F Supply Tech: SAMANTHA : 1965 Requested By: Lexus Giron Order Number: [id number] Reading MD: Sharee Ortiz Measurements Intervals [place] Rate: 108 P: 71 VT: 126 QRS: 71 QRSD: 86 T: 75 QT: 334 QTc: 397 Interpretive Statements SINUS TACHYCARDIA ABNORMAL RHYTHM ECG Electronically Signed On 12-08-2017 13:33:46 EDT by Sharee Ortiz
[2017-12-08] MEDS: Melatonin 3 MG TABLET PO PRN (20:27)
[2017-12-09] MEDS: *HR* OxyCODONE Immed Rel 5 MG TABLET PO PRN ×5 (03:41→22:08)
[2017-12-09] MEDS: *HR* Promethazine 25 MG/ML VIAL IVP PRN ×4 (03:41→22:08)
[2017-12-09 05:25] LABS: Hematocrit 25.4 % (35.3-44.9); Hemoglobin 8.2 g/dL (11.5-15.4); Mean Corpuscular HGB Conc 32.3 g/dL (31.6-35.5); Mean Corpuscular Hemoglobin 29.6 pg (28.0-33.3); Mean Corpuscular Volume 91.7 fL (83.0-100.0); Mean Platelet Volume 9.4 fL (9.4-12.4); Platelet Count 283 K/mcL (140-400); Red Blood Count 2.77 M/mcL (3.82-4.97); Red Cell Distribution Width 15.4 % (11.5-14.5)
[2017-12-09 05:35] LABS: BUN/Creatinine Ratio 16 (6-26); Blood Urea Nitrogen 14 mg/dL (6-20); Calcium 8.3 mg/dL (8.6-10.3); Carbon Dioxide 28 mEq/L (23-29); Chloride 105 mEq/L (98-107); Glucose 103 mg/dL (70-105); Magnesium 1.6 mg/dL (1.6-2.6); Osmolality,Calculated 285 (280-300); Phosphorous 2.3 mg/dL (2.7-4.5); Potassium 3.9 mEq/L (3.5-5.1); Sodium 137 mEq/L (136-145); eGFR For African Americans > 60 (> 60); eGFR For Non-African Americans > 60 (> 60)
[2017-12-09] MEDS: *HR* Heparin 5,000 UNIT/ML VIAL SQ SCH ×2 (05:58→17:13)
[2017-12-09] MEDS: *HR* LORazepam 1 MG TABLET PO PRN ×4 (07:47→22:08)
[2017-12-09] MEDS ORDERED: Potassium Phosphate 44 MEQ in 0.9 % Sodium Chloride 250 ML IVPB ONE (08:30)
[2017-12-09] MEDS ORDERED: 0.9 % Sodium Chloride 500 ML IVC ONE (08:35)
--- NOTE | 2017-12-09 09:38 | Internal Med Progress Note ---
Date of Encounter: 12/09/17 Time of Encounter: 09:33 - Assessment and plan (1) Severe protein-calorie malnutrition Current Visit: Yes Status: Chronic Assessment and plan: secondary to high output ileostomy. Appears Cachectic and malnourished. High risk for re-feeding syndrome. Evaluated by Division Operations Specialist who recommended trickle G- tube feedings and regular pleasure PO diet (no indication for TPN at this time) . PEG tube malfunctioned on 12/08/[address] Laureano. Cont tube feedings (at goal rate as of 12/09/17). Patient reports noncompliance with tube feeding at home due to inconvenience of being hooked up to 2 pitting machine ; [facility] supplies patient's home equipment. Will discuss with director of social media marketing the possibility of obtaining portable tube feeding machine. We will also discuss nocturnal tube feeds with dietitian. Either option is likely to increase compliance at home. Monitor electrolytes and replace PRN (2) Acute renal injury Current Visit: No Status: Resolved Assessment and plan: Cr 1.19; likely pre-renal with excessive GI losses. Renal function normalized with IV fluids. Avoid nephrotoxic agents as possible. Continue IV fluids. Intermittently monitor renal function (3) Seizure Current Visit: Yes Status: Acute Assessment and plan: possible; reported an episode of patient staring off interval body shaking concerning for seizure-like activity. This is second witnessed seizure within the last 3 years; the first seizure occurred 3 years ago while in the hospital which was also likely complicated by medical conditions and current seizure may be related to Ativan withdrawal (had been on Ativan which was abruptly stopped 2 weeks ago). Evaluated by Neurology who did not recommend initiating AEDs at this time. Seizure precautions. (4) Dehydration Current Visit: No Status: Resolved Assessment and plan: Secondary to high output ileostomy. Plan as noted above. (5) Nephritis Current Visit: Yes Status: Acute Assessment and plan: ABD CT with focal areas of bilateral renal parenchymal hypo attenuation compatible with nephritis. UA concerning for UTI. Treating UTI as noted below (6) UTI (urinary tract infection) Current Visit: Yes Status: Acute Assessment and plan: ABD CT showed gas within the urinary collecting system which could be due to Maloney catheter however infectious process possible given evidence of bilateral nephritis. Previous urine cultures pansensitive. Repeat UA Maloney catheter has been changed. Start ceftriaxone. Follow urine culture and narrow ATB accordingly Qualifiers: Urinary tract infection type: acute cystitis Hematuria presence: without hematuria Qualified Code(s): N30.00 - Acute cystitis without hematuria (7) Pressure ulcer of coccygeal region, stage 3 Current Visit: No Status: Chronic Assessment and plan: per hx; present on admission. Cont local wound care (8) Chronic pain Current Visit: Yes Status: Acute Assessment and plan: with anxiety. Patient follows with [place] [facility] who prescribed pain and anxiety medication. Per 12/06/17 Supervisor Poultry Hatchery note, the patient's pain medication and anxiety medication have been discontinued due to her daughter reportedly stealing them. Patient will not be able to get her pain medications or Ativan from [facility] again unless she decides to do inpatient hospice at a SNF. Qualifiers: Chronic pain type: chronic pain syndrome Qualified Code(s): G89.4 - Chronic pain syndrome (9) DVT prophylaxis Current Visit: No Status: Acute Assessment and plan: heparin - Time Spent With Patient Total time spent is greater than 50% in coordination of care (as documented) at patient's floor/unit and/or counseling patient: - Subjective Interval history: Seen and examined at bedside; she is complaining of pain from wounds and says she would like to go home today if possible, otherwise has no complaints. Says pain medicine is helping. She tells me that she is noncompliant with her tube feedings due to the inconvenience of being hooked up to the machine. Says she is interested in nocturnal tube feedings or possibly a portable tube feeding machine. - Constitutional Vitals: Temp Pulse Resp BP Pulse Ox 98.4 F 95 12 88/60 100 12/09/17 06:45 12/09/17 06:45 12/09/17 06:45 12/09/17 06:45 12/09/17 06:45 General appearance: Present: cachectic, A&O X 3, no acute distress - Head Head exam: Present: atraumatic, normocephalic - Eye Eye exam: Present: PERRL, conjuntiva pink, sclera anicteric Pupils: Present: PERRL - Neck Neck exam general surgery: Present: supple, trachea midline. Absent: lymphadenopathy - Respiratory Respiratory exam: Present: CTAB. Absent: accessory muscle use, rales, rhonchi, wheezes - Cardiovascular Cardiovascular exam: Present: RRR, +S1, +S2. Absent: diastolic murmur, gallop, rubs, systolic murmur - GI/Abdominal GI/Abdominal exam: Present: normal bowel sounds, soft, no peritoneal signs. Absent: distended, tenderness Additional comments: + emanuel tube, RUQ ileostomy - Extremities Exam Extremities exam: Present: warm, radial pulses palpable and symmetrical. Absent : calf tenderness, cyanotic, pedal edema - Neurological Exam Neurological exam: Present: CN II-XII intact, oriented X3, no focal deficits. Absent: pronater drift, facial droop, speech deficit - Skin Skin exam: Present: dry, intact Internal Medicine: Result - Labs CBC & Chem 7: 12/09/17 04:46 12/09/17 04:46 Labs: Short CBC 12/09/17 Range/Units 04:46 WBC 9.3 (4.3-11.1) K/mcL Hgb 8.2 L (11.5-15.4) g/dL Hct 25.4 L (35.3-44.9) % Plt Count 283 (140-400) K/mcL BMP 12/09/17 04:46 Sodium 137 Potassium 3.9 Chloride 105 Carbon Dioxide 28 BUN 14 Creatinine 0.87 Glucose 103 Calcium 8.3 L Urine 12/08/17 Range/Units 10:00 Urine Color Yellow (Yellow) Urine Clarity Cloudy A (Clear) Urine pH 6.0 (5.0-8.0) pH Units Ur Specific [place] 1.028 H (1.010-1.025) Urine Protein 100 H (Neg-Trace) mg/dL Urine Glucose (UA) Normal (Normal) mg/dL - ABG Interpretation ABG results: PT/INR, D-dimer PT 11.9 Seconds (9.4-12.1) 12/05/17 22:51 Consult Discharge Plan - Plan Referrals: Crescencio Snell MD [Primary Care Provider] -
[2017-12-09] MEDS: Diphenoxylate/Atropine 1 TAB TABLET PO SCH ×4 (09:48→22:08)
[2017-12-09] MEDS: cefTRIAXone 1,000 MG in Water for inj. (sterile) 20 ML 10 ML IVPB SCH (09:50)
[2017-12-09] MEDS: *HR* FentaNYL PATCH 25 MCG PATCH TD SCH (11:48)
[2017-12-09] MEDS: Thiamine (B-1) 100 MG in D5% in Water 50 ML IVPB SCH (18:44)
[2017-12-09] MEDS: Melatonin 3 MG TABLET PO PRN (22:08)
[2017-12-10] MEDS: *HR* OxyCODONE Immed Rel 5 MG TABLET PO PRN ×5 (04:15→22:24)
[2017-12-10] MEDS: *HR* Promethazine 25 MG/ML VIAL IVP PRN ×4 (04:16→23:14)
[2017-12-10 05:50] LABS: Hematocrit 23.6 % (35.3-44.9); Hemoglobin 7.7 g/dL (11.5-15.4); Mean Corpuscular HGB Conc 32.6 g/dL (31.6-35.5); Mean Corpuscular Hemoglobin 29.6 pg (28.0-33.3); Mean Corpuscular Volume 90.8 fL (83.0-100.0); Mean Platelet Volume 9.5 fL (9.4-12.4); Platelet Count 244 K/mcL (140-400); Red Cell Distribution Width 15.9 % (11.5-14.5)
[2017-12-10] MEDS: *HR* Heparin 5,000 UNIT/ML VIAL SQ SCH (06:14)
[2017-12-10 06:15] LABS: BUN/Creatinine Ratio 19 (6-26); Blood Urea Nitrogen 14 mg/dL (6-20); Calcium 7.8 mg/dL (8.6-10.3); Carbon Dioxide 33 mEq/L (23-29); Chloride 104 mEq/L (98-107); Glucose 92 mg/dL (70-105); Magnesium 1.3 mg/dL (1.6-2.6); Osmolality,Calculated 284 (280-300); Phosphorous 3.4 mg/dL (2.7-4.5); Sodium 137 mEq/L (136-145); eGFR For African Americans > 60 (> 60); eGFR For Non-African Americans > 60 (> 60)
[2017-12-10] MEDS: *HR* LORazepam 1 MG TABLET PO PRN ×4 (06:15→22:24)
[2017-12-10] MEDS: Diphenoxylate/Atropine 1 TAB TABLET PO SCH ×4 (10:30→22:24)
[2017-12-10] MEDS: cefTRIAXone 1,000 MG in Water for inj. (sterile) 20 ML 10 ML IVPB SCH (10:32)
[2017-12-10] MEDS: Gabapentin 100 MG CAPSULE PO SCH ×3 (11:01→22:24)
--- NOTE | 2017-12-10 13:37 | Internal Med Progress Note ---
Date of Encounter: 12/10/17 Time of Encounter: 13:34 - Assessment and plan (1) Severe protein-calorie malnutrition Current Visit: Yes Status: Chronic Assessment and plan: secondary to high output ileostomy. Appears Cachectic and malnourished. High risk for re-feeding syndrome. Evaluated by Natural Resources Specialist who recommended trickle G- tube feedings and regular pleasure PO diet (no indication for TPN at this time) . PEG tube malfunctioned on 12/08/[address] Laureano. Cont tube feedings (at goal rate as of 12/09/17). Patient reports noncompliance with tube feeding at home due to inconvenience of being hooked up to 2 pitting machine ; [facility] supplies patient's home equipment. Will discuss with social psychologist the possibility of obtaining portable tube feeding machine (can consider nocturnal tube feeds as well). Either option is likely to increase compliance at home. Monitor electrolytes and replace PRN (2) Acute renal injury Current Visit: No Status: Resolved Assessment and plan: Cr 1.19; likely pre-renal with excessive GI losses. Renal function normalized with IV fluids. Avoid nephrotoxic agents as possible. Continue IV fluids. Intermittently monitor renal function (3) Anemia Current Visit: No Status: Acute Assessment and plan: Reports previous blood transfusions due to anemia secondary to bleeding from stoma. Hgb 11.1 on arrival and dropped to 7.7. No active bleeding. Hemodynamically stable. Transfuse 1 unit PRBC. Monitor repeat CBC. Occult stool pending. Qualifiers: Anemia type: unspecified type Qualified Code(s): D64.9 - Anemia, unspecified (4) Seizure Current Visit: Yes Status: Acute Assessment and plan: possible; reported an episode of patient staring off interval body shaking concerning for seizure-like activity. This is second witnessed seizure within the last 3 years; the first seizure occurred 3 years ago while in the hospital which was also likely complicated by medical conditions and current seizure may be related to Ativan withdrawal (had been on Ativan which was abruptly stopped 2 weeks ago). Evaluated by Neurology who did not recommend initiating AEDs at this time. Seizure precautions. (5) Dehydration Current Visit: No Status: Resolved Assessment and plan: Secondary to high output ileostomy. Plan as noted above. (6) Nephritis Current Visit: Yes Status: Acute Assessment and plan: ABD CT with focal areas of bilateral renal parenchymal hypo attenuation compatible with nephritis. UA concerning for UTI. Treating UTI as noted below (7) UTI (urinary tract infection) Current Visit: Yes Status: Acute Assessment and plan: ABD CT showed gas within the urinary collecting system which could be due to Maloney catheter however infectious process possible given evidence of bilateral nephritis. Initial UA negative, repeat UA indicative of UTI. Urine culture with pansensitive Escherichia coli. Continue ceftriaxone- day 3 Qualifiers: Urinary tract infection type: acute cystitis Hematuria presence: without hematuria Qualified Code(s): N30.00 - Acute cystitis without hematuria (8) Pressure ulcer of coccygeal region, stage 3 Current Visit: No Status: Chronic Assessment and plan: per hx; present on admission. Cont local wound care (9) Chronic pain Current Visit: Yes Status: Acute Assessment and plan: with anxiety. Patient follows with [facility] who prescribed pain and anxiety medication. Per 12/06/17 Forester Silviculture note, the patient's pain medication and anxiety medication have been discontinued due to her daughter reportedly stealing them. Patient will not be able to get her pain medications or Ativan from [facility] again unless she decides to do inpatient hospice at a SNF. Discussed with Forester Silviculture on 12/10/17 who advised me that [facility] is agreeable to prescribe gabapentin as long as it is in capsule form. Start gabapentin 100 mg TID Qualifiers: Chronic pain type: chronic pain syndrome Qualified Code(s): G89.4 - Chronic pain syndrome (10) DVT prophylaxis Current Visit: No Status: Acute Assessment and plan: SCD - Time Spent With Patient Total time spent is greater than 50% in coordination of care (as documented) at patient's floor/unit and/or counseling patient: - Subjective Interval history: Seen and examined at bedside; says she is tired and weak and complaining of chronic wound pain but overall feels better. She is agreeable to stay for blood transfusion and repeat monitoring of Hgb in the morning. No active bleeding, she reports previous blood transfusions. Discussed pain management options with her and she is requesting to try gabapentin. Discussed case with social psychologist and [facility] agreeable to prescribe gabapentin as long as it is in capsule form. - Constitutional Vitals: Temp Pulse Resp BP Pulse Ox 99.4 F 102 18 94/65 98 12/10/17 11:34 12/10/17 11:34 12/10/17 11:34 12/10/17 11:34 12/10/17 11:34 General appearance: Present: cachectic, A&O X 3, no acute distress - Head Head exam: Present: atraumatic, normocephalic - Eye Eye exam: Present: PERRL, conjuntiva pink, sclera anicteric Pupils: Present: PERRL - Neck Neck exam general surgery: Present: supple, trachea midline. Absent: lymphadenopathy - Respiratory Respiratory exam: Present: CTAB. Absent: accessory muscle use, rales, rhonchi, wheezes - Cardiovascular Cardiovascular exam: Present: RRR, +S1, +S2. Absent: diastolic murmur, gallop, rubs, systolic murmur - GI/Abdominal GI/Abdominal exam: Present: normal bowel sounds, soft, no peritoneal signs. Absent: distended, tenderness - Extremities Exam Extremities exam: Present: warm, radial pulses palpable and symmetrical. Absent : calf tenderness, cyanotic, pedal edema - Neurological Exam Neurological exam: Present: CN II-XII intact, oriented X3, no focal deficits. Absent: pronater drift, facial droop, speech deficit - Skin Skin exam: Present: dry, intact, pallor Internal Medicine: Result - Labs CBC & Chem 7: 12/10/17 05:03 12/10/17 05:03 Labs: Short CBC 12/10/17 Range/Units 05:03 WBC 8.3 (4.3-11.1) K/mcL Hgb 7.7 L (11.5-15.4) g/dL Hct 23.6 L (35.3-44.9) % Plt Count 244 (140-400) K/mcL BMP 12/10/17 05:03 Sodium 137 Potassium 4.0 Chloride 104 Carbon Dioxide 33 H BUN 14 Creatinine 0.75 Glucose 92 Calcium 7.8 L - ABG Interpretation ABG results: PT/INR, D-dimer PT 11.9 Seconds (9.4-12.1) 12/05/17 22:51 Consult Discharge Plan - Plan Referrals: Crescencio Snell MD [Primary Care Provider] -
[2017-12-10] MEDS: 0.9 % Sodium Chloride 250 ML IVC SCH (18:15)
[2017-12-10] MEDS: Thiamine (B-1) 100 MG in D5% in Water 50 ML IVPB SCH (18:51)
[2017-12-10] MEDS: D5% in Water 1,000 ML IVC SCH (22:06)
[2017-12-10] MEDS: Melatonin 3 MG TABLET PO PRN (22:24)
[2017-12-11] MEDS: *HR* OxyCODONE Immed Rel 5 MG TABLET PO PRN ×5 (04:31→22:37)
[2017-12-11] MEDS: 0.9 % Sodium Chloride 250 ML IVC SCH ×2 (04:31→18:25)
[2017-12-11 04:59] LABS: Hematocrit 26.6 % (35.3-44.9); Hemoglobin 8.5 g/dL (11.5-15.4); Mean Corpuscular Hemoglobin 29.4 pg (28.0-33.3); Mean Platelet Volume 9.1 fL (9.4-12.4); Platelet Count 229 K/mcL (140-400); Red Blood Count 2.89 M/mcL (3.82-4.97); Red Cell Distribution Width 16.6 % (11.5-14.5)
[2017-12-11 05:16] LABS: BUN/Creatinine Ratio 24 (6-26); Blood Urea Nitrogen 17 mg/dL (6-20); Carbon Dioxide 29 mEq/L (23-29); Chloride 107 mEq/L (98-107); Glucose 98 mg/dL (70-105); Magnesium 1.7 mg/dL (1.6-2.6); Osmolality,Calculated 288 (280-300); Phosphorous 2.9 mg/dL (2.7-4.5); Potassium 4.2 mEq/L (3.5-5.1); Sodium 138 mEq/L (136-145); eGFR For African Americans > 60 (> 60); eGFR For Non-African Americans > 60 (> 60)
[2017-12-11] MEDS: *HR* Promethazine 25 MG/ML VIAL IVP PRN ×3 (05:36→18:26)
[2017-12-11] MEDS: Gabapentin 300 MG CAPSULE PO SCH ×2 (09:47→21:25)
[2017-12-11] MEDS: *HR* LORazepam 1 MG TABLET PO PRN ×3 (09:48→22:39)
[2017-12-11] MEDS: cefTRIAXone 1,000 MG in Water for inj. (sterile) 20 ML 10 ML IVPB SCH (09:48)
[2017-12-11] MEDS: Diphenoxylate/Atropine 1 TAB TABLET PO SCH ×4 (09:48→21:25)
[2017-12-11] MEDS: Thiamine (B-1) 100 MG TABLET PO SCH (10:36)
[2017-12-11 11:20] LABS: Hematocrit 26.8 % (35.3-44.9); Hemoglobin 8.6 g/dL (11.5-15.4)
[2017-12-11 17:01] LABS: Hematocrit 26.6 % (35.3-44.9); Hemoglobin 8.4 g/dL (11.5-15.4)
--- NOTE | 2017-12-11 18:54 | Internal Med Progress Note ---
Date of Encounter: 12/11/17 Time of Encounter: 09:05 - Assessment and plan (1) DVT prophylaxis Current Visit: Yes Status: Acute Assessment and plan: SCD (2) Severe protein-calorie malnutrition Current Visit: Yes Status: Chronic Assessment and plan: Patient has been noncompliant with her tube feeding at home. Patient appears to be cachectic and malnourished. Patient has been evaluated by the dietitian who recommended trickled G-tube feedings, regular pleasure diet, also will attempt to get a portable tube feeding pump, and nocturnal feedings. All of these measures to attempt to increase compliance at home. (3) Anemia Current Visit: Yes Status: Acute Assessment and plan: Reports previous blood transfusions due to anemia secondary to bleeding from stoma. Patient received 1 unit of packed red blood cells last night. Hgb 11.1 on arrival, has remained around 8.5 today after 3 draws. No active bleeding. Hemodynamically stable. Stool occult blood negative. Monitor CBC in the morning. Qualifiers: Anemia type: unspecified type Qualified Code(s): D64.9 - Anemia, unspecified (4) Acute renal injury Current Visit: No Status: Resolved Assessment and plan: Creatinine within normal limits, GFR greater than 60. Continue to monitor continue to attempt to avoid nephrotoxins. (5) Dehydration Current Visit: No Status: Resolved Assessment and plan: Resolved. (6) Pressure ulcer of coccygeal region, stage 3 Current Visit: No Status: Chronic Assessment and plan: Present prior to admission. Patient reports it is approximately the size of dime without any discharge. She reports that she has had it for approximately 3 months. Patient was evaluated by wound care today, they report that they are quite familiar with the patient and the ulcer is chronic and present since 2016. They will write orders for local wound care. (7) Seizure Current Visit: Yes Status: Acute Assessment and plan: Possible seizure, reports second witnessed seizure in the last 3 years. May be secondary to Ativan withdrawal. She abruptly stopped Ativan 2-3 weeks ago. She has been evaluated by neurology, no recommendations for medication at this time. Continue seizure precautions. (8) Nephritis Current Visit: Yes Status: Acute Assessment and plan: Plan as above for UTI. (9) UTI (urinary tract infection) Current Visit: Yes Status: Acute Assessment and plan: Urine culture final and sensitivity available. Escherichia coli. Pansensitive. Will start patient on Levaquin 500 mg by mouth twice a day for discharge. Patient denies urinary symptoms. Qualifiers: Urinary tract infection type: acute cystitis Hematuria presence: without hematuria Qualified Code(s): N30.00 - Acute cystitis without hematuria (10) Chronic pain Current Visit: Yes Status: Acute Assessment and plan: Patient has social issues at home with daughter who is reporting that she is stealing her medications. Patient was started on gabapentin 100 mg 3 times a day, she states this was not helpful and states that she was previously on 300 mg 3 times a day. Medication as prescribed by [facility], she is aware that I will not be able to prescribe a long-term prescription. Patient will not be able to get her pain medications or Ativan from [facility] again unless she decides to do inpatient hospice at [facility]. Qualifiers: Chronic pain type: chronic pain syndrome Qualified Code(s): G89.4 - Chronic pain syndrome - Time Spent With Patient Total time spent is greater than 50% in coordination of care (as documented) at patient's floor/unit and/or counseling patient: less than 15 minutes - Subjective Interval history: Patient was seen and assessed at bedside at 9:05 AM. Patient denied discussed her home medication situation, she states gabapentin is not helping her, states that she is to take 300 mg 3 times daily, I did increase it to 300 mg twice daily. I discussed with her that I would be willing to fill enough prescription for gabapentin to get her to her primary care provider a few days. She was agreeable. We are waiting on wound care to see patient today. Also trending hemoglobin and hematocrit today. There is no significant change in hemoglobin and hematocrit today, appears to still be stable, though still below 8.5. Patient is anxious to go home. We will revisit that tomorrow. She denies any headache or blurred vision. She does report 7-8/10 pain to caustics from her pressure ulcer. She denies any abdominal pain, nausea, vomiting, diarrhea. - Constitutional Vitals: Temp Pulse Resp BP Pulse Ox 97.9 F 103 16 93/60 98 12/11/17 15:52 12/11/17 15:52 12/11/17 15:52 12/11/17 15:52 12/11/17 15:52 General appearance: Present: cachectic, cooperative, A&O X 3, pleasant, no acute distress, answers questions appropriately Exam: Cachectic - Head Head exam: Present: atraumatic, normal inspection, normocephalic - Eye Eye exam: Present: normal appearance, conjuntiva pink, sclera anicteric - Neck Neck exam general surgery: Present: supple, trachea midline. Absent: lymphadenopathy - Respiratory Respiratory exam: Present: CTAB. Absent: accessory muscle use, rales, rhonchi, wheezes - Cardiovascular Cardiovascular exam: Present: RRR, +S1, +S2. Absent: diastolic murmur, gallop, rubs, systolic murmur - GI/Abdominal GI/Abdominal exam: Present: normal bowel sounds, soft, no peritoneal signs. Absent: distended, tenderness - Extremities Exam Extremities exam: Present: warm, radial pulses palpable and symmetrical. Absent : calf tenderness, cyanotic, pedal edema - Neurological Exam Neurological exam: Present: CN II-XII intact, oriented X3, no focal deficits. Absent: pronater drift, facial droop, speech deficit - Skin Skin exam: Present: dry, intact Internal Medicine: Result - Labs CBC & Chem 7: 12/11/17 16:40 12/11/17 04:00 Labs: Short CBC 12/11/17 12/11/17 12/11/17 Range/Units 04:00 10:00 16:40 WBC 6.9 (4.3-11.1) K/mcL Hgb 8.5 L 8.6 L 8.4 L (11.5-15.4) g/dL Hct 26.6 L 26.8 L 26.6 L (35.3-44.9) % Plt Count 229 (140-400) K/mcL BMP 12/11/17 04:00 Sodium 138 Potassium 4.2 Chloride 107 Carbon Dioxide 29 BUN 17 Creatinine 0.70 Glucose 98 Calcium 8.0 L - ABG Interpretation ABG results: PT/INR, D-dimer PT 11.9 Seconds (9.4-12.1) 12/05/17 22:51 - VTE Documentation of Mechanical Device: Intermittent pneumatic compression device Consult Discharge Plan - Plan Referrals: Crescencio Snell MD [Primary Care Provider] -
[2017-12-11] MEDS: levoFLOXacin 500 MG TABLET PO SCH (21:25)
[2017-12-11] MEDS: Melatonin 3 MG TABLET PO PRN (21:25)
[2017-12-12] MEDS: *HR* Promethazine 25 MG/ML VIAL IVP PRN ×4 (00:32→21:26)
[2017-12-12] MEDS: 0.9 % Sodium Chloride 250 ML IVC SCH ×2 (02:12→14:01)
[2017-12-12] MEDS: *HR* OxyCODONE Immed Rel 5 MG TABLET PO PRN ×4 (03:52→21:27)
[2017-12-12 04:15] LABS: Hematocrit 25.1 % (35.3-44.9); Hemoglobin 7.8 g/dL (11.5-15.4); Mean Corpuscular HGB Conc 31.1 g/dL (31.6-35.5); Mean Corpuscular Hemoglobin 29.1 pg (28.0-33.3); Mean Corpuscular Volume 93.7 fL (83.0-100.0); Mean Platelet Volume 9.1 fL (9.4-12.4); Platelet Count 218 K/mcL (140-400); Red Blood Count 2.68 M/mcL (3.82-4.97); Red Cell Distribution Width 16.4 % (11.5-14.5)
[2017-12-12 04:23] LABS: Magnesium 1.4 mg/dL (1.6-2.6); Phosphorous 2.9 mg/dL (2.7-4.5)
[2017-12-12 04:24] LABS: BUN/Creatinine Ratio 23 (6-26); Blood Urea Nitrogen 18 mg/dL (6-20); Calcium 8.2 mg/dL (8.6-10.3); Carbon Dioxide 31 mEq/L (23-29); Chloride 104 mEq/L (98-107); Glucose 98 mg/dL (70-105); Osmolality,Calculated 290 (280-300); Potassium 4.2 mEq/L (3.5-5.1); Sodium 139 mEq/L (136-145); eGFR For African Americans > 60 (> 60); eGFR For Non-African Americans > 60 (> 60)
[2017-12-12] MEDS: *HR* LORazepam 1 MG TABLET PO PRN ×3 (06:45→21:27)
[2017-12-12] MEDS: levoFLOXacin 500 MG TABLET PO SCH (08:04)
[2017-12-12] MEDS: Gabapentin 300 MG CAPSULE PO SCH ×2 (08:05→21:27)
[2017-12-12] MEDS: Thiamine (B-1) 100 MG TABLET PO SCH (08:05)
[2017-12-12] MEDS: Diphenoxylate/Atropine 1 TAB TABLET PO SCH ×4 (08:05→21:00)
[2017-12-12 09:06] LABS: % Iron Saturation 23 % (15-50); Iron 57 mcg/dL (50-170); Transferrin 180 mg/dL (203-362)
[2017-12-12 09:11] LABS: Vitamin B12 273 pg/mL (250-1100)
[2017-12-12 09:13] LABS: Folate > 22.3 ng/mL (3.0-16.0)
[2017-12-12] MEDS ORDERED: Chloraseptic Spray 177 ML BOTTLE MM PRN (14:31)
--- NOTE | 2017-12-12 17:52 | Internal Med Progress Note ---
Date of Encounter: 12/12/17 Time of Encounter: 14:30 - Assessment and plan (1) DVT prophylaxis Current Visit: Yes Status: Acute Assessment and plan: SCDs (2) Severe protein-calorie malnutrition Current Visit: Yes Status: Chronic Assessment and plan: Patient has been noncompliant with her tube feeding at home. Patient appears to be cachectic and malnourished. dietitian has recommended trickled G-tube feedings, regular pleasure diet, also will attempt to get a portable tube feeding pump, and nocturnal feedings. I discussed situation with administrator social welfare today, she states that patient has pump at home that can be portable. She reports that patient is requesting a portable pump so she can go swimming. chore worker reports that she will have prescription ready for supplies when patient is ready to discharge. (3) Anemia Current Visit: Yes Status: Chronic Assessment and plan: Patient with chronic anemia. Hemoglobin 7.8 this morning. 2 units of packed red cells were ordered, however they were not transfused due to metastatic miscommunication. Will get hemoglobin and hematocrit after transfusion, reevaluate in the morning. Patient could potentially be ready for discharge tomorrow if hemoglobin remains stable overnight. Iron level is within normal limits, percent saturation is within normal limits, B12 is within normal limits, folate is high. Anemia due to chronic illness and poor by mouth intake. I did speak with surgery in who is very familiar with the patient. She does not feel this point there is a for consultation due to chronicity of the problem. Qualifiers: Iron deficiency anemia type: unspecified iron deficiency Qualified Code(s) : D50.9 - Iron deficiency anemia, unspecified (4) Pressure ulcer of coccygeal region, stage 3 Current Visit: No Status: Chronic Assessment and plan: Patient was evaluated by wound care . Wound care is familiar with the patient, the wound is chronic and present since 2016. Wound care has written orders, patient can follow-up with them in the clinic after discharge. He should reports almost constant pain that is not being helped by the gabapentin that has been ordered. Patient is not able to have any controlled substance pain medication due to daughter stealing medication and hospice will not be able to continue to write prescriptions unless patient becomes inpatient in the [facility]. Patient is aware and agrees. (5) Seizure Current Visit: Yes Status: Acute Assessment and plan: Possible seizure, reports second witnessed seizure in the last 3 years. May be secondary to Ativan withdrawal. She abruptly stopped Ativan 2-3 weeks ago. She has been evaluated by neurology, no recommendations for medication at this time. Continue seizure precautions. EEG was within normal limits and there was no evidence of epileptiform activity during the study. (6) Nephritis Current Visit: Yes Status: Acute Assessment and plan: Plan as above for UTI. (7) UTI (urinary tract infection) Current Visit: Yes Status: Acute Assessment and plan: Urine culture final and sensitivity available. Escherichia coli. Pansensitive. Will start patient on Levaquin 500 mg by mouth twice a day for discharge. Patient denies urinary symptoms. 12/12/17- Pt tolerating po antibiotic well, continues to deny urinary symptoms. Qualifiers: Urinary tract infection type: acute cystitis Hematuria presence: without hematuria Qualified Code(s): N30.00 - Acute cystitis without hematuria (8) Chronic pain Current Visit: Yes Status: Acute Assessment and plan: Patient has social issues at home with daughter who is reporting that she is stealing her medications. Patient was started on gabapentin 100 mg 3 times a day, she states this was not helpful and states that she was previously on 300 mg 3 times a day. Medication as prescribed by [facility], she is aware that I will not be able to prescribe a long-term prescription. Patient will not be able to get her pain medications or Ativan from [facility] again unless she decides to do inpatient hospice at [facility]. Pt is aware. Visual Associate states that pt will be able to get Gabapentin from [facility]. Qualifiers: Chronic pain type: chronic pain syndrome Qualified Code(s): G89.4 - Chronic pain syndrome (9) Acute renal injury Current Visit: No Status: Resolved Assessment and plan: Resolved. (10) Dehydration Current Visit: No Status: Resolved Assessment and plan: Resolved. - Time Spent With Patient Total time spent is greater than 50% in coordination of care (as documented) at patient's floor/unit and/or counseling patient: less than 15 minutes - Subjective Interval history: Patient was seen and assessed at bedside at 1430. She denies any headache or blurred vision. She does reports constant 7-8/10 pain to coccyx from her pressure ulcer. She denies any abdominal pain, nausea, vomiting, diarrhea. Patient was to have 2 units of packed red blood cells transfused this morning, due to an unfortunate communication glitch with [employer], blood was not transfused this morning. Blood will be transfused this afternoon, into evening , patient should be ready to discharge tomorrow. - Constitutional Vitals: Temp Pulse Resp BP Pulse Ox 98.6 F 104 16 87/64 98 12/12/17 16:00 12/12/17 15:46 12/12/17 16:00 12/12/17 16:00 12/12/17 15:23 General appearance: Present: cachectic, cooperative, A&O X 3, pleasant, no acute distress, answers questions appropriately - Head Head exam: Present: atraumatic, normal inspection, normocephalic - Eye Eye exam: Present: normal appearance, conjuntiva pink, sclera anicteric - Neck Neck exam general surgery: Present: supple, trachea midline. Absent: lymphadenopathy, tenderness - Respiratory Respiratory exam: Present: CTAB. Absent: accessory muscle use, chest wall tenderness, rales, respiratory distress, rhonchi, wheezes - Cardiovascular Cardiovascular exam: Present: RRR, +S1, +S2. Absent: diastolic murmur, gallop, rubs, systolic murmur - GI/Abdominal GI/Abdominal exam: Present: normal bowel sounds, soft. Absent: distended, hepatomegaly, tenderness - Extremities Exam Extremities exam: Present: normal capillary refill, normal inspection, warm, radial pulses palpable and symmetrical. Absent: calf tenderness, cyanotic, pedal edema, tenderness - Neurological Exam Neurological exam: Present: alert, oriented X3, no focal deficits. Absent: facial droop, speech deficit - Skin Skin exam: Present: dry, intact, normal color, warm. Absent: rash Internal Medicine: Result - Labs CBC & Chem 7: 12/12/17 03:45 12/12/17 03:45 Labs: Short CBC 12/12/17 Range/Units 03:45 WBC 7.5 (4.3-11.1) K/mcL Hgb 7.8 L (11.5-15.4) g/dL Hct 25.1 L (35.3-44.9) % Plt Count 218 (140-400) K/mcL BMP 12/12/17 03:45 Sodium 139 Potassium 4.2 Chloride 104 Carbon Dioxide 31 H BUN 18 Creatinine 0.78 Glucose 98 Calcium 8.2 L - ABG Interpretation ABG results: PT/INR, D-dimer PT 11.9 Seconds (9.4-12.1) 12/05/17 22:51 - VTE Documentation of Mechanical Device: Intermittent pneumatic compression device Consult Discharge Plan - Plan Referrals: Crescencio Snell MD [Primary Care Provider] -
[2017-12-12] MEDS: Melatonin 3 MG TABLET PO PRN (21:27)
[2017-12-13] MEDS: *HR* OxyCODONE Immed Rel 5 MG TABLET PO PRN ×3 (03:57→15:37)
[2017-12-13] MEDS: *HR* Promethazine 25 MG/ML VIAL IVP PRN ×3 (03:57→15:36)
[2017-12-13 04:29] LABS: Basophils # 0.1 K/mcL (0.0-0.2); Basophils % 0.6 %; Eosinophils # 0.5 K/mcL (0.0-0.6); Eosinophils % 6.4 %; Hematocrit 34.2 % (35.3-44.9); Immature Granulocytes % 0.3 % (0-4); Lymphocytes # 1.8 K/mcL (0.6-4.6); Mean Corpuscular HGB Conc 32.2 g/dL (31.6-35.5); Mean Corpuscular Hemoglobin 28.6 pg (28.0-33.3); Mean Corpuscular Volume 88.8 fL (83.0-100.0); Mean Platelet Volume 8.7 fL (9.4-12.4); Monocytes % 12.4 %; Neutrophils # 4.5 K/mcL (1.6-8.9); Nucleated Red Blood Cells 0.3 /100 WBC (0); Platelet Count 222 K/mcL (140-400); Red Blood Count 3.85 M/mcL (3.82-4.97); Red Cell Distribution Width 17.8 % (11.5-14.5); Segmented Neutrophils % 57.3 %
[2017-12-13 04:47] LABS: BUN/Creatinine Ratio 29 (6-26); Blood Urea Nitrogen 22 mg/dL (6-20); Calcium 8.4 mg/dL (8.6-10.3); Carbon Dioxide 32 mEq/L (23-29); Chloride 104 mEq/L (98-107); Glucose 104 mg/dL (70-105); Osmolality,Calculated 292 (280-300); Sodium 139 mEq/L (136-145); eGFR For African Americans > 60 (> 60); eGFR For Non-African Americans > 60 (> 60)
[2017-12-13 04:49] LABS: Magnesium 1.4 mg/dL (1.6-2.6); Phosphorous 3.1 mg/dL (2.7-4.5)
[2017-12-13] MEDS: 0.9 % Sodium Chloride 250 ML IVC SCH ×2 (07:22→09:23)
[2017-12-13] MEDS: levoFLOXacin 500 MG TABLET PO SCH (07:24)
[2017-12-13] MEDS: Diphenoxylate/Atropine 1 TAB TABLET PO SCH ×2 (07:24→12:12)
[2017-12-13] MEDS: Gabapentin 300 MG CAPSULE PO SCH (07:24)
[2017-12-13] MEDS: *HR* LORazepam 1 MG TABLET PO PRN ×2 (07:25→12:12)
[2017-12-13] MEDS: Thiamine (B-1) 100 MG TABLET PO SCH (07:25)
--- NOTE | 2017-12-13 09:37 | Discharge Summary ---
- NOTES TO OUTPATIENT PROVIDER Notes to Outpatient Provider: Pt will need refills for Gabapentin. She received 3 units PRBC while admitted, Hgb 11 at disharge. Pt would also like referral to [facility] for treatment of coccyx wound. Orders not resulted at time of discharge: Pending orders 12/08/17 10:09 Occult Blood,Stool [BF] Stat 12/14/17 04:00 Magnesium 04 Phosphorous 04 Date of Encounter: 12/13/17 Time of Encounter: 08:55 - Discharge Diagnosis (1) Dehydration Priority: Primary Status: Resolved Comments: Resolved (2) Severe protein-calorie malnutrition Priority: Secondary Status: Chronic Comments: Patient appears cachectic and malnourished. Dietitian has made several recommendations for tube feedings, as well as a regular by mouth pleasure diet. medical social worker is working on a portable pump and supplies for greater compliance at home. (3) Pressure ulcer of coccygeal region, stage 3 Priority: Secondary Status: Chronic Comments: Wound care has written orders. Patient states that she has had this wound for several months. She is requesting a referral to [facility] wound care. States she will follow with primary care. She also reports that she has adequate supplies at home for wound care. (4) Seizure Priority: Secondary Status: Ruled-out Comments: Possible seizure activity witnessed by prior to arrival. He reports the second time this has happened in the last 3 years. Possibly secondary to Ativan withdrawal, she abruptly stopped Ativan 2-3 weeks ago. Neurology evaluated the patient, no recommendations for antiepileptic medication therapy at this time. Seizure precautions were remained throughout her visit. EEG was within normal limits, there is no evidence of epileptiform activity. Follow with primary care. (5) Nephritis Priority: Secondary Status: Acute Comments: Plan as for UTI. (6) UTI (urinary tract infection) Priority: Secondary Status: Acute Comments: Final urine culture showed pansensitive Escherichia coli. Patient was started on Levaquin 500 mg by mouth twice daily. She denies any urinary symptoms. She will be discharged with prescription to complete antibiotic course. Qualifiers: Urinary tract infection type: acute cystitis Hematuria presence: without hematuria Qualified Code(s): N30.00 - Acute cystitis without hematuria (7) Chronic pain Priority: Secondary Status: Acute Comments: Patient will be discharged with 300 mg gabapentin to be taken 3 times daily. As discussed with patient several times, I will be up to supply a 3 day prescription. She is aware that she will need to contact her primary care provider for a refill. Qualifiers: Chronic pain type: chronic pain syndrome Qualified Code(s): G89.4 - Chronic pain syndrome (8) Acute renal injury Priority: Secondary Status: Resolved Comments: Resolved (9) Anemia Priority: Secondary Status: Chronic Comments: Anemia of chronic disease. Patient reports multiple incidents of blood transfusions over several years. Patient is chronically anemic from poor intake , high output colostomy. Patient has received 3 units of packed red blood cells during admission, 2 units infused yesterday 12/12/17. Hemoglobin is 11.0 today. She has no overt signs of bleeding. Stool occult blood was negative. Iron and percent sat on within normal limits, vitamin B12 is within normal limits, folate is elevated at 22.3. Qualifiers: Iron deficiency anemia type: inadequate dietary iron intake Qualified Code( s): D50.8 - Other iron deficiency anemias (10) DVT prophylaxis Priority: Secondary Status: Acute Comments: SCDs orderd. Hospital course: Ms. Rosado is a 52 year old female with past medical history of alcohol abuse , respiratory failure, diabetes, asthma, encephalopathy, hypertension, hyperlipidemia, seizure disorder, severe protein calorie malnutrition, depression and anxiety, chronic pain, compression fracture of L2, chronic pressure ulcer coccyx, cachexia, physical deconditioning, chronic anemia. Patient presented to the emergency department on 12/06/17 after she was found unresponsive at home by her . She was arousable she was confused and she presented to the emergency Department by squad. For several day history of decreased by mouth intake due to nausea and is noncompliant with her tube feeding at home. Patient is enrolled in [facility], she is a DNR CCA. She was admitted for dehydration, malnourishment, anemia, had fever and tachycardia secondary to above. Patient is also currently being treated for UTI secondary to pansensitive Escherichia coli. This also could be the cause of her nausea and vomiting. Abdominal CT showed gas within the urinary collecting system which could be due to infectious process, bilateral nephritis , and her chronic sacral decubitus ulcer was also visualized. Suspicion for seizure activity during her unresponsive. At home, patient reports prior history of seizure disorder. EEG was negative, neurologist does not feel at this time she needs medication. They have signed off. Patient received 3 units of packed red cells during her visit, hemoglobin at discharge was 11.0. Patient also is a hospice patient, she is home. Patient's daughter allegedly steals the patient's narcotic pain medications and she is no longer able to get refills unless she decides to go inpatient for hospice. Patient is not agreeable to this at this time and is going to be sent home with a prescription for gabapentin 300 mg twice daily. She is aware that I will be providing only a 3 day supply of the medication and that she will need to call primary care for refills. Machine Carton Marker has discussed compliance with tube feeding pump with pt, she agrees and SW has spoken with insurance company and obtained supplies and smaller pump for pt. Pt also has a coccyx ulcer that is chronic since 2016 per wound care records. Pt reports pain to site and is requesting a referral to [facility]. She states that she had sufficient wound care supplies at home to treat her wound. Pt states that she is feeling better and that she is ready to go home. Pt is stable and appropriate for discharge. Discharge discussed with: patient, nurse, social work - Time Spent with Patient Total time spent providing and/or coordinating discharge services: Less than 30 minutes - Discharge Medications Prescriptions: Gabapentin [Neurontin] 300 mg PO BID #6 capsule levoFLOXacin [Levaquin] 500 mg PO DAILY #5 tablet Thiamine (B-1) [Vitamin B-1] 100 mg PO DAILY #30 tablet Home Medications: Diphenoxylate/Atropine [Lomotil 2.5 mg/0.025 mg] 2 each PO QID 12/06/17 [History ] HYDROmorphone [Dilaudid] 4 mg PO Q4H PRN 12/06/17 [History] Hydromorphone HCl [Dilaudid] 8 mg PO Q2H PRN 12/06/17 [History] LORazepam [Lorazepam] 2 mg PO QID 12/06/17 [History] Loperamide [Imodium] 4 mg PO QID PRN 12/06/17 [History] fentaNYL [Fentanyl] 100 mcg TD Q72H 12/06/17 [History] Gabapentin [Neurontin] 300 mg PO BID #6 capsule 12/13/17 [Rx] Thiamine (B-1) [Vitamin B-1] 100 mg PO DAILY #30 tablet 12/13/17 [Rx] levoFLOXacin [Levaquin] 500 mg PO DAILY #5 tablet 12/13/17 [Rx] Allergies/Adverse Reactions: 3 Allergy/AdvReac Type Severity Reaction Status Date / Time shellfish derived Allergy UNKNOWN Verified 07/21/16 09:06 Date of admission: 12/06/17 01:11 Primary care physician: Crescencio Snell MD Consults: 12/06/17 10:44 Consult to Corporate General Manager [CONS] Routine Reason for SW Consult: hospice 12/06/17 12:23 Consult to Interpret Exam [CONS] Routine Consulting Provider: Ricardo Zelaya Consult to Interpret Exam: Interpret EEG 12/07/17 14:40 Consult to Gastroenterology [CONS] Routine Consulting Provider: G[facility]enter[facility] Reason for Consult: peg tube replacement Time Notified: 14:41 Call Completed: Yes 12/07/17 15:08 Consult to Neurology [CONS] Routine Consulting Provider: [facility] Reason for Consult: possible seizure Call Completed: Yes 12/11/17 05:02 Consult to Wound Care [CONS] Routine Reason for Consult: Patient has stage IV ulcer to coccyx. Call Completed: No Discharging clinician: Gege Kauffman Anticipated date of discharge: 12/13/17 - Constitutional Vitals: Temp Pulse Resp BP Pulse Ox 98.6 F 89 18 92/56 97 12/13/17 07:41 12/13/17 07:41 12/13/17 07:41 12/13/17 07:41 12/13/17 08:34 General appearance: Present: cachectic, cooperative, A&O X 3, pleasant, no acute distress, underweight, answers questions appropriately - Head Head exam: Present: atraumatic, normal inspection, normocephalic - Eye Eye exam: Present: normal appearance, conjuntiva pink, sclera anicteric - Neck Neck exam general surgery: Present: normal inspection, supple, trachea midline. Absent: lymphadenopathy, tenderness - Respiratory Respiratory exam: Present: CTAB. Absent: accessory muscle use, chest wall tenderness, decreased breath sounds, rales, rhonchi, wheezes - Cardiovascular Cardiovascular exam: Present: RRR, +S1, +S2. Absent: diastolic murmur, gallop, rubs, systolic murmur - GI/Abdominal GI/Abdominal exam: Present: normal bowel sounds, soft. Absent: distended, hepatomegaly, tenderness Additional comments: Colostomy - Extremities Exam Extremities exam: Present: normal capillary refill, normal inspection, warm, radial pulses palpable and symmetrical. Absent: calf tenderness, cyanotic, pedal edema, tenderness - Neurological Exam Neurological exam: Present: alert, oriented X3, no focal deficits, pronater drift. Absent: altered, facial droop, speech deficit - Skin Skin exam: Present: dry, intact, normal color, warm. Absent: rash - Patient Status Disposition: Hospice - Home Condition: Good Functional capacity at discharge: uses cane/walker Overall status at discharge: patient is progressing back to baseline - Discharge Instructions Follow Up With: Crescencio Snell MD [Primary Care Provider] - Additional Instructions: Please follow up with Dr Ellsworth for refills on your medications and for a recheck in the next 7-10 day. Return to the ER as needed for any other problems or concerns, or if your symptoms return or worsen. Resume your normal home medications and activities as tolerated. REturn to your normal diet as tolerated. - Diet and Activity Activity: increase activity as tolerated Diet: advance to your usual diet - VTE Documentation of Mechanical Device: Intermittent pneumatic compression device
--- NOTE | 2017-12-13 13:02 | Physician Discharge Referral ---
Home Health/Hosp Referral Info Transfer to: Hospice Provider in Charge Post Discharge: PCP - Diagnosis (1) Dehydration Priority: Primary Status: Resolved (2) Severe protein-calorie malnutrition Priority: Secondary Status: Chronic (3) Pressure ulcer of coccygeal region, stage 3 Priority: Secondary Status: Chronic (4) Seizure Priority: Secondary Status: Ruled-out (5) Nephritis Status: Acute (6) UTI (urinary tract infection) Priority: Secondary Status: Acute (7) Chronic pain Priority: Secondary Status: Chronic (8) Acute renal injury Priority: Secondary Status: Resolved (9) Anemia Priority: Secondary Status: Chronic (10) DVT prophylaxis Priority: Secondary Status: Acute - Respiratory Orders Oxygen / L per min (2liters/min via nasal canula, titrate as needed to maintain sats > 92%) Smoking Cessation: Smoking cessation has been advised. For more information, call the [place] Tobacco Quit Line at 6-995-FUHJ-NOW. - Diet/Nutrition Diet/Nutrition Orders: Regular - Activity Activity Orders: Up ad chris - Services Needed Following services are medically necessary services: Nursing, Home Health Aide, Physical Therapy, Occupational Therapy - Transfer Medications Prescriptions: Gabapentin [Neurontin] 300 mg PO BID #6 capsule levoFLOXacin [Levaquin] 500 mg PO DAILY #5 tablet Thiamine (B-1) [Vitamin B-1] 100 mg PO DAILY #30 tablet Home Medications: Diphenoxylate/Atropine [Lomotil 2.5 mg/0.025 mg] 2 each PO QID 12/06/17 [History ] HYDROmorphone [Dilaudid] 4 mg PO Q4H PRN 12/06/17 [History] Hydromorphone HCl [Dilaudid] 8 mg PO Q2H PRN 12/06/17 [History] LORazepam [Lorazepam] 2 mg PO QID 12/06/17 [History] Loperamide [Imodium] 4 mg PO QID PRN 12/06/17 [History] fentaNYL [Fentanyl] 100 mcg TD Q72H 12/06/17 [History] Gabapentin [Neurontin] 300 mg PO BID #6 capsule 12/13/17 [Rx] Thiamine (B-1) [Vitamin B-1] 100 mg PO DAILY #30 tablet 12/13/17 [Rx] levoFLOXacin [Levaquin] 500 mg PO DAILY #5 tablet 12/13/17 [Rx] Allergies/Adverse Reactions: 3 Allergy/AdvReac Type Severity Reaction Status Date / Time shellfish derived Allergy UNKNOWN Verified 07/21/16 09:06 Certification: Further, I certify that my clinical findings support that this patient is homebound (i.e. absences from home require considerable and taxing effort and are for medical reasons or restorationism services or infrequently or short duration when for other reasons) because: Homebound Reason: Patient requires assistance of a person or device to safely leave home, Leaving home requires considerable and taxing effort due to condition Attestation: My signature below is to certify that this patient is under my care and that I, or nurse practitioner, or a physician's assistant front desk manager working with me, has a face-to -face encounter with this patient.
[2017-12-13 14:13] VITALS: BP 91/55
== END 2017-12-13 15:51 | disposition hospice, home (50) ==
LOC: 3ANU 22:18 → EMEROO 22:18 → SUATTDRO 12-06 01:11 → 3ANU 12-06 01:43
PROVIDERS: ADMIT Internal Medicine; ATTEND Internal Medicine

== ENCOUNTER 2018-05-05 12:54 | Inpatient (IN) ==
[2018-05-05] MEDS ORDERED: 0.9 % Sodium Chloride 1,000 ML IVC ONE (16:19)
[2018-05-05] MEDS ORDERED: Morphine Oral CONC 5 MG/0.25 ML ORAL.SYG PO PRN (16:30)
--- NOTE | 2018-05-05 17:06 | Internal Med History&Physical ---
<Dave Lopez - Last Filed: 05/05/18 17:54> Date of Encounter: 05/05/18 Internal Medicine - H&P: HPI History of present illness: Ms. Rosado is a 53 year old female Internal Medicine - H&P: Meds ALPRAZolam [Xanax 1 MG Tablet] 1 mg PO BID 05/05/18 [History] Cbd 500 mg PO BID 05/05/18 [History] Escitalopram [Lexapro] 10 mg PO DAILY 05/05/18 [History] Gabapentin [Neurontin] 600 mg PO TID 05/05/18 [History] Loperamide HCl [Anti-Diarrheal] 2 mg PO QID 05/05/18 [History] MORPHINE SUL Oral CONC [Roxanol Oral Conc] 20 mg PO Q6HR PRN 05/05/18 [History] Ondansetron HCl [Zofran] 4 mg PO Q8HR PRN 05/05/18 [History] Promethazine HCl 25 mg PO Q12HR 05/05/18 [History] 3 Allergy/AdvReac Type Severity Reaction Status Date / Time shellfish derived Allergy UNKNOWN Verified 05/05/18 15:05 All Systems PM: A 10-system review of systems was performed and is negative for pertinent findings except as documented above in the HPI. - Constitutional Vitals: Temp Pulse Resp BP Pulse Ox 97.4 F L 104 16 91/56 96 05/05/18 14:54 05/05/18 14:54 05/05/18 14:54 05/05/18 14:54 05/05/18 14:54 - Assessment and plan (1) Pneumonia Current Visit: No Status: Suspected Qualifiers: Pneumonia type: due to other aerobic Gram-negative bacteria Laterality: left Qualified Code(s): J15.6 - Pneumonia due to other Gram-negative bacteria (2) Sepsis Current Visit: No Status: Acute Qualifiers: Sepsis type: sepsis due to unspecified organism Qualified Code(s): A41.9 - Sepsis, unspecified organism (3) Acute renal failure Current Visit: Yes Status: Suspected Assessment and plan: IV fluids and recheck tomorrow. Qualifiers: Acute renal failure type: with acute tubular necrosis Qualified Code(s): N17.0 - Acute kidney failure with tubular necrosis (4) Hypocalcemia Current Visit: No Status: Acute Assessment and plan: Replace (5) Hypomagnesemia Current Visit: No Status: Acute Assessment and plan: Replace (6) Hyponatremia Current Visit: No Status: Acute Assessment and plan: IV fluids and TPN (7) Hypertension Current Visit: No Status: Chronic Assessment and plan: Hold meds. Qualifiers: Hypertension type: essential hypertension Qualified Code(s): I10 - Essential (primary) hypertension (8) Severe protein-calorie malnutrition Current Visit: Yes Status: Suspected Assessment and plan: TPN ordered. (9) Chronic respiratory failure with hypoxia Current Visit: Yes Status: Chronic - Time Spent With Patient Total time spent is greater than 50% in coordination of care (as documented) at patient's floor/unit and/or counseling patient: - Attending Attestation I examined this patient and my medical decision-making was reviewed with the Resident Physician on 05/05/18. I agree with the documented findings, disposition and treatment plan as described except to the extent set forth below. Ms Rosado is a 53 y/o female with multiple chronic medical problems presented to [facility] due to cough and fever. She was evaluated and felt to have pneumonia and transferred here for admission. At this time she is hungry and having some pain in her L hip and shoulder. She did have a fall this week. She has a central line in her groin. She is requesting TPN while she is in the hospital. She has a high output ileostomy and is chronically malnourished. At [facility] she was noted to be hypotensive and tachycardic. She had WBC greater than 20 and infiltrate on CXR. She received IV abx after cultures. Exam Alert Pleasant and comfortable Mucus membranes dry Heart reg and slightly tachy Lungs essentially clear Abd nontender No edema Cachetic Tender L shoulder and hip I/P 1. Sepsis - presumed pneumonia versus UTI (prior hx). Cultures pending. Abx ordered 2. Severe protein dionicio malnutrition - TPN ordered. 3. Hypomagnesemia, hypocalcemia - replace IV 4. L shoulder and hip pain - check xrays Further diagnoses and plan as above. Pt to be DNRCC. <King Rivas - Last Filed: 05/05/18 19:18> Date of Encounter: 05/05/18 Time of Encounter: 16:32 Internal Medicine - H&P: HPI Chief complaint: SOB History of present illness: Ms. Rosado is a 53 year old female with a very extensive PMHx of DM , asthma ( non complaint on her home oxygen - 2L and inhalers), respiratory failure, HTN, hypokalemia, seizure disorder, ileostomy, severe protein calories malnutrition, depression, anxiety, chronic pain, compression Frx of L2, chronic anemia, stage 4 pressure ulcer to coccyx, who presented to the [facility] ED because of SOB and altered mental status. Patient has a Hx of asthma , is non-compliant on her inhalers, was last seen by a Industrial Maintenance Technician 3 yrs ago and was put on steroids. It appears to me that she has never followed up with her animal control licensing worker because she told me "she was continuously on steroids for the last 3 years" . Patient endorses that she was coughing on Sunday evening, went to bed and woke up on the floor. She denies any LOC, or head trauma. She endorses that she woke up next morning and was not SOB, had dry cough , barely used her home oxygen, went out to the [employer] for some shopping and was asymptomatic the whole day yesterday. However, this morning she felt SOB and mildy confused and came to the [facility] ED. Initial workup at the [facility] ED, she was not found to be confused or in acute respiratory distress on physical exam, she was put on 5L of oxygen and yet her sats were in low 90s, with BP 110 systolic, WBC 22.4. Patient was given 30 ml/kg bolus but only a litre. CXR at the [facility] ED showed Left Lower lobe opacity with concerns of pneumonia. Due to her low BMI, it was hard to get an IV and had to put in a central line on the right groin. She was transferred to [facility] for further management, with concerns of sepsis secondary to pneumonia. Past Med Surg Social Fam HX - Past Medical History Medical history: asthma, diabetes, GERD, hyperlipidemia, hypertension, osteoporosis, seizures, other Additional medical history: leukocytosis, severe protein-caloric malnutrition, hyponatremia, sepsis. back fracture Psychiatric history: anxiety, depression - Past Surgical History Surgical History: cholecystectomy, colectomy, colostomy, hysterectomy, other Additional surgical history: feeding tube. tia fundoplasty. rectal stump - Social History Smoking Status: Former smoker Smokeless Tobacco Status: No Alcohol use: none Drug use: none - Family History Mother Family Member Ethnicity: Non- Living Status: Still Living Hx Family Cardiac Disorders: Yes (HTN) Hx Family Respiratory Disorders: No Hx Family GI Disorders: Yes (Colostomy) Hx Family Endocrine Disorder: Yes (DM) Brother Family Member Ethnicity: Non- Living Status: Still Living Father Adopted: No Family Member Ethnicity: Non- Living Status: Still Living Hx Family Cardiac Disorders: Yes (CAD, Quad bypass) Hx Family Respiratory Disorders: No All Systems PM: A 10-system review of systems was performed and is negative for pertinent findings except as documented above in the HPI. - Constitutional Constitutional: anorexia, falls, weight loss - Cardiovascular Cardiovascular ROS IM: as per HPI - Respiratory Respiratory: cough - Gastrointestinal Gastrointestinal: as per HPI, nausea - Musculoskeletal Musculoskeletal ROS IM: back pain, limited range of motion (of the L shoulder ) - Psychiatric Psychiatric: anxiety, depression - Constitutional Vitals: Temp Pulse Resp BP Pulse Ox 97.4 F L 104 16 91/56 96 05/05/18 14:54 05/05/18 14:54 05/05/18 14:54 05/05/18 14:54 05/05/18 14:54 General appearance: Present: A&O X 3 Exam: see below - Head Head exam: Present: atraumatic, normal inspection, normocephalic - Assessment and plan (1) Sepsis Current Visit: No Status: Acute Assessment and plan: - likely due to her pneumonia. patient was leukocytotic (WBC 22.4), and Tachycardic at the [facility] ED. Patient has had multiple episodes of PNA in the pat , the last one bwing in Sep 2017. - currently at 5L satting at . She's been put on Vanc/Zosyn. - Sputum and Blood cultures pendimg. UA pending. De-escalate Abx pending culture sensitivities. - Qualifiers: Sepsis type: sepsis due to unspecified organism Qualified Code(s): A41.9 - Sepsis, unspecified organism (2) Chronic respiratory failure with hypoxia Current Visit: Yes Status: Chronic Assessment and plan: - Likely due to her pneumonia. Patient has a past medical history of asthma, with recurrent admissions for respiratory failure. She is noncompliant on her home oxygen. In the [facility] ED she was satting in the 90s despite 5 L of oxygen. - Currently on vancomycin and Zosyn. - Titrate oxygen for goal SPO2 greater than 88%. DuoNeb's PRN. (3) Pneumonia Current Visit: No Status: Suspected Assessment and plan: - likely hospital aquired, her CXR at the [facility] ED showed left lower lobe opacity with concerns for PNA. - Physical exam she is diminished lung sounds bilaterally. No egophony, tactile fremitus appreciated. - Patient is currently on 5 L of oxygen. She is on currently vancomycin and Zosyn. - Sputum and but blood cultures are pending. Deescalated antibiotics pending culture sensitivities. Qualifiers: Pneumonia type: due to other aerobic Gram-negative bacteria Laterality: left (4) Anemia Current Visit: No Status: Chronic Assessment and plan: - likely due to AOCD and Iron Deficiency. She has had multiple blood tranfusions in the past. She has had poor intake, a high output ileostomy - Hb 9.6 on admission, no overt signs of bleeding. - Continue to monitor . Transfuse is Hb < 7 Qualifiers: Iron deficiency anemia type: inadequate dietary iron intake (5) Acute renal injury Current Visit: No Status: Resolved Assessment and plan: -likely prerenal- patient has had a history of low volume state with blood pressure running 80s to 90s systolic. - Her Cr was 2.31 on admission. Baseline Cr is 0.70- 0.90 - Received 2 L of bolus at [facility]. Continue gentle hydration, avoid nephrotoxic agents. Renally dose medications (6) Hyponatremia Current Visit: No Status: Acute Assessment and plan: Patient was admitted with a sodium of 129. -Likely due to her poor by mouth by mouth intake. He has a history of ileostomy. - She denies any vomiting, nausea, headache, cramping or any episodes of acute seizures. -Continue to fluid resuscitate - 0.9% NACl (7) Shoulder pain, left Current Visit: Yes Status: Acute Assessment and plan: - Likely due to her history of fall on Sunday. - On physical exam patient is neurovascularly intact. Sensory and motor function intact. - Shoulder x-ray pending. Adequate pain control. (8) Hypocalcemia Current Visit: No Status: Acute Assessment and plan: - Patient was admitted with venous ionized calcium of 1.09 - Likely due to her history of malnutrition - TPN ordered, she is also on PO diet as tolerated. (9) DVT prophylaxis Current Visit: No Status: Acute Assessment and plan: SCDs - Time Spent With Patient Total time spent is greater than 50% in coordination of care (as documented) at patient's floor/unit and/or counseling patient:
[2018-05-05] MEDS ORDERED: D10% in Water 500 ML IVC PRN (17:43)
[2018-05-05] MEDS ORDERED: Magnesium Sulfate 2 GM/100 ML PIGGYBACK IV SCH (18:07)
[2018-05-05] MEDS: Piperacillin/Tazobactam 3.375 GM in 0.9 % Sodium Chloride Mini Bag 100 ML IVPB SCH (18:48)
[2018-05-05] MEDS ORDERED: MORPHINE SUL Oral CONC 10 MG/0.5 ML ORAL.SYG PO PRN (19:45)
[2018-05-05] MEDS: ALPRAZolam 1 MG TABLET PO SCH (21:10)
[2018-05-05] MEDS: Gabapentin 300 MG CAPSULE PO SCH (21:10)
[2018-05-05] MEDS ORDERED: Acetaminophen 325 MG TABLET PO PRN (21:20)
[2018-05-05] MEDS: Ondansetron ODT 4 MG TAB.RAPDIS PO PRN (21:27)
[2018-05-05 22:37] LABS: Bilirubin,Urine Negative (Negative); Blood,Urine Large (Negative); Clarity,Urine Cloudy (Clear); Color,Urine Yellow (Yellow); Glucose,Urine (UA) Normal (Normal); Ketones,Urine Negative (Negative); Leukocyte Esterase,Urine Moderate (Negative); Nitrite,Urine Negative (Negative); Protein,Urine 100 mg/dL (Neg-Trace); Specific Gravity,Urine 1.017 (1.010-1.025); Urobilinogen,Urine Normal (Normal)
[2018-05-05 22:40] LABS: Bacteria,Urine None Seen per hpf (None-Few); Hyaline Casts,Urine None Seen per lpf (None-Few); RBC,Urine TNTC per hpf (0-3); Squamous Epithelial Cell,Urine Many per lpf (None-Few); WBC,Urine 50-100 per hpf (0-3)
[2018-05-06 04:00] LABS: Basophils % 0.2 %; Eosinophils # 0.1 K/mcL (0.0-0.6); Hematocrit 26.5 % (35.3-44.9); Hemoglobin 8.2 g/dL (11.5-15.4); Immature Granulocytes % 0.4 % (0-4); Lymphocytes # 0.8 K/mcL (0.6-4.6); Lymphocytes % 6.5 %; Mean Corpuscular HGB Conc 30.9 g/dL (31.6-35.5); Mean Corpuscular Hemoglobin 30.9 pg (28.0-33.3); Monocytes # 0.6 K/mcL (0.0-1.3); Monocytes % 4.6 %; Neutrophils # 10.5 K/mcL (1.6-8.9); Platelet Count 176 K/mcL (140-400); Red Blood Count 2.65 M/mcL (3.82-4.97); Red Cell Distribution Width 13.1 % (11.5-14.5); Segmented Neutrophils % 87.3 %
[2018-05-06 04:24] LABS: Phosphorous 2.7 mg/dL (2.7-4.5)
[2018-05-06 05:03] LABS: Albumin 2.3 g/dL (3.5-5.7); Albumin/Globulin Ratio 0.8 (1.1-2.2); Bilirubin,Total 0.2 mg/dL (0.3-1.0); Calcium 8.1 mg/dL (8.6-10.3); Potassium 2.9 mEq/L (3.5-5.1); Total Protein 5.3 g/dL (6.4-8.9)
[2018-05-06] MEDS: Promethazine 25 MG in 0.9 % Sodium Chloride 50 ML IVPB SCH ×2 (05:08→18:43)
[2018-05-06] MEDS: Piperacillin/Tazobactam 3.375 GM in 0.9 % Sodium Chloride Mini Bag 100 ML IVPB SCH ×3 (05:09→23:54)
[2018-05-06 05:40] LABS: VBG Ionized Calcium 1.27 mmol/L (1.15-1.35)
[2018-05-06] MEDS: ALPRAZolam 1 MG TABLET PO SCH ×2 (09:27→21:52)
[2018-05-06] MEDS: Gabapentin 300 MG CAPSULE PO SCH ×3 (09:27→21:52)
[2018-05-06] MEDS ORDERED: Lidocaine -MPF 1% 5 ML AMPUL INFILT ONE (10:54)
--- NOTE | 2018-05-06 10:57 | Internal Med Progress Note ---
<Dave Lopez - Last Filed: 05/06/18 14:48> Hospitalist Progress Note - Encounter Date of Encounter: 05/06/18 - Exam Vitals: Temp Pulse Resp BP Pulse Ox 99.0 F 89 14 97/61 99 05/06/18 11:17 05/06/18 11:17 05/06/18 11:17 05/06/18 11:17 05/06/18 11:17 - Assessment and Plan (1) Pneumonia Current Visit: No Status: Suspected (2) Sepsis Current Visit: No Status: Resolved (3) Acute renal failure Current Visit: Yes Status: Suspected (4) Hypocalcemia Current Visit: No Status: Resolved (5) Hypomagnesemia Current Visit: No Status: Resolved (6) Hyponatremia Current Visit: No Status: Acute (7) Hypokalemia Current Visit: Yes Status: Acute Assessment and Plan: New today. Replete. (8) Hypertension Current Visit: No Status: Chronic (9) Severe protein-calorie malnutrition Current Visit: Yes Status: Suspected (10) Chronic respiratory failure with hypoxia Current Visit: Yes Status: Chronic (11) Chronic pain Current Visit: Yes Status: Chronic Assessment and Plan: Due to malnutrition, osteoporosis and multiple prior fractures. Pt is enrolled in [facility] and receives Morphine QID. - Time Spent with Patient Total time spent is greater than 50% in coordination of care (as documented) at patient's floor/unit and/or counseling patient: Internal Medicine: Result - Labs CBC & Chem 7: 05/06/18 03:40 05/06/18 03:40 Labs: Short CBC 05/06/18 Range/Units 03:40 WBC 12.1 H (4.3-11.1) K/mcL Hgb 8.2 L (11.5-15.4) g/dL Hct 26.5 L (35.3-44.9) % Plt Count 176 (140-400) K/mcL Neutrophils # 10.5 H (1.6-8.9) K/mcL BMP 05/06/18 03:40 Sodium 132 L Potassium 2.9 L D Chloride 115 H Carbon Dioxide 20 L BUN 39 H Creatinine 1.52 H Glucose 119 H Calcium 8.1 L Liver Function 05/06/18 Range/Units 03:40 Total Bilirubin 0.2 L (0.3-1.0) mg/dL AST 18 (13-39) Units/L ALT 13 (7-52) Units/L Alkaline Phosphatase 65 (34-104) Units/L Albumin 2.3 L (3.5-5.7) g/dL Urine 05/05/18 Range/Units 22:00 Urine Color Yellow (Yellow) Urine Clarity Cloudy A (Clear) Urine pH 6.0 (5.0-8.0) pH Units Ur Specific Jal 1.017 (1.010-1.025) Urine Protein 100 H (Neg-Trace) mg/dL Urine Glucose (UA) Normal (Normal) mg/dL - Impressions Impressions Hip X-Ray 05/05/18 17:54 IMPRESSION: Technically limited exam as the left hip is in the same projection on both AP view and additional view presented. No gross fracture evident. If pain persists or worsens, then additional evaluation with MRI is indicated to ensure no underlying radiographically occult process such as fracture, AVN or transient osteoporosis. D/ / Arash Cottrell / Arash Cottrell Interpreting Provider: Arash Cottrell Shoulder X-Ray 05/05/18 17:56 IMPRESSION: Unremarkable radiographs left shoulder. Follow-up imaging recommended if pain persists or worsens following conservative management. D/ / Arash Cottrell / Arash Cottrell Interpreting Provider: Arash Cottrell Consult Discharge Plan - Plan Referrals: Jaiden Beach DO [Primary Care Provider] - - Attending Attestation I examined this patient and my medical decision-making was reviewed with the Resident Physician on 05/06/18. I agree with the documented findings, disposition and treatment plan as described except to the extent set forth below. Ms Rosado is currently admitted for sepsis related to presumed pneumonia ( versus UTI). She remains moderate to high risk due to potential for worsening clinical status. Ms Rosado is frustrated because pain meds were held all night (BP low). She is now having a lot of pain. No fever now. Some nonproductive cough. Wants nagy out. Wants regular food and not chopped meats. To start TPN. Tolerating IV abx. Exam alert Mod distress due to pain when moving. Mucus membranes dry Heart not tachy No wheeze or rales. Some rhonchi Abd soft No edema I/P 1. Sepsis due to presumptive pneumonia - resolved. 2. PNA - on abx. Anticipate can deescalate in next 1-2 days. Does have hx of MRSA in past. 3. High output ilieostomy 4. Malnutrition - to start TPN. Need to have PICC placed tomorrow and remove femoral line. Further diagnoses and plan as above. <King Rivas - Last Filed: 05/06/18 15:17> Hospitalist Progress Note - Encounter Date of Encounter: 05/06/18 Time of Encounter: 10:00 - Subjective Interval History: No acute events overnight. Patient sepsis has been resolved, HR: 84, RR :16, Temp: 97.6 She endorses no worsening of shortness of breath, chest pain, palpitations. She does have a mild productive cough this morning. Her white blood count is trending down from 22.4-12.1 . She is on day 2 of vancomycin and Zosyn. She was hypokalemic this morning (2.9) and was given 40 mEq KCl . She continues to be an advanced soft chopped diet as tolerated with more protein to supplement her recovery. We'll be started her on gradual TPN feeds soon to prevent refeeding syndrome. - Exam Vitals: Temp Pulse Resp BP Pulse Ox 97.6 F 84 16 107/68 98 05/06/18 06:40 05/06/18 06:40 05/06/18 06:40 05/06/18 08:35 05/06/18 06:40 Exam: see below - Assessment and Plan (1) Sepsis Current Visit: No Status: Resolved Assessment and Plan: - Likely due to her PNA/UTI. patient was leukocytotic (WBC 22.4), and Tachycardic at the [place] [facility]. Patient has had multiple episodes of PNA/UTI in the past, the last one being in Sep 2017. -Currently resolved. HR: 84, RR: 16, Temp 97.6 , WBC trending down. She did not appears to be in no acute distress. She denies any shortness of breath, chest pain, suprapubic tenderness, hematurea or dysuria -Continues to be on day 2 of vancomycin and Zosyn. -- Titrate oxygen for goal SPO2 greater than 88%. DuoNeb's PRN. (2) Chronic respiratory failure with hypoxia Current Visit: Yes Status: Chronic Assessment and Plan: - Likely due to her pneumonia. Patient has a past medical history of asthma, with recurrent admissions for respiratory failure. She is noncompliant on her home oxygen. - Currently on vancomycin and Zosyn. Satting at 2.5 L nasal cannula - Titrate oxygen for goal SPO2 greater than 88%. DuoNeb's PRN. (3) Pneumonia Current Visit: No Status: Suspected Assessment and Plan: - likely hospital aquired, her CXR at the [place] ED showed left lower lobe opacity with concerns for PNA. - On physical exam she is mildly diminished lung sounds bilaterally. No egophony, tactile fremitus appreciated. She does have mild productive cough - Patient is currently on 2.5 L of oxygen. She is on currently on day 2 of vancomycin and Zosyn. - Sputum and but blood cultures are pending. MRSA swab pending. Deescalated antibiotics pending culture sensitivities. (4) Severe protein-calorie malnutrition Current Visit: No Status: Chronic Assessment and Plan: - Due to history of high output ileostomy, poor PO intake, multiple comorbidities - currently on advanced soft chopped diet with high protein every meal. - Reinforced the idea of eating well to enhance recovery (5) Anemia Current Visit: No Status: Chronic Assessment and Plan: - likely due to AOCD and Iron Deficiency. She has had multiple blood tranfusions in the past. She has had poor intake, a high output ileostomy - Hb 9.6 on admission currently 8.2, no overt signs of bleeding. - Continue to monitor . Transfuse is Hb < 7 (6) Acute renal injury Current Visit: No Status: Resolved Assessment and Plan: -likely prerenal- patient has had a history of low volume state with blood pressure running 80s to 90s systolic. - Her Cr was 2.31 on admission, currenty trending down 1.52 . Baseline Cr is 0.70- 0.90 - Received 2 L of bolus at [facility]. Continue gentle hydration, avoid nephrotoxic agents. Renally dose medications (7) Hyponatremia Current Visit: No Status: Acute Assessment and Plan: Patient was admitted with a sodium of 129 currently 132. -Likely due to her poor by mouth by mouth intake. She has a history of ileostomy. - She denies any vomiting, nausea, headache, cramping or any episodes of acute seizures. -Continue to fluid resuscitate - 0.9% NACl (8) Shoulder pain, left Current Visit: Yes Status: Acute Assessment and Plan: - Likely due to her history of fall on Sunday. - On physical exam patient is neurovascularly intact. Sensory and motor function intact. - Shoulder x-ray was negative for any fractures. Adequate pain control Morphine 20mg PO q6h . (9) Hypocalcemia Current Visit: No Status: Resolved Assessment and Plan: - Likely due to her history of malnutrition - Patient was admitted with venous ionized calcium of 1.09 , currently 1.27, s/ p Calcium Gluconate - TPN ordered, she is also on PO diet as tolerated. will continue to monitor (10) DVT prophylaxis Current Visit: No Status: Acute Assessment and Plan: SCDs - Time Spent with Patient Total time spent is greater than 50% in coordination of care (as documented) at patient's floor/unit and/or counseling patient: Internal Medicine: Result - Labs CBC & Chem 7: 05/06/18 03:40 05/06/18 03:40 Labs: Short CBC 05/06/18 Range/Units 03:40 WBC 12.1 H (4.3-11.1) K/mcL Hgb 8.2 L (11.5-15.4) g/dL Hct 26.5 L (35.3-44.9) % Plt Count 176 (140-400) K/mcL Neutrophils # 10.5 H (1.6-8.9) K/mcL BMP 05/06/18 03:40 Sodium 132 L Potassium 2.9 L D Chloride 115 H Carbon Dioxide 20 L BUN 39 H Creatinine 1.52 H Glucose 119 H Calcium 8.1 L Liver Function 05/06/18 Range/Units 03:40 Total Bilirubin 0.2 L (0.3-1.0) mg/dL AST 18 (13-39) Units/L ALT 13 (7-52) Units/L Alkaline Phosphatase 65 (34-104) Units/L Albumin 2.3 L (3.5-5.7) g/dL Urine 05/05/18 Range/Units 22:00 Urine Color Yellow (Yellow) Urine Clarity Cloudy A (Clear) Urine pH 6.0 (5.0-8.0) pH Units Ur Specific Jal 1.017 (1.010-1.025) Urine Protein 100 H (Neg-Trace) mg/dL Urine Glucose (UA) Normal (Normal) mg/dL - Impressions Impressions Hip X-Ray 05/05/18 17:54 IMPRESSION: Technically limited exam as the left hip is in the same projection on both AP view and additional view presented. No gross fracture evident. If pain persists or worsens, then additional evaluation with MRI is indicated to ensure no underlying radiographically occult process such as fracture, AVN or transient osteoporosis. D/ / Arash Cottrell / Arash Cottrell Interpreting Provider: Arash Cottrell Shoulder X-Ray 05/05/18 17:56 IMPRESSION: Unremarkable radiographs left shoulder. Follow-up imaging recommended if pain persists or worsens following conservative management. D/ / Arash Cottrell / Arash Cottrell Interpreting Provider: Arash Cottrell <Dave Lopez - Last Filed: 05/06/18 14:48> (1) Pneumonia Qualifiers: Pneumonia type: due to other aerobic Gram-negative bacteria Laterality: left Qualified Code(s): J15.6 - Pneumonia due to other Gram-negative bacteria (2) Sepsis Qualifiers: Sepsis type: sepsis due to unspecified organism Qualified Code(s): A41.9 - Sepsis, unspecified organism (3) Acute renal failure Qualifiers: Acute renal failure type: with acute tubular necrosis Qualified Code(s): N17.0 - Acute kidney failure with tubular necrosis (8) Hypertension Qualifiers: Hypertension type: essential hypertension Qualified Code(s): I10 - Essential (primary) hypertension (11) Chronic pain Qualifiers: Chronic pain type: other chronic pain Qualified Code(s): G89.29 - Other chronic pain <King Rivas - Last Filed: 05/06/18 15:17> (1) Sepsis Qualifiers: Sepsis type: sepsis due to unspecified organism Qualified Code(s): A41.9 - Sepsis, unspecified organism (3) Pneumonia Qualifiers: Pneumonia type: due to other aerobic Gram-negative bacteria Laterality: left (5) Anemia Qualifiers: Iron deficiency anemia type: inadequate dietary iron intake
[2018-05-06] MEDS ORDERED: Vancomycin 500 MG in 0.9 % Sodium Chloride Mini Bag 100 ML IVPB SCH (14:00)
[2018-05-06] MEDS: Ondansetron ODT 4 MG TAB.RAPDIS PO PRN (14:21)
[2018-05-06] MEDS: MORPHINE SUL Oral CONC 10 MG/0.5 ML ORAL.SYG PO SCH ×3 (14:21→23:52)
[2018-05-06] MEDS ORDERED: Clinimix E 5%-15% SOLUTION 2,000 ML with MVI, adult with vitamin K 10 ML IVC SCH ×2 (17:00)
[2018-05-06] MEDS: Benzonatate 100 MG CAPSULE PO PRN (18:41)
[2018-05-06] MEDS ORDERED: Vancomycin 1 EACH in 0.9 % Sodium Chloride 250 ML IVPB SCH (19:00)
[2018-05-06] MEDS: Magic Mouthwash 10 ML UD Cup PO SCH (22:35)
[2018-05-07 04:28] LABS: Basophils % 0.2 %; Eosinophils # 0.2 K/mcL (0.0-0.6); Eosinophils % 1.4 %; Hematocrit 27.4 % (35.3-44.9); Hemoglobin 8.7 g/dL (11.5-15.4); Immature Granulocytes % 0.6 % (0-4); Lymphocytes # 0.9 K/mcL (0.6-4.6); Lymphocytes % 8.1 %; Mean Corpuscular HGB Conc 31.8 g/dL (31.6-35.5); Mean Corpuscular Hemoglobin 31.8 pg (28.0-33.3); Mean Platelet Volume 8.9 fL (9.4-12.4); Monocytes % 9.2 %; Neutrophils # 8.8 K/mcL (1.6-8.9); Platelet Count 182 K/mcL (140-400); Red Blood Count 2.74 M/mcL (3.82-4.97); Segmented Neutrophils % 80.5 %
[2018-05-07 04:40] LABS: Albumin 2.4 g/dL (3.5-5.7); Albumin/Globulin Ratio 0.8 (1.1-2.2); Bilirubin,Total 0.2 mg/dL (0.3-1.0); Calcium 8.2 mg/dL (8.6-10.3); Total Protein 5.4 g/dL (6.4-8.9)
[2018-05-07] MEDS: Promethazine 25 MG in 0.9 % Sodium Chloride 50 ML IVPB SCH (06:17)
[2018-05-07] MEDS: MORPHINE SUL Oral CONC 10 MG/0.5 ML ORAL.SYG PO SCH ×4 (06:18→23:45)
[2018-05-07] MEDS: Gabapentin 300 MG CAPSULE PO SCH ×3 (09:36→19:40)
[2018-05-07] MEDS: Piperacillin/Tazobactam 3.375 GM in 0.9 % Sodium Chloride Mini Bag 100 ML IVPB SCH ×3 (09:37→23:43)
[2018-05-07] MEDS: ALPRAZolam 1 MG TABLET PO SCH ×2 (09:37→19:41)
[2018-05-07] MEDS: Magic Mouthwash 10 ML UD Cup PO SCH ×3 (09:40→17:54)
[2018-05-07] MEDS: Benzonatate 100 MG CAPSULE PO PRN ×2 (09:46)
--- NOTE | 2018-05-07 14:13 | Internal Med Progress Note ---
<Sourav Martínez - Last Filed: 05/07/18 16:35> Hospitalist Progress Note - Encounter Date of Encounter: 05/07/18 Time of Encounter: 16:35 - Exam Vitals: Temp Pulse Resp BP Pulse Ox 98.5 F 96 16 91/51 94 05/07/18 16:11 05/07/18 16:11 05/07/18 16:11 05/07/18 16:11 05/07/18 16:11 - Assessment and Plan (1) Pneumonia Current Visit: No Status: Suspected (2) Hyponatremia Current Visit: No Status: Acute (3) Hypomagnesemia Current Visit: No Status: Resolved (4) Hypertension Current Visit: No Status: Chronic (5) Hypocalcemia Current Visit: No Status: Resolved (6) Sepsis Current Visit: No Status: Resolved (7) Acute renal failure Current Visit: Yes Status: Suspected (8) Severe protein-calorie malnutrition Current Visit: Yes Status: Suspected (9) Chronic respiratory failure with hypoxia Current Visit: Yes Status: Chronic (10) Hypokalemia Current Visit: Yes Status: Acute (11) Chronic pain Current Visit: Yes Status: Chronic - Time Spent with Patient Total time spent is greater than 50% in coordination of care (as documented) at patient's floor/unit and/or counseling patient: Internal Medicine: Result - Labs CBC & Chem 7: 05/07/18 04:00 05/07/18 04:00 Labs: Short CBC 05/07/18 Range/Units 04:00 WBC 11.0 (4.3-11.1) K/mcL Hgb 8.7 L (11.5-15.4) g/dL Hct 27.4 L (35.3-44.9) % Plt Count 182 (140-400) K/mcL Neutrophils # 8.8 (1.6-8.9) K/mcL BMP 05/07/18 04:00 Sodium 138 Potassium 3.0 L Chloride 112 H Carbon Dioxide 20 L BUN 26 H Creatinine 1.57 H Glucose 94 Calcium 8.2 L Liver Function 05/07/18 Range/Units 04:00 Total Bilirubin 0.2 L (0.3-1.0) mg/dL AST 17 (13-39) Units/L ALT 16 (7-52) Units/L Alkaline Phosphatase 68 (34-104) Units/L Albumin 2.4 L (3.5-5.7) g/dL Consult Discharge Plan - Plan Referrals: Jaiden Beach, DO [Primary Care Provider] - - Attending Attestation I saw evaluated and examined this patient and my medical decision-making was reviewed with the Resident Physician, King Rivas. I agree with the documented findings, disposition and treatment plan as described except to any changes set forth below. We independently had [id number] contact with the patient. Patient tolerating oral diet but continues to have significant ileostomy output. Continues to be malnourished. Complains of abdominal pain, back pain which is chronic. No fevers or chills reported overnight. Continues to require O2 supplementation. Awaiting PICC line placement for TPN. On examination, patient appears cachectic, she is awake and oriented. Mild distress. Abdomen is soft, ileostomy bag in place. Heart sounds are normal. No pedal edema. Sepsis due to possible pneumonia: MRSA screen pending. On Zosyn and vancomycin. If patient continues to improve and cultures remain negative, we will de-escalate antibiotics tomorrow. High risk for complications. Severe protein calorie malnutrition: Due to malabsorption and increased ileostomy output. Per discussion with patient and family, and. Nutrition, will start TPN for now. Monitor electrolytes closely for refeeding syndrome. Chronic pain: Continue home medications. Chronic respiratory failure with hypoxia: Continue O2 supplementation. Multiple electrolyte abnormalities: Replace with TPN. <King Rivas - Last Filed: 05/07/18 20:10> Hospitalist Progress Note - Encounter Date of Encounter: 05/07/18 Time of Encounter: 09:00 - Subjective Interval History: 05/07 No acute events overnight. Patient's white blood count is currently trending down from 22.4 to 11. Currently she's on day 3 of vancomycin and Zosyn. Sputum and blood cultures are pending. She is hemodynamically stable HR: 88 , RR: , Temp : 98.3 with resolved sepsis. She was on advanced soft chopped diet with more protein to supplement recovery, but will be transitioned to TPN this afternoon once she has her PICC line. Nasal swab was positive for MRSA. 05/06 No acute events overnight. Patient sepsis has been resolved, HR: 84, RR :16, Temp: 97.6 She endorses no worsening of shortness of breath, chest pain, palpitations. She does have a mild productive cough this morning. Her white blood count is trending down from 22.4-12.1 . She is on day 2 of vancomycin and Zosyn. She was hypokalemic this morning (2.9) and was given 40 mEq KCl . She continues to be an advanced soft chopped diet as tolerated with more protein to supplement her recovery. We'll be started her on gradual TPN feeds soon to prevent refeeding syndrome. - Exam Vitals: Temp Pulse Resp BP Pulse Ox 98.3 F 88 15 93/56 97 05/07/18 11:39 05/07/18 11:39 05/07/18 11:39 05/07/18 11:39 05/07/18 11:39 Exam: Gen : AO 3, no acute distress, good mentation. Heart: Regular rate and rhythm. No gallops murmurs or rubs. Lungs:CTAB, mild wheezing b/l, no rales or rhonchi. GI: Nontender, nondistended, ileostomy output normal MS: decreased ROM, endorses left shoulder and hip pain. Diminished motor strength due to malnutrition. - Assessment and Plan (1) Chronic respiratory failure with hypoxia Current Visit: Yes Status: Chronic Assessment and Plan: -Secondary to her pneumonia. And has had multiple admissions in the past for respiratory failure, non compliance on home oxygen. Nasal swab positive for MRSA - Patient is on day 3 of vancomycin and Zosyn. Goal trough 15. She she's on 2.5 L oxygen NC. - On physical exam she has bilateral wheezing no evidence of productive cough. WBC trending down 22.4 -> 12.1 -> 11.0 -Sputum and blood cultures are pending. (2) Pneumonia Current Visit: No Status: Suspected Assessment and Plan: - likely hospital acquired, her CXR at the [place] ED showed left lower lobe opacity with concerns for PNA. Her Nasal swab was positive for MRSA - On physical exam she has inspiratory wheezing bilaterally. No egophony, tactile fremitus appreciated. NO productive cough - Patient is currently on 2.5 L of oxygen. She is on currently on day 3 of vancomycin and Zosyn. - Sputum and but blood cultures are pending. Deescalated antibiotics pending culture sensitivities. (3) Sepsis Current Visit: No Status: Resolved Assessment and Plan: - Currently resolved. likely due to her pneumonia/UTI. Nasal swab was positive for MRSA. She has a history of MRSA. - Current vitals HR: 84, RR :16, Temp: 97.6. She did not appears to be in no acute distress. She denies any shortness of breath, chest pain, suprapubic tenderness, hematurea or dysuria. -Continues to be on day 3 of vancomycin and Zosyn. - Titrate oxygen for goal SPO2 greater than 88%. DuoNeb's PRN. (4) Severe protein-calorie malnutrition Current Visit: No Status: Chronic Assessment and Plan: - Due to history of high output ileostomy, poor PO intake, multiple comorbidities - currently on advanced soft chopped diet with high protein every meal. - Reinforced the idea of eating well to enhance recovery- be getting a PICC line this afternoon so she can get gradual TPN nutrition. (5) Acute renal injury Current Visit: No Status: Resolved Assessment and Plan: -likely prerenal- patient has had a history of low volume state with blood pressure running 80s to 90s systolic. - Her Cr was 2.31 on admission, currenty trending down 1.52-- > 1.57 . Baseline Cr is 0.70- 0.90 - Received 2 L of bolus at [place] [facility]. Continue gentle hydration, avoid nephrotoxic agents. Renally dose medications (6) Anemia Current Visit: No Status: Chronic Assessment and Plan: - likely due to AOCD and malnutrition. She has had multiple blood tranfusions in the past. She has had poor intake, a high output ileostomy - Hb 9.6 on admission currently 8.2, no overt signs of bleeding. - Continue to monitor . Transfuse is Hb < 7 (7) Hyponatremia Current Visit: No Status: Acute Assessment and Plan: -Currently resolved. Patient was admitted with a sodium of 129 currently 138. -Likely due to her poor by mouth intake. Patient has a history of high output ileostomy. She denies any vomiting, nausea, headache, cramping or any episodes of acute seizures. -Continue to fluid resuscitate - 0.9% NACl (8) Hypokalemia Current Visit: No Status: Acute Assessment and Plan: - Secondary to her history of malnutrition. Patient was admitted with potassium was 2.9 currently 3.0 - The patient endorses no acute distress, no worsening weakness and fatigue. Given PO KCl 40 mEq. (9) Shoulder pain, left Current Visit: Yes Status: Acute Assessment and Plan: - Likely due to her history of fall on Sunday. - On physical exam patient is neurovascularly intact. Sensory and motor function intact. - Shoulder x-ray was negative for any fractures. Adequate pain control Morphine 20mg PO q6h . (10) DVT prophylaxis Current Visit: No Status: Acute - Time Spent with Patient Total time spent is greater than 50% in coordination of care (as documented) at patient's floor/unit and/or counseling patient: Internal Medicine: Result - Labs CBC & Chem 7: 05/07/18 04:00 05/07/18 04:00 Labs: Short CBC 05/07/18 Range/Units 04:00 WBC 11.0 (4.3-11.1) K/mcL Hgb 8.7 L (11.5-15.4) g/dL Hct 27.4 L (35.3-44.9) % Plt Count 182 (140-400) K/mcL Neutrophils # 8.8 (1.6-8.9) K/mcL BMP 05/07/18 04:00 Sodium 138 Potassium 3.0 L Chloride 112 H Carbon Dioxide 20 L BUN 26 H Creatinine 1.57 H Glucose 94 Calcium 8.2 L Liver Function 05/07/18 Range/Units 04:00 Total Bilirubin 0.2 L (0.3-1.0) mg/dL AST 17 (13-39) Units/L ALT 16 (7-52) Units/L Alkaline Phosphatase 68 (34-104) Units/L Albumin 2.4 L (3.5-5.7) g/dL <Sourav Martínez - Last Filed: 05/07/18 16:35> (1) Pneumonia Qualifiers: Pneumonia type: due to other aerobic Gram-negative bacteria Laterality: left (4) Hypertension Qualifiers: Hypertension type: essential hypertension Qualified Code(s): I10 - Essential (primary) hypertension (6) Sepsis Qualifiers: Sepsis type: sepsis due to unspecified organism Qualified Code(s): A41.9 - Sepsis, unspecified organism (7) Acute renal failure Qualifiers: Acute renal failure type: with acute tubular necrosis Qualified Code(s): N17.0 - Acute kidney failure with tubular necrosis (11) Chronic pain Qualifiers: Chronic pain type: other chronic pain Qualified Code(s): G89.29 - Other chronic pain <King Rivas - Last Filed: 05/07/18 20:10> (2) Pneumonia Qualifiers: Pneumonia type: due to other aerobic Gram-negative bacteria Laterality: left (3) Sepsis Qualifiers: Sepsis type: sepsis due to unspecified organism Qualified Code(s): A41.9 - Sepsis, unspecified organism (6) Anemia Qualifiers: Iron deficiency anemia type: inadequate dietary iron intake
[2018-05-07] MEDS ORDERED: Clinimix E 5%-15% SOLUTION 2,000 ML with MVI, adult with vitamin K 10 ML IVC SCH (17:00)
[2018-05-08 04:01] LABS: VBG Ionized Calcium 1.26 mmol/L (1.15-1.35)
[2018-05-08 04:01] LABS: Basophils % 0.2 %; Eosinophils # 0.3 K/mcL (0.0-0.6); Eosinophils % 2.8 %; Hematocrit 27.5 % (35.3-44.9); Hemoglobin 8.5 g/dL (11.5-15.4); Lymphocytes # 1.2 K/mcL (0.6-4.6); Lymphocytes % 10.1 %; Mean Corpuscular HGB Conc 30.9 g/dL (31.6-35.5); Mean Corpuscular Hemoglobin 31.5 pg (28.0-33.3); Mean Corpuscular Volume 101.9 fL (83.0-100.0); Monocytes # 1.2 K/mcL (0.0-1.3); Monocytes % 10.3 %; Neutrophils # 8.7 K/mcL (1.6-8.9); Platelet Count 188 K/mcL (140-400); Red Cell Distribution Width 13.2 % (11.5-14.5); Segmented Neutrophils % 75.6 %
[2018-05-08 04:10] LABS: Calcium 8.3 mg/dL (8.6-10.3); Magnesium 1.6 mg/dL (1.6-2.6); Phosphorous 2.7 mg/dL (2.7-4.5); Potassium 3.5 mEq/L (3.5-5.1)
[2018-05-08] MEDS: MORPHINE SUL Oral CONC 10 MG/0.5 ML ORAL.SYG PO SCH ×3 (06:01→17:38)
[2018-05-08] MEDS: ALPRAZolam 1 MG TABLET PO SCH ×2 (09:25→21:00)
[2018-05-08] MEDS: Gabapentin 300 MG CAPSULE PO SCH ×3 (09:25→20:13)
[2018-05-08] MEDS: Piperacillin/Tazobactam 3.375 GM in 0.9 % Sodium Chloride Mini Bag 100 ML IVPB SCH (09:26)
[2018-05-08] MEDS: Magic Mouthwash 10 ML UD Cup PO SCH ×3 (09:26→15:54)
[2018-05-08] MEDS: *HR* Promethazine 25 MG/ML VIAL IVP PRN (09:33)
--- NOTE | 2018-05-08 16:37 | Internal Med Progress Note ---
<King Rivas - Last Filed: 05/08/18 19:52> Hospitalist Progress Note - Encounter Date of Encounter: 05/08/18 Time of Encounter: 09:30 - Subjective Interval History: 05/08 No acute events overnight. Patient was mildly short of breath today, along with some distress. She is on day 4 of vancomycin and Zosyn. Her sputum and blood cultures are pending. She is hemodynamically stable. She has been transitioned to TPN since yesterday. Patient was tachycardic(126), and febrile as of this evening (101) receive Tylenol at 5.38 pm. 05/07 No acute events overnight. Patient's white blood count is currently trending down from 22.4 to 11. Currently she's on day 3 of vancomycin and Zosyn. Sputum and blood cultures are pending. She is hemodynamically stable HR: 88 , RR: , Temp : 98.3 with resolved sepsis. She was on advanced soft chopped diet with more protein to supplement recovery, but will be transitioned to TPN this afternoon once she has her PICC line. Nasal swab was positive for MRSA. 05/06 No acute events overnight. Patient sepsis has been resolved, HR: 84, RR :16, Temp: 97.6 She endorses no worsening of shortness of breath, chest pain, palpitations. She does have a mild productive cough this morning. Her white blood count is trending down from 22.4-12.1 . She is on day 2 of vancomycin and Zosyn. She was hypokalemic this morning (2.9) and was given 40 mEq KCl . She continues to be an advanced soft chopped diet as tolerated with more protein to supplement her recovery. We'll be started her on gradual TPN feeds soon to prevent refeeding syndrome. - Exam Vitals: Temp Pulse Resp BP Pulse Ox 100.4 F H 127 18 130/76 92 05/08/18 15:50 05/08/18 15:50 05/08/18 15:50 05/08/18 15:50 05/08/18 15:50 Exam: Gen : AO 3, no acute distress, good mentation. Heart: Regular rate and rhythm. No gallops murmurs or rubs. Lungs:CTAB, mild wheezing b/l, no rales or rhonchi. GI: Nontender, nondistended, ileostomy output normal MS: decreased ROM, endorses left shoulder and hip pain. Diminished motor strength due to malnutrition. - Assessment and Plan (1) Chronic respiratory failure with hypoxia Current Visit: Yes Status: Chronic Assessment and Plan: -Currently Improving. This resp failure was likely secondary to her pneumonia. She has had multiple admissions in the past for respiratory failure, non compliance on home oxygen. Nasal swab positive for MRSA - Patient is on day 4 of vancomycin and Zosyn. Goal trough 15. She's currently at 2.5 L NC satting at 91%. - On physical exam she has bilateral wheezing no evidence of productive cough. WBC trending down 22.4 -> 12.1 -> 11.5 -Sputum and blood cultures are pending. (2) Pneumonia Current Visit: No Status: Suspected Assessment and Plan: Assessment and Plan: - likely hospital acquired, her CXR at the [facility] [facility] showed left lower lobe opacity with concerns for PNA. Her Nasal swab was positive for MRSA - On physical exam she has inspiratory wheezing bilaterally. No egophony, tactile fremitus appreciated. NO productive cough - Patient is currently satting at 91% on 2L NC. She is on currently on day 4 of vancomycin and Zosyn. - Sputum and but blood cultures are pending. Deescalated antibiotics pending culture sensitivities. (3) Sepsis Current Visit: No Status: Resolved Assessment and Plan: - Due to her pneumonia/ UTI. Her nasal swab was positive for MRSA. Currently meeting the sepsis criteria with HR 16, and temperature 101. - Currently she is on day 4 of vancomycin and Zosyn. - His exam patient was mildly short of breath, no diminished breath sounds appreciated. - Titrate oxygen for goal SPO2 greater than 88%. DuoNeb's PRN. (4) Severe protein-calorie malnutrition Current Visit: No Status: Chronic Assessment and Plan: - Due to history of high output ileostomy, poor PO intake, multiple comorbidities - currently on advanced soft chopped diet with high protein every meal. - Reinforced the idea of eating well to enhance recovery- be getting a PICC line this afternoon so she can get gradual TPN nutrition. (5) Acute renal injury Current Visit: No Status: Resolved Assessment and Plan: -likely prerenal- patient has had a history of low volume state with blood pressure running 80s to 90s systolic. - Her Cr was 2.31 on admission, currenty trending down 1.52-- > 1.72 . Baseline Cr is 0.70- 0.90 - Continue gentle hydration, avoid nephrotoxic agents. Renally dose medications (6) Anemia Current Visit: No Status: Chronic Assessment and Plan: - likely due to AOCD and malnutrition. She has had multiple blood tranfusions in the past. She has had poor intake, a high output ileostomy - Hb 9.6 on admission currently 8.5, no overt signs of bleeding. - Continue to monitor . Transfuse is Hb < 7 (7) Shoulder pain, left Current Visit: Yes Status: Acute Assessment and Plan: - Likely due to her history of fall on Sunday. - On physical exam patient is neurovascularly intact. Sensory and motor function intact. - Shoulder x-ray was negative for any fractures. Adequate pain control Morphine 20mg PO q6h . (8) DVT prophylaxis Current Visit: No Status: Acute Assessment and Plan: scds - Time Spent with Patient Total time spent is greater than 50% in coordination of care (as documented) at patient's floor/unit and/or counseling patient: Internal Medicine: Result - Labs CBC & Chem 7: 05/08/18 03:35 05/08/18 03:25 Labs: Short CBC 05/08/18 Range/Units 03:35 WBC 11.5 H (4.3-11.1) K/mcL Hgb 8.5 L (11.5-15.4) g/dL Hct 27.5 L (35.3-44.9) % Plt Count 188 (140-400) K/mcL Neutrophils # 8.7 (1.6-8.9) K/mcL BMP 05/08/18 03:25 Sodium 139 Potassium 3.5 Chloride 112 H Carbon Dioxide 22 L BUN 26 H Creatinine 1.72 H Glucose 112 H Calcium 8.3 L Consult Discharge Plan - Plan Referrals: Jaiden Beach DO [Primary Care Provider] - <Sourav Martínez - Last Filed: 05/09/18 08:20> Hospitalist Progress Note - Encounter Date of Encounter: 05/09/18 Time of Encounter: 09:50 - Exam Vitals: Temp Pulse Resp BP Pulse Ox 98.3 F 88 19 96/64 98 05/09/18 08:17 05/09/18 08:17 05/09/18 08:17 05/09/18 08:17 05/09/18 08:17 - Assessment and Plan (1) Pneumonia Current Visit: No Status: Suspected (2) Hyponatremia Current Visit: No Status: Acute (3) Hypomagnesemia Current Visit: No Status: Resolved (4) Hypertension Current Visit: No Status: Chronic (5) Hypocalcemia Current Visit: No Status: Resolved (6) Sepsis Current Visit: No Status: Resolved (7) Acute renal failure Current Visit: Yes Status: Suspected (8) Severe protein-calorie malnutrition Current Visit: Yes Status: Suspected (9) Chronic respiratory failure with hypoxia Current Visit: Yes Status: Chronic (10) Hypokalemia Current Visit: Yes Status: Acute (11) Chronic pain Current Visit: Yes Status: Chronic - Time Spent with Patient Total time spent is greater than 50% in coordination of care (as documented) at patient's floor/unit and/or counseling patient: Internal Medicine: Result - Labs CBC & Chem 7: 05/09/18 04:00 05/08/18 03:25 Labs: Short CBC 05/09/18 Range/Units 04:00 WBC 18.4 H D (4.3-11.1) K/mcL Hgb 8.2 L (11.5-15.4) g/dL Hct 26.4 L (35.3-44.9) % Plt Count 178 (140-400) K/mcL Neutrophils # 15.4 H (1.6-8.9) K/mcL - Attending Attestation I saw evaluated and examined this patient and my medical decision-making was reviewed with the Resident Physician, King Rivas. I agree with the documented findings, disposition and treatment plan as described except to any changes set forth below. We independently had [id number] contact with the patient. Patient was started on TPN last night. Reported fever and chills. It has improved since then. Patient is to continue TPN at this time. Reports abdominal pain and back pain which is chronic for her. On examination, patient appears cachectic, she is awake and oriented. Mild distress. Continues to have high ileostomy output. Heart sounds are normal. Breath sounds are also normal. Sepsis due to possible pneumonia: MRSA screen positive. On Zosyn and vancomycin. We will stop Zosyn. Continue vancomycin. Remains at high risk for complications. Severe protein calorie malnutrition: Due to malabsorption and increased ileostomy output. Wishes to continue TPN for now. silk worker consulted and will work on making arrangements for patient to receive TPN after discharge. Chronic pain: Continue home medications. Chronic respiratory failure with hypoxia: Continue O2 supplementation. Patient is currently on 2.5 L O2 supplementation. Multiple electrolyte abnormalities: Replace with TPN. <King Rivas - Last Filed: 05/08/18 19:52> (2) Pneumonia Qualifiers: Pneumonia type: due to other aerobic Gram-negative bacteria Laterality: left (3) Sepsis Qualifiers: Sepsis type: sepsis due to unspecified organism Qualified Code(s): A41.9 - Sepsis, unspecified organism (6) Anemia Qualifiers: Iron deficiency anemia type: inadequate dietary iron intake <Sourav Martínez - Last Filed: 05/09/18 08:20> (1) Pneumonia Qualifiers: Pneumonia type: due to other aerobic Gram-negative bacteria Laterality: left (4) Hypertension Qualifiers: Hypertension type: essential hypertension Qualified Code(s): I10 - Essential (primary) hypertension (6) Sepsis Qualifiers: Sepsis type: sepsis due to unspecified organism Qualified Code(s): A41.9 - Sepsis, unspecified organism (7) Acute renal failure Qualifiers: Acute renal failure type: with acute tubular necrosis Qualified Code(s): N17.0 - Acute kidney failure with tubular necrosis (11) Chronic pain Qualifiers: Chronic pain type: other chronic pain Qualified Code(s): G89.29 - Other chronic pain
[2018-05-08] MEDS ORDERED: Clinimix E 5%-15% SOLUTION 2,000 ML with MVI, adult with vitamin K 10 ML IVC SCH (17:00)
[2018-05-09] MEDS ORDERED: 0.9 % Sodium Chloride 500 ML ONE (02:40)
[2018-05-09] MEDS: MORPHINE SUL Oral CONC 10 MG/0.5 ML ORAL.SYG PO SCH ×4 (02:49→17:26)
[2018-05-09] MEDS: Ondansetron ODT 4 MG TAB.RAPDIS PO PRN (02:50)
[2018-05-09 05:17] LABS: Basophils % 0.2 %; Eosinophils # 0.3 K/mcL (0.0-0.6); Eosinophils % 1.8 %; Hematocrit 26.4 % (35.3-44.9); Hemoglobin 8.2 g/dL (11.5-15.4); Lymphocytes # 1.2 K/mcL (0.6-4.6); Lymphocytes % 6.6 %; Mean Corpuscular HGB Conc 31.1 g/dL (31.6-35.5); Mean Corpuscular Hemoglobin 31.5 pg (28.0-33.3); Mean Corpuscular Volume 101.5 fL (83.0-100.0); Monocytes # 1.3 K/mcL (0.0-1.3); Platelet Count 178 K/mcL (140-400); Segmented Neutrophils % 83.4 %
[2018-05-09 05:18] LABS: Neutrophils # 15.4 K/mcL (1.6-8.9)
[2018-05-09] MEDS: *HR* Promethazine 25 MG/ML VIAL IVP PRN ×2 (07:13→21:16)
[2018-05-09] MEDS: cefTRIAXone 2,000 MG in Water for inj. (sterile) 20 ML 20 ML IVP SCH (07:36)
[2018-05-09] MEDS: Magic Mouthwash 10 ML UD Cup PO SCH ×3 (07:43→17:25)
[2018-05-09 08:33] LABS: Calcium 7.8 mg/dL (8.6-10.3); Magnesium 1.5 mg/dL (1.6-2.6); Phosphorous 2.5 mg/dL (2.7-4.5); Potassium 3.1 mEq/L (3.5-5.1)
[2018-05-09] MEDS: Gabapentin 300 MG CAPSULE PO SCH ×3 (08:37→21:16)
[2018-05-09] MEDS: ALPRAZolam 1 MG TABLET PO SCH ×2 (08:37→21:16)
[2018-05-09] MEDS ORDERED: Levofloxacin 250 MG/50 ML 250 MG/50 ML BAG IVPB SCH (09:00)
--- NOTE | 2018-05-09 12:36 | Internal Med Progress Note ---
<ElizabethgiannaSourav - Last Filed: 05/09/18 13:41> Hospitalist Progress Note - Encounter Date of Encounter: 05/09/18 Time of Encounter: 10:45 - Exam Vitals: Temp Pulse Resp BP Pulse Ox 98.8 F 86 18 114/49 96 05/09/18 12:00 05/09/18 12:00 05/09/18 12:00 05/09/18 12:00 05/09/18 12:00 - Assessment and Plan (1) Pneumonia Current Visit: No Status: Suspected (2) Hyponatremia Current Visit: No Status: Acute (3) Hypomagnesemia Current Visit: No Status: Resolved (4) Hypertension Current Visit: No Status: Chronic (5) Hypocalcemia Current Visit: No Status: Resolved (6) Sepsis Current Visit: No Status: Resolved (7) Acute renal failure Current Visit: Yes Status: Suspected (8) Severe protein-calorie malnutrition Current Visit: Yes Status: Suspected (9) Chronic respiratory failure with hypoxia Current Visit: Yes Status: Chronic (10) Hypokalemia Current Visit: Yes Status: Acute (11) Chronic pain Current Visit: Yes Status: Chronic - Time Spent with Patient Total time spent is greater than 50% in coordination of care (as documented) at patient's floor/unit and/or counseling patient: Internal Medicine: Result - Labs CBC & Chem 7: 05/09/18 04:00 05/09/18 04:00 Labs: Short CBC 05/09/18 Range/Units 04:00 WBC 18.4 H D (4.3-11.1) K/mcL Hgb 8.2 L (11.5-15.4) g/dL Hct 26.4 L (35.3-44.9) % Plt Count 178 (140-400) K/mcL Neutrophils # 15.4 H (1.6-8.9) K/mcL BMP 05/09/18 04:00 Sodium 141 Potassium 3.1 L Chloride 113 H Carbon Dioxide 20 L BUN 30 H Creatinine 1.34 H Glucose 101 Calcium 7.8 L Consult Discharge Plan - Plan Referrals: Jaiden Beach, DO [Primary Care Provider] - - Attending Attestation I saw evaluated and examined this patient and my medical decision-making was reviewed with the Resident Physician, King Rivas. I agree with the documented findings, disposition and treatment plan as described except to any changes set forth below. We independently had [id number] contact with the patient. Patient reports episodes of chills overnight. No reported fever. Continues to have abdominal discomfort. High grade ileostomy output. Low back pain. Also has cough. No chest pain or palpitations. Exam: Patient appears cachectic, she is awake and oriented. Mild distress. Abdomen is soft, mildly tender. There is erythema surrounding her PEG tube site. Heart sounds are normal. Breath sounds are also normal. Sepsis due to possible pneumonia: WBC count worsened today. 18.4. Could be related to starting TPN or worsening infection. Rocephin has been added to antibiotic regimen. We will continue to monitor. High risk for complications. Severe protein calorie malnutrition: Due to malabsorption and increased ileostomy output. Continue TPN. Nutrition following. Patient wishes to try tube feeds with supplements that did not have milk. Will consult with nutrition. Chronic pain: Continue home medications. Chronic respiratory failure with hypoxia: Continue O2 supplementation. Patremains2.5 L O2 supplementation. Multiple electrolyte abnormalities: Improving. Continue to replete along with TPN <King Rivas - Last Filed: 05/09/18 18:47> Hospitalist Progress Note - Encounter Date of Encounter: 05/09/18 - Subjective Interval History: 05/09 And it continues to be on day 5 of vancomycin. We discontinued her Zosyn and currently she is on day 1 of Rocephin. Patient denies any worsening shortness of breath, chest pain and palpitation. Patient is currently on day 2 of TPN feeds, she does seem to have low phosphorus, magnesium and potassium likely due to refeeding syndrome. Her electrolytes have been replenished. She had some fungal infection on her belly, and nystatin ointment has been prescribed for that. 05/08 No acute events overnight. Patient was mildly short of breath today, along with some distress. She is on day 4 of vancomycin and Zosyn. Her sputum and blood cultures are pending. She is hemodynamically stable. She has been transitioned to TPN since yesterday. Patient was tachycardic(126), and febrile as of this evening (101) receive Tylenol at 5.38 pm. 05/07 No acute events overnight. Patient's white blood count is currently trending down from 22.4 to 11. Currently she's on day 3 of vancomycin and Zosyn. Sputum and blood cultures are pending. She is hemodynamically stable HR: 88 , RR: , Temp : 98.3 with resolved sepsis. She was on advanced soft chopped diet with more protein to supplement recovery, but will be transitioned to TPN this afternoon once she has her PICC line. Nasal swab was positive for MRSA. 05/06 No acute events overnight. Patient sepsis has been resolved, HR: 84, RR :16, Temp: 97.6 She endorses no worsening of shortness of breath, chest pain, palpitations. She does have a mild productive cough this morning. Her white blood count is trending down from 22.4-12.1 . She is on day 2 of vancomycin and Zosyn. She was hypokalemic this morning (2.9) and was given 40 mEq KCl . She continues to be an advanced soft chopped diet as tolerated with more protein to supplement her recovery. We'll be started her on gradual TPN feeds soon to prevent refeeding syndrome. - Exam Vitals: Temp Pulse Resp BP Pulse Ox 98.8 F 86 18 114/49 96 05/09/18 12:00 05/09/18 12:00 05/09/18 12:00 05/09/18 12:00 05/09/18 12:00 Exam: Gen : AO 3, no acute distress, good mentation. Heart: Regular rate and rhythm. No gallops murmurs or rubs. Lungs:CTAB, mild wheezing b/l, no rales or rhonchi. GI: Nontender, nondistended, ileostomy output normal MS: decreased ROM, endorses left shoulder and hip pain. Diminished motor strength due to malnutrition. skin: fungal infection at the site of her tube feed port. - Assessment and Plan (1) Chronic respiratory failure with hypoxia Current Visit: Yes Status: Chronic Assessment and Plan: - likely due to pneumonia. She has had multiple admissions in the past for respiratory failure, non compliance on home oxygen. Nasal swab positive for MRSA - appears to have resolved. Patient was initially on 2.5 L nasal cannula and currently she is breathing on room air satting at 96%. - She continues to be on day 5 of vancomycin and Rocephin for pneumonia. - Sputum and blood cultures are pending. (2) Pneumonia Current Visit: No Status: Suspected Assessment and Plan: -likely hospital required. Nasal swab was positive for MRSA. -Endorses no acute shortness of breath, chest pain, palpitations. -Early satting at 96% on room air. On day 5 of vancomycin, and day 1 of Rocephin 2000 g. -Continue to monitor. (3) Sepsis Current Visit: No Status: Resolved Assessment and Plan: - Currently resolved. Given tachycardic, with leukocytosis on admission. - Continue to continue to monitor. (4) Severe protein-calorie malnutrition Current Visit: No Status: Chronic Assessment and Plan: - Likely due to history of high output ileostomy, poor PO intake, multiple comorbidities - currently on gradual TPN nutrition. - Continue to monitor for refeeding syndrome. Replenish electrolytes as needed. (5) Acute renal injury Current Visit: No Status: Resolved Assessment and Plan: -Continues to have nonoliguric DASHAWN. Likely due to her poor by mouth intake, decreased absorption, output ileostomy, she has been hypotensive in 80s and 90s systolic ever since she was admitted to the hospital . Cumulatively she has received 6 L of fluid with good urine output. -Chain was 2.31 on admission currently trending down 1.52 > 157> 1.72> 1.34 - Continue to fluid resuscitate, renally dose medications. (6) Anemia Current Visit: No Status: Chronic Assessment and Plan: - likely due to AOCD and malnutrition. She has had multiple blood tranfusions in the past. She has had poor intake, a high output ileostomy - Hb 9.6 on admission currently 8.2, no overt signs of bleeding. - Continue to monitor . Transfuse is Hb < 7 (7) Shoulder pain, left Current Visit: Yes Status: Acute Assessment and Plan: - progressively getting better with each day. Shoulder x-ray was unremarkable -Patient is on by mouth morphine for pain control. - (8) DVT prophylaxis Current Visit: No Status: Acute Assessment and Plan: scds - Time Spent with Patient Total time spent is greater than 50% in coordination of care (as documented) at patient's floor/unit and/or counseling patient: Internal Medicine: Result - Labs CBC & Chem 7: 05/09/18 04:00 05/09/18 04:00 Labs: Short CBC 05/09/18 Range/Units 04:00 WBC 18.4 H D (4.3-11.1) K/mcL Hgb 8.2 L (11.5-15.4) g/dL Hct 26.4 L (35.3-44.9) % Plt Count 178 (140-400) K/mcL Neutrophils # 15.4 H (1.6-8.9) K/mcL BMP 05/09/18 04:00 Sodium 141 Potassium 3.1 L Chloride 113 H Carbon Dioxide 20 L BUN 30 H Creatinine 1.34 H Glucose 101 Calcium 7.8 L <Sourav Martínez - Last Filed: 05/09/18 13:41> (1) Pneumonia Qualifiers: Pneumonia type: due to other aerobic Gram-negative bacteria Laterality: left (4) Hypertension Qualifiers: Hypertension type: essential hypertension Qualified Code(s): I10 - Essential (primary) hypertension (6) Sepsis Qualifiers: Sepsis type: sepsis due to unspecified organism Qualified Code(s): A41.9 - Sepsis, unspecified organism (7) Acute renal failure Qualifiers: Acute renal failure type: with acute tubular necrosis Qualified Code(s): N17.0 - Acute kidney failure with tubular necrosis (11) Chronic pain Qualifiers: Chronic pain type: other chronic pain Qualified Code(s): G89.29 - Other chronic pain <King Rivas - Last Filed: 05/09/18 18:47> (2) Pneumonia Qualifiers: Pneumonia type: due to other aerobic Gram-negative bacteria Laterality: left (3) Sepsis Qualifiers: Sepsis type: sepsis due to unspecified organism Qualified Code(s): A41.9 - Sepsis, unspecified organism (6) Anemia Qualifiers: Iron deficiency anemia type: inadequate dietary iron intake
[2018-05-09] MEDS ORDERED: Clinimix E 5%-15% SOLUTION 2,000 ML with MVI, adult with vitamin K 10 ML IVC SCH (17:00)
[2018-05-09] MEDS: Nystatin OINT 15 GM TUBE TP SCH (17:26)
[2018-05-10] MEDS: MORPHINE SUL Oral CONC 10 MG/0.5 ML ORAL.SYG PO SCH ×3 (02:40→12:15)
[2018-05-10 06:58] LABS: Basophils % 0.2 %; Eosinophils # 0.5 K/mcL (0.0-0.6); Eosinophils % 3.6 %; Hemoglobin 8.5 g/dL (11.5-15.4); Immature Granulocytes % 1.4 % (0-4); Lymphocytes # 1.3 K/mcL (0.6-4.6); Lymphocytes % 8.8 %; Mean Corpuscular HGB Conc 31.5 g/dL (31.6-35.5); Mean Corpuscular Hemoglobin 32.1 pg (28.0-33.3); Mean Corpuscular Volume 101.9 fL (83.0-100.0); Mean Platelet Volume 9.1 fL (9.4-12.4); Monocytes # 1.3 K/mcL (0.0-1.3); Monocytes % 9.3 %; Neutrophils # 10.9 K/mcL (1.6-8.9); Platelet Count 210 K/mcL (140-400); Red Blood Count 2.65 M/mcL (3.82-4.97); Red Cell Distribution Width 13.2 % (11.5-14.5); Segmented Neutrophils % 76.7 %
[2018-05-10 08:18] LABS: Calcium 8.1 mg/dL (8.6-10.3); Magnesium 1.9 mg/dL (1.6-2.6); Potassium 4.1 mEq/L (3.5-5.1)
[2018-05-10] MEDS: Gabapentin 300 MG CAPSULE PO SCH ×3 (08:24→21:25)
[2018-05-10] MEDS: Magic Mouthwash 10 ML UD Cup PO SCH ×3 (08:24→18:26)
[2018-05-10] MEDS: cefTRIAXone 2,000 MG in Water for inj. (sterile) 20 ML 20 ML IVP SCH (08:25)
[2018-05-10] MEDS: ALPRAZolam 1 MG TABLET PO SCH ×2 (08:25→21:25)
--- NOTE | 2018-05-10 09:30 | Internal Med Progress Note ---
<Sourav Martínez - Last Filed: 05/10/18 13:23> Hospitalist Progress Note - Encounter Date of Encounter: 05/10/18 Time of Encounter: 10:20 - Exam Vitals: Temp Pulse Resp BP Pulse Ox 97.5 F L 93 16 100/66 98 05/10/18 12:27 05/10/18 12:27 05/10/18 12:27 05/10/18 12:27 05/10/18 12:27 - Assessment and Plan (1) Pneumonia Current Visit: No Status: Suspected (2) Hyponatremia Current Visit: No Status: Acute (3) Hypomagnesemia Current Visit: No Status: Resolved (4) Hypertension Current Visit: No Status: Chronic (5) Hypocalcemia Current Visit: No Status: Resolved (6) Sepsis Current Visit: No Status: Resolved (7) Acute renal failure Current Visit: Yes Status: Suspected (8) Severe protein-calorie malnutrition Current Visit: Yes Status: Suspected (9) Chronic respiratory failure with hypoxia Current Visit: Yes Status: Chronic (10) Hypokalemia Current Visit: Yes Status: Acute (11) Chronic pain Current Visit: Yes Status: Chronic - Time Spent with Patient Total time spent is greater than 50% in coordination of care (as documented) at patient's floor/unit and/or counseling patient: Internal Medicine: Result - Labs CBC & Chem 7: 05/10/18 06:43 05/10/18 06:43 Labs: Short CBC 05/10/18 Range/Units 06:43 WBC 14.3 H (4.3-11.1) K/mcL Hgb 8.5 L (11.5-15.4) g/dL Hct 27.0 L (35.3-44.9) % Plt Count 210 (140-400) K/mcL Neutrophils # 10.9 H (1.6-8.9) K/mcL BMP 05/10/18 06:43 Sodium 144 Potassium 4.1 Chloride 115 H Carbon Dioxide 21 L BUN 30 H Creatinine 1.25 H Glucose 91 Calcium 8.1 L Consult Discharge Plan - Plan Referrals: Jaiden Beach, DO [Primary Care Provider] - - Attending Attestation I saw evaluated and examined this patient and my medical decision-making was reviewed with the Resident Physician, King Rivas. I agree with the documented findings, disposition and treatment plan as described except to any changes set forth below. We independently had [id number] contact with the patient. Patient appears depressed and is currently daily about her discharge planning. She is concerned about not being able to arrange for TPN as outpatient. Continues to have abdominal pain and ileostomy output. Asks if we can do an upper GI endoscopy for her because she feels like it is obstructed. Explained to her as she is having ileostomy output, there are no signs of any obstruction. Exam: Patient is cachectic, she is awake , alert oriented. Mild distress. Abdomen is soft, mildly tender. Ileostomy output present. Heart sounds are normal. Moderate risk for complications Sepsis due to possible pneumonia: WBC count is improving. 14.3 today. We will begin to de-escalate antibiotics. Transition to Zyvox and Omnicef. Severe protein calorie malnutrition: Due to malabsorption and increased ileostomy output. On TPN. Patient not willing to try a PEG tube feeds at this time. Chronic pain: Continue home medications. Chronic respiratory failure with hypoxia: Continue O2 supplementation. On 2.5 L O2 supplementation. Multiple electrolyte abnormalities: Normal Mg and Phos levels. <King Rivas - Last Filed: 05/10/18 18:09> Hospitalist Progress Note - Encounter Date of Encounter: 05/10/18 - Subjective Interval History: 05/09 And it continues to be on day 5 of vancomycin. We discontinued her Zosyn and currently she is on day 1 of Rocephin. Patient denies any worsening shortness of breath, chest pain and palpitation. Patient is currently on day 2 of TPN feeds, she does seem to have low phosphorus, magnesium and potassium likely due to refeeding syndrome. Her electrolytes have been replenished. She had some fungal infection on her belly, and nystatin ointment has been prescribed for that. 05/08 No acute events overnight. Patient was mildly short of breath today, along with some distress. She is on day 4 of vancomycin and Zosyn. Her sputum and blood cultures are pending. She is hemodynamically stable. She has been transitioned to TPN since yesterday. Patient was tachycardic(126), and febrile as of this evening (101) receive Tylenol at 5.38 pm. 05/07 No acute events overnight. Patient's white blood count is currently trending down from 22.4 to 11. Currently she's on day 3 of vancomycin and Zosyn. Sputum and blood cultures are pending. She is hemodynamically stable HR: 88 , RR: , Temp : 98.3 with resolved sepsis. She was on advanced soft chopped diet with more protein to supplement recovery, but will be transitioned to TPN this afternoon once she has her PICC line. Nasal swab was positive for MRSA. 05/06 No acute events overnight. Patient sepsis has been resolved, HR: 84, RR :16, Temp: 97.6 She endorses no worsening of shortness of breath, chest pain, palpitations. She does have a mild productive cough this morning. Her white blood count is trending down from 22.4-12.1 . She is on day 2 of vancomycin and Zosyn. She was hypokalemic this morning (2.9) and was given 40 mEq KCl . She continues to be an advanced soft chopped diet as tolerated with more protein to supplement her recovery. We'll be started her on gradual TPN feeds soon to prevent refeeding syndrome. - Exam Vitals: Temp Pulse Resp BP Pulse Ox 97.9 F 92 16 92/62 97 05/10/18 08:20 05/10/18 08:20 05/10/18 08:20 05/10/18 08:20 05/10/18 08:38 Exam: Gen : AO 3, no acute distress, good mentation. Heart: Regular rate and rhythm. No gallops murmurs or rubs. Lungs:CTAB, mild wheezing b/l, no rales or rhonchi. GI: Nontender, nondistended, ileostomy output normal MS: decreased ROM, endorses left shoulder and hip pain. Diminished motor strength due to malnutrition. - Assessment and Plan (1) Chronic respiratory failure with hypoxia Current Visit: Yes Status: Chronic Assessment and Plan: - likely due to pneumonia. She has had multiple admissions in the past for respiratory failure, non compliance on home oxygen. Nasal swab positive for MRSA - appears to have resolved. Patient was initially on 2.5 L nasal cannula and currently she is breathing on room air satting at 96%. - She is on day 1 of Zyvox and omnicef for a total of 7 days worth of Abx. - Sputum and blood cultures are pending. (2) Pneumonia Current Visit: No Status: Suspected Assessment and Plan: -likely hospital required. Nasal swab was positive for MRSA. -Endorses no acute shortness of breath, chest pain, palpitations. WBC trending down 18.4 -> 14.3 -Comfortable satting at 96% on room air. On day 1 of Zyvox and Omnicef. day 6 of antibiotic use. -Continue to monitor. (3) Sepsis Current Visit: No Status: Resolved Assessment and Plan: resolved (4) Severe protein-calorie malnutrition Current Visit: No Status: Chronic Assessment and Plan: - Likely due to history of high output ileostomy, poor PO intake, multiple comorbidities - currently on gradual TPN nutrition. - Continue to monitor for refeeding syndrome. Replenish electrolytes as needed. (5) Acute renal injury Current Visit: No Status: Resolved Assessment and Plan: -Continues to have DASHAWN. Likely due to her poor by mouth intake, decreased absorption, output ileostomy, she has been hypotensive in 80s and 90s systolic ever since she was admitted to the hospital . Cumulatively she has received 6 L of fluid with good urine output. -Chain was 2.31 on admission currently trending down 1.52 > 157> 1.72> 1.34 > 1.25 - renally dose medications. (6) Anemia Current Visit: No Status: Chronic Assessment and Plan: - likely due to AOCD and malnutrition. She has had multiple blood tranfusions in the past. She has had poor intake, a high output ileostomy - Hb 9.6 on admission currently 8.5, no overt signs of bleeding. - Continue to monitor . Transfuse is Hb < 7 (7) Shoulder pain, left Current Visit: Yes Status: Acute (8) DVT prophylaxis Current Visit: No Status: Acute - Time Spent with Patient Total time spent is greater than 50% in coordination of care (as documented) at patient's floor/unit and/or counseling patient: Internal Medicine: Result - Labs CBC & Chem 7: 05/10/18 06:43 05/10/18 06:43 Labs: Short CBC 05/10/18 Range/Units 06:43 WBC 14.3 H (4.3-11.1) K/mcL Hgb 8.5 L (11.5-15.4) g/dL Hct 27.0 L (35.3-44.9) % Plt Count 210 (140-400) K/mcL Neutrophils # 10.9 H (1.6-8.9) K/mcL BMP 05/10/18 06:43 Sodium 144 Potassium 4.1 Chloride 115 H Carbon Dioxide 21 L BUN 30 H Creatinine 1.25 H Glucose 91 Calcium 8.1 L <Sourav Martínez - Last Filed: 05/10/18 13:23> (1) Pneumonia Qualifiers: Pneumonia type: due to other aerobic Gram-negative bacteria Laterality: left (4) Hypertension Qualifiers: Hypertension type: essential hypertension Qualified Code(s): I10 - Essential (primary) hypertension (6) Sepsis Qualifiers: Sepsis type: sepsis due to unspecified organism Qualified Code(s): A41.9 - Sepsis, unspecified organism (7) Acute renal failure Qualifiers: Acute renal failure type: with acute tubular necrosis Qualified Code(s): N17.0 - Acute kidney failure with tubular necrosis (11) Chronic pain Qualifiers: Chronic pain type: other chronic pain Qualified Code(s): G89.29 - Other chronic pain <King Rivas - Last Filed: 05/10/18 18:09> (2) Pneumonia Qualifiers: Pneumonia type: due to other aerobic Gram-negative bacteria Laterality: left (3) Sepsis Qualifiers: Sepsis type: sepsis due to unspecified organism Qualified Code(s): A41.9 - Sepsis, unspecified organism (6) Anemia Qualifiers: Iron deficiency anemia type: inadequate dietary iron intake
[2018-05-10] MEDS ORDERED: D10% in Water 500 ML IVC PRN (11:53)
[2018-05-10] MEDS: *HR* Promethazine 25 MG/ML VIAL IVP PRN ×2 (12:14→21:33)
[2018-05-10] MEDS ORDERED: Aminoglycoside Consult 1 EACH MC ONE (16:00)
[2018-05-10] MEDS ORDERED: Clinimix E 5%-15% SOLUTION 2,000 ML with MVI, adult with vitamin K 10 ML IVC SCH (17:00)
[2018-05-10] MEDS: Nystatin OINT 15 GM TUBE TP SCH (18:25)
[2018-05-10] MEDS: MORPHINE SUL Oral CONC 10 MG/0.5 ML ORAL.SYG PO PRN (19:18)
[2018-05-10] MEDS: Cefdinir 300 MG CAPSULE PO SCH (21:25)
[2018-05-10] MEDS: Linezolid 600 MG TABLET PO SCH (21:25)
[2018-05-11] MEDS: Ondansetron ODT 4 MG TAB.RAPDIS PO PRN ×2 (01:24→15:44)
[2018-05-11] MEDS: MORPHINE SUL Oral CONC 10 MG/0.5 ML ORAL.SYG PO PRN ×3 (01:25→18:28)
[2018-05-11 04:56] LABS: Basophils # 0.1 K/mcL (0.0-0.2); Basophils % 0.3 %; Eosinophils # 0.4 K/mcL (0.0-0.6); Eosinophils % 2.4 %; Hematocrit 26.8 % (35.3-44.9); Hemoglobin 8.2 g/dL (11.5-15.4); Immature Granulocytes % 1.2 % (0-4); Lymphocytes # 1.1 K/mcL (0.6-4.6); Mean Corpuscular HGB Conc 30.6 g/dL (31.6-35.5); Mean Corpuscular Hemoglobin 30.9 pg (28.0-33.3); Mean Corpuscular Volume 101.1 fL (83.0-100.0); Mean Platelet Volume 9.2 fL (9.4-12.4); Monocytes % 6.1 %; Neutrophils # 13.2 K/mcL (1.6-8.9); Platelet Count 247 K/mcL (140-400); Red Blood Count 2.65 M/mcL (3.82-4.97); Red Cell Distribution Width 13.1 % (11.5-14.5)
[2018-05-11 05:11] LABS: Calcium 8.3 mg/dL (8.6-10.3); Magnesium 1.7 mg/dL (1.6-2.6); Phosphorous 3.7 mg/dL (2.7-4.5); Potassium 3.7 mEq/L (3.5-5.1)
[2018-05-11] MEDS: Linezolid 600 MG TABLET PO SCH ×2 (08:50→21:18)
[2018-05-11] MEDS: Magic Mouthwash 10 ML UD Cup PO SCH ×3 (08:50→17:16)
[2018-05-11] MEDS: Cefdinir 300 MG CAPSULE PO SCH (08:50)
[2018-05-11] MEDS: ALPRAZolam 1 MG TABLET PO SCH ×2 (08:50→21:18)
[2018-05-11] MEDS: *HR* Promethazine 25 MG/ML VIAL IVP PRN ×2 (08:50→21:23)
[2018-05-11] MEDS: Gabapentin 300 MG CAPSULE PO SCH ×3 (08:51→21:18)
--- NOTE | 2018-05-11 10:59 | Internal Med Progress Note ---
Hospitalist Progress Note - Encounter Date of Encounter: 05/11/18 Time of Encounter: 10:00 - Subjective Interval History: Patient reports that she does not feel good but on probing further sounds like all her symptoms are chronic. She did report nausea earlier today. She is also concerned that we have changed her antibiotics to pills but I explained to her that she has been cleared by speech therapy for advanced soft textures and thin liquids and should be able to take her pills. No fevers or chills reported overnight. Currently tolerating tube feeds but has not wanted free water pushes. - Exam Vitals: Temp Pulse Resp BP Pulse Ox 97.8 F 99 18 99/62 95 05/11/18 07:23 05/11/18 07:23 05/11/18 07:23 05/11/18 07:23 05/11/18 09:08 Exam: General: Patient is alert, no acute distress, oriented x 3 cachectic, very somnolent but easily awakes. Neck: normal inspection, trachea midline, full ROM, no carotid bruits Chest: normal inspection, symmetric chest rise Respiratory: Good respiratory effort. Normal breath sounds. No wheezing or crackles. Cardiovascular: Regular rate and rhythm. s1 and s2 No clicks, rubs, gallops, or murmurs. No pedal edema Abdomen: Abdomen is soft, tender, ileostomy in place. Musculoskeletal: Spontaneously moving all extremities Skin: warm, dry, intact. Neuro: Alert oriented x 3 normal cranial nerves, no focal deficits - Assessment and Plan (1) Pneumonia Current Visit: Yes Status: Suspected Assessment and Plan: Continue Omnicef and Zyvox. Complete 7 day treatment course. Moderate risk for complications (2) Hyponatremia Current Visit: Yes Status: Resolved (3) Hypomagnesemia Current Visit: No Status: Resolved (4) Hypertension Current Visit: Yes Status: Chronic Assessment and Plan: Controlled. Not on any medications at this (5) Hypocalcemia Current Visit: No Status: Resolved (6) Sepsis Current Visit: Yes Status: Resolved Assessment and Plan: Due to pneumonia. Continue Omnicef and Zyvox (7) Acute renal failure Current Visit: Yes Status: Suspected Assessment and Plan: Stable. Creatinine 1.31 today. Encouraged oral fluid intake. free water per PEG as tolerated. (8) Severe protein-calorie malnutrition Current Visit: Yes Status: Suspected Assessment and Plan: On 2 feeds and TPN. We will titrate patient off TPN and slowly. (9) Chronic respiratory failure with hypoxia Current Visit: Yes Status: Chronic Assessment and Plan: Continue O2 supplementation. (10) Hypokalemia Current Visit: Yes Status: Resolved (11) Chronic pain Current Visit: Yes Status: Chronic Assessment and Plan: Continue pain medication regimen - Time Spent with Patient Total time spent is greater than 50% in coordination of care (as documented) at patient's floor/unit and/or counseling patient: Internal Medicine: Result - Labs CBC & Chem 7: 05/11/18 04:36 05/11/18 04:36 Labs: Short CBC 05/11/18 Range/Units 04:36 WBC 15.9 H (4.3-11.1) K/mcL Hgb 8.2 L (11.5-15.4) g/dL Hct 26.8 L (35.3-44.9) % Plt Count 247 (140-400) K/mcL Neutrophils # 13.2 H (1.6-8.9) K/mcL BMP 05/11/18 04:36 Sodium 139 Potassium 3.7 Chloride 110 H Carbon Dioxide 21 L BUN 34 H Creatinine 1.31 H Glucose 131 H Calcium 8.3 L Consult Discharge Plan - Plan Referrals: Jaiden Beach, DO [Primary Care Provider] - (1) Pneumonia Qualifiers: Pneumonia type: due to other aerobic Gram-negative bacteria Laterality: left Lung location: lower lobe of lung Qualified Code(s): J15.6 - Pneumonia due to other Gram-negative bacteria (4) Hypertension Qualifiers: Hypertension type: essential hypertension Qualified Code(s): I10 - Essential (primary) hypertension (6) Sepsis Qualifiers: Sepsis type: sepsis due to unspecified organism Qualified Code(s): A41.9 - Sepsis, unspecified organism (7) Acute renal failure Qualifiers: Acute renal failure type: with acute tubular necrosis Qualified Code(s): N17.0 - Acute kidney failure with tubular necrosis (11) Chronic pain Qualifiers: Chronic pain type: other chronic pain Qualified Code(s): G89.29 - Other chronic pain
[2018-05-11] MEDS: Nystatin OINT 15 GM TUBE TP SCH (18:04)
[2018-05-11] MEDS: Benzonatate 100 MG CAPSULE PO PRN (18:30)
[2018-05-12] MEDS: MORPHINE SUL Oral CONC 10 MG/0.5 ML ORAL.SYG PO PRN ×3 (01:02→13:11)
[2018-05-12] MEDS: *HR* Promethazine 25 MG/ML VIAL IVP PRN (04:29)
[2018-05-12] MEDS ORDERED: Cefdinir 300 MG CAPSULE PO SCH (09:00)
[2018-05-12] MEDS: ALPRAZolam 1 MG TABLET PO SCH (09:22)
[2018-05-12] MEDS: Gabapentin 300 MG CAPSULE PO SCH (09:22)
[2018-05-12] MEDS: Magic Mouthwash 10 ML UD Cup PO SCH ×2 (09:22→13:11)
[2018-05-12] MEDS: Benzonatate 100 MG CAPSULE PO PRN (09:45)
[2018-05-12 10:10] LABS: Calcium 8.8 mg/dL (8.6-10.3); Magnesium 1.6 mg/dL (1.6-2.6); Phosphorous 2.9 mg/dL (2.7-4.5); Potassium 3.9 mEq/L (3.5-5.1)
--- NOTE | 2018-05-12 11:44 | Discharge Summary ---
- NOTES TO OUTPATIENT PROVIDER Notes to Outpatient Provider: Patient with history of malabsorption related to high output ileostomy with PEG tube was hospitalized here with sepsis possibly related to pneumonia and severe protein calorie malnutrition due to high output ileostomy and malabsorption. She was treated with IV fluids and antibiotics. She did not tolerate PEG tube feeds initially and so was placed on TPN. She is now been transitioned off TPN and has been placed on PEG tube feeds again which she is now tolerating. Cultures have been negative but patient does have positive MRSA screen. As such she will complete an antibiotic course for pneumonia to treat possible MRSA pneumonia. She will follow up with her PCP for further management of her malabsorption and malnutrition. Orders not resulted at time of discharge: Pending orders 05/06/18 10:49 Sputum Culture [Culture,Sputum with Gram Stain] [RM] Stat 05/08/18 17:55 EKG [ECG 12 lead ECG] [ECG] Stat 05/13/18 04:00 Basic Metabolic Panel AM 0400 Magnesium AM 0400 Phosphorous AM 0400 Date of Encounter: 05/12/18 Time of Encounter: 11:41 - Discharge Diagnosis (1) Pneumonia Priority: Primary Status: Suspected Qualifiers: Pneumonia type: due to methicillin-resistant Staphylococcus aureus (MRSA) Laterality: left Lung location: lower lobe of lung Qualified Code(s): J15.212 - Pneumonia due to Methicillin resistant Staphylococcus aureus (2) Hyponatremia Priority: Secondary Status: Resolved (3) Hypomagnesemia Priority: Secondary Status: Resolved (4) Hypertension Priority: Secondary Status: Chronic Qualifiers: Hypertension type: essential hypertension Qualified Code(s): I10 - Essential (primary) hypertension (5) Hypocalcemia Priority: Secondary Status: Resolved (6) Sepsis Priority: Secondary Status: Resolved Qualifiers: Sepsis type: sepsis due to unspecified organism Qualified Code(s): A41.9 - Sepsis, unspecified organism (7) Acute renal failure Priority: Secondary Status: Suspected Qualifiers: Acute renal failure type: with acute tubular necrosis Qualified Code(s): N17.0 - Acute kidney failure with tubular necrosis (8) Severe protein-calorie malnutrition Priority: Secondary Status: Suspected (9) Chronic respiratory failure with hypoxia Priority: Secondary Status: Chronic (10) Hypokalemia Priority: Secondary Status: Resolved (11) Chronic pain Priority: Secondary Status: Chronic Qualifiers: Chronic pain type: other chronic pain Qualified Code(s): G89.29 - Other chronic pain Hospital course: Ms. Rosado is a 53 year old female Patient with history of malabsorption related to high output ileostomy with PEG tube was hospitalized here with sepsis possibly related to pneumonia and severe protein calorie malnutrition due to high output ileostomy and malabsorption. She also had acute kidney injury. She was treated with IV fluids and antibiotics. She did not tolerate PEG tube feeds initially and so was placed on TPN. She is now been transitioned off TPN and has been placed on PEG tube feeds again which she is now tolerating. Cultures have been negative but patient does have positive MRSA screen. As such she will complete an antibiotic course for pneumonia to treat possible MRSA pneumonia. She will follow up with her PCP for further management of her malabsorption and malnutrition. Discharge discussed with: patient, nurse - Time Spent with Patient Total time spent providing and/or coordinating discharge services: Greater than 30 minutes (45 min) - Discharge Medications Prescriptions: Benzonatate [Tessalon] 100 mg PO TID PRN #60 capsule PRN Reason: Cough Cefdinir [Omnicef] 300 mg PO DAILY #6 capsule Lactobacillus Acidophilus [Acidophilus Lactobacillus] 1 each PO BID #30 capsule Linezolid [Zyvox] 600 mg PO BID #4 tablet Oxygen 1 each .ROUTE AD #1 each Home Medications: ALPRAZolam [Xanax 1 MG Tablet] 1 mg PO BID 05/05/18 [History] Cbd 500 mg PO BID 05/05/18 [History] Escitalopram [Lexapro] 10 mg PO DAILY 05/05/18 [History] Gabapentin [Neurontin] 600 mg PO TID 05/05/18 [History] Loperamide HCl [Anti-Diarrheal] 2 mg PO QID 05/05/18 [History] MORPHINE SUL Oral CONC [Roxanol Oral Conc] 20 mg PO Q6HR PRN 05/05/18 [History] Ondansetron HCl [Zofran] 4 mg PO Q8HR PRN 05/05/18 [History] Promethazine HCl 25 mg PO Q12HR PRN 05/05/18 [History] Benzonatate [Tessalon] 100 mg PO TID PRN #60 capsule 05/12/18 [Rx] Cefdinir [Omnicef] 300 mg PO DAILY #6 capsule 05/12/18 [Rx] Lactobacillus Acidophilus [Acidophilus Lactobacillus] 1 each PO BID #30 capsule 05/12/18 [Rx] Linezolid [Zyvox] 600 mg PO BID #4 tablet 05/12/18 [Rx] Oxygen 1 each .ROUTE AD #1 each 05/12/18 [Rx] Allergies/Adverse Reactions: 3 Allergy/AdvReac Type Severity Reaction Status Date / Time shellfish derived Allergy UNKNOWN Verified 05/05/18 15:05 Date of admission: 05/05/18 15:37 Primary care physician: Jaiden Beach DO Consults: 05/05/18 15:13 Consult to Nutrition [CONS] Routine Comment: Consulting Provider: NUTRITION Reason for Dietary Consult: Tube Feed Start & Manage Consult to Lunchroom Food Service Supervisor [CONS] Routine Reason for SW Consult: Has hospice [facility] 05/06/18 10:54 Consult to Invasive Line Access Team [CONS] Routine Reason for Consult: Picc Line Insertion Line Type: EPIV 05/07/18 13:13 Consult to Wound Care [CONS] Routine Reason for Consult: pressure injury to coccyx, breakdown around emanuel button Call Completed: No 05/09/18 13:20 Consult to Speech Therapy [CONS] Stat Comment: Evaluate, develop and implement POC Reason for Consult: poss aspiration Call Completed: Yes Discharging clinician: Sourav Martínez Anticipated date of discharge: 05/12/18 - Constitutional Vitals: Temp Pulse Resp BP Pulse Ox 98.0 F 98 18 110/73 99 05/12/18 08:36 05/12/18 08:36 05/12/18 08:36 05/12/18 08:36 05/12/18 10:17 General appearance: Present: cooperative, A&O X 3, underweight, answers questions appropriately Exam: . - Respiratory Respiratory exam: Present: CTAB. Absent: accessory muscle use, rales, rhonchi, wheezes - Cardiovascular Cardiovascular exam: Present: RRR, +S1, +S2. Absent: diastolic murmur, gallop, rubs, systolic murmur - GI/Abdominal GI/Abdominal exam: Present: distended, normal bowel sounds, soft, no peritoneal signs. Absent: tenderness Additional comments: ileostomy in place - Patient Status Disposition: Home Health Service Functional capacity at discharge: uses cane/walker Overall status at discharge: patient is progressing back to baseline - Discharge Instructions Instructions: Sepsis (DC), Chronic Hypertension (DC) Follow Up With: Jaiden Beach DO [Primary Care Provider] - (Follow up in 1-2 weeks) - Diet and Activity Activity: increase activity as tolerated Diet: other (Tube feeds: Vital 1.5, total volume of 1L/day- rate & schedule per pt. Recommend 40ml/hr x24 hours, continuous.)
--- NOTE | 2018-05-12 11:59 | Physician Discharge Referral ---
Home Health/Hosp Referral Info Transfer to: Home Health Provider in Charge Post Discharge: PCP - Diagnosis (1) Pneumonia Priority: Primary Status: Suspected (2) Hyponatremia Priority: Secondary Status: Resolved (3) Hypomagnesemia Priority: Secondary Status: Resolved (4) Hypertension Priority: Secondary Status: Chronic (5) Hypocalcemia Priority: Secondary Status: Resolved (6) Sepsis Priority: Secondary Status: Resolved (7) Acute renal failure Priority: Secondary Status: Suspected (8) Severe protein-calorie malnutrition Priority: Secondary Status: Suspected (9) Chronic respiratory failure with hypoxia Priority: Secondary Status: Chronic (10) Hypokalemia Priority: Secondary Status: Resolved (11) Chronic pain Priority: Secondary Status: Chronic - Respiratory Orders Oxygen / L per min (2) Smoking Cessation: Smoking cessation has been advised. For more information, call the [place] Tobacco Quit Line at 7-950-MCDE-NOW. - Diet/Nutrition Diet/Nutrition: List: Tube fees: Vital 1.5, total volume of 1L/day- rate & schedule per pt. Recommend 40ml/hr x24 hours, continuous. SOft diet PO - Activity Activity Orders: Walker - Services Needed Following services are medically necessary services: Nursing, Home Health Aide - Transfer Medications Prescriptions: Benzonatate [Tessalon] 100 mg PO TID PRN #60 capsule PRN Reason: Cough Cefdinir [Omnicef] 300 mg PO DAILY #6 capsule Lactobacillus Acidophilus [Acidophilus Lactobacillus] 1 each PO BID #30 capsule Linezolid [Zyvox] 600 mg PO BID #4 tablet Oxygen 1 each .ROUTE AD #1 each Home Medications: ALPRAZolam [Xanax 1 MG Tablet] 1 mg PO BID 05/05/18 [History] Cbd 500 mg PO BID 05/05/18 [History] Escitalopram [Lexapro] 10 mg PO DAILY 05/05/18 [History] Gabapentin [Neurontin] 600 mg PO TID 05/05/18 [History] Loperamide HCl [Anti-Diarrheal] 2 mg PO QID 05/05/18 [History] MORPHINE SUL Oral CONC [Roxanol Oral Conc] 20 mg PO Q6HR PRN 05/05/18 [History] Ondansetron HCl [Zofran] 4 mg PO Q8HR PRN 05/05/18 [History] Promethazine HCl 25 mg PO Q12HR PRN 05/05/18 [History] Benzonatate [Tessalon] 100 mg PO TID PRN #60 capsule 05/12/18 [Rx] Cefdinir [Omnicef] 300 mg PO DAILY #6 capsule 05/12/18 [Rx] Lactobacillus Acidophilus [Acidophilus Lactobacillus] 1 each PO BID #30 capsule 05/12/18 [Rx] Linezolid [Zyvox] 600 mg PO BID #4 tablet 05/12/18 [Rx] Oxygen 1 each .ROUTE AD #1 each 05/12/18 [Rx] Allergies/Adverse Reactions: 3 Allergy/AdvReac Type Severity Reaction Status Date / Time shellfish derived Allergy UNKNOWN Verified 05/05/18 15:05 Certification: Further, I certify that my clinical findings support that this patient is homebound (i.e. absences from home require considerable and taxing effort and are for medical reasons or congregational services or infrequently or short duration when for other reasons) because: Homebound Reason: Patient requires assistance of a person or device to safely leave home Attestation: My signature below is to certify that this patient is under my care and that I, or nurse practitioner, or a physician's events administrative assistant working with me, has a face-to -face encounter with this patient.
[2018-05-12 12:54] VITALS: BP 93/60
== END 2018-05-12 16:01 | disposition home health service (06) | DRG 871 ==
LOC: 2ANU → SUATTDRO 14:24
PROVIDERS: ADMIT Student in an Organized Health Care Education/Training Program; ATTEND Internal Medicine

== ENCOUNTER 2018-10-22 08:37 | Observation (INO) ==
[2018-10-22] MEDS ORDERED: Ringers Solution, Lactated 1,000 ML IVC SCH (09:15)
[2018-10-22] MEDS ORDERED: Albuterol 2.5 MG/3 ML NEBULIZER IH ONE (09:15)
--- NOTE | 2018-10-22 09:18 | Anesthesia Evaluation PreOp ---
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: Seizures (last seizure 1.5 years ago), Other (chronic back pain) Other Medical History: Renal (kidney stones), Diabetes Type II (diet controlled), GERD, Other (anxiety, failure to thrive) Anesthesia History: No Prior Anesthetic Complications, Past Anesthesia (hysterectomy, ileostomy) Alcohol Use: none Drug use: none Medications and Allergies ALPRAZolam [Xanax 1 MG Tablet] 1 mg PO BID 05/05/18 [History] Cbd 500 mg PO BID 05/05/18 [History] Escitalopram [Lexapro] 10 mg PO DAILY 05/05/18 [History] Gabapentin [Neurontin] 600 mg PO TID 05/05/18 [History] Loperamide HCl [Anti-Diarrheal] 2 mg PO QID 05/05/18 [History] MORPHINE SUL Oral CONC [Roxanol Oral Conc] 20 mg PO Q6HR PRN 05/05/18 [History] Ondansetron HCl [Zofran] 4 mg PO Q8HR PRN 05/05/18 [History] Promethazine HCl 25 mg PO Q12HR PRN 05/05/18 [History] Albuterol Sulfate [Ventolin Hfa] 2 puff IN Q6H PRN 09/26/18 [History] Diclofenac Sodium [Voltaren] 2 gm TP TID PRN 09/26/18 [History] Ipratropium/Albuterol Neb [Duoneb] 3 ml IH TID PRN 09/26/18 [History] Lidocaine Patch [Lidoderm 5% patch] 1 patch TP DAILY PRN 09/26/18 [History] Allergy/AdvReac Type Severity Reaction Status Date / Time shellfish derived Allergy See Verified 09/26/18 21:09 Comments - Meds/Allergy Pre-op Review Medications Reviewed: Yes Allergies Reviewed: Yes Beta Blockers on Current Med List: No Anesthesia Results - Labs Laboratory Tests 09/30/18 09/30/18 10/10/18 05:22 05:22 10:10 WBC 8.7 Hgb 9.1 L Hct 29.7 L Plt Count 257 PT INR Sodium 136 Potassium 4.4 BUN 8 Creatinine 1.04 10/18/18 09:49 WBC Hgb Hct Plt Count PT 12.2 H INR 1.1 Sodium Potassium BUN Creatinine - Imaging EKG: report reviewed (09/24/2018 Sinus tachycardia) Additional studies: 02/04/2015 Echo Impressions: Normal LV systolic function, LVEF 65%. Normal right ventricular structure and function. Mild biatrial enlargement. Agitated saline contrast study demonstrates the late appearance of saline contrast on the left side of the heart, consistent with pulmonary arteriovenous shunting. Clinical correlation recommended. Valvular function was not assessed on this limited study. 02/04/2015 Stress Impression: The exercise capacity was fair. Patient exercised for 5:15 minutes on a Jean Carlos protocol, achieving 7 METs and 88% of max predicted heart rate. The patient demonstrated a blunted blood pressure response to exercise. Exercise ECG is negative for ischemia. Gated LVEF > 70%. Perfusion imaging was negative for ischemia or infarct. 09/10/2014 Echo Impressions: Normal LV systolic function, LVEF 60-65%. Normal left ventricular diastolic function. Normal right ventricular structure and function. No significant valvular dysfunction. No evidence of pulmonary hypertension. No evidence of PFO with agitated saline contrast. Anesthesia Exam O2 Sat Height 1.35 m Weight 41.277 kg O2 Sat by Pulse Oximetry 100 Vital Signs Temp Pulse Resp BP Pulse Ox 98.6 F 90 18 121/79 100 10/22/18 09:04 10/22/18 09:04 10/22/18 09:04 10/22/18 09:04 10/22/18 09:04 Height: 4'5'' Weight: 91 lbs NPO (# of Hours): 8 Pain Scale: 7 (back) Pain Scale Used: Numeric (1 - 10) - HEENT Pupil (Motor): EOMI Mallampati: II Teeth: Edentulous Denture Type: Upper: Complete, Lower: Complete Oral Opening: Greater than 3 - RESERVOIR ENGINEERING ADVISOR LOC: Oriented RESERVOIR ENGINEERING ADVISOR Motor: Normal RUE, Normal LUE, Normal RLE, Normal LLE, Normal Face RESERVOIR ENGINEERING ADVISOR Sensory: Normal: RUE, LUE, RLE, LLE, Face - Cardiac Rhythm: Regular Murmur: None - Pulmonary Breath Sounds: bilateral Clear Respiratory Effort: Symmetrical Anesthesia Assess/Plan ASA Score: 4 Level of consciousness: Cooperative, Oriented, Tranquil Anesthetic Plan: General Monitoring Plan: Standard Monitors Recovery Plan: PACU
[2018-10-22] MEDS ORDERED: CeFAZolin Syr 2,000MG/20 ML 2,000 MG/20 ML SYRINGE IVPB ONE ×2 (09:20→16:03)
--- NOTE | 2018-10-22 09:24 | History & Physical Report ---
Date of Encounter: 10/22/18 Time of Encounter: 09:24 24 Hour HP Update - Instructions Instructions: If the History and Physical is less than 30 days old and was completed prior to A.M. admission and or procedure and has NOT been updated on calendar day of procedure please complete this update prior to performing procedure. - Update Patient reports changes in Medical Condition: No Changes in examination, assessment, or condition: No Changes in Medication: No Preop tests/diagnostics Reviewed: Yes Surgery Remains Indicated: Yes - Pre-Operative Checklist Preoperative Checklist Indicated: Yes Prophylactic Antibiotic Ordered: Yes Home Medications Include Beta Lorna: No Beta Lorna Taken Today (Day of Surgery): No Beta Lorna Taken Yesterday (Day Prior to Surgery): No Is VTE Prophylaxis Indicated?: Yes
[2018-10-22 09:25] LABS: Prothrombin Time 11.3 Seconds (9.4-12.1)
[2018-10-22] MEDS ORDERED: diazePAM 5 MG TABLET PO ONE (09:57)
[2018-10-22] MEDS ORDERED: *HR* OxyCODONE Immed Rel 5 MG TABLET PO PRN (09:57)
[2018-10-22] MEDS ORDERED: 0.9 % Sodium Chloride 500 ML ONE ×2 (10:42→10:43)
[2018-10-22] MEDS ORDERED: *HR* Midazolam HCl 2 MG/2 ML VIAL IVP ONE ×2 (11:11→12:26)
[2018-10-22] MEDS ORDERED: *HR* FentaNYL (PF) 100 MCG/2 ML VIAL IVP ONE ×2 (11:11→12:20)
--- NOTE | 2018-10-22 11:13 | Pre-Sedation Evaluation ---
Pre-sedation evaluation - Pre-sedation checklist Procedure: left neph tube Recent Vitals: Last Vital Signs Temp 98.6 F 10/22/18 09:48 Pulse 90 10/22/18 09:48 Resp 18 10/22/18 09:48 BP 121/79 10/22/18 09:48 Pulse Ox 100 10/22/18 09:48 H&P (including ROS) documented in medical record: Yes Previous reaction to sedatives/anesthetics: No Dietary Status: NPO after Midnight Airway Assessment: Patient can open mouth completely, TMJ function normal Dentition: dentures removed Possible difficult airway: No ASA Classification *see protocol: CLASS II-Mild systemic disease Plan of Care: Pt appropriate candidate for procedure/moderate/conscious sedation, Risks/benefits of procedure/sedation discussed w/ patient/family
--- NOTE | 2018-10-22 11:13 | History & Physical Report ---
Date of Encounter: 10/22/18 Time of Encounter: 11:12 24 Hour HP Update - Instructions Instructions: If the History and Physical is less than 30 days old and was completed prior to A.M. admission and or procedure and has NOT been updated on calendar day of procedure please complete this update prior to performing procedure. - Update Patient reports changes in Medical Condition: No Changes in examination, assessment, or condition: No Changes in Medication: No Preop tests/diagnostics Reviewed: Yes Pre-Op MRSA Screen: Negative Surgery Remains Indicated: Yes Consent for Planned Operative Procedure(s) Verified: Yes - Pre-Operative Checklist Preoperative Checklist Indicated: Yes Prophylactic Antibiotic Ordered: Yes Home Medications Include Beta Lorna: No Beta Lorna Taken Today (Day of Surgery): No Beta Lorna Taken Yesterday (Day Prior to Surgery): No Is VTE Prophylaxis Indicated?: NO
[2018-10-22] MEDS ORDERED: Lidocaine -MPF 4% 5 ML AMPUL ONE (12:37)
[2018-10-22] MEDS ORDERED: *HR* FentaNYL (PF) 100 MCG/2 ML VIAL ONE (12:37)
[2018-10-22] MEDS ORDERED: *HR* Rocuronium Bromide 50 MG/5 ML VIAL ONE (12:37)
[2018-10-22] MEDS ORDERED: Lidocaine -MPF 2% 2 ML VIAL ONE (12:37)
[2018-10-22] MEDS ORDERED: *HR* Succinylcholine 200 MG/10 ML VIAL IVP ONE (12:37)
[2018-10-22] MEDS ORDERED: *HR* Propofol 200 MG/20 ML VIAL IVP ONE (12:38)
[2018-10-22] MEDS ORDERED: *HR* Midazolam HCl 2 MG/2 ML VIAL ONE (12:38)
[2018-10-22] MEDS ORDERED: Isovue-300 50 ML VIAL IVP ONE (12:43)
--- NOTE | 2018-10-22 12:51 | IR Procedure Note ---
Date of procedure: 10/22/18 Consent Obtained: Verbal consent, Written consent Timeout: Correct patient and procedure verified, Correct site verified, Time out performed, Skin prep completed Local anesthetic: Lidocaine 1% Indications: preop left PCNL Procedure Performed: left nephrostomy Was there an assistant plant controller present: No Site/Technique: left lower pole Results/Findings: catheter into bladder Estimated blood loss (cc): 0 Complications: None; Tolerated procedure well Post Procedure Treatment Plan: OR Specimen: NA
[2018-10-22] MEDS ORDERED: Ondansetron 4 MG/2 ML VIAL ONE ×3 (14:24→18:21)
[2018-10-22] MEDS ORDERED: *HR* PHENYLEPHRINE 1,000 MCG/10 ML SYRINGE IVP ONE (14:54)
[2018-10-22] MEDS ORDERED: Isovue-300 50 ML VIAL ONE (15:03)
[2018-10-22] MEDS ORDERED: Isovue-300 150 ML INFUS..BTL ONE ×2 (15:16→16:43)
[2018-10-22] MEDS ORDERED: Dexamethasone 4 MG/ML VIAL ONE ×2 (16:03→18:20)
[2018-10-22] MEDS ORDERED: *HR* Promethazine 25 MG/ML VIAL ONE ×2 (17:14→18:22)
[2018-10-22] MEDS: *HR* Promethazine 25 MG/ML VIAL IVP PRN ×2 (17:35→17:59)
[2018-10-22] MEDS: *HR* HYDROmorphone (PF) 1 MG/ML SYRINGE IVP PRN ×2 (17:40→17:58)
[2018-10-22] MEDS ORDERED: Scopolamine Patch 1.5 MG PATCH.TD72 ONE (18:21)
[2018-10-22] MEDS ORDERED: *HR* Atropine Sulfate 1 MG/ML VIAL ONE (18:21)
[2018-10-22 19:05] LABS: Basophils # 0.1 K/mcL (0.0-0.2); Basophils % 0.2 %; Hematocrit 26.3 % (35.3-44.9); Hemoglobin 8.1 g/dL (11.5-15.4); Immature Granulocytes % 0.5 % (0-4); Lymphocytes # 0.5 K/mcL (0.6-4.6); Lymphocytes % 2.4 %; Mean Corpuscular HGB Conc 30.8 g/dL (31.6-35.5); Mean Corpuscular Volume 97.4 fL (83.0-100.0); Mean Platelet Volume 9.1 fL (9.4-12.4); Monocytes # 0.3 K/mcL (0.0-1.3); Monocytes % 1.6 %; Neutrophils # 20.4 K/mcL (1.6-8.9); Platelet Count 221 K/mcL (140-400); Red Cell Distribution Width 14.6 % (11.5-14.5); Segmented Neutrophils % 95.3 %
[2018-10-22 19:23] LABS: Alanine Aminotransferase 12 Units/L (7-52); Albumin 2.9 g/dL (3.5-5.7); Alkaline Phosphatase 74 Units/L (34-104); Aspartate Amino Transferase 18 Units/L (13-39); BUN/Creatinine Ratio 24 (6-26); Bilirubin,Total 0.1 mg/dL (0.3-1.0); Blood Urea Nitrogen 25 mg/dL (6-20); Calcium 8.2 mg/dL (8.6-10.3); Carbon Dioxide 20 mEq/L (23-29); Chloride 109 mEq/L (98-107); Glucose 165 mg/dL (70-105); Osmolality,Calculated 290 (280-300); Potassium 4.4 mEq/L (3.5-5.1); Sodium 136 mEq/L (136-145); Total Protein 5.9 g/dL (6.4-8.9); eGFR For Non-African Americans 56 (> 60)
--- NOTE | 2018-10-22 19:23 | Operative Note ---
Date of procedure: 10/22/18 Pre-op diagnosis: 1.8 cm left renal stone Post-op diagnosis: same Procedure: left PCNL (1.8 cm) left dilation of nephrostomy tract nephrostogram nephrostomy tube placement Anesthesia: GETA Surgeon: Bob Madden Was there an speech language pathologist assistant present: No Estimated blood loss (cc): 200 Specimen: stone Condition: stable Disposition: PACU Procedure in Detail: Patient was brought to OR and anesthesia was applied while the patient was on the hospital stretcher. She was then moved into the prone postion. ECPDS and nagy cath were in place. Proper patient cushioning was provided. Reentry nephrostomy placed by IR was identified. She was prepped and draped with the nephrostomy tube left in place. Time out was performed to confirm the proper patient and procedure. A 0.035 zip wire was placed through the reentry nephrostomy under fluoroscopy. The nephrostomy was removed leaving the wire in place. It appeared the nephrostomy was placed into a lower pole calyx. A double lumen ureteral access sheath was placed over the wire into the renal pelvis. A nephrostogram was performed to confirm postion and a second wire was positioned down the ureter. The double lumen sheath was removed and the nephromax balloon (30 salvadorean) was placed over one of the wires and the radiodense markers positioned just inside the calyx. The balloon was inflated to 12-14 atmospheres of pressure and the waist was appropriately expanded. The blue reentry sheath was then passed over the balloon into the renal pelvis under flouroscopy. The balloon was removed and the nephroscope was inserted. The stone was visualized and the [place] Lithoclast with ultrasonic/pneumatic handpiece was assembled. The stone was fragmented and many of the larger pieces were manually removed with the 2 prong grasper. The ultrasonic energy with suction was used to removed many of the smaller fragments. I then obtained the flexible cystoscope was able to retrieve one of the fragments that was in the proximal ureter. The remaining portion of the proximal ureter appeared clear. I was able to flex the scope into the lower pole calyx and remove the stone burden in this position. Using fluoroscopy I could see that one remaining fragment was located in one of the upper pole calyces. Using the fluoroscopy as a guide I was able to flex the scope into this calyx and basket the stone with a 2.4 to post basket. Based on fluoroscopy all significant stone had been removed. I initially placed a [place] reentry. Placement of the nephrostomy tube was difficult that she had no significant renal pelvis. It appeared that the 1.8 cm stone was located in the proximal ureter which was dilated. On placement of the [place] reentry I noticed brisk bleeding through the nephrostomy tract. I eventually remove the [place] reentry after reinserting a zip wire, confirmed proper placement of the wires using Isovue and fluoroscopy. Performed a nephrostogram through the dual lumen catheter. I then placed a 12 [place] catheter and inflated the balloon in the renal pelvis with 2 mL of contrast. This seemed to tamponade any bleeding and I saw no further bleeding through the catheter or from the nephrostomy skin site. Patient remained stable throughout the case. Postoperative hemoglobin 8.1. Postoperative chest x-ray without pneumothorax.
[2018-10-22] MEDS ORDERED: Dextrose 4 GM Chewable Tablets PO PRN ×2 (20:22)
[2018-10-22] MEDS ORDERED: *HR* FentaNYL (PF) 100 MCG/2 ML VIAL IVP PRN (20:22)
[2018-10-22] MEDS ORDERED: Dextrose Gel 15 GM/37.5 ML TUBE PO PRN ×2 (20:22)
[2018-10-22] MEDS ORDERED: Acetaminophen IV 1,000 MG/100 ML INFUS..BTL IVPB SCH (20:22)
[2018-10-22] MEDS ORDERED: Naloxone 0.4 MG/ML INJ IVP PRN (20:22)
[2018-10-22] MEDS ORDERED: *HR* Dextrose 50 % in Water (Syg) 50 ML SYRINGE IVP PRN (20:22)
[2018-10-22] MEDS ORDERED: D5% in Water 1,000 ML IVC PRN (20:22)
--- NOTE | 2018-10-22 20:51 | Anesthesia Evaluation Post Op ---
Date of Encounter: 10/22/18 Time of Encounter: 19:30 - Vital Signs Vital Signs: Vital Signs/O2 Sat/Glucose, Most Current Temp Pulse Resp BP Pulse Ox 10/22/18 19:47 99.8 F H 112 18 129/99 100 10/22/18 19:37 99.6 F 110 20 118/84 100 10/22/18 19:27 106 20 125/85 100 10/22/18 19:17 108 20 126/91 98 10/22/18 19:07 98.4 F 108 14 122/87 99 10/22/18 18:57 109 12 123/81 98 10/22/18 18:47 108 15 119/89 98 10/22/18 18:37 99.9 F H 110 20 122/73 97 10/22/18 18:27 101 12 111/77 100 10/22/18 18:17 98 16 110/76 100 10/22/18 18:07 99.4 F 100 20 119/80 100 10/22/18 17:57 100 22 109/75 100 10/22/18 17:47 99 16 120/74 100 10/22/18 17:37 98.3 F 99 16 131/75 100 10/22/18 17:27 103 10 100/74 100 10/22/18 17:17 100 16 118/74 100 10/22/18 17:07 97.8 F 95 16 100/86 100 - Lungs Lungs: Clear Ascult./Percussion - Airway Airway: Non-obstructed - Cardiovascular Baseline Rhythm - Mental Status Mental Status: Alert & Oriented, Answers Appropriately - Pain Pain Scale: 1 Pain Scale used: [place]Garrett (Faces) - Nausea Vomiting Nausea Vomiting: Responds to treatment with IV Meds - Hydration Hydration: Ice chips, Maloney catheter - Discharge PostOp Status: Transfer Patient to floor Anes Supervising Prov Stmt: Pt seen/evaluated, VSS And has met criteria for discharge to floor. - MD Deepak
--- NOTE | 2018-10-22 21:05 | Internal Medicine Consult Note ---
<ByronDavid W - Last Filed: 10/22/18 22:35> Date of Encounter: 10/22/18 Time of Encounter: 20:58 - Assessment and plan (1) History of nephrostomy Current Visit: Yes Status: Acute Assessment and plan: Left-sided nephrostomy tube placed today 10/22/18 Management per urology (2) Asthma Current Visit: No Status: Chronic Assessment and plan: Long-standing history of asthma Treated with albuterol inhaler at home Requiring constant 2 L of oxygen Patient was steroid requiring for 3 years Plan: Continue monitoring oxygen saturation Patient had minimal wheeze left greater than right at this time. I believe steroids are not needed at this time patient prefers not to take them unless necessary Continue to monitor clinically When necessary albuterol inhaler treatments Qualifiers: Asthma severity: unspecified severity Asthma persistence: unspecified Asthma complication type: uncomplicated Qualified Code(s): J45.909 - Unspecified asthma, uncomplicated (3) Chronic pain Current Visit: No Status: Chronic Assessment and plan: Chronic abdominal pain associated with multiple surgical interventions Continue adequate pain control Qualifiers: Chronic pain type: chronic pain syndrome Qualified Code(s): G89.4 - Chronic pain syndrome (4) Ileostomy in place Current Visit: No Status: Chronic Assessment and plan: Ileostomy placed for several years History of adequate absorption Monitor labs, electrolytes Encourage adequate intake Encourage IV hydration as tolerated to 2 concern for patient becoming easily dehydrated. (5) Anemia Current Visit: No Status: Acute Assessment and plan: Chronic anemia Hemoglobin 8.1 which appears to be at baseline or slightly below Plan Continue IV hydration Encourage by mouth intake Qualifiers: Anemia type: unspecified type Qualified Code(s): D64.9 - Anemia, unspecified (6) Physical deconditioning Current Visit: No Status: Chronic Assessment and plan: Patient is very thin has difficulty eating and gaining weight next time patient has both tube feedings and by mouth feedings Continue encouraging by mouth intake Monitor lab electrolytes Consider tube feedings patient is unable to get adequate intake Consider PT OT consult if patient will have extended stay or declines (7) Protein calorie malnutrition Current Visit: No Status: Chronic Assessment and plan: Plan as #5 above nutrition consult to consider tube feeds Qualifiers: Protein-calorie malnutrition severity: severe Qualified Code(s): E43 - Unspecified severe protein-calorie malnutrition (8) Sacral decubitus ulcer, stage IV Current Visit: No Status: Chronic Assessment and plan: Rotate in bed as tolerated wound care consult placed (9) Diabetes Current Visit: No Status: Chronic Assessment and plan: SSI monitor glucose Qualifiers: Diabetes mellitus type: other specified (including MINO) Diabetes mellitus long term care administrator insulin use: without alf use Diabetes mellitus complication status: with unspecified complications Qualified Code(s): E13.8 - Other specified diabetes mellitus with unspecified complications (10) DVT prophylaxis Current Visit: No Status: Acute Assessment and plan: EPCDs - Time Spent With Patient Total time spent is greater than 50% in coordination of care (as documented) at patient's floor/unit and/or counseling patient: Internal Medicine - CN: HPI - Data of Consult Requesting Physician: Bob Madden - Consult Narrative Reason for consult: assistance with chronic medical illnesses History of present illness: Ms. Rosado is a 53 year old female with significant past medical history including but not limited to asthma, diabetes mellitus, hypertension, ileostomy, severe protein calorie malnutrition, depression, anxiety, chronic pain, chronic anemia who had nephrostomy tube placed on left side today. Patient states she has significant past medical history believe she is mostly at her baseline. She believes she has having some discomfort from the surgery today but it is as expected. Patient did say she was nauseous which she believed was from the Scot um given preoperatively. She states her nausea has improved mostly with several doses of Phenergan. She states she takes Phenergan at home which is scheduled for chronic nausea. At home she does have tube feeds and so has by mouth intake. She was told the past that she has a high ileostomy and an issue with fast transit. This is most concerning as she is very thin and frail and has had a long history of protein and calorie malnutrition. Patient states she has had asthma for many years but was told it is now considered COPD. She is at her baseline shortness of breath. States she has no new cough, fever, chills. She does admit to wheezing but states this is at her baseline. The patient does have abdominal pain. Diffuse and mild states this is her baseline. Patient is of chronic pain takes morphine at home. Patient has history of anxiety and depression takes Lexapro and Xanax. Patient takes loperamide to cook helper dessert with fast transit. Past Med Surg Social Fam HX - Past Medical History Medical history: asthma, diabetes, GERD, hyperlipidemia, hypertension, osteoporosis, seizures, other Additional medical history: leukocytosis, severe protein-caloric malnutrition, hyponatremia, sepsis. back fracture, pressure ulcer Psychiatric history: anxiety, depression - Past Surgical History Surgical History: cholecystectomy, colectomy, colostomy, hysterectomy, other Additional surgical history: feeding tube. tia fundoplasty. rectal stump - Social History Smoking Status: Never smoker Smokeless Tobacco Status: No Alcohol use: none Drug use: none - Family History Mother Family Member Ethnicity: Non- Living Status: Still Living Hx Family Cardiac Disorders: Yes (HTN) Hx Family Respiratory Disorders: No Hx Family GI Disorders: Yes (Colostomy) Hx Family Endocrine Disorder: Yes (DM) Brother Family Member Ethnicity: Non- Living Status: Still Living Father Adopted: No Family Member Ethnicity: Non- Living Status: Still Living Hx Family Cardiac Disorders: Yes (CAD, Quad bypass) Hx Family Respiratory Disorders: No - Constitutional Constitutional: as per HPI - EENT Eyes: no change in vision - Cardiovascular Cardiovascular ROS IM: no chest pain, no diaphoresis, no palpitations - Respiratory Respiratory: as per HPI - Gastrointestinal Gastrointestinal: abdominal pain - Genitourinary Genitourinary: as per HPI - Musculoskeletal Musculoskeletal ROS IM: muscle weakness, no muscle cramps, no numbness, no stiffness, no tingling - Integumentary Integumentary IM: no new lesions, no rash - Neurological Neurological ROS: headache(s), no abnormal movements, no abnormal speech, no focal weakness, no tingling - Psychiatric Psychiatric: as per HPI - Endocrine Endocrine IM: no cold intolerance, no excessive sweating - Allergic/Immunologic Allergic/Immunologic: no itchy eyes, no uticaria Internal Medicine - CN: Meds ALPRAZolam [Xanax 1 MG Tablet] 1 mg PO BID 05/05/18 [History] Escitalopram [Lexapro] 10 mg PO DAILY 05/05/18 [History] Gabapentin [Neurontin] 600 mg PO TID 05/05/18 [History] Loperamide HCl [Anti-Diarrheal] 2 mg PO QID 05/05/18 [History] Promethazine HCl 25 mg PO Q12HR PRN 05/05/18 [History] Albuterol Sulfate [Ventolin Hfa] 2 puff IN Q6H PRN 09/26/18 [History] Melatonin 20 mg PO HS 10/22/18 [History] Morphine Sulfate [Morphine Oral Solution] 20 mg PO Q6H 10/22/18 [History] Allergy/AdvReac Type Severity Reaction Status Date / Time shellfish derived Allergy See Verified 10/22/18 10:12 Comments Hospitalist - CN: Exam - Constitutional Vitals: Temp Pulse Resp BP Pulse Ox 99.0 F 107 16 128/81 100 10/22/18 20:46 10/22/18 20:46 10/22/18 20:46 10/22/18 20:46 10/22/18 20:46 General appearance IM: Present: A&O X 3, pleasant, no acute distress, underweight, answers questions appropriately Exam: Patient is lying in bed on her right side. Patient is pleasant and conversational - Head Head exam: Present: atraumatic, normal inspection, normocephalic - Eye Eye exam: Present: EOMI, PERRL, sclera anicteric - ENT ENT exam: Present: mucous membranes moist, normal exam - Respiratory Respiratory exam: Present: CTAB, wheezes (Left worse than right). Absent: respiratory distress, rhonchi, stridor, tachypnea - Cardiovascular Cardiovascular exam IM: Present: +S1, +S2, tachycardia. Absent: diastolic murmur, distant heart sounds, gallop, rubs, systolic murmur - GI/Abdominal GI/Abdominal exam IM: Present: soft, tenderness (Diffuse). Absent: distended, firm, guarding Additional comments: Ileostomy bag present no erythema around the ileostomy site - Extremities Exam Extremities exam IM: Present: normal inspection, warm. Absent: calf tenderness, pedal edema, tenderness - Back Exam Additional comments: Bandage over nephrostomy site - Neurological Exam Neurological exam: Present: alert. Absent: motor sensory deficit, no focal deficits, facial droop, speech deficit - Psychiatric Psychiatric exam: Present: normal affect, normal mood - Skin Skin exam IM: Present: dry, normal color, warm. Absent: rash Internal Medicine - CN: Reslt - Labs CBC & Chem 7: 10/22/18 18:51 10/22/18 18:51 Labs: Short CBC 10/22/18 Range/Units 18:51 WBC 21.4 H (4.3-11.1) K/mcL Hgb 8.1 L (11.5-15.4) g/dL Hct 26.3 L (35.3-44.9) % Plt Count 221 (140-400) K/mcL Neutrophils # 20.4 H (1.6-8.9) K/mcL BMP 10/22/18 18:51 Sodium 136 Potassium 4.4 Chloride 109 H Carbon Dioxide 20 L BUN 25 H Creatinine 1.03 Glucose 165 H Calcium 8.2 L Liver Function 10/22/18 Range/Units 18:51 Total Bilirubin 0.1 L (0.3-1.0) mg/dL AST 18 (13-39) Units/L ALT 12 (7-52) Units/L Alkaline Phosphatase 74 (34-104) Units/L Albumin 2.9 L (3.5-5.7) g/dL - ABG Interpretation ABG results: PT/INR, D-dimer PT 11.3 Seconds (9.4-12.1) 10/22/18 08:56 - Impressions Impressions Guidance Ultrasound 10/22/18 00:00 IMPRESSION: Successful percutaneous nephrostomy access as described above. D/ / Drew Guevara / Drew Guevara Interpreting Provider: Drew Guevara Nephrostomy 10/22/18 00:00 IMPRESSION: Successful percutaneous nephrostomy access as described above. D/ / Drew Guevara / Drew Guevara Interpreting Provider: Drew Guevara Consult Discharge Plan - Plan Referrals: Jaiden Beach DO [Primary Care Provider] - Bob Madden MD [Partnered Physician] - <Alexys Noe - Last Filed: 10/22/18 23:49> Date of Encounter: 10/22/18 - Time Spent With Patient Total time spent is greater than 50% in coordination of care (as documented) at patient's floor/unit and/or counseling patient: Internal Medicine - CN: HPI - Data of Consult Requesting Physician: Bob Madden - Consult Narrative History of present illness: Ms. Rosado is a 53 year old female Hospitalist - CN: Exam - Constitutional Vitals: Temp Pulse Resp BP Pulse Ox 98.4 F 104 16 128/81 100 10/22/18 22:04 10/22/18 22:04 10/22/18 22:04 10/22/18 20:46 10/22/18 22:04 Internal Medicine - CN: Reslt - Labs CBC & Chem 7: 10/22/18 18:51 10/22/18 18:51 Labs: Short CBC 10/22/18 Range/Units 18:51 WBC 21.4 H (4.3-11.1) K/mcL Hgb 8.1 L (11.5-15.4) g/dL Hct 26.3 L (35.3-44.9) % Plt Count 221 (140-400) K/mcL Neutrophils # 20.4 H (1.6-8.9) K/mcL BMP 10/22/18 18:51 Sodium 136 Potassium 4.4 Chloride 109 H Carbon Dioxide 20 L BUN 25 H Creatinine 1.03 Glucose 165 H Calcium 8.2 L Liver Function 10/22/18 Range/Units 18:51 Total Bilirubin 0.1 L (0.3-1.0) mg/dL AST 18 (13-39) Units/L ALT 12 (7-52) Units/L Alkaline Phosphatase 74 (34-104) Units/L Albumin 2.9 L (3.5-5.7) g/dL - ABG Interpretation ABG results: PT/INR, D-dimer PT 11.3 Seconds (9.4-12.1) 10/22/18 08:56 - Impressions Impressions Guidance Ultrasound 10/22/18 00:00 IMPRESSION: Successful percutaneous nephrostomy access as described above. D/ / Drew Guevara / Drew Guevara Interpreting Provider: Drew Guevara Nephrostomy 10/22/18 00:00 IMPRESSION: Successful percutaneous nephrostomy access as described above. D/ / Drew Guevara / Drew Guevara Interpreting Provider: Drew Guevara Chest X-Ray 10/22/18 17:14 IMPRESSION: No acute findings. D/ / Luther Knight MD / Luther Knight MD Interpreting Provider: Luther Knight MD - Attending Attestation I saw and evaluated the patient. I reviewed the residents note, performed my own physical examination and agree with findings and plan as documented in the residents note. Patient seen and examined on 10/22/18. Consult placed to help manage chronic medical problems. Currently patient's main complaint is nausea. She is on Phenergan 25 mg every 8 hours. Patient indicated that Compazine has helped her in the past. Discussed with pharmacy, and ordered 5 mg by mouth every 8 hours as needed. We will continue to monitor patient's respiratory function. Consult wound care for her sacral decubitus ulcer and nutrition for her feeding tube. We will continue to monitor and follow along while patient remains in the hospital.
[2018-10-22] MEDS: Acetaminophen IV 1,000 MG/100 ML INFUS..BTL IVPB SCH (22:08)
[2018-10-22] MEDS: Insulin LISPRO 300 UNITS/3 ML VIAL SQ SCH (22:23)
[2018-10-22] MEDS: ALPRAZolam 1 MG TABLET PO SCH (22:32)
[2018-10-22] MEDS: Gabapentin 300 MG CAPSULE PO SCH (22:32)
[2018-10-23] MEDS: *HR* Morphine Soln 10 MG/5 ML UDC PO SCH ×3 (00:27→09:02)
[2018-10-23] MEDS: 0.9 % Sodium Chloride 1,000 ML IVC SCH ×2 (00:53→22:34)
[2018-10-23] MEDS: Melatonin 3 MG TABLET PO SCH ×2 (00:54→21:42)
[2018-10-23] MEDS: Ondansetron 4 MG/2 ML VIAL IVP PRN ×2 (00:54→15:55)
[2018-10-23] MEDS: Acetaminophen IV 1,000 MG/100 ML INFUS..BTL IVPB SCH ×4 (03:47→21:43)
[2018-10-23 05:38] LABS: Basophils % 0.1 %; Hematocrit 24.7 % (35.3-44.9); Hemoglobin 7.5 g/dL (11.5-15.4); Immature Granulocytes % 0.4 % (0-4); Lymphocytes # 1.2 K/mcL (0.6-4.6); Lymphocytes % 6.8 %; Mean Corpuscular HGB Conc 30.4 g/dL (31.6-35.5); Mean Corpuscular Hemoglobin 29.8 pg (28.0-33.3); Mean Platelet Volume 9.4 fL (9.4-12.4); Monocytes % 5.8 %; Neutrophils # 14.6 K/mcL (1.6-8.9); Platelet Count 239 K/mcL (140-400); Red Blood Count 2.52 M/mcL (3.82-4.97); Red Cell Distribution Width 14.6 % (11.5-14.5); Segmented Neutrophils % 86.9 %
[2018-10-23 06:07] LABS: Calcium 8.3 mg/dL (8.6-10.3); Potassium 4.9 mEq/L (3.5-5.1)
[2018-10-23] MEDS: Insulin LISPRO 300 UNITS/3 ML VIAL SQ SCH ×3 (07:59→17:15)
--- NOTE | 2018-10-23 07:59 | Urology Progress Note ---
Date of Encounter: 10/23/18 Time of Encounter: 07:55 - Assessment and Plan (1) Staghorn calculus Current Visit: Yes Status: Acute Assessment and plan: s/p PCNL. more than expected blood loss for the PCNL. Hgb dropped from 9 to 7.5. does not appear to have symptomatic anemia. will see how she does with the nephrostomy out. will alos have hsopitalists see her. not sure she needs a transfusion - but she does state she is fatigued. consider DC this afternoon vs wating until tomorrow Progress Note Subjective: still having pain, nausea Narrative: pt "wants the tube out" having pain and nausea. no SOB or chest pain. Objective Initial Vital Signs Temp Pulse Resp BP Pulse Ox 98.6 F 90 18 121/79 100 10/22/18 09:04 10/22/18 09:04 10/22/18 09:04 10/22/18 09:04 10/22/18 09:04 - Additional Exam urine (nagy) light hematuria. nephrostomy with scant urine. significant leakage around the tube. - Labs 10/23/18 04:54 10/23/18 04:54 Diabetes panel 10/22/18 10/23/18 Range/Units 18:51 04:54 Sodium 136 136 (136-145) mEq/L Potassium 4.4 4.9 (3.5-5.1) mEq/L Chloride 109 H 106 (98-107) mEq/L Carbon Dioxide 20 L 22 L (23-29) mEq/L BUN 25 H 24 H (6-20) mg/dL Creatinine 1.03 1.16 (0.60-1.20) mg/dL Glucose 165 H 117 H (70-105) mg/dL Calcium 8.2 L 8.3 L (8.6-10.3) mg/dL AST 18 (13-39) Units/L ALT 12 (7-52) Units/L Alkaline Phosphatase 74 (34-104) Units/L Albumin 2.9 L (3.5-5.7) g/dL Calcium panel 10/22/18 10/23/18 Range/Units 18:51 04:54 Calcium 8.2 L 8.3 L (8.6-10.3) mg/dL Albumin 2.9 L (3.5-5.7) g/dL Pituitary panel 10/22/18 10/23/18 Range/Units 18:51 04:54 Sodium 136 136 (136-145) mEq/L Potassium 4.4 4.9 (3.5-5.1) mEq/L Chloride 109 H 106 (98-107) mEq/L Carbon Dioxide 20 L 22 L (23-29) mEq/L BUN 25 H 24 H (6-20) mg/dL Creatinine 1.03 1.16 (0.60-1.20) mg/dL Glucose 165 H 117 H (70-105) mg/dL Calcium 8.2 L 8.3 L (8.6-10.3) mg/dL Adrenal panel 10/22/18 10/23/18 Range/Units 18:51 04:54 Sodium 136 136 (136-145) mEq/L Potassium 4.4 4.9 (3.5-5.1) mEq/L Chloride 109 H 106 (98-107) mEq/L Carbon Dioxide 20 L 22 L (23-29) mEq/L BUN 25 H 24 H (6-20) mg/dL Creatinine 1.03 1.16 (0.60-1.20) mg/dL Glucose 165 H 117 H (70-105) mg/dL Calcium 8.2 L 8.3 L (8.6-10.3) mg/dL Total Bilirubin 0.1 L (0.3-1.0) mg/dL AST 18 (13-39) Units/L ALT 12 (7-52) Units/L Alkaline Phosphatase 74 (34-104) Units/L Albumin 2.9 L (3.5-5.7) g/dL Consult Discharge Plan - Plan Referrals: Jaiden Beach DO [Primary Care Provider] - Bob Madden MD [Partnered Physician] -
--- NOTE | 2018-10-23 08:50 | Internal Med Progress Note ---
<Toshia Mercado - Last Filed: 10/23/18 12:32> Hospitalist Progress Note - Encounter Date of Encounter: 10/23/18 - Exam Vitals: Temp Pulse Resp BP Pulse Ox 98.3 F 84 18 88/56 98 10/23/18 12:14 10/23/18 12:14 10/23/18 12:14 10/23/18 12:31 10/23/18 12:14 - Time Spent with Patient Total time spent is greater than 50% in coordination of care (as documented) at patient's floor/unit and/or counseling patient: Internal Medicine: Result - Labs CBC & Chem 7: 10/23/18 04:54 10/23/18 04:54 Labs: Short CBC 10/22/18 10/23/18 Range/Units 18:51 04:54 WBC 21.4 H 16.9 H (4.3-11.1) K/mcL Hgb 8.1 L 7.5 L (11.5-15.4) g/dL Hct 26.3 L 24.7 L (35.3-44.9) % Plt Count 221 239 (140-400) K/mcL Neutrophils # 20.4 H 14.6 H (1.6-8.9) K/mcL BMP 10/22/18 10/23/18 18:51 04:54 Sodium 136 136 Potassium 4.4 4.9 Chloride 109 H 106 Carbon Dioxide 20 L 22 L BUN 25 H 24 H Creatinine 1.03 1.16 Glucose 165 H 117 H Calcium 8.2 L 8.3 L Liver Function 10/22/18 Range/Units 18:51 Total Bilirubin 0.1 L (0.3-1.0) mg/dL AST 18 (13-39) Units/L ALT 12 (7-52) Units/L Alkaline Phosphatase 74 (34-104) Units/L Albumin 2.9 L (3.5-5.7) g/dL - ABG Interpretation ABG results: PT/INR, D-dimer PT 11.3 Seconds (9.4-12.1) 10/22/18 08:56 - Impressions Impressions Guidance Ultrasound 10/22/18 00:00 IMPRESSION: Successful percutaneous nephrostomy access as described above. D/ / Drew Guevara / Drew Guevara Interpreting Provider: Drew Guevara Nephrostomy 10/22/18 00:00 IMPRESSION: Successful percutaneous nephrostomy access as described above. D/ / Drew Guevara / Drew Guevara Interpreting Provider: Drew Guevara Percutaneous Antegrade Pyelogram 10/22/18 00:00 IMPRESSION: Intraprocedural fluoroscopic spot images as above. See separate procedure report for more information. D/ / Shane Dominguez MD / Shane Dominguez MD Interpreting Provider: Shane Dominguez MD Chest X-Ray 10/22/18 17:14 IMPRESSION: No acute findings. D/ / Luther Knight MD / Luther Knight MD Interpreting Provider: Luther Knight MD Consult Discharge Plan - Plan Referrals: Jaiden Beach DO [Primary Care Provider] - Bob Madden MD [Partnered Physician] - - Attending Attestation I examined this patient and my medical decision-making was reviewed with the Resident Physician Dr Clinton. I agree with the documented findings, disposition and treatment plan as described except to the extent set forth below. Ms Rosado is admitted for nephrostomy tube placement by Urology. She is being seen in consultation for management of medical comorbidities She is awake, pleasant, feeling very fatigued. She can tell her blood count is low. Chronic pain worsened on side of tube placement. no fevers, chills, n/v and stool output is at baseline. No cp, sob or confusion. Maloney cath with blood colored urine gen- alert, awake,appears stated age eyes- pupils equal round, + conjunctival pallor cv- reg rate and rhythm, normal s1,s2, no murmurs appreciated, no le edema lungs- ctabl, no wheezing, rhonchi or crackles, normal resp effort abd- soft, non tender, non distended, + bs skin- + pallor neuro- AAOx3 Staghorn calculus s/p Left PCNL and nephrostomy tube placement- management as per Urology, abx and ivfs as per urology Acute on Chronic blood loss post operative anemia- hematuria present, 1 unit prbc today would be appropriate given hgb loss and report of sxs Chronic sacral decub ulcer- wound consult for continued care while admitted Chronic pain- she is being transitioned to a new home hospice agency as an outpt and is currently under C. Palliative team adjusted pain meds last admission and if she has uncontrolled pain would recommend discussing with them pain med adjustments, currently outpt pcp managing pain meds while pt awaits transition to new hospice agency further diagnoses and plan as noted by resident <Jaswinder Clinton - Last Filed: 10/23/18 21:04> Hospitalist Progress Note - Encounter Date of Encounter: 10/23/18 Time of Encounter: 09:45 - Subjective Interval History: Ms. Rosado is a 53F with an extensive past medical history. She was admitted yesterday by Dr. Madden following a left sided nephrostomy tube placement with staghorn calculi removal. Pt seen and examined at bedside by this provider this morning. States she is having pain related to the left sided nephrostomy and feels generally tired in the post-op period. Denies any fever, chills, chest pain, increased shortness of breath, headaches, numbness, tingling, or change in her ileostomy output from baseline. - Exam Vitals: Temp Pulse Resp BP Pulse Ox 99.1 F 88 17 109/69 100 10/23/18 07:14 10/23/18 07:14 10/23/18 07:14 10/23/18 07:14 10/23/18 07:14 Exam: General: Cachetic female in mild distress related to pain Head: normocephalic and atraumatic Eyes: PERRL, EOMI, sclera anicteric, conjunctiva pink Neck: supple, trachea midline Lungs: grossly diminished breath sounds. no wheezes, rales or rhonchi appr eciated Heart: RRR +s1 +S2 No murmurs, clicks, or rubs GI: abdomen soft, non-tender, non-distended. Normoactive bowel sounds Extremities: warm, peripheral pulses palpable and symmetrical. no edema or cyanosis Neuro: A&Ox3. no focal deficits. no speech difficulty or abnormality Skin: cool, dry, tenting, intact - Assessment and Plan (1) Anemia Current Visit: Yes Status: Acute Assessment and Plan: Known hx of anemia However Hgb has dropped from 8.1 to 7.5 overnight Pt also admits to more fatigue and weakness than her baseline Noted hematuria in catheter Plan to transfuse 1 unit pRBCs Continue to monitor closely (2) Staghorn calculus Current Visit: Yes Status: Acute Assessment and Plan: s/p Left PCNL and nephrostomy tube placement Dr. Madden mentioned more blood loss than expected originally Management per urology (3) Sacral decubitus ulcer, stage IV Current Visit: Yes Status: Chronic Assessment and Plan: Chronic stage 4 sacral decubitus ulcer Pt reports no change noted prior to admission Will obtain wound care consult while admitted (4) Chronic pain Current Visit: Yes Status: Chronic Assessment and Plan: While admitted last month, palliative team adjusted pain med regimen Continue current home regimen No need to consult palliative at this time, but will call them if pain becomes uncontrolled. Of note, patient is currently transitioning to a new home hospice service Also discussed code status with patient as she has previously been a DNR, at this time she has elected to be DRN-CCA-DNI DVT Prophylaxis: EPCDs Holding chemical prophylaxis given acute anemia - Time Spent with Patient Total time spent is greater than 50% in coordination of care (as documented) at patient's floor/unit and/or counseling patient: Internal Medicine: Result - Labs CBC & Chem 7: 10/23/18 14:45 10/23/18 04:54 Labs: Short CBC 10/22/18 10/23/18 Range/Units 18:51 04:54 WBC 21.4 H 16.9 H (4.3-11.1) K/mcL Hgb 8.1 L 7.5 L (11.5-15.4) g/dL Hct 26.3 L 24.7 L (35.3-44.9) % Plt Count 221 239 (140-400) K/mcL Neutrophils # 20.4 H 14.6 H (1.6-8.9) K/mcL BMP 10/22/18 10/23/18 18:51 04:54 Sodium 136 136 Potassium 4.4 4.9 Chloride 109 H 106 Carbon Dioxide 20 L 22 L BUN 25 H 24 H Creatinine 1.03 1.16 Glucose 165 H 117 H Calcium 8.2 L 8.3 L Liver Function 10/22/18 Range/Units 18:51 Total Bilirubin 0.1 L (0.3-1.0) mg/dL AST 18 (13-39) Units/L ALT 12 (7-52) Units/L Alkaline Phosphatase 74 (34-104) Units/L Albumin 2.9 L (3.5-5.7) g/dL - ABG Interpretation ABG results: PT/INR, D-dimer PT 11.3 Seconds (9.4-12.1) 10/22/18 08:56 - Impressions Impressions Guidance Ultrasound 10/22/18 00:00 IMPRESSION: Successful percutaneous nephrostomy access as described above. D/ / Drew Guevara / Drew Guevara Interpreting Provider: Drew Guevara Nephrostomy 10/22/18 00:00 IMPRESSION: Successful percutaneous nephrostomy access as described above. D/ / Drew Guevara / Drew Guevara Interpreting Provider: Drew Guevara Chest X-Ray 10/22/18 17:14 IMPRESSION: No acute findings. D/ / Luther Knight MD / Luther Knight MD Interpreting Provider: Luther Knight MD <Jaswinder Clinton - Last Filed: 10/23/18 21:04> (1) Anemia Qualifiers: Anemia type: other cause (4) Chronic pain Qualifiers: Chronic pain type: other chronic pain Qualified Code(s): G89.29 - Other chronic pain
[2018-10-23] MEDS: cefTRIAXone 1,000 MG in Water for inj. (sterile) 20 ML 10 ML IVP SCH (09:01)
[2018-10-23] MEDS: Gabapentin 300 MG CAPSULE PO SCH ×3 (09:03→21:42)
[2018-10-23] MEDS: ALPRAZolam 1 MG TABLET PO SCH ×2 (09:03→21:43)
[2018-10-23] MEDS: *HR* Promethazine 25 MG/ML VIAL IVP PRN ×2 (09:19→18:21)
[2018-10-23] MEDS ORDERED: 0.9 % Sodium Chloride 250 ML ONE ×2 (12:38→18:08)
--- NOTE | 2018-10-23 13:14 | Urology Progress Note ---
Date of Encounter: 10/23/18 Time of Encounter: 13:12 - Assessment and Plan (1) Staghorn calculus Current Visit: Yes Status: Acute Assessment and plan: 1 unit of PRBCs today. hold DC until tomorrow. recheck H&H in AM Progress Note Subjective: feels better Narrative: feels better. less pain and nausea since tube removed. Objective Initial Vital Signs Temp Pulse Resp BP Pulse Ox 98.6 F 90 18 121/79 100 10/22/18 09:04 10/22/18 09:04 10/22/18 09:04 10/22/18 09:04 10/22/18 09:04 - General physical appearance Present: no distress - Additional Exam expected drainage from flank incision. urine in nagy transparent hemturia. - Labs 10/23/18 04:54 10/23/18 04:54 Diabetes panel 10/22/18 10/23/18 Range/Units 18:51 04:54 Sodium 136 136 (136-145) mEq/L Potassium 4.4 4.9 (3.5-5.1) mEq/L Chloride 109 H 106 (98-107) mEq/L Carbon Dioxide 20 L 22 L (23-29) mEq/L BUN 25 H 24 H (6-20) mg/dL Creatinine 1.03 1.16 (0.60-1.20) mg/dL Glucose 165 H 117 H (70-105) mg/dL Calcium 8.2 L 8.3 L (8.6-10.3) mg/dL AST 18 (13-39) Units/L ALT 12 (7-52) Units/L Alkaline Phosphatase 74 (34-104) Units/L Albumin 2.9 L (3.5-5.7) g/dL Calcium panel 10/22/18 10/23/18 Range/Units 18:51 04:54 Calcium 8.2 L 8.3 L (8.6-10.3) mg/dL Albumin 2.9 L (3.5-5.7) g/dL Pituitary panel 10/22/18 10/23/18 Range/Units 18:51 04:54 Sodium 136 136 (136-145) mEq/L Potassium 4.4 4.9 (3.5-5.1) mEq/L Chloride 109 H 106 (98-107) mEq/L Carbon Dioxide 20 L 22 L (23-29) mEq/L BUN 25 H 24 H (6-20) mg/dL Creatinine 1.03 1.16 (0.60-1.20) mg/dL Glucose 165 H 117 H (70-105) mg/dL Calcium 8.2 L 8.3 L (8.6-10.3) mg/dL Adrenal panel 10/22/18 10/23/18 Range/Units 18:51 04:54 Sodium 136 136 (136-145) mEq/L Potassium 4.4 4.9 (3.5-5.1) mEq/L Chloride 109 H 106 (98-107) mEq/L Carbon Dioxide 20 L 22 L (23-29) mEq/L BUN 25 H 24 H (6-20) mg/dL Creatinine 1.03 1.16 (0.60-1.20) mg/dL Glucose 165 H 117 H (70-105) mg/dL Calcium 8.2 L 8.3 L (8.6-10.3) mg/dL Total Bilirubin 0.1 L (0.3-1.0) mg/dL AST 18 (13-39) Units/L ALT 12 (7-52) Units/L Alkaline Phosphatase 74 (34-104) Units/L Albumin 2.9 L (3.5-5.7) g/dL Consult Discharge Plan - Plan Referrals: Jaiden Beach DO [Primary Care Provider] - Bob Madden MD [Partnered Physician] -
--- NOTE | 2018-10-23 13:27 | Event Note ---
Date of Encounter: 10/23/18 Time of Encounter: 13:20 Notified by pt RN that Bp since late morning check has been upper 80s sbp. Pt has also lost IV access and she is unable to obtain new access. She has d/w Dr Madden and pt is awaiting powerglide placement. I have asked her nurse to update Dr Madden to low Bps which are lower than her low normotensive baseline. RN to not administer pain meds until sbp>110. She will contact line team to update them to urgency of need for powerglide placement for ivfs. Pt is also awaiting 1 unit prbc transfusion. Given change in bp stat hgb ordered. Pt is asymptomatic at this time. Cont close monitoring. Once IV access I have ordered a fluid bolus, resume maintenance ivfs after, prbc as ordered and no further pain meds until bp normalizes to her baseline
[2018-10-23] MEDS ORDERED: 0.9 % Sodium Chloride 500 ML IVC ONE (13:28)
[2018-10-23 15:21] LABS: Hematocrit 19.8 % (35.3-44.9); Hemoglobin 6.1 g/dL (11.5-15.4)
--- NOTE | 2018-10-23 16:56 | Event Note ---
Date of Encounter: 10/23/18 Time of Encounter: 16:55 Hbg of 6.1 noted. pt did have one episode of low blood pressure but has demonstrated similar issues in the past related to pain medication. She is not tachycardic. I do feel that the anemia is secondary to blood loss during surgery but I am not convinced she has had continued bleeding in the postoperative period based on her exam, dressings, pain level. We will transfuse 2 units and recheck hemoglobin in the morning. May consider CT scan in the morning if her labs do not respond to the hemoglobin appropriately
[2018-10-23] MEDS: *HR* Morphine Soln 10 MG/5 ML UDC PO PRN (17:14)
[2018-10-23] MEDS: Gentamicin Oint 15 GM TUBE TP SCH (19:24)
[2018-10-24] MEDS ORDERED: 0.9 % Sodium Chloride 500 ML IVC ONE ×2 (00:48→02:00)
[2018-10-24 01:39] LABS: Hematocrit 26.7 % (35.3-44.9)
[2018-10-24 01:40] LABS: Hemoglobin 8.6 g/dL (11.5-15.4)
[2018-10-24] MEDS: Ondansetron 4 MG/2 ML VIAL IVP PRN (03:19)
[2018-10-24] MEDS: Acetaminophen IV 1,000 MG/100 ML INFUS..BTL IVPB SCH ×4 (04:18→21:29)
[2018-10-24 04:55] LABS: Basophils % 0.3 %; Eosinophils # 0.4 K/mcL (0.0-0.6); Eosinophils % 3.3 %; Hematocrit 30.9 % (35.3-44.9); Hemoglobin 9.8 g/dL (11.5-15.4); Immature Granulocytes % 0.2 % (0-4); Lymphocytes # 1.2 K/mcL (0.6-4.6); Lymphocytes % 9.8 %; Mean Corpuscular HGB Conc 31.7 g/dL (31.6-35.5); Mean Platelet Volume 8.9 fL (9.4-12.4); Monocytes # 1.4 K/mcL (0.0-1.3); Neutrophils # 9.3 K/mcL (1.6-8.9); Platelet Count 159 K/mcL (140-400); Red Blood Count 3.38 M/mcL (3.82-4.97); Red Cell Distribution Width 15.7 % (11.5-14.5); Segmented Neutrophils % 75.4 %
[2018-10-24 05:05] LABS: Mean Corpuscular Volume 91.4 fL (83.0-100.0)
[2018-10-24 05:37] LABS: BUN/Creatinine Ratio 17 (6-26); Blood Urea Nitrogen 13 mg/dL (6-20); Calcium 7.2 mg/dL (8.6-10.3); Carbon Dioxide 23 mEq/L (23-29); Chloride 110 mEq/L (98-107); Glucose 102 mg/dL (70-105); Osmolality,Calculated 282 (280-300); Potassium 3.2 mEq/L (3.5-5.1); Sodium 136 mEq/L (136-145); eGFR For Non-African Americans > 60 (> 60)
[2018-10-24] MEDS: 0.9 % Sodium Chloride 1,000 ML IVC SCH ×3 (07:57→21:30)
--- NOTE | 2018-10-24 07:57 | Urology Progress Note ---
Date of Encounter: 10/24/18 Time of Encounter: 07:40 - Assessment and Plan (1) Staghorn calculus Current Visit: Yes Status: Acute Assessment and plan: Patient is a 53-year-old female who presents 2 days status post left PCNL (1.8 cm), left dilation of nephrostomy tract, nephrostogram, nephrostomy tube placement. Nephrostomy tube was removed successfully on postoperative day 1. Vital signs are currently stable and afebrile. Hemoglobin is improved to 9.8 after transfusion. Another transfusion is not anticipated at this time. White blood cell count is trending down to 12.4, and renal function is normal and reassuring. Discussed removing Maloney catheter, but the patient does not feel she has the energy to make multiple trips to the restroom. Patient may be discharged from a urologic standpoint pending pain control issues and patient's overall condition. Appreciate hospitalist support and participation in care. Progress Note Narrative: POD #2. Patient seen and examined lying in bed in no apparent distress. Maloney catheter is indwelling and draining clear urine into bedside bag. Patient reports continued pain control issues. Patient denies any chest pain, dyspnea, fever, chills. Objective Initial Vital Signs Temp Pulse Resp BP Pulse Ox 98.6 F 90 18 121/79 100 10/22/18 09:04 10/22/18 09:04 10/22/18 09:04 10/22/18 09:04 10/22/18 09:04 - General physical appearance Present: no distress, moderate pain, cachectic, chronically ill - Respiratory Present: normal expansion, normal respiratory effort - Abdomen Present: soft, wound (left flank wound dressing clean, dry, intact) - Genitourinary Urine Appearance: Present: Clear - Integumentary Present: no rash, no abnormal pigmentation - Musculoskeletal Present: normal posture - Psychiatric Present: oriented to time, oriented to person, oriented to place, speech is normal, memory intact - Labs 10/24/18 04:35 10/24/18 04:35 Diabetes panel 10/24/18 Range/Units 04:35 Sodium 136 (136-145) mEq/L Potassium 3.2 L D (3.5-5.1) mEq/L Chloride 110 H (98-107) mEq/L Carbon Dioxide 23 (23-29) mEq/L BUN 13 (6-20) mg/dL Creatinine 0.75 (0.60-1.20) mg/dL Glucose 102 (70-105) mg/dL Calcium 7.2 L (8.6-10.3) mg/dL Calcium panel 10/24/18 Range/Units 04:35 Calcium 7.2 L (8.6-10.3) mg/dL Pituitary panel 10/24/18 Range/Units 04:35 Sodium 136 (136-145) mEq/L Potassium 3.2 L D (3.5-5.1) mEq/L Chloride 110 H (98-107) mEq/L Carbon Dioxide 23 (23-29) mEq/L BUN 13 (6-20) mg/dL Creatinine 0.75 (0.60-1.20) mg/dL Glucose 102 (70-105) mg/dL Calcium 7.2 L (8.6-10.3) mg/dL Adrenal panel 10/24/18 Range/Units 04:35 Sodium 136 (136-145) mEq/L Potassium 3.2 L D (3.5-5.1) mEq/L Chloride 110 H (98-107) mEq/L Carbon Dioxide 23 (23-29) mEq/L BUN 13 (6-20) mg/dL Creatinine 0.75 (0.60-1.20) mg/dL Glucose 102 (70-105) mg/dL Calcium 7.2 L (8.6-10.3) mg/dL Consult Discharge Plan - Plan Referrals: Jaiden Beach DO [Primary Care Provider] - Bob Madden MD [Partnered Physician] -
--- NOTE | 2018-10-24 08:25 | Internal Med Progress Note ---
<Toshia Mercado - Last Filed: 10/24/18 15:34> Hospitalist Progress Note - Encounter Date of Encounter: 10/24/18 - Exam Vitals: Temp Pulse Resp BP Pulse Ox 99.5 F 81 18 121/74 97 10/24/18 08:30 10/24/18 09:09 10/24/18 08:30 10/24/18 09:09 10/24/18 08:30 - Assessment and Plan (1) Sacral decubitus ulcer, stage IV Current Visit: Yes Status: Chronic (2) Chronic pain Current Visit: Yes Status: Chronic (3) Staghorn calculus Current Visit: Yes Status: Acute (4) Anemia Current Visit: Yes Status: Acute - Time Spent with Patient Total time spent is greater than 50% in coordination of care (as documented) at patient's floor/unit and/or counseling patient: Internal Medicine: Result - Labs CBC & Chem 7: 10/24/18 04:35 10/24/18 10:11 Labs: Short CBC 10/23/18 10/24/18 10/24/18 Range/Units 14:45 01:24 04:35 WBC 12.4 H (4.3-11.1) K/mcL Hgb 6.1 L 8.6 L D 9.8 L (11.5-15.4) g/dL Hct 19.8 L 26.7 L 30.9 L (35.3-44.9) % Plt Count 159 (140-400) K/mcL Neutrophils # 9.3 H (1.6-8.9) K/mcL BMP 10/24/18 10/24/18 04:35 10:11 Sodium 136 136 Potassium 3.2 L D 3.6 Chloride 110 H 106 Carbon Dioxide 23 23 BUN 13 12 Creatinine 0.75 0.83 Glucose 102 162 H Calcium 7.2 L 7.6 L - ABG Interpretation ABG results: PT/INR, D-dimer PT 11.3 Seconds (9.4-12.1) 10/22/18 08:56 Consult Discharge Plan - Plan Referrals: Jaiden Beach DO [Primary Care Provider] - Bob Madden MD [Partnered Physician] - - Attending Attestation I examined this patient and my medical decision-making was reviewed with the Resident Physician Dr Clinton. I agree with the documented findings, disposition and treatment plan as described except to the extent set forth below. Ms Rosado is admitted for nephrostomy tube placement by Urology. She is being seen in consultation for management of medical comorbidities She is awake, cont left flank pain, no fevers, chills, sob, presyncope or palpitations. gen- alert, awake,appears stated age eyes- pupils equal round cv- reg rate and rhythm, normal s1,s2, no murmurs appreciated, no le edema lungs- ctabl, no wheezing, rhonchi or crackles, normal resp effort on ra abd- soft, non tender, non distended, + bs skin- + pallor neuro- AAOx3 Staghorn calculus s/p Left PCNL and nephrostomy tube placement- management as per Urology, abx and ivfs as per urology Acute on Chronic blood loss post operative anemia- stable post prbc tansfusion Chronic sacral decub ulcer- wound consult for continued care while admitted Chronic pain- she is being transitioned to a new home hospice agency as an outpt and is currently under [facility]. Palliative team adjusted pain meds last admission and if she has uncontrolled pain would recommend discussing with them pain med adjustments, currently outpt pcp managing pain meds while pt awaits transition to new hospice agency further diagnoses and plan as noted by resident chronic comorbidities are medically stable for discharge to home when ready from urologic standpoint. She should fu with established Home Health and PCP SW has requested [facility] referral to [facility] home services <Jaswinder Clinton - Last Filed: 10/24/18 16:29> Hospitalist Progress Note - Encounter Date of Encounter: 10/24/18 Time of Encounter: 10:15 - Subjective Interval History: Ms. Rosado is a 53F with an extensive past medical history. She was admitted by Dr. Madden following a left sided nephrostomy tube placement with staghorn calculi removal. Pt seen and examined at bedside by this provider this morning. States she feels better than yesterday but is complaining of increased pain in her legs. Denies any fever, chills, chest pain, increased shortness of breath, headaches, numbness, tingling, or change in her ileostomy output from baseline. - Exam Vitals: Temp Pulse Resp BP Pulse Ox 98.6 F 79 15 104/67 99 10/24/18 04:00 10/24/18 04:00 10/24/18 04:00 10/24/18 04:00 10/24/18 04:00 Exam: General: Cachetic female in no acute distress Head: normocephalic and atraumatic Eyes: PERRL, EOMI, sclera anicteric, conjunctiva pink Neck: supple, trachea midline Lungs: grossly diminished breath sounds. no wheezes, rales or rhonchi ap preciated Heart: RRR +s1 +S2 No murmurs, clicks, or rubs GI: abdomen soft, non-tender, non-distended. Normoactive bowel sounds Extremities: warm, peripheral pulses palpable and symmetrical. no edema or cyanosis. No calf tenderness. Negative Carrie's sign bilaterally. Neuro: A&Ox3. no focal deficits. no speech difficulty or abnormality Skin: cool, dry, tenting, intact. Color improved from yesterday but remains pale. - Assessment and Plan (1) Anemia Current Visit: Yes Status: Acute Assessment and Plan: Known hx of anemia Yesterday Hgb dropped from 8.1 to 7.5 to 6.1 Was subsequently transfused 2 units pRBCs Pt also admited to more fatigue and weakness than her baseline at that time Noted hematuria in catheter Per Dr Madden there was more blood loss than expected during the procedure H&H responded appropriately with Hgb of 9.8 this AM Continue to monitor If stable in AM should be stable for discharge from medicine standpoint (2) Staghorn calculus Current Visit: Yes Status: Acute Assessment and Plan: s/p Left PCNL and nephrostomy tube placement Dr. Madden mentioned more blood loss than expected originally Management per urology (3) Sacral decubitus ulcer, stage IV Current Visit: Yes Status: Chronic Assessment and Plan: Chronic stage 4 sacral decubitus ulcer Pt reports no change noted prior to admission wound care consult while admitted (4) Chronic pain Current Visit: Yes Status: Chronic Assessment and Plan: While admitted last month, palliative team adjusted pain med regimen Continue current home regimen No need to consult palliative at this time, but will call them if pain becomes uncontrolled. Of note, patient is currently transitioning to a new home hospice service Also discussed code status with patient as she has previously been a DNR, at this time she has elected to be MONY-[id number] DVT Prophylaxis: EPCDs Holding chemical prophylaxis given acute anemia - Summary of Assessment and Plan Summary of Assessment and Plan: Chronic comorbities are currently stable. Ready for discharge from medicine standpoint. She should follow up with Home Health and PCP after discharge. Social work has requested [facility] referral to continue home services of nurse, aide, PT and OT. - Time Spent with Patient Total time spent is greater than 50% in coordination of care (as documented) at patient's floor/unit and/or counseling patient: Internal Medicine: Result - Labs CBC & Chem 7: 10/24/18 04:35 10/24/18 10:11 Labs: Short CBC 10/23/18 10/24/18 10/24/18 Range/Units 14:45 01:24 04:35 WBC 12.4 H (4.3-11.1) K/mcL Hgb 6.1 L 8.6 L D 9.8 L (11.5-15.4) g/dL Hct 19.8 L 26.7 L 30.9 L (35.3-44.9) % Plt Count 159 (140-400) K/mcL Neutrophils # 9.3 H (1.6-8.9) K/mcL BMP 10/24/18 04:35 Sodium 136 Potassium 3.2 L D Chloride 110 H Carbon Dioxide 23 BUN 13 Creatinine 0.75 Glucose 102 Calcium 7.2 L - ABG Interpretation ABG results: PT/INR, D-dimer PT 11.3 Seconds (9.4-12.1) 10/22/18 08:56 - Impressions Impressions Percutaneous Antegrade Pyelogram 10/22/18 00:00 IMPRESSION: Intraprocedural fluoroscopic spot images as above. See separate procedure report for more information. D/ / Shane Dominguez MD / Shane Dominguez MD Interpreting Provider: Shane Dominguez MD <Toshia Mercado M - Last Filed: 10/24/18 15:34> (2) Chronic pain Qualifiers: Chronic pain type: other chronic pain Qualified Code(s): G89.29 - Other chronic pain (4) Anemia Qualifiers: Anemia type: other cause <Jaswinder Clinton - Last Filed: 10/24/18 16:29> (1) Anemia Qualifiers: Anemia type: unspecified type Qualified Code(s): D64.9 - Anemia, unspecified (4) Chronic pain Qualifiers: Chronic pain type: other chronic pain Qualified Code(s): G89.29 - Other chronic pain
[2018-10-24] MEDS: Insulin LISPRO 300 UNITS/3 ML VIAL SQ SCH ×3 (09:05→16:47)
[2018-10-24] MEDS: Gentamicin Oint 15 GM TUBE TP SCH (09:21)
[2018-10-24] MEDS: ALPRAZolam 1 MG TABLET PO SCH ×2 (09:23→21:12)
[2018-10-24] MEDS: Gabapentin 300 MG CAPSULE PO SCH ×3 (09:23→21:12)
[2018-10-24] MEDS: cefTRIAXone 1,000 MG in Water for inj. (sterile) 20 ML 10 ML IVP SCH (09:24)
[2018-10-24] MEDS: *HR* Morphine Soln 10 MG/5 ML UDC PO PRN ×2 (09:25→16:43)
[2018-10-24 10:58] LABS: BUN/Creatinine Ratio 14 (6-26); Blood Urea Nitrogen 12 mg/dL (6-20); Calcium 7.6 mg/dL (8.6-10.3); Carbon Dioxide 23 mEq/L (23-29); Chloride 106 mEq/L (98-107); Glucose 162 mg/dL (70-105); Osmolality,Calculated 285 (280-300); Potassium 3.6 mEq/L (3.5-5.1); Sodium 136 mEq/L (136-145); eGFR For Non-African Americans > 60 (> 60)
[2018-10-24] MEDS: *HR* Promethazine 25 MG/ML VIAL IVP PRN ×2 (12:05→21:13)
--- NOTE | 2018-10-24 15:29 | Physician Discharge Referral ---
Home Health/Hosp Referral Info Transfer to: Home Health Provider in Charge Post Discharge: PCP - Diagnosis (1) Anemia Priority: Secondary Status: Acute (2) Staghorn calculus Priority: Secondary Status: Acute (3) Sacral decubitus ulcer, stage IV Priority: Primary Status: Chronic (4) Chronic pain Priority: Primary Status: Chronic - Respiratory Orders Oxygen / L per min (2) Smoking Cessation: Smoking cessation has been advised. For more information, call the [place] Tobacco Quit Line at 5-156-SDTD-NOW. - Diet/Nutrition Diet/Nutrition Orders: No Concentrated Sweets - Services Needed Following services are medically necessary services: Nursing, Home Health Aide, Physical Therapy, Occupational Therapy - Transfer Medications Home Medications: ALPRAZolam [Xanax 1 MG Tablet] 1 mg PO BID 05/05/18 [History] Escitalopram [Lexapro] 10 mg PO DAILY 05/05/18 [History] Gabapentin [Neurontin] 600 mg PO TID 05/05/18 [History] Loperamide HCl [Anti-Diarrheal] 2 mg PO QID 05/05/18 [History] Promethazine HCl 25 mg PO Q12HR PRN 05/05/18 [History] Albuterol Sulfate [Ventolin Hfa] 2 puff IN Q6H PRN 09/26/18 [History] Melatonin 20 mg PO HS 10/22/18 [History] Morphine Sulfate [Morphine Oral Solution] 20 mg PO Q6H PRN 10/22/18 [History] Allergies/Adverse Reactions: Allergy/AdvReac Type Severity Reaction Status Date / Time shellfish derived Allergy See Verified 10/22/18 10:12 Comments Certification: Further, I certify that my clinical findings support that this patient is homebound (i.e. absences from home require considerable and taxing effort and are for medical reasons or jew services or infrequently or short duration when for other reasons) because: Homebound Reason: Patient requires assistance of a person or device to safely leave home, Leaving home requires considerable and taxing effort due to condition Attestation: My signature below is to certify that this patient is under my care and that I, or nurse practitioner, or a physician's home care assistant working with me, has a [id number] encounter with this patient.
[2018-10-24] MEDS: Melatonin 3 MG TABLET PO SCH (21:12)
[2018-10-25] MEDS: Acetaminophen IV 1,000 MG/100 ML INFUS..BTL IVPB SCH (05:18)
[2018-10-25] MEDS: *HR* Promethazine 25 MG/ML VIAL IVP PRN (05:19)
[2018-10-25 05:21] VITALS: BP 113/70
[2018-10-25 05:23] LABS: Basophils % 0.4 %; Eosinophils # 0.5 K/mcL (0.0-0.6); Eosinophils % 5.8 %; Hematocrit 29.6 % (35.3-44.9); Hemoglobin 9.6 g/dL (11.5-15.4); Immature Granulocytes % 0.3 % (0-4); Lymphocytes # 1.2 K/mcL (0.6-4.6); Lymphocytes % 13.6 %; Mean Corpuscular HGB Conc 32.4 g/dL (31.6-35.5); Mean Corpuscular Volume 92.5 fL (83.0-100.0); Mean Platelet Volume 9.1 fL (9.4-12.4); Monocytes # 1.1 K/mcL (0.0-1.3); Monocytes % 12.1 %; Neutrophils # 6.2 K/mcL (1.6-8.9); Platelet Count 150 K/mcL (140-400); Red Cell Distribution Width 15.6 % (11.5-14.5); Segmented Neutrophils % 67.8 %
[2018-10-25 05:45] LABS: BUN/Creatinine Ratio 17 (6-26); Blood Urea Nitrogen 11 mg/dL (6-20); Calcium 7.2 mg/dL (8.6-10.3); Carbon Dioxide 25 mEq/L (23-29); Chloride 112 mEq/L (98-107); Glucose 94 mg/dL (70-105); Osmolality,Calculated 279 (280-300); Potassium 3.6 mEq/L (3.5-5.1); Sodium 135 mEq/L (136-145); eGFR For Non-African Americans > 60 (> 60)
[2018-10-25] MEDS ORDERED: Acetaminophen IV 1,000 MG/100 ML INFUS..BTL IVPB PRN (06:51)
--- NOTE | 2018-10-25 07:13 | Urology Progress Note ---
Date of Encounter: 10/25/18 Time of Encounter: 07:11 - Assessment and Plan (1) Staghorn calculus Current Visit: Yes Status: Acute Assessment and plan: Patient's vital signs are stable. Hemoglobin stable overnight. I feel that the patient has met criteria for discharge from a postsurgical standpoint. I stopped IV fluids. Will remove Maloney catheter. Stopped IV Tylenol. We discussed that patient needs to consider discharge today. We did discuss referral for rehabilitation or extended care facility. She would like to be discharged home today and is comfortable with this plan. She has plenty of help at home as she is not able to ambulate for long distances. Progress Note Narrative: Patient stable overnight. States her legs or cramping and aching. No flank pain. Objective Initial Vital Signs Temp Pulse Resp BP Pulse Ox 98.6 F 90 18 121/79 100 10/22/18 09:04 10/22/18 09:04 10/22/18 09:04 10/22/18 09:04 10/22/18 09:04 - General physical appearance Present: no distress - Additional Exam Maloney catheter with clear urine No extremity edema. ECPDs in place - Labs 10/25/18 04:45 10/25/18 04:45 Diabetes panel 10/24/18 10/25/18 Range/Units 10:11 04:45 Sodium 136 135 L (136-145) mEq/L Potassium 3.6 3.6 (3.5-5.1) mEq/L Chloride 106 112 H (98-107) mEq/L Carbon Dioxide 23 25 (23-29) mEq/L BUN 12 11 (6-20) mg/dL Creatinine 0.83 0.64 (0.60-1.20) mg/dL Glucose 162 H 94 (70-105) mg/dL Calcium 7.6 L 7.2 L (8.6-10.3) mg/dL Calcium panel 10/24/18 10/25/18 Range/Units 10:11 04:45 Calcium 7.6 L 7.2 L (8.6-10.3) mg/dL Pituitary panel 10/24/18 10/25/18 Range/Units 10:11 04:45 Sodium 136 135 L (136-145) mEq/L Potassium 3.6 3.6 (3.5-5.1) mEq/L Chloride 106 112 H (98-107) mEq/L Carbon Dioxide 23 25 (23-29) mEq/L BUN 12 11 (6-20) mg/dL Creatinine 0.83 0.64 (0.60-1.20) mg/dL Glucose 162 H 94 (70-105) mg/dL Calcium 7.6 L 7.2 L (8.6-10.3) mg/dL Adrenal panel 10/24/18 10/25/18 Range/Units 10:11 04:45 Sodium 136 135 L (136-145) mEq/L Potassium 3.6 3.6 (3.5-5.1) mEq/L Chloride 106 112 H (98-107) mEq/L Carbon Dioxide 23 25 (23-29) mEq/L BUN 12 11 (6-20) mg/dL Creatinine 0.83 0.64 (0.60-1.20) mg/dL Glucose 162 H 94 (70-105) mg/dL Calcium 7.6 L 7.2 L (8.6-10.3) mg/dL Consult Discharge Plan - Plan Referrals: Jaiden Beach DO [Primary Care Provider] - Bob Madden MD [Partnered Physician] -
[2018-10-25] MEDS: Insulin LISPRO 300 UNITS/3 ML VIAL SQ SCH (08:16)
--- NOTE | 2018-10-25 08:34 | Discharge Summary ---
Orders not resulted at time of discharge: Pending orders 10/22/18 17:06 Calculi (stone) Analysis Routine Date of Encounter: 10/25/18 Time of Encounter: 08:33 - Discharge Diagnosis (1) Staghorn calculus Priority: Primary Status: Acute - Hospital Course Hospital course: Ms. Rosado is a 53 year old female who presents with a history of bilateral staghorn calculi. On 10/22/2017, patient was taken to the operating room where she underwent left PCNL (1.8 cm), left dilation of nephrostomy tract, nephrostogram, nephrostomy tube placement. Patient was first taken to interventional radiology where renal access was obtained. There were no surgical complications, and the patient tolerated the procedure well. Postoperative course was relatively unremarkable, despite pain control issues and overall compromised health status. The hospitalist group was consulted to help manage primary care comorbidities. Patient was able to meet discharge goals, and she was dismissed in satisfactory condition. Postoperative expectations, restrictions, activity and follow-up were discussed with patient, and patient verbalized understanding. Time spent discussing smoking cessation with patient: 3 to 10 minutes - Time Spent with Patient Total time spent providing and/or coordinating discharge services: Less than 30 minutes Procedures and tests throughout hospitalization: left PCNL (1.8 cm) left dilation of nephrostomy tract nephrostogram nephrostomy tube placement Labs on day of discharge: Labs from last 24 hours 10/25/18 10/25/18 10/24/18 04:45 04:45 20:34 WBC 9.1 RBC 3.20 L Hgb 9.6 L Hct 29.6 L MCV 92.5 MCH 30.0 MCHC 32.4 RDW 15.6 H Plt Count 150 MPV 9.1 L Immature Gran % 0.3 Seg Neutrophils % 67.8 Lymphocytes % 13.6 Monocytes % 12.1 Eosinophils % 5.8 Basophils % 0.4 Neutrophils # 6.2 Lymphocytes # 1.2 Monocytes # 1.1 Eosinophils # 0.5 Basophils # 0.0 Sodium 135 L Potassium 3.6 Chloride 112 H Carbon Dioxide 25 BUN 11 Creatinine 0.64 Est GFR ( Amer) > 60 Est GFR (Non-Af Amer) > 60 BUN/Creatinine Ratio 17 Glucose 94 POC Glucose 153 H Calculated Osmolality 279 L Calcium 7.2 L Nasal Screen MRSA (PCR) 10/24/18 10/24/1819 16:47 11:11 10:11 WBC RBC Hgb Hct MCV MCH MCHC RDW Plt Count MPV Immature Gran % Seg Neutrophils % Lymphocytes % Monocytes % Eosinophils % Basophils % Neutrophils # Lymphocytes # Monocytes # Eosinophils # Basophils # Sodium 136 Potassium 3.6 Chloride 106 Carbon Dioxide 23 BUN 12 Creatinine 0.83 Est GFR ( Amer) > 60 Est GFR (Non-Af Amer) > 60 BUN/Creatinine Ratio 14 Glucose 162 H POC Glucose 120 H 125 H Calculated Osmolality 285 Calcium 7.6 L Nasal Screen MRSA (PCR) 10/24/18 10/24/18 10/23/18 09:30 08:02 20:27 WBC RBC Hgb Hct MCV MCH MCHC RDW Plt Count MPV Immature Gran % Seg Neutrophils % Lymphocytes % Monocytes % Eosinophils % Basophils % Neutrophils # Lymphocytes # Monocytes # Eosinophils # Basophils # Sodium Potassium Chloride Carbon Dioxide BUN Creatinine Est GFR ( Amer) Est GFR (Non-Af Amer) BUN/Creatinine Ratio Glucose POC Glucose 82 161 H Calculated Osmolality Calcium Nasal Screen MRSA (PCR) Positive A 10/23/18 10/23/18 16:52 12:18 WBC RBC Hgb Hct MCV MCH MCHC RDW Plt Count MPV Immature Gran % Seg Neutrophils % Lymphocytes % Monocytes % Eosinophils % Basophils % Neutrophils # Lymphocytes # Monocytes # Eosinophils # Basophils # Sodium Potassium Chloride Carbon Dioxide BUN Creatinine Est GFR ( Amer) Est GFR (Non-Af Amer) BUN/Creatinine Ratio Glucose POC Glucose 202 H 102 H Calculated Osmolality Calcium Nasal Screen MRSA (PCR) - Impressions ITS Impressions Guidance Ultrasound 10/22/18 00:00 IMPRESSION: Successful percutaneous nephrostomy access as described above. D/ / Drew Guevara / Drew Guevara Interpreting Provider: Drew Guevara Nephrostomy 10/22/18 00:00 IMPRESSION: Successful percutaneous nephrostomy access as described above. D/ / Drew Guevara / Drew Guevara Interpreting Provider: Drew Guevara Percutaneous Antegrade Pyelogram 10/22/18 00:00 IMPRESSION: Intraprocedural fluoroscopic spot images as above. See separate procedure report for more information. D/ / Shane Dominguez MD / Shane Dominguez MD Interpreting Provider: Shane Dominguez MD Chest X-Ray 10/22/18 17:14 IMPRESSION: No acute findings. D/ / Luther Knight MD / Luther Knight MD Interpreting Provider: Luther Knight MD - Discharge Medications Prescriptions: Continue Albuterol Sulfate [Ventolin Hfa] 2 puff IN Q6H PRN PRN Reason: Shortness Of Breath Morphine Sulfate [Morphine Oral Solution] 20 mg PO Q6H PRN PRN Reason: Pain Melatonin 20 mg PO HS ALPRAZolam [Xanax 1 MG Tablet] 1 mg PO BID Gabapentin [Neurontin] 600 mg PO TID Loperamide HCl [Anti-Diarrheal] 2 mg PO QID Promethazine HCl 25 mg PO Q12HR PRN PRN Reason: Nausea Escitalopram [Lexapro] 10 mg PO DAILY Home Medications: ALPRAZolam [Xanax 1 MG Tablet] 1 mg PO BID 05/05/18 [History] Escitalopram [Lexapro] 10 mg PO DAILY 05/05/18 [History] Gabapentin [Neurontin] 600 mg PO TID 05/05/18 [History] Loperamide HCl [Anti-Diarrheal] 2 mg PO QID 05/05/18 [History] Promethazine HCl 25 mg PO Q12HR PRN 05/05/18 [History] Albuterol Sulfate [Ventolin Hfa] 2 puff IN Q6H PRN 09/26/18 [History] Melatonin 20 mg PO HS 10/22/18 [History] Morphine Sulfate [Morphine Oral Solution] 20 mg PO Q6H PRN 10/22/18 [History] Allergies/Adverse Reactions: Allergy/AdvReac Type Severity Reaction Status Date / Time shellfish derived Allergy See Verified 10/22/18 10:12 Comments Date of admission: 10/24/18 16:41 Primary care physician: Jaiden Beach DO Consults: 10/22/18 20:22 Consult to Hospitalist [CONS] Routine Consulting Provider: Hospitalist Brianne Reason for Consult: assist with chronic medical issues. Time Notified: 17:30 Call Completed: Yes 10/22/18 22:36 Consult to Wound Care [CONS] Routine Reason for Consult: Sacral decubitis ulcer Call Completed: No 10/22/18 22:37 Consult to Nutrition [CONS] Routine Comment: consider tube feeds Consulting Provider: NUTRITION Reason for Dietary Consult: Tube Feed Start & Manage 10/23/18 13:15 Consult to Invasive Line Access Team [CONS] Routine Reason for Consult: limited IV access Line Type: EPIV Call Completed: No Discharging clinician: Arabella Mcnamara Anticipated date of discharge: 10/25/18 Exam Initial Vital Signs Temp Pulse Resp BP Pulse Ox 98.6 F 90 18 121/79 100 10/22/18 09:04 10/22/18 09:04 10/22/18 09:04 10/22/18 09:04 10/22/18 09:04 - General physical appearance Present: well developed, no distress, no pain - Eyes Present: PERRL, normal ocular movement - ENT Present: normal nares, no congestion - Neck Present: no masses, trachea midline - Respiratory Present: normal respiratory effort - Abdomen Abdomen: Present: soft - Integumentary Present: no rash, no abnormal pigmentation - Neurologic Present: normal coordination - Patient Status Disposition: Home, Self-Care Condition: Good Functional capacity at discharge: independent ambulation Overall status at discharge: patient is progressing back to baseline - Discharge Instructions Follow Up With: Jaiden Beach DO [Primary Care Provider] - Bob Madden MD [Partnered Physician] - Additional Instructions: Call if fever greater than 101 degrees. May expect drainage from nephrostomy tube site for 3-7 days. Call if drainage exceeds 7 days. May return to normal activity as tolerated. Okay to shower. Okay to use AZO [id number] as needed for urinary symptoms. No tub baths, swimming, or hot tubs until nephrostomy tube site is completely healed. Okay to drive as long as you are no longer taking narcotic pain medicine. Hold anticoagulants and NSAIDs for 3 days if possible. - Diet and Activity Activity: increase activity as tolerated Diet: advance to your usual diet
--- NOTE | 2018-10-25 08:43 | Internal Med Progress Note ---
<Jaswinder Clinton - Last Filed: 10/25/18 08:54> Hospitalist Progress Note - Encounter Date of Encounter: 10/25/18 Time of Encounter: 08:54 - Subjective Interval History: Ms. Rosado is a 53F with an extensive past medical history. She was admitted by Dr. Madden following a left sided nephrostomy tube placement with staghorn calculi removal. Pt seen and examined at bedside by this provider this morning. States she feels about the same today and is anxious to go home. Denies any fever, chills, chest pain, increased shortness of breath, headaches, numbness, tingling, or change in her ileostomy output from baseline. - Exam Vitals: Temp Pulse Resp BP Pulse Ox 98.4 F 66 15 113/70 100 10/25/18 05:13 10/25/18 05:13 10/25/18 05:13 10/25/18 05:13 10/25/18 05:13 Exam: General: Cachetic female in no acute distress Head: normocephalic and atraumatic Eyes: PERRL, EOMI, sclera anicteric, conjunctiva pink Neck: supple, trachea midline Lungs: grossly diminished breath sounds. no wheezes, rales or rhonchi appreciated Heart: RRR +s1 +S2 No murmurs, clicks, or rubs GI: abdomen soft, non-tender, non-distended. Normoactive bowel sounds Extremities: warm, peripheral pulses palpable and symmetrical. no edema or cyanosis. No calf tenderness. Neuro: A&Ox3. no focal deficits. no speech difficulty or abnormality Skin: cool, dry, tenting, intact. Color improved from yesterday but remains pale. - Assessment and Plan (1) Staghorn calculus Status: Acute Assessment and Plan: s/p Left PCNL and nephrostomy tube placement Dr. Madden mentioned more blood loss than expected originally Management per urology (2) Sacral decubitus ulcer, stage IV Status: Chronic Assessment and Plan: Chronic stage 4 sacral decubitus ulcer Pt reports no change noted prior to admission Continue wound care with (3) Chronic pain Status: Chronic Assessment and Plan: While admitted last month, palliative team adjusted pain med regimen Continue current home regimen No need to consult palliative at this time, but will call them if pain becomes uncontrolled. Of note, patient is currently transitioning to a new home hospice service Also discussed code status with patient as she has previously been a DNR, at this time she has elected to be MONY-[id number] (4) Anemia Status: Acute Assessment and Plan: Known hx of anemia Yesterday Hgb dropped from 8.1 to 7.5 to 6.1 Was subsequently transfused 2 units pRBCs Pt also admited to more fatigue and weakness than her baseline at that time Noted hematuria in catheter Per Dr Madden there was more blood loss than expected during the procedure H&H stable this AM at 9.6 and 29.6 respectively DVT Prophylaxis: EPCDs Holding chemical prophylaxis given acute anemia - Time Spent with Patient Total time spent is greater than 50% in coordination of care (as documented) at patient's floor/unit and/or counseling patient: Internal Medicine: Result - Labs CBC & Chem 7: 10/25/18 04:45 10/25/18 04:45 Labs: Short CBC 10/25/18 Range/Units 04:45 WBC 9.1 (4.3-11.1) K/mcL Hgb 9.6 L (11.5-15.4) g/dL Hct 29.6 L (35.3-44.9) % Plt Count 150 (140-400) K/mcL Neutrophils # 6.2 (1.6-8.9) K/mcL BMP 10/24/18 10/25/18 10:11 04:45 Sodium 136 135 L Potassium 3.6 3.6 Chloride 106 112 H Carbon Dioxide 23 25 BUN 12 11 Creatinine 0.83 0.64 Glucose 162 H 94 Calcium 7.6 L 7.2 L - ABG Interpretation ABG results: PT/INR, D-dimer PT 11.3 Seconds (9.4-12.1) 10/22/18 08:56 Consult Discharge Plan - Plan Instructions: Chronic Wound Care (DC) Additional Instructions: Call if fever greater than 101 degrees. May expect drainage from nephrostomy tube site for 3-7 days. Call if drainage exceeds 7 days. May return to normal activity as tolerated. Okay to shower. Okay to use AZO [id number] as needed for urinary symptoms. No tub baths, swimming, or hot tubs until nephrostomy tube site is completely healed. Okay to drive as long as you are no longer taking narcotic pain medicine. Hold anticoagulants and NSAIDs for 3 days if possible. Referrals: Jaiden Beach DO [Primary Care Provider] - Bob Madden MD [Partnered Physician] - (Office will call patient at home with date and time of appointment. Thank you) <TobiasricharLesterToshia henley - Last Filed: 10/25/18 12:20> Hospitalist Progress Note - Encounter Date of Encounter: 10/25/18 - Exam Vitals: Temp Pulse Resp BP Pulse Ox 98.4 F 66 15 113/70 100 10/25/18 05:13 10/25/18 05:13 10/25/18 05:13 10/25/18 05:13 10/25/18 05:13 - Assessment and Plan (1) Sacral decubitus ulcer, stage IV Status: Chronic (2) Chronic pain Status: Chronic (3) Staghorn calculus Status: Acute (4) Anemia Status: Acute - Time Spent with Patient Total time spent is greater than 50% in coordination of care (as documented) at patient's floor/unit and/or counseling patient: Internal Medicine: Result - Labs CBC & Chem 7: 10/25/18 04:45 10/25/18 04:45 Labs: Short CBC 10/25/18 Range/Units 04:45 WBC 9.1 (4.3-11.1) K/mcL Hgb 9.6 L (11.5-15.4) g/dL Hct 29.6 L (35.3-44.9) % Plt Count 150 (140-400) K/mcL Neutrophils # 6.2 (1.6-8.9) K/mcL BMP 10/25/18 04:45 Sodium 135 L Potassium 3.6 Chloride 112 H Carbon Dioxide 25 BUN 11 Creatinine 0.64 Glucose 94 Calcium 7.2 L - ABG Interpretation ABG results: PT/INR, D-dimer PT 11.3 Seconds (9.4-12.1) 10/22/18 08:56 - Attending Attestation I examined this patient and my medical decision-making was reviewed with the Resident Physician Dr Clinton. I agree with the documented findings, disposition and treatment plan as described except to the extent set forth below. Ms Rosado is admitted for nephrostomy tube placement by Urology. She is being seen in consultation for management of medical comorbidities She is awake,family at bedside. Urology plan to dc today. She refused ecf placement and will go home with pt. She has mproved energy, no sob, fevers, chills. Pain improved. gen- alert, awake,appears stated age cv- reg rate and rhythm, normal s1,s2, no murmurs appreciated, no le edema lungs- ctabl, no wheezing, rhonchi or crackles, normal resp effort on ra skin- + pallor neuro- AAOx3 Staghorn calculus s/p Left PCNL and nephrostomy tube placement- management as per Urology, fu with urology Acute on Chronic blood loss post operative anemia- stable post prbc tansfusion , fu outpt with pcp Chronic sacral decub ulcer- wound consult for continued care while admitted, resume home care on dc Chronic pain- she is being transitioned to a new home hospice agency as an outpt and is currently under C. currently outpt pcp managing pain meds while pt awaits transition to new hospice agency. further diagnoses and plan as noted by resident chronic comorbidities are medically stable for discharge to home when ready from urologic standpoint. She should fu with established Home Health and PCP MAXINE has requested C referral to [facility] home [facility] and Hospitalist team is happy to assist in this documentation <Jaswinder Clinton A - Last Filed: 10/25/18 08:54> (3) Chronic pain Qualifiers: Chronic pain type: other chronic pain Qualified Code(s): G89.29 - Other chronic pain (4) Anemia Qualifiers: Anemia type: unspecified type Qualified Code(s): D64.9 - Anemia, unspecified <Toshia Mercado - Last Filed: 10/25/18 12:20> (2) Chronic pain Qualifiers: Chronic pain type: other chronic pain Qualified Code(s): G89.29 - Other chronic pain (4) Anemia Qualifiers: Anemia type: unspecified type Qualified Code(s): D64.9 - Anemia, unspecified
--- NOTE | 2018-10-25 09:00 | Physician Discharge Referral ---
<Jaswinder Clinton - Last Filed: 10/25/18 08:56> Home Health/Hosp Referral Info Transfer to: Home Health Provider in Charge Post Discharge: PCP - Diagnosis (1) Anemia Priority: Primary Status: Acute (2) Staghorn calculus Priority: Secondary Status: Acute (3) Sacral decubitus ulcer, stage IV Priority: Primary Status: Chronic (4) Chronic pain Priority: Primary Status: Chronic - Respiratory Orders Oxygen / L per min (2 lpm) Smoking Cessation: Smoking cessation has been advised. For more information, call the [employer] Tobacco Quit Line at 2-599-XBGY-NOW. - Dressing/Wound Care Site: Chronic pressure wound on coccyx Type of Dressing/Treatments w/Frequency: Per Era Wound care - Gentamicin ointment on plaining packing strip - Diet/Nutrition Diet/Nutrition Orders: No Concentrated Sweets - Activity Activity Orders: Up ad chris, Ambulate - Services Needed Following services are medically necessary services: Nursing, Home Health Aide, Physical Therapy, Occupational Therapy Other Treatments: Her port needs to be accessed once a month per interventional radiology - Transfer Medications Home Medications: ALPRAZolam [Xanax 1 MG Tablet] 1 mg PO BID 05/05/18 [History] Escitalopram [Lexapro] 10 mg PO DAILY 05/05/18 [History] Gabapentin [Neurontin] 600 mg PO TID 05/05/18 [History] Loperamide HCl [Anti-Diarrheal] 2 mg PO QID 05/05/18 [History] Promethazine HCl 25 mg PO Q12HR PRN 05/05/18 [History] Albuterol Sulfate [Ventolin Hfa] 2 puff IN Q6H PRN 09/26/18 [History] Melatonin 20 mg PO HS 10/22/18 [History] Morphine Sulfate [Morphine Oral Solution] 20 mg PO Q6H PRN 10/22/18 [History] Allergies/Adverse Reactions: Allergy/AdvReac Type Severity Reaction Status Date / Time shellfish derived Allergy See Verified 10/22/18 10:12 Comments Certification: Further, I certify that my clinical findings support that this patient is ho mebound (i.e. absences from home require considerable and taxing effort and are for medical reasons or jehovah's witness services or infrequently or short duration when for other reasons) because: Homebound Reason: Patient requires assistance of a person or device to safely leave home, Leaving home requires considerable and taxing effort due to condition Attestation: My signature below is to certify that this patient is under my care and that I, or nurse practitioner, or a physician's assistant unit forester working with me, has a [id number] encounter with this patient. <Toshia Mercado - Last Filed: 10/25/18 12:21> - Diagnosis (1) Sacral decubitus ulcer, stage IV Status: Chronic (2) Chronic pain Status: Chronic (3) Staghorn calculus Status: Acute (4) Anemia Status: Acute - Respiratory Orders Smoking Cessation: Smoking cessation has been advised. For more information, call the [employer] Tobacco Quit Line at 4-559-NIMN-NOW. - Diet/Nutrition Diet/Nutrition Orders: No Concentrated Sweets (resume home tube feedings) Certification: Further, I certify that my clinical findings support that this patient is homebound (i.e. absences from home require considerable and taxing effort and are for medical reasons or jehovah's witness services or infrequently or short duration when for other reasons) because: Attestation: My signature below is to certify that this patient is under my care and that I, or nurse practitioner, or a physician's assistant unit forester working with me, has a [id number] encounter with this patient.
[2018-10-25] MEDS: Gentamicin Oint 15 GM TUBE TP SCH (10:23)
[2018-10-25] MEDS: Gabapentin 300 MG CAPSULE PO SCH (10:23)
[2018-10-25] MEDS: ALPRAZolam 1 MG TABLET PO SCH (10:24)
[2018-10-25] MEDS: cefTRIAXone 1,000 MG in Water for inj. (sterile) 20 ML 10 ML IVP SCH (10:36)
[2018-10-27 11:20] LABS: Calculi Mass 898 mg
== END 2018-10-25 11:03 | disposition home health service (06) ==
LOC: SAMDAY 08:37 → 3ANU 08:37
PROVIDERS: ADMIT Urology; ATTEND Urology

== ENCOUNTER 2018-11-12 11:39 | Inpatient (IN) ==
[2018-11-12] MEDS ORDERED: Naloxone 0.4 MG/ML INJ IVP PRN (12:25)
[2018-11-12] MEDS ORDERED: Gadolinium Contrast Agent (WT Based) IV PRN (13:24)
--- NOTE | 2018-11-12 13:37 | General Surg History&Physical ---
Date of Encounter: 11/12/18 Time of Encounter: 13:34 Assessment and Plan (1) Stage IV pressure ulcer of sacral region Status: Acute 53F with stage IV pressure ulcer with concern for osteomyelitis and for proper exam under anesthesia; diet npo, IVF at midnight pain control per home regimen (patient is a hospice patient) MRi to eval for osteomyelitisi plan for OR on 11/13 The assessment and plan as outlined above was discussed with the patient and/or family members who expressed understanding and agreement. All questions were answered. History of Present Illness Chief complaint: sacral ulcer, concern for osteomyelitis HPI: Ms. Rosado is a 53 year old female with a sacral decubitus/pressure ulcer. She has a PMH that consists of multiple bowel surgeries, requiring an ostomy, and adult failure to thrive. While recovering she spent a lot of time on her back and subsequently developed a pressure ulcer. She has been seeing me in clinic for management of this wound. No systemic symptoms, but it is difficult to get a good exam in wound clinic due to the pain caused during exam. The decision was made to admit her for an exam under anesthesia. Past Med Surg Social Fam HX - Past Medical History Medical history: asthma, diabetes, GERD, hyperlipidemia, hypertension, osteoporosis, seizures, other Additional medical history: leukocytosis, severe protein-caloric malnutrition, hyponatremia, sepsis. back fracture, pressure ulcer Psychiatric history: anxiety, depression - Past Surgical History Surgical History: cholecystectomy, colectomy, colostomy, hysterectomy, other Additional surgical history: feeding tube. tia fundoplasty. rectal stump - Social History Smoking Status: Never smoker Smokeless Tobacco Status: No Alcohol use: none Drug use: none - Family History Mother Family Member Ethnicity: Non- Living Status: Still Living Hx Family Cardiac Disorders: Yes (HTN) Hx Family Respiratory Disorders: No Hx Family GI Disorders: Yes (Colostomy) Hx Family Endocrine Disorder: Yes (DM) Brother Family Member Ethnicity: Non- Living Status: Still Living Father Adopted: No Family Member Ethnicity: Non- Living Status: Still Living Hx Family Cardiac Disorders: Yes (CAD, Quad bypass) Hx Family Respiratory Disorders: No Medications and Allergies ALPRAZolam [Xanax 1 MG Tablet] 1 mg PO BID 05/05/18 [History] Escitalopram [Lexapro] 10 mg PO DAILY 05/05/18 [History] Gabapentin [Neurontin] 600 mg PO TID 05/05/18 [History] Loperamide HCl [Anti-Diarrheal] 2 mg PO QID 05/05/18 [History] Promethazine HCl 25 mg PO Q12HR PRN 05/05/18 [History] Albuterol Sulfate [Ventolin Hfa] 2 puff IN Q6H PRN 09/26/18 [History] Melatonin 20 mg PO HS 10/22/18 [History] Morphine Sulfate [Morphine Oral Solution] 20 mg PO Q6H PRN 10/22/18 [History] Allergy/AdvReac Type Severity Reaction Status Date / Time shellfish derived Allergy See Verified 10/29/18 16:23 Comments Review of Systems All systems PM: 12 point ROS negative besides HPI findings General Surgery Exam Initial Vital Signs Pulse Ox 92 11/12/18 13:14 - General physical appearance no distress, cachectic - Eyes normal ocular movement - ENT normocephalic - Neck no lymphadectomy - Respiratory normal expansion, normal respiratory effort - Cardiovascular Cardiovascular exam: Present: RRR - Abdomen Abdomen general surgery: Present: soft - Rectum Rectum: Present: other (stage IV pressure ulcer) - Integumentary Integumentary general surgery: Present: warm and dry - Neurologic Present: CN 2-12 grossly intact - Musculoskeletal Present: normal gait, normal posture - Psychiatric Psychiatric general surgery: Present: A&Ox3 Results - Labs All other labs normal.
[2018-11-12] MEDS: Gabapentin 300 MG CAPSULE PO SCH ×2 (14:35→21:06)
[2018-11-12] MEDS: *HR* Morphine Soln 10 MG/5 ML UDC PO PRN ×2 (14:43→21:06)
[2018-11-12] MEDS: *HR* Heparin 5,000 UNIT/ML VIAL SQ SCH (17:58)
[2018-11-12] MEDS ORDERED: Melatonin 3 MG TABLET PO SCH (21:00)
[2018-11-12] MEDS: ALPRAZolam 1 MG TABLET PO SCH (21:05)
[2018-11-13] MEDS ORDERED: 0.9 % Sodium Chloride 1,000 ML IVC SCH (00:01)
[2018-11-13] MEDS: *HR* Morphine Soln 10 MG/5 ML UDC PO PRN ×3 (06:37→21:04)
[2018-11-13] MEDS: *HR* Heparin 5,000 UNIT/ML VIAL SQ SCH ×2 (06:45→18:18)
[2018-11-13] MEDS ORDERED: *HR* Propofol 200 MG/20 ML VIAL IVP ONE (09:20)
[2018-11-13] MEDS ORDERED: Lidocaine -MPF 2% 2 ML VIAL ONE (09:21)
[2018-11-13] MEDS ORDERED: *HR* Midazolam HCl 2 MG/2 ML VIAL ONE ×2 (09:21→11:25)
[2018-11-13] MEDS ORDERED: *HR* Rocuronium Bromide 50 MG/5 ML VIAL ONE (09:21)
[2018-11-13] MEDS ORDERED: *HR* FentaNYL (PF) 100 MCG/2 ML VIAL ONE (09:21)
[2018-11-13] MEDS ORDERED: Dexamethasone 4 MG/ML VIAL ONE (09:21)
[2018-11-13] MEDS ORDERED: Ondansetron 4 MG/2 ML VIAL ONE (09:21)
[2018-11-13] MEDS ORDERED: *HR* Succinylcholine 200 MG/10 ML VIAL IVP ONE (09:25)
--- NOTE | 2018-11-13 09:35 | Anesthesia Evaluation PreOp ---
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 History: Seizures (last 1.5yrs ago), Other (chronic back pain) Other Medical History: Renal (renal calculi), Diabetes Type II (diet controlled), GERD, Other (failure to thrive) Anesthesia History: No Prior Anesthetic Complications, Past Anesthesia (L perc neph 10/22/18 without anes complications, hysterectomy, bowel resection with ileostomy) Alcohol Use: none Drug use: none Medications and Allergies ALPRAZolam [Xanax 1 MG Tablet] 1 mg PO BID 05/05/18 [History] Escitalopram [Lexapro] 10 mg PO DAILY 05/05/18 [History] Gabapentin [Neurontin] 600 mg PO TID 05/05/18 [History] Loperamide HCl [Anti-Diarrheal] 2 mg PO QID 05/05/18 [History] Promethazine HCl 25 mg PO Q12HR PRN 05/05/18 [History] Albuterol Sulfate [Ventolin Hfa] 2 puff IN Q6H PRN 09/26/18 [History] Melatonin 20 mg PO HS 10/22/18 [History] Morphine Sulfate [Morphine Oral Solution] 20 mg PO Q6H PRN 10/22/18 [History] Allergy/AdvReac Type Severity Reaction Status Date / Time shellfish derived Allergy See Verified 10/29/18 16:23 Comments - Meds/Allergy Pre-op Review Medications Reviewed: Yes Allergies Reviewed: Yes Beta Blockers on Current Med List: No Anesthesia Results - Labs Laboratory Tests 10/15/18 10/29/18 10/29/18 10:19 16:56 16:56 WBC 7.6 Hgb 9.5 L Hct 29.9 L Plt Count 189 Sodium 132 L Potassium 4.3 Chloride 100 Carbon Dioxide 25 BUN 14 Creatinine 0.80 Glucose 117 H Est Mean Plasma Glucose 120 Hemoglobin A1c 5.8 H - Imaging EKG: report reviewed (Sinus tachycardia Electronically Signed On 09-25-2018 6:19:37 EST by Butch Hoang) Additional studies: Additional studies: 02/04/2015 Echo Impressions: Normal LV systolic function, LVEF 65%. Normal right ventricular structure and function. Mild biatrial enlargement. Agitated saline contrast study demonstrates the late appearance of saline contrast on the left side of the heart, consistent with pulmonary arteriovenous shunting. Clinical correlation recommended. Valvular function was not assessed on this limited study. 02/04/2015 Stress Impression: The exercise capacity was fair. Patient exercised for 5:15 minutes on a Jean Carlos protocol, achieving 7 METs and 88% of max predicted heart rate. The patient demonstrated a blunted blood pressure response to exercise. Exercise ECG is negative for ischemia. Gated LVEF > 70%. Perfusion imaging was negative for ischemia or infarct. Anesthesia Exam Vital Signs/O2 Sat, Most Current Temp Pulse Resp BP Pulse Ox 98.2 F 82 16 97/59 98 11/13/18 07:22 11/13/18 07:22 11/13/18 07:22 11/13/18 07:22 11/13/18 07:22 Weight: 43kg NPO (# of Hours): >8 - HEENT Pupil (Motor): Pupils equal, EOMI Mallampati: II Teeth: Edentulous Oral Opening: Greater than 3 - METAL CONTROL COORDINATOR LOC: Oriented METAL CONTROL COORDINATOR Motor: Normal RUE, Normal LUE, Normal RLE, Normal LLE, Normal Face METAL CONTROL COORDINATOR Sensory: Normal: RUE, LUE, RLE, LLE, Face - Cardiac Rhythm: Regular - Pulmonary Breath Sounds: bilateral Clear Respiratory Effort: Symmetrical Anesthesia Assess/Plan ASA Score: 4 (COPD on 2L 02 atc, seizures, DM II) Level of consciousness: Cooperative, Oriented Anesthetic Plan: General Monitoring Plan: Standard Monitors, A-Line
[2018-11-13] MEDS ORDERED: *HR* OxyCODONE Immed Rel 5 MG TABLET PO PRN (10:35)
[2018-11-13] MEDS ORDERED: Ondansetron 4 MG/2 ML VIAL IVP ONE ×2 (10:35→13:13)
[2018-11-13] MEDS ORDERED: *HR* Promethazine 25 MG/ML VIAL IVP PRN (10:35)
[2018-11-13] MEDS ORDERED: Albuterol 2.5 MG/3 ML NEBULIZER IH ONE (10:38)
[2018-11-13] MEDS: Gabapentin 300 MG CAPSULE PO SCH ×3 (10:39→20:11)
[2018-11-13] MEDS: ALPRAZolam 1 MG TABLET PO SCH ×2 (10:39→20:11)
[2018-11-13] MEDS ORDERED: Ringers Solution, Lactated 1,000 ML IVC SCH (10:45)
[2018-11-13] MEDS ORDERED: Vancomycin 1,000 MG VIAL ONE ×2 (11:10→11:14)
[2018-11-13] MEDS ORDERED: *HR* PHENYLEPHRINE 1,000 MCG/10 ML SYRINGE IVP ONE (11:58)
--- NOTE | 2018-11-13 12:24 | General Surgery Progress Note ---
Date of Encounter: 11/13/18 Time of Encounter: 12:22 - Assessment and Plan (1) Stage IV pressure ulcer of sacral region Current Visit: Yes Status: Acute 53F with complex medical history with stage IV sacral pressure ulcer/wound now s/p washout with primary closure; diet as tolerated pressure off loading required cont home meds for pain okay for d/c today Subjective Patient reports: no new complaints, feels better Objective Vital Signs - Last 8 Hours Temp Pulse Resp BP Pulse Ox 11/13/18 11:10 16 96 11/13/18 07:22 98.2 F 82 16 97/59 98 Intake and Output 11/12/18 11/13/18 11/13/18 23:59 07:59 15:59 Intake Total 0 / 0 0 / 0 606 / 606 Output Total 0 / 0 0 / 0 Balance 0 / 0 0 / 0 606 / 606 Intake: IV Fluids 606 / 606 0.9 % Sodium Chloride 1,000 ML 606 / 606 @ 75 mls/hr IVC .[id number] [facility] Rx #:[id number] Oral 0 / 0 0 / 0 Output: Urine 0 / 0 0 / 0 Other: # Voids 2 1 Weight 43.1 kg Blood Glucose* 102 85 Patient Weight 11/13/18 23:59 Weight 43.1 kg - General physical appearance no distress - Respiratory normal expansion, normal respiratory effort - Cardiovascular Cardiovascular exam: Present: RRR - Abdomen Abdomen: Present: soft - Incision Incision: Present: clean and dry, intact - Neurologic CN 2-12 grossly intact Consult Discharge Plan - Plan Referrals: Jaiden Beach DO [Primary Care Provider] -
[2018-11-13] MEDS: *HR* HYDROmorphone (PF) 1 MG/ML SYRINGE IVP PRN ×5 (12:29→12:49)
[2018-11-13] MEDS ORDERED: cefOXitin 2,000 MG in Water for inj. (sterile) 20 ML 20 ML IVP ONE (12:30)
--- NOTE | 2018-11-13 12:30 | Operative Note ---
Date of procedure: 11/13/18 Pre-op diagnosis: stage IV sacral wound Post-op diagnosis: same Procedure: washout of stage iv sacral wound primary closure of sacral wound Implants: none Complications: none Anesthesia: GETA Surgeon: Alphonso Mcclelland Was there an help desk assistant present: No Estimated blood loss (cc): 2 Specimen: none Condition: stable Disposition: PACU Procedure in Detail: patient was brought into the operating room suite. Mechanical DVT prophylaxis was placed. the patient underwent smooth induction of anesthesia. Placed in supine position. Preoperative antibiotics were given. Prepped and draped in the usual fashion. A timeout was held identifying correct patient, pathology, procedure and physician. I started by palpation. I was able to palpate the bone. I was also able to appreciate the soft tissue on top and below. I washed the wound with saline impregnated with vancomycin. I was able to bring that together with interrupted 3-0 vicryl suture. I then brought the skin together using 2-0 prolene in an interrupted vertical mattress fashion. I then used two skin staplers and left the most inferior aspect open to allow for drainage as there was some mild oozing, thereby preventing possible hematoma or seroma. I then concluded the case. the patient tolerated the procedure well and was escorted to pacu in stable condition
[2018-11-13] MEDS ORDERED: Gadolinium Contrast Agent (WT Based) IV PRN (13:13)
[2018-11-13] MEDS ORDERED: Naloxone 0.4 MG/ML INJ IVP PRN (13:13)
--- NOTE | 2018-11-13 15:15 | Anesthesia Evaluation Post Op ---
Date of Encounter: 11/13/18 Time of Encounter: 12:53 - Discharge PostOp Status: Transfer Patient to floor (Patient's vital signs have been reviewed. Patient is stable postoperatively and has adequately recovered from anesthesia. Patient is determined to have stable airway patency and respiratory function including respiratory rate and oxygen saturation. Patient has a stable heart rate, blood pressure and adequate hydration. Patients mental status is acceptable. Patients temperature is appropriate. Pain and nausea are adequately controlled.)
[2018-11-13] MEDS ORDERED: Melatonin 3 MG TABLET PO SCH (21:00)
[2018-11-14] MEDS: *HR* Morphine Soln 10 MG/5 ML UDC PO PRN (04:06)
[2018-11-14] MEDS: *HR* Heparin 5,000 UNIT/ML VIAL SQ SCH (05:32)
[2018-11-14 07:33] VITALS: BP 95/60
--- NOTE | 2018-11-14 08:03 | Discharge Summary ---
<Cherie Oreilly - Last Filed: 11/14/18 08:00> Orders not resulted at time of discharge: Pending orders 11/12/18 12:25 ECG 12 lead ECG [ECG] Routine Date of Encounter: 11/14/18 Time of Encounter: 08:07 - Discharge Diagnosis (1) Severe protein-calorie malnutrition Priority: Secondary Status: Suspected (2) Stage IV pressure ulcer of sacral region Priority: Primary Status: Acute General Surgery Exam Initial Vital Signs Temp Pulse Resp BP Pulse Ox 98.1 F 95 16 102/71 91 11/12/18 12:35 11/12/18 12:35 11/12/18 12:35 11/12/18 12:35 11/12/18 12:35 - General physical appearance well developed, no distress, cachectic - Respiratory normal expansion, normal respiratory effort - Cardiovascular Cardiovascular exam: Present: RRR - Abdomen Abdomen general surgery: Present: bowel sounds present, soft, non tender - Incision Incision: Present: clean and dry (sacral site dressing c/d/i.) - Integumentary Integumentary general surgery: Present: warm and dry - Neurologic Present: CN 2-12 grossly intact, normal coordination, normal sensation - Musculoskeletal Present: normal gait, normal posture - Psychiatric Psychiatric general surgery: Present: appropriate, oriented to person, oriented to place, oriented to time, speech is normal, memory intact - Hospital Course Hospital course: Ms. Rosado is a 53 year old female who presented on 11/12/2018 for planned washout of stage IV sacral wound and primary closure of sacral wound by Dr. Mcclelland. She underwent said procedure on 11/13/2018. Her hospital course has been uncomplicated. We will begin discharge planning to home with a follow-up with Dr. Mcclelland as previously scheduled on Sunday. She already has home healthcare in place for wound care and states she has no further discharge needs. - Time Spent with Patient Total time spent providing and/or coordinating discharge services: - Discharge Medications Prescriptions: New Adhesive Tape [Paper Tape] 1 each TP AD #1 tape Gauze Bandage [Gauze Pad] 3 each TP AD #100 bandage Continue RX: Albuterol Sulfate [Ventolin Hfa] 2 puff IN Q6H PRN PRN Reason: Shortness Of Breath RX: Morphine Sulfate [Morphine Oral Solution] 20 mg PO Q6H PRN PRN Reason: Pain RX: Melatonin 20 mg PO HS RX: ALPRAZolam [Xanax 1 MG Tablet] 1 mg PO BID RX: Gabapentin [Neurontin] 600 mg PO TID RX: Loperamide HCl [Anti-Diarrheal] 2 mg PO QID RX: Promethazine HCl 25 mg PO Q6H PRN PRN Reason: Nausea RX: Escitalopram [Lexapro] 10 mg PO DAILY Home Medications: RX: ALPRAZolam [Xanax 1 MG Tablet] 1 mg PO BID 05/05/18 [History] RX: Escitalopram [Lexapro] 10 mg PO DAILY 05/05/18 [History] RX: Gabapentin [Neurontin] 600 mg PO TID 05/05/18 [History] RX: Loperamide HCl [Anti-Diarrheal] 2 mg PO QID 05/05/18 [History] RX: Promethazine HCl 25 mg PO Q6H PRN 05/05/18 [History] RX: Albuterol Sulfate [Ventolin Hfa] 2 puff IN Q6H PRN 09/26/18 [History] RX: Melatonin 20 mg PO HS 10/22/18 [History] RX: Morphine Sulfate [Morphine Oral Solution] 20 mg PO Q6H PRN 10/22/18 [History] Adhesive Tape [Paper Tape] 1 each TP AD #1 tape 11/14/18 [Rx] Gauze Bandage [Gauze Pad] 3 each TP AD #100 bandage 11/14/18 [Rx] Allergies/Adverse Reactions: Allergy/AdvReac Type Severity Reaction Status Date / Time shellfish derived Allergy See Verified 10/29/18 16:23 Comments Date of admission: 11/13/18 20:42 Primary care physician: Jaiden Beach DO Discharging clinician: Alphonso Oreilly) Anticipated date of discharge: 11/14/18 Labs on day of discharge: Labs from last 24 hours 11/13/18 11/12/18 05:48 16:30 POC Glucose 85 102 H - Impressions ITS Impressions Sacrum/Coccyx MRI 11/12/18 13:24 IMPRESSION: 1. Large deep sacral decubitus soft tissue ulcer with adjacent cellulitis. No drainable fluid collection. 2. Very mild bone marrow edema in the S5 sacral and C1 coccygeal segments with normal T1 signal. This is compatible with noninfectious reactive edema versus less likely early osteomyelitis. D/ / Sai Balderas MD / Sai Balderas MD Interpreting Provider: Sai Balderas MD - Patient Status Disposition: Home Health Service Condition: Good Functional capacity at discharge: independent ambulation Overall status at discharge: patient is progressing back to baseline - Discharge Instructions Follow Up With: Jaiden Beach DO [Primary Care Provider] - Alphonso Mcclelland MD [Non-Partnered Physician] - (In wound care on Sunday11/19/2018) Additional Instructions: do not lay on your back. Refrain from long periods of sitting. Keep the area clean and dry. Daily dry dressing changes. - Diet and Activity Activity: increase activity as tolerated Diet: advance to your usual diet <Alphonso Mcclelland - Last Filed: 11/14/18 08:37> Orders not resulted at time of discharge: Pending orders 11/12/18 12:25 ECG 12 lead ECG [ECG] Routine Date of Encounter: 11/14/18 - Discharge Diagnosis (1) Stage IV pressure ulcer of sacral region Status: Acute General Surgery Exam Initial Vital Signs Temp Pulse Resp BP Pulse Ox 98.1 F 95 16 102/71 91 11/12/18 12:35 11/12/18 12:35 11/12/18 12:35 11/12/18 12:35 11/12/18 12:35 - Hospital Course Hospital course: Ms. Rosado is a 53 year old female - Time Spent with Patient Total time spent providing and/or coordinating discharge services: Date of admission: 11/13/18 20:42 Primary care physician: Jaiden Beach DO Labs on day of discharge: Labs from last 24 hours 11/13/18 11/12/18 05:48 16:30 POC Glucose 85 102 H - Impressions ITS Impressions Sacrum/Coccyx MRI 11/12/18 13:24 IMPRESSION: 1. Large deep sacral decubitus soft tissue ulcer with adjacent cellulitis. No drainable fluid collection. 2. Very mild bone marrow edema in the S5 sacral and C1 coccygeal segments with normal T1 signal. This is compatible with noninfectious reactive edema versus less likely early osteomyelitis. D/ / Sai Balderas MD / Sai Balderas MD Interpreting Provider: Sai Balderas MD - Attending Attestation i have personally seen and examined the patient. I have reviewed pertinent labs, imaging, progress notes, including this one. I have discussed the plan in thorough detail with the resident and nurse practitioner. I agree with the above assessment and plan and wish to add the following...
--- NOTE | 2018-11-14 09:42 | Physician Discharge Referral ---
Home Health/Hosp Referral Info Transfer to: Home Health Attending Provider: Dr. Killian Mcclelland Provider in Charge Post Discharge: PCP - Diagnosis (1) Severe protein-calorie malnutrition Priority: Primary Status: Suspected (2) Stage IV pressure ulcer of sacral region Priority: Primary Status: Acute - Respiratory Orders Smoking Cessation: Smoking cessation has been advised. For more information, call the [place] Tobacco Quit Line at 9-078-PMER-NOW. - Dressing/Wound Care Site: do not lay on your back. Refrain from long periods of sitting. Keep the area clean and dry. Daily dry dressing changes. - Diet/Nutrition Diet/Nutrition Orders: Regular - Activity Activity Orders: Up ad chris - Services Needed Following services are medically necessary services: Nursing, Home Health Aide, Physical Therapy, Occupational Therapy - Transfer Medications Prescriptions: Adhesive Tape [Paper Tape] 1 each TP AD #1 tape Gauze Bandage [Gauze Pad] 3 each TP AD #100 bandage Home Medications: ALPRAZolam [Xanax 1 MG Tablet] 1 mg PO BID 05/05/18 [History] Escitalopram [Lexapro] 10 mg PO DAILY 05/05/18 [History] Gabapentin [Neurontin] 600 mg PO TID 05/05/18 [History] Loperamide HCl [Anti-Diarrheal] 2 mg PO QID 05/05/18 [History] Promethazine HCl 25 mg PO Q6H PRN 05/05/18 [History] Albuterol Sulfate [Ventolin Hfa] 2 puff IN Q6H PRN 09/26/18 [History] Melatonin 20 mg PO HS 10/22/18 [History] Morphine Sulfate [Morphine Oral Solution] 20 mg PO Q6H PRN 10/22/18 [History] Adhesive Tape [Paper Tape] 1 each TP AD #1 tape 11/14/18 [Rx] Gauze Bandage [Gauze Pad] 3 each TP AD #100 bandage 11/14/18 [Rx] Allergies/Adverse Reactions: Allergy/AdvReac Type Severity Reaction Status Date / Time shellfish derived Allergy See Verified 10/29/18 16:23 Comments Certification: Further, I certify that my clinical findings support that this patient is homebound (i.e. absences from home require considerable and taxing effort and are for medical reasons or protestant services or infrequently or short duration when for other reasons) because: Homebound Reason: Leaving home requires considerable and taxing effort due to condition, Severity of cardiac or pulmonary status limits activity tolerance Attestation: My signature below is to certify that this patient is under my care and that I, or nurse practitioner, or a physician's executive personal assistant working with me, has a [id number] encounter with this patient.
[2018-11-14] MEDS: ALPRAZolam 1 MG TABLET PO SCH (10:02)
[2018-11-14] MEDS: Gabapentin 300 MG CAPSULE PO SCH (10:02)
--- NOTE | 2018-11-15 21:59 | Electrocardiograph Report ---
[address] [address] Test Date: 2018-11-12 Pat Name: Shona Rosado Department: 115 Room: 3A56 Gender: F Statement Processor: [id number] : 1965 Requested By: Alphonso Mcclelland Order Number: [id number] Reading MD: Eliel Lal Measurements Intervals [place] Rate: 94 P: -9 MN: 123 QRS: 34 QRSD: 81 T: 44 QT: 337 QTc: 389 Interpretive Statements SINUS RHYTHM Electronically Signed On 11-15-2018 21:57:43 EDT by Eliel Lal
== END 2018-11-14 10:27 | disposition home health service (06) | DRG 579 ==
LOC: 3ANU
PROVIDERS: ADMIT Surgery; ATTEND Surgery